=== PATIENT | female | born 1950 | race Caucasian/White ===

== ENCOUNTER → 2016-09-26 | Outpatient (CLI) | payer OTHER, MEDICARE ==
--- NOTE | 2016-09-26 12:25 | MAMMOGRAPHY REPORT ---
BILATERAL DIGITAL SCREENING MAMMOGRAM WITH CAD: 09/26/2016 CLINICAL HISTORY: Routine screening. Patient has no complaints. TECHNIQUE: Current study was also evaluated with a Computer Aided Detection (CAD) system. Bilateral CC and MLO views were obtained. COMPARISON: Comparison is made to exams dated: 09/25/2015 mammogram, 09/20/2014 mammogram, 09/19/2013 miesha mogram, 09/16/2012 mammogram, 09/16/2011 mammogram, and 09/09/2010 mammogram - [facility]. BREAST COMPOSITION: There are scattered areas of fibroglandular density in both breasts. FINDINGS: No suspicious masses, calcifications, or areas of architectural distortion are noted in ei ther breast. There has been no significant interval change compared to prior exams. IMPRESSION: ACR BI-RADS CATEGORY 1: NEGATIVE There is no mammographic evidence of malignancy. A 1 year screening mammogram is recommended. The pa tient will receive written notification of the results. Approximately 10% of breast cancers are not detected with mammography. A negative mammographic report should not delay biopsy if a clinically suggestive mass is present. Georgina Núñez M.D. /:09/26/2016 12:13:27 Stock Digger: Marisol VILLEDA)(Dorene), [facility] letter sent: Normal 1/2 BI-RADS Code: ACR BI-RADS Category 1: Negative
== END | disposition home or self-care (01) ==
LOC: C.MAMM 10:09
PROVIDERS: ATTEND Family Medicine
DX: Z12.31 Encounter for screening mammogram for malignant neoplasm of breast (principal)

== ENCOUNTER → 2017-05-07 | Day surgery (SDC) | payer OTHER, MEDICARE ==
[2017-04-15 08:21] VITALS: Ht 167.6 cm; Wt 70.5 kg
[~2017-05-07] VITALS: Ht 167.6 cm; Wt 70.5 kg
[~2017-05-07] MED LIST: AMIT10TA6 PO; ASPCH81X PO; BENZ100C84 PO; BUPIVACAINE 0.25% 2.5MG/ML PF 10 ML VIAL ONE; HYDR200T5 PO; IOPAMIDOL INJ 61% 15 ML VIAL ONE; LIDOCAINE HCL 1% MPF 5 ML VIAL ONE; MULT-506 PO; PRVC/40 PO
--- NOTE | 2017-05-07 12:51 | History & Physical Bridge - SC ---
H&P Re-Evaluation Bridge Note: I have examined the patient, reviewed the History & Physical and in the interval since the performance of the History & Physical I have noted the following changes of clinical significance: No changes noted
--- NOTE | 2017-05-07 13:12 | [facility] Post Operative Brief Note ---
Immediate Operative Summary Operative Date May 07, 2017. Pre-Operative Diagnosis SACROILIITIS Post-Operative Diagnosis SAME Procedure(s) Performed Left Sacroiliac Joint Injection Surgeon Dr Michael Lou Dental Mold Maker Surgeon(s) None Estimated Blood Loss 0 Findings Consistent with Post-Op Diagnosis Specimens NA Drains None Anesthesia Type Local Complication(s) none Disposition Disposition:
[2017-05-07 13:13] VITALS: TEMP 36.6
--- NOTE | 2017-05-07 13:13 | Discharge Instructions ---
Discharge Instructions Date of Service May 07, 2017. Visit Reason for Visit: Sacroiliitis Discharge Discharge Diagnosis / Problem: Low back pain Discharge Goals Goal(s): Decrease discomfort, Improve function Activity Recommendations Activity Limitations: resume your previous activity Anesthesia . Post Anesthesia Instructions: If you have had General Anesthesia or IV Sedation: * Do not drive today. * Resume driving when surgeon permits. * Do not make important decisions or sign legal documents today. * Call surgeon for: 1. Temperature elevations greater than 101 degrees F. 2. Uncontrollable pain. 3. Excessive bleeding. 4. Persistent nausea and vomiting. 5. Medication intolerance (nausea, vomiting or rash). * For nausea and vomiting use only clear liquids such as: tea, soda, bouillon until nausea subsides, then gradually increase diet as tolerated. * If you have any concerns or questions, call your surgeon's office. If physician is unavailable and it is an emergency, call 911 or go to the nearest emergency room. . Diet Recommendations Recommended Home Diet: resume previous diet Procedures Procedures Performed: Left Sacroiliac Joint Injection Pending Studies Studies pending at discharge: no Medical Emergencies . Who to Call and When: Medical Emergencies: If at any time you feel your situation is an emergency, please call 911 immediately. . Non-Emergent Contact Non-Emergency issues call your: Specialist . . "Provider Documentation" section prepared by Michael Lou. .
--- NOTE | 2017-05-07 13:29 | OPERATIVE REPORT ---
DATE OF OPERATION: 05/07/2017 PREOPERATIVE DIAGNOSES: Left sacroiliitis, underlying scoliosis and rheumatoid arthritis. POSTOPERATIVE DIAGNOSES: Same. PROCEDURE: Left sacroiliac joint injection under fluoroscopic guidance. INDICATIONS: The patient is a 66-year-old white female, who presents today for a left SI joint injection. Her history is consistent with an SI etiology of her pain and she presents today for an injection to provide her with relief. PHYSICAL EXAMINATION: Pleasant female seated comfortably. She has point tenderness to palpation of her left SI joint, positive Sejal maneuver, and positive sacral compression maneuver. CONSENT: Verbal and written consent was obtained from the patient. Risks and benefits were reviewed. Risks include, but are not limited to abscess and allergic reaction. The patient wishes to proceed. DESCRIPTION OF PROCEDURE: The patient was taken back into the special procedures room of [facility]. She was maintained in a prone position. Backside was cleansed with Betadine x3 and a dry sterile dressing was applied. Fluoroscope was used to identify the left SI joint and the overlying skin was anesthetized with 3 mL of lidocaine 1% with a 25-gauge 1-1/2 inch needle. A 25-gauge 3-1/2 inch spinal needle was then injected into the joint under fluoroscopic guidance. Isovue-300 contrast 0.25 mL was injected in which demonstrated intraarticular uptake. She then underwent injection after negative aspiration of 40 mg of Depo-Medrol and 1.5 mL of bupivacaine 0.25%. Injection was well tolerated. DISPOSITION: 1. The patient was taken out into the discharge recovery area, where she will be discharged home once discharge criteria have been met. 2. Follow up in the [facility] office in 4 weeks' time. I attest to the content of the Intraoperative Record and any orders documented therein. Any exception s are noted below.
[2017-05-07 13:37] VITALS: BP 130/75; PULSE 75; O2SAT 99
== END | disposition home or self-care (01) ==
LOC: X.SURG 12:15
PROVIDERS: ATTEND Physical Medicine & Rehabilitation
DX: M46.1 Sacroiliitis, not elsewhere classified (principal); M41.9 Scoliosis, unspecified; E78.5 Hyperlipidemia, unspecified; M06.9 Rheumatoid arthritis, unspecified; Z79.82 Long term (current) use of aspirin; Z83.3 Family history of diabetes mellitus

== ENCOUNTER → 2017-07-28 | Outpatient (CLI) | payer OTHER, MEDICARE ==
[~2017-07-28] MED LIST changes: -BUPIVACAINE 0.25% 2.5MG/ML PF 10 ML VIAL ONE; -IOPAMIDOL INJ 61% 15 ML VIAL ONE; -LIDOCAINE HCL 1% MPF 5 ML VIAL ONE
--- NOTE | 2017-07-28 15:31 | DIAGNOSTIC IMAGING REPORT ---
L HIP UNILATERAL 2 VIEWS CLINICAL HISTORY: D64.9, M54.9 pain COMPARISON: None. DISCUSSION: Mild degenerative narrowing left hip joint space. No evidence for acetabular protrusion. Mild degenerative change with a vacuum joint inferior left sacral iliac joint. There is no evidence for soft tissue swelling. IMPRESSION: Mild degenerative change left hip as well as left sacroiliac joint. No acute process. The above report was generated using voice recognition software. It may contain grammatical, syntax or spelling errors. Electronically signed by: Hector Hamilton M.D. 07/28/2017 3:29 PM Dictated Date/Time: 07/28/2017 3:29 PM
--- NOTE | 2017-07-28 15:32 | DIAGNOSTIC IMAGING REPORT ---
R HIP UNILATERAL 2 VIEWS CLINICAL HISTORY: D64.9, M54.9 pain COMPARISON: None DISCUSSION: Moderate to rather significant degenerative narrowing right hip joint space. Sclerosis of the superior acetabular margin with several degenerative subchondral cysts. No evidence for acetabular protrusion. No evidence for fracture or dislocation. There is no evidence for soft tissue swelling. IMPRESSION: Moderate to rather significant degenerative change right hip. No acute process. The above report was generated using voice recognition software. It may contain grammatical, syntax or spelling errors. Electronically signed by: Hector Hamilton M.D. 07/28/2017 3:31 PM Dictated Date/Time: 07/28/2017 3:30 PM
--- NOTE | 2017-07-28 15:36 | DIAGNOSTIC IMAGING REPORT ---
L-SPINE MIN 4 VIEWS ROUTINE HISTORY: Pain D64.9, M54.9 COMPARISON: None. FINDINGS: There is no fracture. Significant scoliosis of the low thoracic and lumbar spine. Grade 2 anterolisthesis L5 on S1 most likely secondary to a posterior spondylolysis. Partial lumbarization of S1. Degenerative disc change throughout. No evidence for compression deformity. IMPRESSION: Considerable degenerative disc change throughout the entire lumbar region. Grade 2 anterolisthesis L5 on S1 secondary to a posterior spondylolysis. Scoliosis. Lumbarization of the first sacral segment. The above report was generated using voice recognition software. It may contain grammatical, syntax or spelling errors. Electronically signed by: Hector Hamilton M.D. 07/28/2017 3:34 PM Dictated Date/Time: 07/28/2017 3:32 PM
== END | disposition home or self-care (01) ==
LOC: C.RAD 14:50
PROVIDERS: ATTEND Family Medicine
DX: D64.9 Anemia, unspecified (principal); M54.9 Dorsalgia, unspecified; M16.11 Unilateral primary osteoarthritis, right hip; M51.36 Other intervertebral disc degeneration, lumbar region; M43.16 Spondylolisthesis, lumbar region; M41.9 Scoliosis, unspecified; Q76.49 Other congenital malformations of spine, not associated with scoliosis

== ENCOUNTER → 2017-07-31 | Outpatient (CLI) | payer OTHER, MEDICARE ==
--- NOTE | 2017-07-31 09:36 | DIAGNOSTIC IMAGING REPORT ---
ABDOMEN LIMITED (US) CLINICAL HISTORY: 66 years-old Female presenting with ABDOMINAL PAIN. TECHNIQUE: Real-time grayscale and limited color Doppler ultrasound imaging of the abdomen limited to the right upper quadrant was performed. COMPARISON: None. FINDINGS: Pancreas: Visualized portions of the pancreatic head and body normal. Liver: Hyperechogenic parenchyma with heterogeneous echotexture, likely indicating fibrosis or steatosis. No sonographic evidence of hepatic mass. Main portal vein patent with normal directional flow. Biliary: No intrahepatic biliary ductal dilatation. Common bile duct measures up to 4 mm in diameter. Gallbladder: No evidence of gallstones, gallbladder wall thickening, gallbladder distention, or pericholecystic fluid or inflammatory change. Right kidney: Normal in appearance without evidence of hydronephrosis. Ascites: None. Other: Fat-containing hernia within the right inguinal canal. This was partially reducible with sonographic probe compression. No associated fluid. IMPRESSION: 1. No cholelithiasis or biliary ductal dilatation. 2. Heterogeneous liver parenchyma could indicate underlying steatosis or fibrosis. 3. Fat-containing right inguinal hernia, partially reducible. Electronically signed by: Matthew Valentin M.D. 07/31/2017 9:35 AM Dictated Date/Time: 07/31/2017 9:33 AM
== END | disposition home or self-care (01) ==
PROVIDERS: ATTEND Family Medicine
DX: R10.9 Unspecified abdominal pain (principal); D64.9 Anemia, unspecified; M54.9 Dorsalgia, unspecified; K44.9 Diaphragmatic hernia without obstruction or gangrene

== ENCOUNTER 2017-10-15 12:30 | Emergency (ER) | payer OTHER, MEDICARE ==
[2017-10-15] VITALS (9 sets, daily range): BP systolic 113–145; BP diastolic 59–76; PULSE 3–111; TEMP 37; O2SAT 75–99; Ht 165.1 cm; Wt 70.4 kg
[~2017-10-15] VITALS: Ht 165.1 cm; Wt 70.4 kg
[~2017-10-15 12:30] MED LIST changes: +ACET-1138 PO; -ASPCH81X PO; +ASPEC325 PO; +DICL1GEL12 TOP; +FERR1TAB13 PO; -HYDR200T5 PO; +PANT40TA PO; +RXC5 PO; +SENN-61 PO
[2017-10-15] MEDS ORDERED: FENTANYL CITRATE INJ 50 MCG/1 ML 2 ML VIAL ONE (12:40)
[2017-10-15] MEDS ORDERED: ONDANSETRON INJ 2 MG/ML 2 ML VIAL ONE (12:40)
[2017-10-15 12:59] LABS: BASO % 0.3 %; BASO ABS # 0.04 K/uL (0-0.2); EOS % 0.1 %; EOS ABS # 0.02 K/uL (0-0.5); HEMATOCRIT 41.2 % (37-47); HEMOGLOBIN 13.7 g/dL (12.0-16.0); IG# 0.03 K/uL (0.00-0.02); LYMPH % 9.1 %; LYMPH ABS # 1.25 K/uL (1.2-3.4); MEAN CELL VOLUME 91.2 fL (80-100); MEAN CORPUSCULAR HEMOGLOBIN 30.3 pg (25-34); MEAN CORPUSCULAR HGB CONC 33.3 g/dl (32-36); MEAN PLATELET VOLUME 9.1 fL (7.4-10.4); MONO % 2.5 %; MONO ABS # 0.35 K/uL (0.11-0.59); NEUT % 87.8 %; NEUT ABS # 12.09 K/uL (1.4-6.5); PLATELET COUNT 312 K/uL (130-400); RED CELL DISTRIBUTION WIDTH CV 17.2 % (11.5-14.5); RED CELL DISTRIBUTION WIDTH SD 57.7 fL (36.4-46.3); WHITE BLOOD COUNT 13.78 K/uL (4.8-10.8)
[2017-10-15] MEDS ORDERED: PROPOFOL IV EMULSION 10 MG/ML 20 ML VIAL ONE (13:09)
[2017-10-15 13:14] LABS: CALCIUM 9.9 mg/dl (8.5-10.1); CREATININE 1.06 mg/dl (0.60-1.20); POTASSIUM 3.5 mmol/L (3.5-5.1)
--- NOTE | 2017-10-15 13:16 | DIAGNOSTIC IMAGING REPORT ---
PELVIS 1 OR 2 VIEW ROUTINE, R HIP UNILATERAL 2 VIEWS CLINICAL HISTORY: eval for right hip dislocation. Right hip pain. COMPARISON STUDY: Pelvis and right hip 09/17/2017. FINDINGS: There is superior dislocation of the right femoral prosthesis in relation to the acetabular cup. No fractures identified within the pelvis or hips. IMPRESSION: Dislocation of the right femoral prosthesis. No fractures. Electronically signed by: Chi Alcantara M.D. 10/15/2017 1:14 PM Dictated Date/Time: 10/15/2017 1:13 PM
[2017-10-15] MEDS ORDERED: PROPOFOL IV EMULSION 10 MG/ML 20 ML VIAL IV STA ×2 (13:22→13:34)
[2017-10-15] MEDS ORDERED: KETAMINE HCL INJ 50 MG/ML 10 ML VIAL ONE (13:29)
[2017-10-15] MEDS ORDERED: KETAMINE HCL INJ 50 MG/ML 10 ML VIAL IV STA (13:34)
--- NOTE | 2017-10-15 13:59 | EMERGENCY ROOM VISIT NOTE ---
Pre-Mod Sedation Assessment General Date of Moderate Sedation: Oct 15, 2017. Vital Signs: Vital Signs Past 12 Hours Date Time Temp Pulse Resp B/P (MAP) Pulse Ox O2 Delivery O2 Flow Rate FiO2 10/15/17 13:50 93 8 122/65 98 Nasal Cannula 4.0 10/15/17 13:43 97 14 145/76 94 Nasal Cannula 8.0 10/15/17 13:40 96 8 113/60 92 Nasal Cannula 8.0 10/15/17 13:35 66 8 127/70 85 Nasal Cannula 8.0 10/15/17 13:30 110 20 127/70 99 Nasal Cannula 8.0 10/15/17 13:13 102 10/15/17 12:52 99 24 116/68 97 Room Air Pre-Sedation Airway Assessment Oral Cavity: WNL Able to Visualize Vocal Cords: No Short Thick Neck: No Smoking Status: Former Smoker Mallampati Classification: Class II Procedure Planning Contraindications-for Mod Sed: None No Notes The planned sedation has been discussed with the patient and consent obtained. I have identified the patient, determined the appropriateness of sedation and have assessed the patient immediately prior to the procedure. All medicine(s) and interventions are by my order.
--- NOTE | 2017-10-15 14:01 | EMERGENCY ROOM VISIT NOTE ---
Post-Moderate Sedation Plan General Date of Moderate Sedation Oct 15, 2017. Vital Signs: Vital Signs Past 12 Hours Date Time Temp Pulse Resp B/P (MAP) Pulse Ox O2 Delivery O2 Flow Rate FiO2 10/15/17 13:50 93 8 122/65 98 Nasal Cannula 4.0 10/15/17 13:43 97 14 145/76 94 Nasal Cannula 8.0 10/15/17 13:40 96 8 113/60 92 Nasal Cannula 8.0 10/15/17 13:35 66 8 127/70 85 Nasal Cannula 8.0 10/15/17 13:30 110 20 127/70 99 Nasal Cannula 8.0 10/15/17 13:13 102 10/15/17 12:52 99 24 116/68 97 Room Air Review - Discharge Plan Post Moderate Sedation Plan: On clinical assessment, the patient appears to have tolerated the conscious sedation without complications. Patient is recovering as anticipated. Patient will continue to be monitored by nursing and may be discharged when conscious sedation discharge criteria are met.
[2017-10-15] MEDS ORDERED: SENN-61 PO (14:22)
[2017-10-15] MEDS ORDERED: ASPI325T39 PO (14:22)
[2017-10-15] MEDS ORDERED: OXYC-90 PO ×2 (14:22→14:39)
--- NOTE | 2017-10-15 14:33 | DIAGNOSTIC IMAGING REPORT ---
R HIP UNILATERAL 2 VIEWS CLINICAL HISTORY: Right hip reduction. Fall. COMPARISON: Right hip radiographs October 15, 2017 12:47 PM. FINDINGS: Alignment of the right hip arthroplasty is anatomic post reduction. No fracture is identified. IMPRESSION: Anatomic alignment of the right hip arthroplasty post reduction. No fracture. Electronically signed by: Anthony Oshea M.D. 10/15/2017 2:32 PM Dictated Date/Time: 10/15/2017 1:57 PM
--- NOTE | 2017-10-15 15:22 | CONSULTATION REPORT ---
DATE OF CONSULTATION: 10/15/2017 CHIEF COMPLAINT: Right hip pain. HISTORY OF PRESENT ILLNESS: The patient is a 66-year-old female who presented to the [facility] ED with complaints of right hip pain and disability. Per the patient, she is 4 weeks status post right total hip arthroplasty by Dr. Madrigal. She states she was doing some exercises earlier today, bent over to the floor, felt her hip pop out, and had immediate pain and disability. She was brought to [facility] ED for evaluation. X-rays revealed a dislocated right hip. An orthopedics consult was asked for. PHYSICAL EXAMINATION: The patient is in a fair amount of discomfort with her right hip. Her right lower extremity is shortened and internally rotated. ASSESSMENT AND PLAN: After discussion with the patient, Dr. Browne administered conscious sedation. When the patient was adequately sedated, gentle traction was pulled on the flexed right knee and lower extremity. The hip was felt to reduce. Her leg lengths were now equal and the hip moved freely. Post-reduction x-rays were reviewed and showed the hip to be properly located. Prior to sedation, the patient was instructed in proper hip precautions moving forward here. This was also reiterated to the family after the hip was reduced. She has a scheduled appointment to see Dr. Madrigal in 2 weeks. She will keep that appointment and call the office, otherwise should she have recurrent pain or problems.
--- NOTE | 2017-10-15 18:03 | EMERGENCY ROOM VISIT NOTE ---
History Report prepared by Shona: Sahil Her Under the Supervision of: Dr. Negro Browne M.D. 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 The patient states she recently had a right hip replacement. She reports she was doing PT and had her hip bent outward and tried to squat down. The patient notes she felt a pop in her hip and slowly lowered herself to the ground. She denies falling and hitting her head. The patient states she last ate or drank this morning at 8am. She reports she had a few cups of coffee. The patient notes she did not receive anything for pain in the ambulance. She denies abdominal pain, fevers, and discharge from her incision site. She states she has been recovering well and using her cane to walk. The patient reports she cannot move without her discomfort intensifying. Source of History: patient Onset: NOC ENGINEER Position: other (right hip) Symptom Intensity: severe Timing: constant Modifying Factors (Worsening): movement Associated Symptoms: No fevers, No abdominal pain Note: Denies: falling, hitting her head, discharge from her incision site Review of Systems See HPI for pertinent positives & negatives. A total of 10 systems reviewed and were otherwise negative. Past Medical & Surgical Surgical Problems: (1) S/P total hip arthroplasty Family History Patient reports no known family medical history. Social History Smoking Status: Former Smoker Current/Historical Medications Scheduled Acetaminophen (Tylenol Extra Strength), 2 TABS PO Q8H Aspirin (Aspirin Ec), 325 MG PO BID Ferrous Sulfate (Kp Ferrous Sulfate), 325 MG PO BID Multivitamin (Multivitamin), 2 TAB PO QAM Pantoprazole (Protonix), 40 MG PO QAM Pravastatin Sod (Pravastatin Sodium), 40 MG PO HS Senna (Senokot), 2 TABS PO HS Scheduled PRN Amitriptyline Hcl (Elavil), 10 MG PO HS PRN for PRN Benzonatate (Tessalon Perles), 1-2 CAP PO Q4 PRN for Cough Diclofenac Sodium (Topical) (Voltaren 1% Top Gel), 1 APPLN TOP DAILY PRN for Pain Oxycodone Ir (Roxicodone Ir), 1-2 TAB PO Q4H PRN for Severe Pain Oxycodone Ir (Roxicodone Ir), 5 MG PO Q4H PRN for Pain Allergies Coded Allergies: NO KNOWN DRUG ALLERGIES (Verified Allergy, Unknown, NONE, 10/15/17) Physical Exam Vital Signs Date Time Temp Pulse Resp B/P (MAP) Pulse Ox O2 Delivery O2 Flow Rate FiO2 10/15/17 15:13 3 18 136/59 97 10/15/17 14:30 37.0 86 14 122/71 97 Room Air 10/15/17 14:17 89 10/15/17 14:00 37.0 88 12 144/75 98 Nasal Cannula 4.0 10/15/17 13:50 93 8 122/65 98 Nasal Cannula 4.0 10/15/17 13:43 97 14 145/76 94 Nasal Cannula 8.0 10/15/17 13:40 96 8 113/60 92 Nasal Cannula 8.0 10/15/17 13:35 66 8 127/70 85 Nasal Cannula 8.0 10/15/17 13:30 111 20 127/70 96 Nasal Cannula 8.0 10/15/17 13:25 60 0 75 Nasal Cannula 8.0 10/15/17 13:13 102 10/15/17 12:52 36.8 99 24 116/68 97 Room Air Physical Exam Constitutional: Vital signs reviewed. Eyes: Pupils are equal round reactive to light. Conjunctiva are noninjected. ENT: Pharynx is clear without erythema or exudate. Mucous membranes are moist. Neck supple without meningeal signs. Respiratory: Clear to auscultation bilaterally. Breath sounds are equal bilaterally. Cardiovascular: Regular rate and rhythm. No rubs or gallops. GI: Soft, nondistended and nontender. Bowel sounds are present. Musculoskeletal: Right hip is internally rotated and shortened. She has normal distal pulses, and she is able to wiggle and feel her toes. Integumentary: No cyanosis. Right hip incision is intact without signs of dehiscence, erythema or drainage. Neurological: The patient is awake and alert. No focal deficits. Psychiatric: Normal affect. Medical Decision & Procedures ER Provider Diagnostic Interpretation: X-ray results as stated below per interpretation by me and the radiologist: PELVIS 1 OR 2 VIEW ROUTINE, R HIP UNILATERAL 2 VIEWS CLINICAL HISTORY: eval for right hip dislocation. Right hip pain. COMPARISON STUDY: Pelvis and right hip 09/17/2017. FINDINGS: There is superior dislocation of the right femoral prosthesis in relation to the acetabular cup. No fractures identified within the pelvis or hips. IMPRESSION: Dislocation of the right femoral prosthesis. No fractures. Electronically signed by: Chi Alcantara M.D. 10/15/2017 1:14 PM Dictated Date/Time: 10/15/2017 1:13 PM R HIP UNILATERAL 2 VIEWS CLINICAL HISTORY: Right hip reduction. Fall. COMPARISON: Right hip radiographs October 15, 2017 12:47 PM. FINDINGS: Alignment of the right hip arthroplasty is anatomic post reduction. No fracture is identified. IMPRESSION: Anatomic alignment of the right hip arthroplasty post reduction. No fracture. Electronically signed by: Anthony Oshea M.D. 10/15/2017 2:32 PM Dictated Date/Time: 10/15/2017 1:57 PM Laboratory Results 10/15/17 12:40 Red Blood Count 4.52, Mean Corpuscular Volume 91.2, Mean Corpuscular Hemoglobin 30.3, Mean Corpuscular Hemoglobin Concent 33.3, Mean Platelet Volume 9.1, Neutrophils (%) (Auto) 87.8, Lymphocytes (%) (Auto) 9.1, Monocytes (%) (Auto) 2.5, Eosinophils (%) (Auto) 0.1, Basophils (%) (Auto) 0.3, Neutrophils # (Auto) 12.09, Lymphocytes # (Auto) 1.25, Monocytes # (Auto) 0.35, Eosinophils # (Auto) 0.02, Basophils # (Auto) 0.04 10/15/17 12:40 Test 10/15/17 12:40 White Blood Count 13.78 K/uL (4.8-10.8) Red Blood Count 4.52 M/uL (4.2-5.4) Hemoglobin 13.7 g/dL (12.0-16.0) Hematocrit 41.2 % (37-47) Mean Corpuscular Volume 91.2 fL (80-100) Mean Corpuscular Hemoglobin 30.3 pg (25-34) Mean Corpuscular Hemoglobin Concent 33.3 g/dl (32-36) Platelet Count 312 K/uL (130-400) Mean Platelet Volume 9.1 fL (7.4-10.4) Neutrophils (%) (Auto) 87.8 % Lymphocytes (%) (Auto) 9.1 % Monocytes (%) (Auto) 2.5 % Eosinophils (%) (Auto) 0.1 % Basophils (%) (Auto) 0.3 % Neutrophils # (Auto) 12.09 K/uL (1.4-6.5) Lymphocytes # (Auto) 1.25 K/uL (1.2-3.4) Monocytes # (Auto) 0.35 K/uL (0.11-0.59) Eosinophils # (Auto) 0.02 K/uL (0-0.5) Basophils # (Auto) 0.04 K/uL (0-0.2) RDW Standard Deviation 57.7 fL (36.4-46.3) RDW Coefficient of Variation 17.2 % (11.5-14.5) Immature Granulocyte % (Auto) 0.2 % Immature Granulocyte # (Auto) 0.03 K/uL (0.00-0.02) Anion Gap 11.0 mmol/L (3-11) Est Creatinine Clear Calc Drug Dose 50.0 ml/min Estimated GFR () 62.5 Estimated GFR (Non- 53.9 BUN/Creatinine Ratio 15.9 (10-20) Calcium Level 9.9 mg/dl (8.5-10.1) Laboratory results as reviewed by me. Medications Administered Medications (Trade) Dose Ordered Sig/Nita Route Start Time Stop Time Status Last Admin Dose Admin Ondansetron HCl (Zofran Inj) 4 mg STK-MED ONCE .ROUTE 10/15/17 12:40 10/15/17 12:41 DC 10/15/17 12:44 4 MG Fentanyl Citrate (Fentanyl Inj) 100 mcg STK-MED ONCE .ROUTE 10/15/17 12:40 10/15/17 12:41 DC 10/15/17 12:45 100 MCG Procedure Procedural Sedation Indication hip dislocation. Total time: 22 minutes. Written consent was obtained after the risks and benefits were explained to the patient, including, but not limited to aspiration, allergic reaction, breathing difficulties, cardiac complications, vomiting, pain, event recall, bleeding, and /or infection. Pre-sedation examination and paperwork completed. The patient was on 100% oxygen via NRB prior to the procedure. Continuos end tidal CO2 monitoring, pulse oximetry, and cardiac monitoring were utilized. Suction, airway equipment, medications, respiratory equipment, and appropriate personnel were prepared prior to the initiation of the procedure. A time out was taken. Sedation was achieved utilizing 75 mg of propofol. The patient became apneic and de-sated to the 70s. She immediately woke up with a sternal chest rub, took deep breathes, and her O2Sat returned to baseline. Orthopedics attempted reduction but was unsuccessful. A short time passed when the sedation was tried a second time. This time 35 mg of propofol and 35 mg of Ketamine was used. After I observed the patient had reached the appropriate level of sedation the main procedure was performed without complication. The patient showed frequent PVCs. Sedation was discontinued and the monitoring continued. The patient recovered quickly from the effects of the medication without complication or adverse event. ED Course 1237: The patient was evaluated in room B10. A complete history and physical exam was performed. 1240: Ordered Fentanyl 100mcg .ROUTE, Zofran 4mg .ROUTE 1254: I reevaluated the patient. I discussed her x-ray results. They show dislocation of the right prosthetic hip. 1303: I discussed the patient's case with Pablito Lopez PA-C, [facility]. He will come down to evaluate the patient and reduce the hip. 1305: I reevaluated the patient and performed a conscious sedation. 1309: Ordered Propofol 200mg .ROUTE 1322: Ordered Propofol 40mg IV 1329: Ordered Ketamine HCl 50mg .ROUTE 1334: Ordered Propofol 35mg IV, Ketamine HCl 35mg IV 1434: I reevaluated the patient. She is awake, alert, and the nurse is getting her something to drink. I discussed her results. She is in agreement with the discharge instructions and treatment plan. Medical Decision This is a 66-year-old female presents with right hip pain. Differential diagnosis includes hip dislocation, periprosthetic fracture, pelvic fracture, strain, sprain. I did perform a limited focused review of portions of the patient's old chart on the electronic medical record. The patient had a right hip replacement by Dr. Madrigal on September 17. I did evaluate the patient as noted above. IV access was established. I did treat patient with IV Zofran and 100 mcg of fentanyl IV. I did order and personally review the patient's stat portable hip and pelvis x-rays as described above. She does have an obvious dislocation of the right hip. I did order and review the patient's blood work as noted in the electronic medical record. I did consult [facility]. They did come down and evaluate the patient. The hip was reduced under conscious sedation by orthopedics. I did provide conscious sedation as noted above. Postreduction x-rays were obtained. The patient recovered fully from the sedation and was discharged home with a short prescription for oxycodone should she needed for breakthrough pain. She was advised to follow-up with her orthopedic doctor. She and her family were given activity instructions and restrictions by the orthopedist. [place] Drug Monitoring Program Search Results: patient reviewed within database, no issues identified Medication Reconcilliation Current Medication List: was personally reviewed by me Blood Pressure Screening Patient's blood pressure: Normal blood pressure Blood pressure disposition: Did not require urgent referral Consults Time Called: 1254 Consulting Physician: Pablito Lopez PA-C, [facility] Returned Call: 1303 I discussed the patient's case with Pablito Lopez PA-C, [facility]. He will come down to evaluate the patient and reduce the hip. Impression Primary Impression: Hip dislocation, right Scribe Attestation The scribe's documentation has been prepared under my direct and personally reviewed by me in its entirety. I confirm that the note above accurately reflects all work, treatment, procedures, and medical decision making performed by me. Departure Information Dispostion Home / Self-Care Prescriptions Oxycodone Ir (Roxicodone Ir) 5 Mg Tab 5 MG PO Q4H Y for Pain, #10 TAB Prov: Negro Browne M.D. 10/15/17 Referrals Magaly Mcmillan D.O. (PCP) Forms HOME CARE DOCUMENTATION FORM, IMPORTANT VISIT INFORMATION Patient Instructions ED Dislocation Hip Traumatic Redu, My [facility] Additional Instructions You have been examined and treated today on an emergency basis only. This is not a substitute for, or an effort to provide, complete comprehensive medical care. It is impossible to recognize and treat all injuries or illnesses in a single emergency department visit. It is therefore important that you follow up closely with your physician. Call as soon as possible for an appointment. Return for worsening symptoms or if you develop numbness or weakness to your right leg or any other concerning symptoms. Problem Qualifiers Primary Impression: Hip dislocation, right Encounter type: initial encounter Qualified Codes: S73.004A - Unspecified dislocation of right hip, initial encounter
== END 2017-10-15 15:15 | disposition home or self-care (01) ==
LOC: EDBD 12:30 → C.EDB 12:31
DX: T84.020A Dislocation of internal right hip prosthesis, initial encounter (principal); Z96.641 Presence of right artificial hip joint; Z79.82 Long term (current) use of aspirin; Z79.899 Other long term (current) drug therapy; Y79.2 Prosthetic and other implants, materials and accessory orthopedic devices associated with adverse incidents

== ENCOUNTER 2018-08-25 05:18 | Inpatient (IN) ==
--- NOTE | 2018-07-06 13:26 | PAT Medication Instructions ---
Medication Instructions Date of Service July 06, 2018 Home Medications amitriptyline 10 mg PO HS PRN amoxicillin 4 cap PO UD PRN benzonatate 100 mg PO UD PRN celecoxib 200 mg PO QAM cyanocobalamin (vitamin B-12) 1,000 mcg PO DAILY multivitamin [Multiple Vitamins] 1 tab PO DAILY pravastatin 40 mg PO HS Continue as directed amoxicillin 4 cap PO UD PRN as needed for dental procedures ASK your surgeon for instructions celecoxib 200 mg PO QAM DO NOT take the morning of surgery benzonatate 100 mg PO UD PRN cyanocobalamin (vitamin B-12) 1,000 mcg PO DAILY multivitamin [Multiple Vitamins] 1 tab PO DAILY Take evening before surgery amitriptyline 10 mg PO HS PRN (if needed) benzonatate 100 mg PO UD PRN (if needed) pravastatin 40 mg PO HS Other Notes If you have any questions please call us at [phone] or [phone] or [phone] or [phone]
--- NOTE | 2018-07-06 14:05 | Anesthesiology Consultation ---
Date of Service July 06, 2018 Assessment & Plan (1) Encounter for pre-operative examination: - Patients surgery is being cancelled at this point due to surgeons lack of availability. Will need rescheduled at a later date. Chart Review Chart Review: Patient seen in Pre Admission Testing Consults Requested medical (Dr. Mcmillan (07/06)) Teaching & Discussion Pre-Anesthesia Teaching/Discussion Notes: Instructed NPO after midnight before surgery, except medications with 15 cc of water. Medication instructions provided according to the PAT guidelines. History Surgery Operation Date: 07/22/18 10:55 Proposed Procedures p Right Total Hip Revision Femoral Head and Acetabular Revision to Constrained Liner Catherine Madrigal MD Height/Weight Height: 5 ft 5 in Weight: 67.4 kg Allergies Allergy/AdvReac Type Severity Reaction Status Date / Time No Known Allergies Allergy Verified 07/01/18 11:37 Medications Home Medications Medication Instructions Recorded Confirmed Last Taken amitriptyline 10 mg PO HS PRN 07/01/18 07/01/18 Unknown amoxicillin 4 cap PO UD PRN 07/01/18 07/01/18 Unknown benzonatate 100 mg PO UD PRN 07/01/18 07/01/18 Unknown celecoxib 200 mg PO QAM 07/01/18 07/01/18 07/01/18 cyanocobalamin (vitamin B-12) 1,000 mcg PO DAILY 07/01/18 07/01/18 Unknown [Vitamin B-12] multivitamin [Multiple Vitamins] 1 tab PO DAILY 07/01/18 07/01/18 07/01/18 pravastatin 40 mg PO HS 07/01/18 07/01/18 06/30/18 Past Medical History Medical History High cholesterol History of anemia History of anesthesia reaction TROUBLE WITH SPINAL PLACEMENT FOR HIP REPLACEMENT DUE TO SCOLIOSIS - HAD TO TRY A FEW TIMES History of back problems INJECTION FOR 1.5 YR AGO History of mitral valve prolapse 11 YR AGO - NO CURRENT CARDIO Osteoarthritis Past Family History Family History Other Family history of cancer Past Surgical History Surgical History History of colonoscopy History of endoscopy History of hernia surgery History of tooth extraction 2 TEETH JAN 2018 - F/U WITH DENTAL 06/30/18 "HEALING" History of total right hip arthroplasty History of tubal ligation Past Anesthesia History No Family Hx of Anesthesia Complications Difficulty placing spinal with FAUSTINO. Otherwise no problems with anesthesia. History of PONV No Motion Sickness Screening History of Motion Sickness: No Social History Smoking Status: Former smoker tobacco type: cigarettes Do You Dip or Chew Tobacco: No Smoking End Date: QUIT 38 YR AGO Hx Alcohol Use: Yes Alcohol type: wine alcohol intake frequency: other Alcohol Intake Frequency Comment: 3-4 GLASSES A WEEK Hx Substance Use: No substance use type: does not use Exercise / Class Metabolic Activity II 4-5 Yardwork/Stairs/Walk up hill (Housework, able to climb FOS without CP or SOB. Bike riding when it is nice. ) Review of Systems Patient denies chest pain, shortness of breath, dyspnea on exertion, reflux, cough, wheezing, palpitations. +Joint Pain (right hip, hands) Physical Exam Vital Signs BP: 111/55 P: 83 R: 16 T: 98.4 SPO2: 97% on RA Respiratory normal respiratory effort Auscultation: lungs clear to auscultation bilaterally Cardiovascular Rate/Rhythm: regular rate and regular rhythm Heart Sounds: no murmur Vessels: no carotid bruit Musculoskeletal Spine: + scoliosis Neurologic moves all extremities Psychiatric Orientation: alert and oriented x 3 Testing Electrocardiogram Date: 07/06/18 Sinus rhythm with frequent PVCs. Left anterior fascicular block. When compared with ECG of 08/18/17, PVC's are now present. Chest X-Ray Date: 07/06/18 Findings: + NAD COMPARISON STUDY: 10/12/2014 FINDINGS: The bones soft tissues and hemidiaphragms are normal. The cardiomediastinal silhouette is normal. The lungs are clear. The pulmonary vasculature is normal. Emphysematous change IMPRESSION: No acute process. Moderate emphysematous change. Laboratory Results 07/06/18 13:34 07/06/18 13:34 Blood Type A Positive 07/06/18 13:34 Antibody Screen NEGATIVE 07/06/18 13:34 PT 10.3 Seconds (9.0-12.0) 07/06/18 13:34 INR 1.0 (0.9-1.1) 07/06/18 13:34 APTT 25.2 Seconds (21.0-31.0) 07/06/18 13:34 Hemoglobin A1c 5.2 % (4.5-5.6) 07/06/18 13:34 Urine Color Yellow 07/06/18 Unknown Urine Appearance Clear (Clear) 07/06/18 Unknown Urine pH 5.0 (4.5-7.5) 07/06/18 Unknown Ur Specific [place] 1.026 (1.000-1.030) 07/06/18 Unknown Urine Protein Negative (Negative) 07/06/18 Unknown Urine Glucose (UA) Negative (Negative) 07/06/18 Unknown Urine Ketones Negative (Negative) 07/06/18 Unknown Urine Nitrite Negative (Negative) 07/06/18 Unknown Ur Leukocyte Esterase Negative (Negative) 07/06/18 Unknown
--- NOTE | 2018-07-06 14:34 | XRay Report ---
XR chest Pre-admission PA/Lat CLINICAL HISTORY: pat preoperative evaluation COMPARISON STUDY: 10/12/2014 FINDINGS: The bones soft tissues and hemidiaphragms are normal. The card iomediastinal silhouette is normal. The lungs are clear. The pulmonary vasculature is normal. Emphyse matous change IMPRESSION: No acute process. Moderate emphysematous change. The above report was generated using voice recognition software. It may contain grammatical, syntax or spelling errors. Electronically signed by: Hector Hamilton M.D. 07/06/2018 2:33 PM
[2018-07-06 14:54] LABS: Albumin Level 3.8 gm/dl (3.4-5.0); BUN Creatinine Ratio 28.2 (10-20); Calcium 9.6 mg/dl (8.5-10.1); Creatinine Clr Calc Pharmacy 51.9 ml/min; Est GFR (African American) 73.6; Est GFR (Non-African American) 63.5; Potassium 3.8 mmol/L (3.5-5.1)
[2018-07-06 15:04] LABS: Appearance Urine Clear (Clear); Bilirubin Urine Negative (Negative); Blood Urine Negative (Negative); Color Urine Yellow; Glucose Urine UA Negative (Negative); Ketones Urine Negative (Negative); Leukocyte Esterase Urine Negative (Negative); Nitrite Urine Negative (Negative); Protein Urine Negative (Negative); Specific Gravity Urine 1.026 (1.000-1.030); Urobilinogen Urine Negative (Negative)
[2018-07-06 15:04] LABS: Partial Thromboplastin Ratio 0.9; Partial Thromboplastin Time 25.2 Seconds (21.0-31.0); Prothrombin Time 10.3 Seconds (9.0-12.0)
[2018-07-06 15:19] LABS: Estimated Average Glucose 103 mg/dl; Hemoglobin A1C 5.2 % (4.5-5.6)
[2018-07-06 15:45] LABS: Basophils # (auto) 0.06 K/uL (0-0.2); Eosinophils # (auto) 0.09 K/uL (0-0.5); Eosinophils % (auto) 1.5 %; Hematocrit (blood only) 37.9 % (37-47); Hemoglobin 13.1 g/dL (12.0-16.0); Immature Granulocytes # (auto) 0.01 K/uL (0.00-0.02); Immature Granulocytes % (auto) 0.2 %; Lymphocytes # (auto) 1.96 K/uL (1.2-3.4); Mean Corpuscular Hgb Conc 34.6 g/dL (32-36); Mean Corpuscular Volume 101.6 fL (80-100); Mean Platelet Volume 9.4 fL (7.4-10.4); Monocytes # (auto) 0.21 K/uL (0.11-0.59); Monocytes % (auto) 3.4 %; Neutrophils # (auto) 3.79 K/uL (1.4-6.5); Neutrophils % (auto) 61.9 %; Platelet Count 267 K/uL (130-400); RDW Coefficient of Variation 12.9 % (11.5-14.5); RDW Standard Deviation 48.1 fL (36.4-46.3); Red Blood Count 3.73 M/uL (4.2-5.4); White Blood Count 6.12 K/uL (4.8-10.8)
--- NOTE | 2018-08-24 17:41 | History and Physical Report ---
DATE OF ADMISSION: 08/25/2018 CHIEF COMPLAINT: Chronic hip dislocation. HISTORY OF PRESENT ILLNESS: This is a 67-year-old female patient of Dr. Marsh complaining of chronic total hip replacement dislocations and pain. She originally had a total hip replacement in August 2017. She had her first dislocation 3 weeks postoperatively, which was reduced in the Emergency Department. She recently about a month or so ago had another dislocation which was also reduced in the Emergency Department. At this point in time since she did have 2 dislocations she has been diagnosed as unstable. Indications, risks, benefits, and postop course have all been reviewed with her. The patient wishes to proceed with a right total hip revision femoral head and acetabular component to a constrained liner procedure. PAST MEDICAL HISTORY: Hypercholesterolemia, anemia, rheumatoid arthritis, osteoarthritis, sciatica. SOCIAL HISTORY: Nonsmoker, occasional drinker. PAST SURGICAL HISTORY: Right total hip hernia and tubal ligation. FAMILY HISTORY: Noncontributory. REVIEW OF SYSTEMS: Recurrent right hip total hip replacement dislocation. Otherwise, denies any shortness of breath, chest pain, nausea, vomiting or other joint complaint. MEDICATIONS: Hydroxychloroquine 200 mg daily, pravastatin 40 mg daily, amitriptyline 10 mg 3 times daily, benzonatate 100 mg 3 times daily, Voltaren 1% topical gel 4 times daily as needed, ferrous sulfate 325 daily, multivitamin daily. ALLERGIES: No known drug allergies. PHYSICAL EXAMINATION: GENERAL: At present a 67-year-old female in no acute distress. She is alert and oriented x3 and pleasant. HEENT: Normocephalic, atraumatic. Extraocular motions are intact. Pupils are equal and reactive to light. HEART: Regular rate and rhythm, no murmurs. LUNGS: Clear. ABDOMEN: Soft and nontender. Bowel sounds present. EXTREMITIES: Currently the hip is located with no deformity. Gentle range of motion is comfortable. Strengthening was deferred. NEUROLOGIC: Neurovascularly, she is intact in her right lower extremity. DIAGNOSES: Recurrent right hip dislocation status post total hip arthroplasty, hypercholesterolemia, anemia, rheumatoid arthritis, osteoarthritis, sciatica. PLAN: The patient was advised of her diagnosis. Indications, risks, benefits, postop course have all been reviewed. The patient wished to proceed with a right total hip revision femoral head and acetabular component with application constrained liner. Necessary consent forms, preoperative testing and clearances will be obtained. SUKHDEV
[2018-08-25] MEDS ORDERED: METOCLOPRAMIDE HCL 10 MG TABLET PO SCH (06:00)
[2018-08-25] MEDS ORDERED: CeleBREX 200 MG CAP PO SCH (06:00)
[2018-08-25] MEDS ORDERED: TRANEXAMIC ACID 1,000 MG **IV Pre-op IV SCH (06:00)
[2018-08-25] MEDS ORDERED: LR 500ML BOLUS, THEN 15ML/HR IV SCH (06:00)
[2018-08-25] MEDS ORDERED: FAMOTIDINE 20 MG TAB PO SCH (06:00)
[2018-08-25] MEDS ORDERED: ROPIVACAINE 0.5% HCL/PF 150 MG, BUPIVACAINE 0.5% MPF 30 ML, EPINEPHrine 30MG/30ML (OR U... INFIL SCH (06:00)
[2018-08-25] MEDS ORDERED: CEFAZOLIN 1000MG 1,000 MG/7.5 ML SYR IV SCH (06:00)
[2018-08-25] MEDS ORDERED: dexAMETHasone 4 MG TAB PO SCH (06:00)
[2018-08-25] MEDS ORDERED: VANCOMYCIN HCL 1,000 MG/270 ML BAG IV SCH (06:00)
[2018-08-25] MEDS ORDERED: GABAPENTIN 300 MG PO SCH (06:00)
[2018-08-25] MEDS ORDERED: ACETAMINOPHEN 500 MG TAB PO SCH (06:00)
[2018-08-25] MEDS ORDERED: BUPIVACAINE 0.5 % 5 MG/1 ML PF 10ML VIAL ONE (06:16)
[2018-08-25] MEDS ORDERED: TRANEXAMIC ACID 1,000 MG **IV Intra-op IV SCH (06:30)
[2018-08-25] MEDS ORDERED: ORTHO JOINT ANESTHETIC ONE (07:00)
[2018-08-25] MEDS ORDERED: BACITRACIN INJ 50,000 UNIT VIAL ONE ×2 (07:01→09:08)
[2018-08-25] MEDS ORDERED: POVIDONE-IODINE OP SOLN 30 ML BTL ONE (07:01)
[2018-08-25] MEDS ORDERED: LIDOCAINE HCL 2% 2 ML VIAL/AMP(20MG/ML) INFIL ONE (07:02)
[2018-08-25] MEDS ORDERED: fentaNYL citrate 100 MCG/2 ML VIAL ONE (07:02)
[2018-08-25] MEDS ORDERED: MIDAZOLAM HCL 1 MG/ML 2ML VIAL ONE (07:03)
--- NOTE | 2018-08-25 07:12 | History & Physical Bridge Note ---
Date of Service August 25, 2018 History & Physical Bridge Note I have examined the patient, reviewed the History & Physical and in the interval since the performance of the History & Physical I have noted the following changes of clinical significance: no changes noted
[2018-08-25] MEDS ORDERED: HYDROmorphone INJ 2 MG/ML SYR/VIAL ONE (08:00)
[2018-08-25] MEDS ORDERED: ePHEDrine sulfate 50 MG/ML AMP IV PRN (08:25)
[2018-08-25] MEDS ORDERED: ONDANSETRON INJ 2 MG/ML 2 ML VIAL IV PRN ×2 (08:25→11:18)
[2018-08-25] MEDS ORDERED: HYDROmorphone INJ 1 MG/ML SYRINGE IV PRN (08:25)
[2018-08-25] MEDS ORDERED: ATROPINE SULFATE 0.1 MG/ML 10ML SYR IV PRN (08:25)
[2018-08-25] MEDS ORDERED: ePHEDrine sulfate 50 MG/ML AMP ONE (08:37)
--- NOTE | 2018-08-25 09:52 | Post Operative Brief Note ---
Immediate Post Op Note v1 Date of Surgery August 25, 2018 Pre & Post Diagnosis Operation Date: 08/25/18 07:30 Pre-Op Diagnosis: Recurrent dislocation of Internal Right Hip Prosthesis Post-Op Diagnosis: Recurrent dislocation of Internal Right Hip Prosthesis Procedure Operation Date: 08/25/18 07:30 Actual Procedures p Right Total Hip Revision Femoral Head and Acetabular Revision to Constrained Liner(Right) -Joo Aleman MD Surgeon Joo Aleman MD Superintendent Pier Hector TEE Estimated Blood Loss 30 Findings Consistent with Post-Op Diagnosis Anesthesia Type General Complications none Disposition Accompanied Patient To Recovery: No Disposition: Recovery Room Overlapping Procedure I was immediately available: during the entire case.
--- NOTE | 2018-08-25 09:58 | Post Operative Brief Note ---
Immediate Post Op Note v1 Date of Surgery August 25, 2018 Pre & Post Diagnosis Operation Date: 08/25/18 07:30 Pre-Op Diagnosis: Dislocation of Internal Right Hip Prosthesis Post-Op Diagnosis: Dislocation of Internal Right Hip Prosthesis Procedure Operation Date: 08/25/18 07:30 Actual Procedures p Right Total Hip Revision Femoral Head and Acetabular Revision to Constrained Liner(Right) - Joo Fragoso MD Surgeon Colby Leach DO Tool Worker Hector TEE Estimated Blood Loss 30 Findings Consistent with Post-Op Diagnosis Specimens cultures deep x 2 Anesthesia Type General Complications none Disposition Disposition: Recovery Room Overlapping Procedure I was present for: the critical portions of procedure. I was immediately available: during the entire case. Back up surgeon: was not required during procedure.
--- NOTE | 2018-08-25 10:04 | Operative Report ---
Post Operative Report Pre & Post Diagnosis Operation Date: 08/25/18 07:30 Pre-Op Diagnosis: Dislocation of Internal Right Hip Prosthesis Post-Op Diagnosis: Dislocation of Internal Right Hip Prosthesis Procedure Operation Date: 08/25/18 07:30 Actual Procedures p Right Total Hip Revision Femoral Head and Acetabular Revision to Constrained Liner(Right) - Joo Fragoso MD Surgeon Colby Leach DO Outpatient Coding Specialist Hector TEE Estimated Blood Loss 30 Findings Consistent with Post-Op Diagnosis Specimens cultures deep synovial fluid x 2 Indications The patient is a 67-year-old female with prior history of right total hip arthroplasty in August 2017 who presents with significant pain, dysfunction and instability of the right hip over the last year with multiple hip dislocations the first 3 weeks postoperatively. The patient on XR has well aligned well fixed prosthesis and has failed outpatient conservative treatments including anti-inflammatories and physical therapy, bracing. The patient was worked up pre-operatively for infection which was ruled out. I indicated the patient for a revision total hip arthroplasty, head and liner exchange with constrained liner and possible revision of the acetabular and femoral components. The risks and benefits were explained in detail which included but not limited to infection, bleeding, blood clot, damage to surrounding bone, nerves, vessels, soft tissue, hip dislocation, failure of the prosthesis, leg length discrepancy, need for additional surgery and . The patient agreed to proceed with replacement of the hip and informed consent was obtained. Appropriate clearances were obtained. Description of Procedure Following induction of adequate general anesthesia, the patient was transferred to the OR table and placed in lateral decubitus position with left hip down. The right hip was prepped and draped in the typical sterile fashion and a posterolateral/Killian-Langenbeck incision was made inline with the previous incision. Subcutaneous tissue was sharply dissected. Electrocautery was utilized for hemostasis. The fascia was incised throughout the length of the wound and retracted with the Charnley retractor. Retained suture from previous surgery was removed. The bursa was taken down and the short external rotators a nd capsule were identified and tagged with two #1 Vicryl sutures. The short external rotators and capsule were divided from the posterior aspect of the femur using electrocautery. Both external rotators and posterior capsule were swept posterior and protected, along with protecting the sciatic nerve. Total hip prosthesis was identified and three intra-articular cultures were obtained. Meticulous removal of intra-articular scar tissue was performed with bovie. The hip prosthesis was dislocated by flexion and internal rotation in a controlled manner. The femoral head was removed from the trunion, which was clean and was without signs of wear. The femoral stem stability assessed and found to be stable without signs of loosening. Next, exposure of the acetabulum was obtained. Additional scar tissue removal and debridement of the intra-articular soft tissue was performed. Utilizing the liner extraction tool the liner was removed. Acetabular cup stability was assessed and found to be stable and without signs of loosening. Next, a 22mm E acetabular liner was inserted and properly seated. Access to the proximal femur was once more gained and the final 22+3mm femoral head was impacted into place and the hip was reduced. The hip was found to be stable in all degrees of rotation with hip flexion and extension with no impingement and leg lengths were equal. A Betadine soak was performed for 3 minutes at this time. The wound was copiously irrigated with sterile saline solution with bacitracin. The chema-incisional soft tissue was injected utilizing [place] ortho mix which includes a combination of Ropivicaine 0.5% 150mg, Bupivicaine 0.5%/Epinephrine 1:200,000 30ml, Toradol 30mg, Dexamethasone 4mg, Ketamine 10mg, Clonidine 100mcg and NSS 30ml solution. The external rotators and capsule were repaired to the greater trochanter through bone tunnels using #5 FiberWire. The fascia was closed using #1 Vicryl, subcutaneous tissue was closed using 2-0 Vicryl, and skin was closed with jimmy. Sterile dressings were applied which included Teagan incisional VAC. A abduction pillow was placed between the legs. The patient tolerated the procedure well and was transported to PACU in stable condition. Due to the complex nature of the procedure, the entire surgery was performed with the operational assistance of Cezar Fragoso MD, Hector Campbell PA-C. The licensed loan officer assistant, under direct supervision, was involved in the actual performance of all aspects of the surgical procedure including patient positioning, hemostasis, tissue retraction, instrument management and wound closure. I attest to the content of the Intraoperative Record and any orders documented therein. Any exceptions are noted below.
[2018-08-25] MEDS ORDERED: GLYCOPYRROLATE 0.2 MG/ML VIAL ONE (10:15)
[2018-08-25] MEDS ORDERED: ONDANSETRON INJ 2 MG/ML 2 ML VIAL ONE (10:15)
[2018-08-25] MEDS ORDERED: NEOSTIGMINE METHYLSULFATE 5 MG/5 ML SYR ONE (10:15)
[2018-08-25] MEDS: fentaNYL citrate 100 MCG/2 ML VIAL IV PRN ×2 (10:19→10:25)
--- NOTE | 2018-08-25 11:00 | XRay Report ---
XR hip 1V RT w pelvis HISTORY: 67 years-old Female IN PACU - A/P PELVIS and LATERAL HIP right hip total joint arthroplast y. History of degenerative joint disease COMPARISON: Right hip radiographs 10/15/2017 TECHNIQUE: AP view of the pelvis with 2 views of the right hip FINDINGS: Right hip total joint arthroplasty is noted with satisfactory alignment. There is a ring device noted projecting over the femoral neck region. No acute fracture. Lateral skin jimmy are noted with expe cted postsurgical soft tissue swelling and deep tissue air with surgical drainage catheter. Moderate left hip osteoarthritis with suggestion of chondrocalcinosis. IMPRESSION: Satisfactory alignment of right hip total joint arthroplasty. The above report was generated using voice recognition software. It may contain grammatical, syntax o r spelling errors. Electronically signed by: Isaac Kimble M.D. 08/25/2018 10:59 AM
--- NOTE | 2018-08-25 11:01 | Anesthesiology Progress Note ---
Date of Service August 25, 2018 Anesthesia Post Procedure Vital Signs Vital Signs: Temp Pulse Pulse Resp BP Pulse Ox 08/25/18 10:55 36.3 C L 73 15 116/64 94 08/25/18 10:45 80 15 120/61 95 08/25/18 10:35 75 14 125/61 100 08/25/18 10:25 84 16 113/70 100 08/25/18 10:15 76 15 116/59 L 100 08/25/18 10:05 36 C L 76 16 107/55 L 100 08/25/18 06:15 160/71 H 08/25/18 06:11 36.8 C 102 H 20 160/99 H 98 Pain Intensity Right Hip: Pain Intensity: 4 Transfer of Care Handoff Completed per policy Notes Mental Status: alert / awake / arousable and participated in evaluation Patient Amnestic to Procedure: Yes Nausea / Vomiting: adequately controlled Pain: adequately controlled Airway Patency, RR, SpO2: stable & adequate BP & HR: stable & adequate Hydration State: stable & adequate Anesthetic Complications: no major complications apparent and Pt Satisfied with anesthetic care
[2018-08-25] MEDS ORDERED: AMITRIPTYLINE HCL 10 MG TAB PO PRN (11:18)
[2018-08-25] MEDS ORDERED: NALOXONE HCL 0.4 MG/1 ML VIAL/CARP IV PRN (11:18)
[2018-08-25] MEDS ORDERED: HYDROmorphone INJ 0.5 MG/0.5 ML SYR IV PRN (11:18)
[2018-08-25] MEDS ORDERED: METOCLOPRAMIDE HCL INJ 5 MG/ML 2 ML VIAL IV PRN (11:18)
[2018-08-25] MEDS ORDERED: MAGNESIUM HYDROXIDE SUSP 30 ML UDC PO PRN (11:18)
[2018-08-25] MEDS ORDERED: VANCOMYCIN CONSULT ACTIVE PRN (11:18)
[2018-08-25] MEDS ORDERED: BISACODYL 10 MG SUPP PR PRN (11:18)
[2018-08-25] MEDS ORDERED: BENZONATATE 100 MG CAPSULE PO PRN (11:18)
--- NOTE | 2018-08-25 11:46 | Hospitalist Consultation ---
Date of Consultation August 25, 2018 Assessment & Plan (1) S/P total hip arthroplasty: (2) Osteoarthritis: (3) Hip dislocation, right: - Original placement in August 2017, s/p elective revision of the right total hip by Dr. Leach on 08/25/18 - Pain control, bowel regimen on board, last BM yesterday. - Wound vac in place - dvt ppx per primary team - no current chemical dvt ppx ordered s/p surg - PT/OT consults - CM to assist with home health services for PT at time of discharge (4) HTN (hypertension): - Not on antihypertensives (5) Rheumatoid arthritis: - Stopped taking Hydroxychloroquine 200 mg daily about 6 months ago as this was thought to have been causing anemia. Pt currently is taking iron supplementation. She has not had any RA flares since then. (6) HLD (hyperlipidemia): - Cont statin therapy (7) DVT prophylaxis: - teds, scds Supervising Physician Co-Signing Physician Notes The patient was seen and examined by me and I agree with the assessment and plan done by Anne Alston PA-C. The patient was seen postoperatively and although she is lethargic she is easily arousable, oriented x3, and conversant. No complaints. Lungs are clear. Heart rhythm is regular. Abdomen is benign. No significant peripheral edema. Appropriate medications have been ordered. History of Present Illness Attending Physician: Joo Fragoso MD History of Present Illness This is a 67 yo F with PMHx of HLD, HTN, RA, osteoarthritis, sciatica who presented for elective right total hip revision. The origional hip replacement was done in August 2017. The patient was seen and evaluated at bedside. She is doing well overall but is complaining of 7/10 hip pain. She denies numbness or tingling in BLE. Pt had drank a few sips of water without nausea. Last BM was yesterday. Pt notes she plans on PT/OT with home health services as this is what she had when her hip was originally done. Allergies Allergy/AdvReac Type Severity Reaction Status Date / Time No Known Allergies Allergy Verified 08/25/18 06:07 Home Medications Home Medications Medication Instructions Recorded Confirmed Type amitriptyline 10 mg PO HS PRN 07/01/18 08/25/18 History amoxicillin 4 cap PO UD PRN 07/01/18 08/25/18 History benzonatate 100 mg PO UD PRN 07/01/18 08/25/18 History celecoxib 200 mg PO QAM 07/01/18 08/25/18 History cyanocobalamin (vitamin B-12) 1,000 mcg PO DAILY 07/01/18 08/25/18 History [Vitamin B-12] multivitamin [Multiple Vitamins] 1 tab PO DAILY 07/01/18 07/01/18 History pravastatin 40 mg PO HS 07/01/18 07/01/18 History Patient History Medical History HLD (hyperlipidemia) Osteoarthritis Rheumatoid arthritis HTN (hypertension) High cholesterol History of anemia History of back problems INJECTION FOR 1.5 YR AGO History of mitral valve prolapse 11 YR AGO - NO CURRENT CARDIO Osteoarthritis Surgical History S/P total hip arthroplasty History of anesthesia reaction TROUBLE WITH SPINAL PLACEMENT FOR HIP REPLACEMENT DUE TO SCOLIOSIS - HAD TO TRY A FEW TIMES History of colonoscopy History of endoscopy History of hernia surgery History of tooth extraction 2 TEETH JAN 2018 - F/U WITH DENTAL 06/30/18 "HEALING" History of total right hip arthroplasty History of tubal ligation Family History Other Family history of cancer Social History Preferred Language: [place] Communication Ability: Effective Pharmacy Tech Required: No Beliefs That Will Affect Care: None Current Living Situation: Spouse Other Information That Helps Us Care for You: No Feels Safe at Home: Yes Smoking Status: Former smoker Tobacco Type: cigarettes Do You Dip or Chew Tobacco: No Smoking End Date: QUIT 38 YR AGO Hx Alcohol Use: Yes Alcohol type: wine Hx Substance Use: No Review of Systems Review of Systems: Constitutional: No fever, sweats or chills Eyes: No diplopia, no worsening or blurred vision ENT: normal hearing, no trouble swallowing Respiratory: No cough, sputum, dyspnea at rest or on exertion Cardiovascular: No chest pain, tightness or palpitations Abdomen: No pain, nausea, vomiting, diarrhea or constipation Musculoskeletal: + right hip pain, no other joint pain, calf pain or swelling Neurologic: No weakness, numbness/tingling. Psychiatric: No anxiety or depression Skin: No rash or itch Physical Exam Physical Exam: General: awake, alert, no apparent distress Head: Normocephalic, atraumatic ENT: PERRL, EOMI, no pharyngeal exudate, mucous membranes moist Chest: Clear to auscultation, on 2 L via NC, no adventitious breath sounds Cardiac: Regular rate and rhythm, no murmur, no JVD, normal peripheral pulses, good capillary refill Abdominal: NABS x 4 quadrants, soft, nontender to palpation, no rebound, guarding or tenderness Extremities: + R hip wound with vac in place, icepack on. No surrounding erythema. Otherwise normal inspection, no peripheral edema or erythema, calfs nontender to palpation Psych: Normal mood and affect Neuro: AAO x 3, no motor deficits, speech is clear, no peripheral sensory defi cits Results & Data Vital Signs (Past 12 Hours) Vital Signs Temp Pulse Pulse Resp BP Pulse Ox 08/25/18 11:10 36.4 C L 65 16 120/66 96 08/25/18 10:55 36.3 C L 73 15 116/64 94 08/25/18 10:45 80 15 120/61 95 08/25/18 10:35 75 14 125/61 100 08/25/18 10:25 84 16 113/70 100 08/25/18 10:15 76 15 116/59 L 100 08/25/18 10:05 36 C L 76 16 107/55 L 100 08/25/18 06:15 160/71 H 08/25/18 06:11 36.8 C 102 H 20 160/99 H 98
[2018-08-25] MEDS: SODIUM CHLORIDE 0.9% 1000ML 1,000 ML IV SCH (12:37)
[2018-08-25] MEDS: ACETAMINOPHEN 500 MG TAB PO SCH ×2 (13:41→21:23)
[2018-08-25] MEDS ORDERED: VANCOMYCIN HCL 1,000 MG in SODIUM CHLORIDE 0.9% 250 ML IV SCH (18:00)
[2018-08-25] MEDS: OXYCODONE HCL IR 5 MG TAB (IMMEDIATE RELEASE) PO PRN (19:53)
[2018-08-25] MEDS: PRAVASTATIN SOD 40 MG TAB PO SCH (20:31)
[2018-08-25] MEDS: SENNA 8.6 MG TAB PO SCH (20:32)
[2018-08-25] MEDS: DOCUSATE SODIUM 100 MG CAP PO SCH (20:32)
[2018-08-25] MEDS: ASPIRIN 81 MG ECTAB PO SCH (20:32)
[2018-08-26] MEDS: SODIUM CHLORIDE 0.9% 1000ML 1,000 ML IV SCH (00:05)
[2018-08-26] MEDS: ACETAMINOPHEN 500 MG TAB PO SCH ×3 (06:11→22:05)
[2018-08-26 07:00] LABS: Basophils # (auto) 0.01 K/uL (0-0.2); Basophils % (auto) 0.1 %; Hematocrit (blood only) 34.7 % (37-47); Hemoglobin 11.6 g/dL (12.0-16.0); Immature Granulocytes # (auto) 0.01 K/uL (0.00-0.02); Immature Granulocytes % (auto) 0.1 %; Lymphocytes # (auto) 1.57 K/uL (1.2-3.4); Lymphocytes % (auto) 14.7 %; Mean Corpuscular Hgb Conc 33.4 g/dL (32-36); Mean Corpuscular Volume 101.2 fL (80-100); Mean Platelet Volume 9.4 fL (7.4-10.4); Monocytes % (auto) 5.6 %; Neutrophils # (auto) 8.49 K/uL (1.4-6.5); Neutrophils % (auto) 79.5 %; Platelet Count 188 K/uL (130-400); RDW Coefficient of Variation 12.5 % (11.5-14.5); RDW Standard Deviation 46.3 fL (36.4-46.3); Red Blood Count 3.43 M/uL (4.2-5.4); White Blood Count 10.68 K/uL (4.8-10.8)
[2018-08-26 07:29] LABS: BUN Creatinine Ratio 17.2 (10-20); Calcium 8.5 mg/dl (8.5-10.1); Creatinine Clr Calc Pharmacy 49.3 ml/min; Est GFR (African American) 69.1; Est GFR (Non-African American) 59.6; Potassium 4.1 mmol/L (3.5-5.1)
[2018-08-26] MEDS: CYANOCOBALAMIN 500 MCG TABLET (VITAMIN B-12) PO SCH (08:28)
[2018-08-26] MEDS: ASPIRIN 81 MG ECTAB PO SCH ×2 (08:28→20:07)
[2018-08-26] MEDS: MULTIVITAMIN TAB PO SCH (08:28)
[2018-08-26] MEDS: DOCUSATE SODIUM 100 MG CAP PO SCH ×2 (08:28→20:07)
[2018-08-26] MEDS ORDERED: MULTIVITAMIN TAB PO SCH (09:00)
--- NOTE | 2018-08-26 09:43 | Orthopedic Progress Note ---
Date of Service August 26, 2018 Assessment & Plan (1) Hip dislocation, right: Postop day 1 status post revision right FAUSTINO (femoral head and liner change) PT and OT protocols. Weightbearing as tolerated. DVT prophylaxis with ASA twice daily, SCDs and JUSTO hose. Pain management with acetaminophen, oxycodone, hydromorphone. DC planning-patient is planning on home health services upon discharge Subjective Postop day 1 status post right FAUSTINO revision Patient is currently sitting up in her chair at the bedside finishing her breakfast. Pain is controlled. She denies shortness of breath, chest pain, lightheadedness. She has no complaints at this time. Physical Exam Physical Exam: Prevena dressing is intact and functioning well. No overt erythema around the bandage itself. Thigh is soft and nontender. Calves are soft nontender. Neurovascular is intact. Toes are mobile. Results & Data Vital Signs (Past 12 Hours) Vital Signs Temp Pulse Pulse Resp BP Pulse Ox 08/26/18 07:40 36.6 C 61 16 123/70 94 08/26/18 03:46 36.4 C L 72 14 99/61 L 96 08/25/18 23:01 36.5 C 79 14 105/64 96 Laboratory Results Laboratory Results WBC 10.68 K/uL (4.8-10.8) 08/26/18 06:32 RBC 3.43 M/uL (4.2-5.4) L 08/26/18 06:32 Hgb 11.6 g/dL (12.0-16.0) L 08/26/18 06:32 Hct 34.7 % (37-47) L 08/26/18 06:32 MCV 101.2 fL (80-100) H 08/26/18 06:32 MCH 33.8 pg (25-34) 08/26/18 06:32 MCHC 33.4 g/dL (32-36) 08/26/18 06:32 RDW Std Deviation 46.3 fL (36.4-46.3) 08/26/18 06:32 RDW Coeff of Girish 12.5 % (11.5-14.5) 08/26/18 06:32 Plt Count 188 K/uL (130-400) 08/26/18 06:32 MPV 9.4 fL (7.4-10.4) 08/26/18 06:32 Immature Gran % (Auto) 0.1 % 08/26/18 06:32 Neut % (Auto) 79.5 % 08/26/18 06:32 Lymph % (Auto) 14.7 % 08/26/18 06:32 [place] % (Auto) 5.6 % 08/26/18 06:32 Eos % (Auto) 0.0 % 08/26/18 06:32 Baso % (Auto) 0.1 % 08/26/18 06:32 Immature Gran # (Auto) 0.01 K/uL (0.00-0.02) 08/26/18 06:32 Neut # (Auto) 8.49 K/uL (1.4-6.5) H 08/26/18 06:32 Lymph # (Auto) 1.57 K/uL (1.2-3.4) 08/26/18 06:32 [place] # (Auto) 0.60 K/uL (0.11-0.59) H 08/26/18 06:32 Eos # (Auto) 0.00 K/uL (0-0.5) 08/26/18 06:32 Baso # (Auto) 0.01 K/uL (0-0.2) 08/26/18 06:32 Absolute Nucleated RBC 0.00 K/uL (0-0) 07/06/18 13:34 Nucleated RBC % (auto) 0.0 % 07/06/18 13:34 PT 10.3 Seconds (9.0-12.0) 07/06/18 13:34 INR 1.0 (0.9-1.1) 07/06/18 13:34 APTT 25.2 Seconds (21.0-31.0) 07/06/18 13:34 PTT Ratio 0.9 07/06/18 13:34 Sodium 141 mmol/L (136-145) 08/26/18 06:32 Potassium 4.1 mmol/L (3.5-5.1) 08/26/18 06:32 Chloride 110 mmol/L (98-107) H 08/26/18 06:32 Carbon Dioxide 24 mmol/L (21-32) 08/26/18 06:32 7.0 (3-11) 08/26/18 06:32 BUN 17 mg/dl (7-18) 08/26/18 06:32 0.97 mg/dl (0.6-1.2) 08/26/18 06:32 Est Cr Clr Drug Dosing 49.3 ml/min 08/26/18 06:32 Est GFR ( Amer) 69.1 08/26/18 06:32 Est GFR (Non-Af Amer) 59.6 08/26/18 06:32 17.2 (10-20) 08/26/18 06:32 Glucose 126 mg/dl (70-99) H 08/26/18 06:32 Estimat Average Glucose 103 mg/dl 07/06/18 13:34 5.2 % (4.5-5.6) 07/06/18 13:34 Calcium 8.5 mg/dl (8.5-10.1) 08/26/18 06:32 3.8 gm/dl (3.4-5.0) 07/06/18 13:34 Yellow 07/06/18 Unknown Clear (Clear) 07/06/18 Unknown 5.0 (4.5-7.5) 07/06/18 Unknown Ur Specific [place] 1.026 (1.000-1.030) 07/06/18 Unknown Negative (Negative) 07/06/18 Unknown Negative (Negative) 07/06/18 Unknown Negative (Negative) 07/06/18 Unknown Negative (Negative) 07/06/18 Unknown Negative (Negative) 07/06/18 Unknown Negative (Negative) 07/06/18 Unknown Negative (Negative) 07/06/18 Unknown Ur Leukocyte Esterase Negative (Negative) 07/06/18 Unknown Blood Type A Positive 08/25/18 06:14 Antibody Screen NEGATIVE 08/25/18 06:14 Crossmatch See Detail 08/25/18 06:14
--- NOTE | 2018-08-26 10:16 | Anesthesiology Progress Note ---
Date of Service August 26, 2018 Anesthesia Post Procedure Vital Signs Vital Signs: Temp Pulse Pulse Resp BP Pulse Ox 08/26/18 07:40 36.6 C 61 16 123/70 94 08/26/18 03:46 36.4 C L 72 14 99/61 L 96 08/25/18 23:01 36.5 C 79 14 105/64 96 08/25/18 19:38 36.5 C 77 17 114/67 95 08/25/18 15:09 36.4 C L 80 18 118/65 98 08/25/18 13:48 36.3 C L 74 18 123/68 99 08/25/18 13:04 36.6 C 90 20 119/71 95 08/25/18 12:10 36.6 C 66 20 122/69 98 08/25/18 11:10 36.4 C L 65 16 120/66 96 08/25/18 10:55 36.3 C L 73 15 116/64 94 08/25/18 10:45 80 15 120/61 95 08/25/18 10:35 75 14 125/61 100 08/25/18 10:25 84 16 113/70 100 Pain Intensity Right Hip: Pain Intensity: 3 Notes Mental Status: alert / awake / arousable and participated in evaluation Nausea / Vomiting: adequately controlled Pain: adequately controlled Airway Patency, RR, SpO2: stable & adequate BP & HR: stable & adequate Hydration State: stable & adequate
[2018-08-26] MEDS: OXYCODONE HCL IR 5 MG TAB (IMMEDIATE RELEASE) PO PRN ×2 (11:22→20:06)
--- NOTE | 2018-08-26 11:28 | Hospitalist Progress Note ---
Date of Service August 26, 2018 Assessment & Plan (1) S/P total hip arthroplasty: - Initial procedure in August 2017; s/p elective revision of right total hip on 08/25/18, POD#1. - Pain control per primary team. - Wound vac in place. - DVT ppx with Aspirin 81 mg BID. - PT/OT consulted. (2) Hip dislocation, right: - Has had 2 hip dislocations following initial procedure in August 2017; revision as noted above. (3) Acute anemia: - Hgb minimally trending down post op, likely related to intra op blood loss. - Monitor CBC as outpt With macrocytosis new since 2018, recommend outpt follow up of B12, folate level s (4) HTN (hypertension): - Not currently on anti-hypertensive agents. - BP has been well controlled. (5) Rheumatoid arthritis: - Discontinued Hydroxychloroquine 200 mg daily about 6 months ago as this was thought to have been causing anemia. - Has not had any acute flares recently; will monitor. (6) HLD (hyperlipidemia): - Continue statin as prescribed. (7) DVT prophylaxis: - SCDs; Aspirin 81 mg BID. Dispo: Pt. is medically stable, will sign off. Please call with any questions. Supervising Physician Co-Signing Physician Notes PA Supervision Note: I did not personally see or examine the patient today, but I verified all perez points of RANDAL Viera's assessment and plan with the following exceptions/additions: None Subjective Pt. is doing well overall. Has pain in right hip, well controlled. Is passing gas, has not had a BM post op. Denies chest pain, SOB, N/V, abd pain. Review of Systems Review of Systems: All systems reviewed & are unremarkable except as noted in HPI & below Constitutional: no fever, no chills, no fatigue and no weakness Respiratory: no cough, no dyspnea, no dyspnea on exertion and no wheezing Cardiovascular: no chest pain, no palpitations and no edema Gastrointestinal: + constipation; no abdominal pain, no nausea and no vomiting Genitourinary: no difficulty urinating Musculoskeletal: no back pain and no joint pain Integumentary: no non-healing lesions Allergy / Immunological: no rash Physical Exam Physical Exam: General: Resting comfortably in no apparent distress HEENT: NC/AT; PERRLA with EOMI; [place] conjunctiva, MMM. No erythema of posterior pharynx Neck: Supple and nontender Cardiac: RRR Lungs: CTA bilaterally Abdomen: Bowel normoactive X 4; Nontender to palpation Extremities: Warm. No edema present. Dressing intact over right hip. Neuro: No focal weakness Skin: No rash Results & Data Vital Signs (Past 12 Hours) Vital Signs Temp Pulse Pulse Resp BP Pulse Ox 08/26/18 07:40 36.6 C 61 16 123/70 94 08/26/18 03:46 36.4 C L 72 14 99/61 L 96 Laboratory Results 08/26/18 08/26/18 Range/Units 06:32 06:32 WBC 10.68 (4.8-10.8) K/uL RBC 3.43 L (4.2-5.4) M/uL Hgb 11.6 L (12.0-16.0) g/dL Hct 34.7 L (37-47) % MCV 101.2 H (80-100) fL MCH 33.8 (25-34) pg MCHC 33.4 (32-36) g/dL RDW Std Deviation 46.3 (36.4-46.3) fL RDW Coeff of Girish 12.5 (11.5-14.5) % Plt Count 188 (130-400) K/uL MPV 9.4 (7.4-10.4) fL Immature Gran % (Auto) 0.1 % Neut % (Auto) 79.5 % Lymph % (Auto) 14.7 % [place] % (Auto) 5.6 % Eos % (Auto) 0.0 % Baso % (Auto) 0.1 % Immature Gran # (Auto) 0.01 (0.00-0.02) K/uL Neut # (Auto) 8.49 H (1.4-6.5) K/uL Lymph # (Auto) 1.57 (1.2-3.4) K/uL [place] # (Auto) 0.60 H (0.11-0.59) K/uL Eos # (Auto) 0.00 (0-0.5) K/uL Baso # (Auto) 0.01 (0-0.2) K/uL Sodium 141 (136-145) mmol/L Potassium 4.1 (3.5-5.1) mmol/L Chloride 110 H (98-107) mmol/L Carbon Dioxide 24 (21-32) mmol/L Anion Gap 7.0 (3-11) BUN 17 (7-18) mg/dl Creatinine 0.97 (0.6-1.2) mg/dl Est Cr Clr Drug Dosing 49.3 ml/min Est GFR ( Amer) 69.1 Est GFR (Non-Af Amer) 59.6 BUN/Creatinine Ratio 17.2 (10-20) Glucose 126 H (70-99) mg/dl Calcium 8.5 (8.5-10.1) mg/dl
[2018-08-26] MEDS: PRAVASTATIN SOD 40 MG TAB PO SCH (20:07)
[2018-08-26] MEDS: SENNA 8.6 MG TAB PO SCH (20:07)
[2018-08-27] MEDS: OXYCODONE HCL IR 5 MG TAB (IMMEDIATE RELEASE) PO PRN ×2 (04:02→08:21)
[2018-08-27] MEDS: ACETAMINOPHEN 500 MG TAB PO SCH (05:47)
[2018-08-27 07:19] LABS: Basophils # (auto) 0.04 K/uL (0-0.2); Basophils % (auto) 0.5 %; Eosinophils # (auto) 0.42 K/uL (0-0.5); Eosinophils % (auto) 5.1 %; Hematocrit (blood only) 34.8 % (37-47); Hemoglobin 11.4 g/dL (12.0-16.0); Immature Granulocytes # (auto) 0.01 K/uL (0.00-0.02); Immature Granulocytes % (auto) 0.1 %; Lymphocytes % (auto) 29.1 %; Mean Corpuscular Hgb Conc 32.8 g/dL (32-36); Mean Corpuscular Volume 101.8 fL (80-100); Mean Platelet Volume 9.3 fL (7.4-10.4); Monocytes # (auto) 0.26 K/uL (0.11-0.59); Monocytes % (auto) 3.2 %; Neutrophils # (auto) 5.11 K/uL (1.4-6.5); Platelet Count 175 K/uL (130-400); RDW Coefficient of Variation 12.6 % (11.5-14.5); RDW Standard Deviation 46.4 fL (36.4-46.3); Red Blood Count 3.42 M/uL (4.2-5.4); White Blood Count 8.24 K/uL (4.8-10.8)
[2018-08-27] MEDS: DOCUSATE SODIUM 100 MG CAP PO SCH (07:47)
[2018-08-27] MEDS: CYANOCOBALAMIN 500 MCG TABLET (VITAMIN B-12) PO SCH (07:47)
[2018-08-27] MEDS: MULTIVITAMIN TAB PO SCH (07:47)
[2018-08-27] MEDS: ASPIRIN 81 MG ECTAB PO SCH (07:48)
[2018-08-27 07:51] LABS: BUN Creatinine Ratio 17.9 (10-20); Calcium 8.5 mg/dl (8.5-10.1); Creatinine Clr Calc Pharmacy 54.9 ml/min; Est GFR (African American) 78.8; Potassium 3.7 mmol/L (3.5-5.1)
--- NOTE | 2018-08-27 08:00 | Orthopedic Progress Note ---
Date of Service August 27, 2018 Assessment & Plan (1) Hip dislocation, right: Postop day 2 status post revision right FAUSTINO (femoral head and liner change) PT and OT protocols. Weightbearing as tolerated. DVT prophylaxis with ASA twice daily, SCDs and JUSTO hose. Pain management with acetaminophen, oxycodone, hydromorphone. DC planning-patient is planning on home health services today. Subjective Postop day 2 status post right FAUSTINO revision Patient is currently sitting up in her bed finishing her breakfast. Pain is controlled. She denies shortness of breath, chest pain, lightheadedness. She has no complaints at this time. Physical Exam Physical Exam: Right hip wound vac in tact, no erythema, no drainage, toes and ankle mobile, no calf tenderness. A&Ox3. Results & Data Vital Signs (Past 12 Hours) Vital Signs Temp Pulse Resp BP Pulse Ox 08/27/18 07:04 36.8 C 72 18 129/72 95 08/27/18 06:18 36.6 C 78 16 142/79 H 93 08/26/18 23:11 36.4 C L 67 14 114/71 95
--- NOTE | 2018-09-01 20:03 | Discharge Summary ---
Date of Service September 01, 2018 Principal Diagnosis Chronic instability right total hip Discharge Exam RLE NVSI +EHL/FHL/TA/GS SILT grossly, +2 DP pulse, compartments soft NT, dressing cdi. Constitutional WD/WN, vitals as above Discharge Data Allergies Allergy/AdvReac Type Severity Reaction Status Date / Time No Known Allergies Allergy Verified 08/25/18 06:07 Consultations 08/20/18 12:12 Consult Hospitalist Routine 08/26/18 08:00 Consult Case Management - Discharge Planning Routine Procedures Performed Operation Date: 08/25/18 07:30 Actual Procedures p Right Total Hip Revision Femoral Head and Acetabular Revision to Constrained Liner(Right) - Joo Fragoso MD Hospital Course (1) Hip dislocation, right: The patient is a 67 -year-old female who presents with recurrent right total hip instability with multiple disloactions and failed outpatient conservative treatments including bracing and physical therapy. The patient's symptoms have progressed to the point where it has been difficult to perform even normal activities of daily living. We indicated the patient for a revision right total hip arthroplasty, the risks, benefits and complications of the procedure include but not limited to infection, bleeding, damage to bone, nerves, vessels, surrounding soft tissue, may develop blood clots, loss of function, leg length discrepancy, dislocation, failure of the components, loosening of the components, the need for additional surgery and . The patient wished to proceed with surgery at this time and informed consent was obtained. Hospital Course: On 08/25/18 the patient was taken to the operating room, adequate anesthesia administered and underwent a revision right total hip arthroplasty, head and liner exchange. The patient tolerated the procedure well and was taken to the PACU in stable condition. Post-operatively the patient was started on a DVT ppx medication and given appropriate IV antibiotics. Consults were placed to medical hospitalist, physical therapy, occupational therapy and case management. On POD#1, the patient did well overnight and their pain was well controlled. Labs were drawn and the Hgb was 11.6. The patient progressed well with PT. Dressings clean, dry and intact. On POD#2, the patient continued to progress with PT, pain well controlled, no acute issues overnight. Labs drawn, hgb 11.4. The patients hospital stay was relatively uneventful and they were deemed stable by the orthopedic team and consultants to be discharged home with on 08/27/18. Discharge Instructions: Upon discharge the patient may weight bear as tolerates through their operative extremity. They were instructed to keep the incision clean and dry at all time s. The patient may shower but should not submerge the incision, avoid bathing, pools and hot tubes. The patient was given a script for pain medication and should take as instructed. The patient was given a script for DVT ppx 81mg ASA BID and should take as directed. The patient was instructed to not drive or travel for long distances until cleared to do so. If the patient develops any symptoms of fevers, chills, nausea, vomiting, increased redness, swelling, pain or drainage from the surgical site, they should notify the office and/or proceed to the nearest emergency room. The patient should follow up in 10-14 days after surgery for their routine post-operative follow-up appointment and should call the office to confirm the date and time. Postop day 2 status post revision right FAUSTINO (femoral head and liner change) PT and OT protocols. Weightbearing as tolerated. DVT prophylaxis with ASA twice daily, SCDs and JUSTO hose. Pain management with acetaminophen, oxycodone, hydromorphone. DC planning-patient is planning on home health services today. Total Time Total Time Spent Total Time Spent (In Minutes): 30 minutes Total Time Includes: Examination of the Patient, Discharge Planning, Medication Reconciliation and Communication With Other Providers Discharge Plan Discharge Items Patient Disposition: Home - Home Health Services Reason For Visit: Dislocation of Internal Right Hip Prosthesis Discharge Diagnosis: SAME Discharge Goals: Decrease discomfort and Improve function Activity: Per 'Additional Instructions' section Non-emergency contact: Surgeon Call non-emergency contact if: your pain is concerning for you, your temperature is above 101, your wound has increased redness and your wound has increased drainage Follow-up/Referrals: Magaly Mcmillan DO [Primary Care Provider] - Diet: Regular Addtl Provider Instructions: ACTIVITY RECOMMENDATIONS: SELF CARE INSTRUCTIONS AFTER TOTAL HIP REPLACEMENT Until the incision and soft tissues around your hip have healed, there is a possibility that the hip prosthesis could dislocate. A. Observe the following precautions to prevent dislocation: 1. Don't bend your hip greater than 90 degrees. 2. Avoid crossing your legs or ankles while standing or lying. 3. Sit with your feet placed 6 inches apart. 4. When sitting, keep your knees below your hips. Sit on a firm surface, avoid deep, soft chairs and couches. Use an elevated toilet seat in the bathroom. 5. Don't bend over at the waist. Use a long handled shoehorn and a sock aid to help you put on your shoes and socks. A manager social can help you picking supervisor objects that are too high or too low to reach. 6. Keep car riding to a minimum for at least one month after surgery. B. Your balance may be shaky for a while. Use crutches or a walker until directed by your doctor. C. Use hand rails when walking on stairs. D. Wear low heeled shoes with non-slip soles. E. Be sure that your floors are free of things that could trip you - throw rugs, electrical cords, small objects. Avoid wet and waxed floors, especially with crutches and canes. F. Try to walk several times a day with rest periods between. G. Continue with all the exercises taught to you in the hospital. Again, make walking a part of your daily routine. SPECIAL CARE INSTRUCTIONS: VERY IMPORTANT TO READ AND REVIEW A. You may still be at risk for phlebitis and blood clots. 1. Wear surgical stockings (JUSTO hose) for 2 weeks after surgery to improve circulation and reduce swelling. 2. Take Aspirin 81mg twice daily for 4 weeks or as directed by your doctor. This is your blood thinner. 3. High risk patients may be prescribed a stronger blood thinner if necessary. 4. If you are on Coumadin normally, your family doctor/window glass installer should monitor your blood work. Expect a phone call the day of or the day after bloodwork is drawn to adjust your dosage. B. You must take antibiotics before having dental work, bladder, bowel and other surgery. Your doctor will provide you with a permanent card to carry describing precautions. C. Call [facility] if you have a fever, redness or swelling around the incision, cloudy drainage from incision, or sudden increase in pain in your hip, not relieved by your regular pain medication. D. Please call the office at if you have any concerns or questions about your operation or recovery. * YOU MAY SHOWER, NO TUB BATHS UNTIL CLEARED BY YOUR DOCTOR. * WEAR JUSTO HOSE 20 HOURS PER DAY FOR 2 WEEKS. * YOU SHOULD USE A WALKER OR CRUTCHES FOR 2-4 WEEKS. THIS WILL HELP PREVENT STRAIN ON YOUR HIP MUSCLE AND ALLOW IT TO HEAL PROPERLY. YOU MAY WEAN TO A CANE TOLERATED. * MOST PATIENTS WILL HAVE HOME NURSING FOR THERAPY. IF YOU DECIDE TO DO OUTPATIENT PHYSICAL THERAPY, PLEASE SCHEDULE THIS 3 TIMES PER WEEK. * YOU MAY HAVE A LARGE, BAND-RAS LIKE DRESSING (SILVERON). THIS WILL REMAIN ON YOUR INCISION FOR 7 DAYS, THEN CAN BE REMOVED. IF INCISION IS LEAKING THROUGH DRESSING, PLEASE CALL THE OFFICE . FOLLOW UP VISIT: If appointment is not already scheduled: Please call [facility] to make a follow-up appointment for 2 weeks after your surgery at . Prevena- This is a large suction dressing covering your incision. This will help pull any excess drainage from the wound and allow your incision to heal properly. You may shower with this if you can keep the unit outside of the shower. If any bleeding or leakage is noted please call your doctor's office. This will remain on your incision for 7 days and then should be removed. This can be done yourself or by the home nursing staff if applicable. The entire unit is disposable once removed. Once removed, keep incision clean and dry. If redness or drainage is noted, please call your surgeon. Prescriptions: New acetaminophen [Tylenol Extra Strength] 500 mg Tablet 1,000 mg PO Q8 30 Days Qty: 180 RF: 0 aspirin [Ecotrin Low Strength] 81 mg Tablet,Delayed Release (Dr/Ec) 81 mg PO BID 30 Days Qty: 60 RF: 0 oxycodone 5 mg Tablet 5 mg PO Q4H PRN (Reason: pain) Qty: 30 RF: 0 Continued multivitamin [Multiple Vitamins] Tablet 1 tab PO DAILY RF: 0 celecoxib 200 mg Capsule 200 mg PO QAM RF: 0 amoxicillin 500 mg Capsule 4 cap PO UD PRN (Reason: PRE DENTAL) RF: 0 pravastatin 40 mg Tablet 40 mg PO HS RF: 0 amitriptyline 10 mg Tablet 10 mg PO HS PRN (Reason: Sleep) RF: 0 benzonatate 100 mg Capsule 100 mg PO UD PRN (Reason: Cough) RF: 0 cyanocobalamin (vitamin B-12) [Vitamin B-12] 1,000 mcg Tablet 1,000 mcg PO DAILY RF: 0 Stand-Alone Forms: [employer], [facility] [place]/Other Patient Handouts: Surgery Prevent DVT After, Replacement Total Hip Dc Discharge Orders: Discharge Order (Routine); Ordered 08/27/18 Ordered By: Hector Campbell Admission Data Admit Date/Time: 08/25/18 10:02 Attending Provider: Joo Fragoso Admit Provider: Joo Fragoso Primary Care Provider: Magaly Mcmillan Other Providers: Fan Cardona Service: Surgical Services Other Interventions: Discharge Summary Assessment (RN) Last Done: 08/27/18 08:56 DC Date/Time DO NOT enter until pt leaves facility: 08/27/18 11:14
== END 2018-08-27 11:14 | disposition home health service (06) | DRG 467 ==
LOC: ASU 05:18 → 3E 10:02
DX: M41.9 Scoliosis, unspecified; E78.5 Hyperlipidemia, unspecified; Y79.2 Prosthetic and other implants, materials and accessory orthopedic devices associated with adverse incidents; E78.00 Pure hypercholesterolemia, unspecified; M06.9 Rheumatoid arthritis, unspecified; Z79.1 Long term (current) use of non-steroidal anti-inflammatories (NSAID); Z87.891 Personal history of nicotine dependence; T84.020A Dislocation of internal right hip prosthesis, initial encounter; Z79.899 Other long term (current) drug therapy; M19.90 Unspecified osteoarthritis, unspecified site; I10 Essential (primary) hypertension; D62 Acute posthemorrhagic anemia

== ENCOUNTER 2023-08-14 13:04 | Inpatient (IN) ==
[2023-08-14] MEDS: MoRPHine SULFATE 2 MG/ML CARP IV STA (15:01)
[2023-08-14 15:15] LABS: Hematocrit (blood only) 36.9 % (37.0-47.0); Hemoglobin 12.4 g/dl (12.0-16.0); Mean Corpuscular Hemoglobin 32.7 pg (25.0-34.0); Mean Corpuscular Hgb Conc 33.6 g/dL (32.0-36.0); Mean Corpuscular Volume 97.4 fL (80.0-100.0); Mean Platelet Volume 9.5 fL (9.4-12.4); Platelet Count 208 K/uL (130-400); RDW Coefficient of Variation 12.6 % (11.5-14.5); RDW Standard Deviation 45.1 fL (36.4-46.3); Red Blood Count 3.79 M/uL (4.20-5.40); White Blood Count 10.77 K/ul (4.8-10.8)
[2023-08-14 15:22] LABS: Albumin Globulin Ratio 1.3 (0.9-2); Albumin Level 3.7 gm/dl (3.4-5.0); BUN Creatinine Ratio 28.4 (10-20); Bilirubin,Total 0.9 mg/dl (0.2-1.0); Calcium 8.5 mg/dl (8.6-10.3); Creatinine Clr Calc Pharmacy 63.6 ml/min; Est GFR (African American) 92.5 ml/min; Est GFR (Non-African American) 79.8 ml/min; Globulin 2.8 gm/dl (2.5-4.0); Magnesium 1.3 mg/dl (1.7-2.4); Potassium 3.4 mmol/L (3.5-5.1); Total Protein 6.5 gm/dl (6.0-8.3)
[2023-08-14] MEDS: MAGNESIUM SULFATE / D5W 1 GM/100 ML BAG IV SCH (15:25)
[2023-08-14] MEDS: SODIUM CHLORIDE 0.9% 500 ML IV ONE ×2 (15:26→15:58)
[2023-08-14] MEDS: SODIUM CHLORIDE 0.9% 1,000 ML IV SCH (15:26)
--- NOTE | 2023-08-14 15:34 | CT Scan Report ---
CT SCAN OF THE ABDOMEN AND PELVIS WITHOUT IV CONTRAST CLINICAL HISTORY: Generalized abdominal pain. Constipation. COMPARISON STUDY: Abdominal CT dated 08/13/2023. TECHNIQUE: CT scan of the abdomen and pelvis is performed from the lung bases to the proximal femora. Images are reviewed in the axial, sagittal, and coronal planes. IV contrast was not administered for this examination. Note that examination is suboptimal without oral and IV contrast. A dose lowering technique was utilized adhering to the principles of ALARA. CT DOSE: 753.3 mGy.cm FINDINGS: Lung bases: The heart is mildly enlarged and without pericardial effusion. The coronary arteries are densely calcified. There are trace pleural effusions with dependent consolidation. A small hiatal her mariluz is noted. Liver: The unenhanced liver is normal in size, contour, and attenuation. There is no intrahepatic alis iary ductal dilatation. Gallbladder: The gallbladder is distended and contains excreted IV contrast. Spleen: Normal in size and attenuation. Pancreas: The unenhanced pancreas is moderately atrophic and grossly unremarkable. Adrenal glands: Thickening of the adrenal glands is similar to previous. Kidneys: The unenhanced kidneys are normal in size and without hydronephrosis. There are no renal lius culi identified. There is no evidence of contour deforming renal mass lesion. Abdominal vasculature: The abdominal aorta is normal in course and caliber noting advanced atheroscle rotic calcification. Bowel: There is a long segment of wall thickening involving the rectosigmoid colon. Surrounding infla mmation is observed. There is moderate diverticular disease of the sigmoid without definitive CT evid ence of acute diverticulitis. There are also likely thick walled loops of small bowel in the right pe lvis. There is moderate colonic fecal retention. No bowel obstruction is seen. The appendix is not v isualized. Peritoneum: There are numerous small foci of intraperitoneal free air seen throughout the abdomen. Th ere is a small volume of perihepatic and pelvic ascites. There is a large fat-containing supraumbilic al hernia. Lymphadenopathy: None. Pelvic viscera: Evaluation of the pelvis is degraded by streak artifact from a right hip arthroplasty . The bladder is distended and filled with excreted IV contrast. The uterus and adnexa are normal as imaged. Skeletal structures: The skeletal structures are osteopenic. There is moderate to advanced cervical s pondylosis and scoliosis. 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 No lytic or blastic lesions are seen. A right hip arthroplasty i s in place. IMPRESSION: 1. There are numerous small foci of intraperitoneal free air indicative of visceral perforation. This represents a significant change from yesterday. A small volume of abdominopelvic ascites is also new from previous. 2. There is wall thickening involving the rectosigmoid colon with surrounding inflammation. Although not definitive, this may represent the site of perforation. There is moderate constipation, as well a s diverticular disease in this region. This could potentially be related to a stercoral proctitis or possibly diverticulitis. There are also likely thick-walled loops of small bowel in the right pelvis. Surgical evaluation is advised. 3. Cardiomegaly. 4. Trace pleural effusions with dependent consolidation. This could representing atelectasis versus a mild pneumonitis. 5. Additional findings as above. ACT 112: Negative or not required by law. Electronically signed by: Brad Baptiste M.D. 08/14/2023 3:33 PM
[2023-08-14 15:37] LABS: Basophils # (auto) 0.02 K/uL (0.00-0.20); Basophils % (auto) 0.2 %; Immature Granulocytes # (auto) 0.02 K/uL (0.01-0.20); Immature Granulocytes % (auto) 0.2 %; Lymphocytes # (auto) 0.92 K/uL (1.20-3.40); Lymphocytes % (auto) 8.5 %; Monocytes # (auto) 0.17 K/uL (0.11-0.59); Monocytes % (auto) 1.6 %; Neutrophils # (auto) 9.64 K/uL (1.40-6.50); Neutrophils % (auto) 89.5 %
[2023-08-14] MEDS: PIPERACILLIN/TAZOBACTAM 4.5 GM/100 ML BAG IV ONE (15:57)
[2023-08-14] MEDS: HYDROmorphone INJ 0.5 MG/0.5 ML SYR IV PRN (15:58)
--- NOTE | 2023-08-14 16:28 | History & Physical Report ---
Date of Service August 14, 2023 Assessment & Plan (1) Bowel perforation: Plan: Bowel perforation CTA/P with evidence of free air, rectosigmoid inflammation, constipation.? Diverticulitis with perforation vs stercoral proctitis in the setting of narcotic use No leukocytosis. RR 20, tachycardic. No hypotension. Lactate is normal. She does not meet sepsis criteria at time of admission. S/p 500 cc NSS at time of hospitalist consultation Potassium 3.4, IV repletion ordered. Magnesium 1.3, IV repletion added. Additional 500 cc LR added and maintenance fluids ordered Zosyn continued Tylenol, scaled morphine for pain control Surgery consulted. Tender but not overtly peritoneal on exam . recommended for nonoperative management at this time, however will need operative management if does not improve/worsens. Serial KUB ordered. If patient acutely worsens contact on-call hospitalist and surgery for reevaluation. N.p.o. No enema/suppositories (2) Distal radius fracture, left: Plan: Left radial fracture S/p surgical repair 08/11/2023 Neurovascularly intact No acute change in management (3) HLD (hyperlipidemia): Plan: Oral meds held (4) HTN (hypertension): Plan: Hypertension in the setting of pain. Oral meds held Plan Arthritis: Previously on hydroxychloroquine was discontinued due to anemia DVT prophylaxis: SCDs, pharmacal prophylaxis held pending urgent surgical i ntervention Diet: N.p.o. Disposition: PCU CODE STATUS: Full code History of Present Illness Primary Care Provider: Magaly Mcmillan DO Pt is a 72-year-old female with a past medical history of constipation, hyperlipidemia, rheumatoid arthritis, hypertension who was seen 08/13/2023 for abdominal discomfort and at that time CT showed constipation but no diverticulitis/obstruction/perforation. Patient was discharged home, however had worsened pain and represented to the ER. Pt fell and broke her wrist. Was on narcotics for post op pain control and had some constipation. Was seen for this yesterday on oral stool softens/miralax but conitnued to have abdominal distention/pain. Tried a supposity but did not help and pain worsened --> called 911 and brought in for ER evaluation. On repeat CT numerous small foci of intraperitoneal free air consistent with perforation new from prior a small amount of ascites was present. Rectosigmoid colon thickening with inflammation was noted. Moderate constipation seen potentially related to stercoral proctitis versus diverticulitis. Trace pleural effusions edema consolidation seen suspicious for atelectasis versus pneumonitis. At time of assessment she does not have a leukocytosis. Kiara is seen at the bedside with her present. She reports that she broke her wrist and had this fixed at the outpatient surgery center with Dr. Tierra Raphael a few days ago and has been taking pain medication. Was doing well up until yesterday when suddenly around midday she developed abdominal pain for which she was seen in the ER. CT was reassuring with some constipation at that time, she returned home to take a stool softener/MiraLAX. She also took stool softeners this morning. She reports after her pain medicine wore off she did not have a sudden worsening or improvement in her pain, but it gradually persisted through the day until this morning when her pain increased and she called 911 for ER reevaluation. She reports her abdomen feels very tender. She has not had diarrhea or constipation but has been passing gas. She did take her pills this morning. She has not had any fevers/chills/sweats although was cold this morning. Denies chest pain or chest pressure. She does not medication allergies. Rare intermittent social alcohol use none recently, no current tobacco use. Full code. Allergies Allergy/AdvReac Type Severity Reaction Status Date / Time No Known Allergies Allergy Verified 08/06/22 07:25 Home Medications Medication Instructions Recorded Confirmed Type amitriptyline 10 mg tablet 10 mg PO HS PRN Sleep 07/01/18 07/23/22 History amoxicillin 500 mg capsule 4 cap PO UD PRN PRE DENTAL 07/01/18 07/23/22 History benzonatate 100 mg capsule 100 mg PO UD PRN Cough 07/01/18 07/23/22 History celecoxib 200 mg capsule 200 mg PO QAM 07/01/18 08/06/22 History cyanocobalamin (vitamin B-12) 1,000 mcg PO QAM 07/01/18 08/06/22 History 1,000 mcg tablet (Vitamin B-12) multivitamin (Multiple Vitamins 1 tab PO QAM 07/01/18 08/06/22 History tablet) pravastatin 40 mg tablet 40 mg PO HS 07/01/18 08/06/22 History oxycodone 5 mg tablet 5 mg PO Q4H PRN pain #30 tabs 08/27/18 07/23/22 Rx alendronate 70 mg tablet 70 mg PO WK 07/23/22 08/06/22 History hydrocodone 5 mg-acetaminophen 325 1 - 2 tab PO Q6H PRN pain #15 tabs 08/06/23 Rx mg tablet Past Med/Surg History Problem List Bowel perforation Perforation of colon Nausea (Acute) Constipation (Acute) Abdominal pain, lower (Acute) Distal radius fracture, left (Acute) Ulnar neuropathy at elbow of left upper extremity Hip dislocation, right (Acute) History of total right hip arthroplasty Encounter for pre-operative examination DVT prophylaxis Acute anemia History of tooth extraction 2 TEETH JAN 2018 - F/U WITH DENTAL 06/30/18 "HEALING" HLD (hyperlipidemia) Rheumatoid arthritis HTN (hypertension) S/P total hip arthroplasty Medical History Hx of scoliosis mild History of anemia History of back problems INJECTION FOR 1.5 YR AGO Osteoarthritis History of mitral valve prolapse 11 YR AGO - NO CURRENT CARDIO High cholesterol Surgical History History of right cataract extraction S/P revision of total hip revision after dislocation, 2019 History of anesthesia reaction TROUBLE WITH SPINAL PLACEMENT FOR HIP REPLACEMENT DUE TO SCOLIOSIS - HAD TO TRY A FEW TIMES History of endoscopy History of colonoscopy History of hernia surgery History of tubal ligation Family History Other Family history of cancer Social History Smoking Status: Former smoker Tobacco Type: Cigarettes Second Hand Exposure: No; Do You Dip or Chew Tobacco: No; Hx Alcohol Use: Yes Alcohol type: wine Hx Substance Use: No Preferred Language: Georgian Communication Ability: Effective 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 NAD. Cooperative. Appears uncomfortable but nontoxic HEENT: Atraumatic, normocephalic. Vision/hearing grossly intact Pulm: CTAB A&P. -wheezes, -rales, -rhonchi. Symmetrical chest rise. No increased work of breathing. No respiratory distress. Cardiac: tachycardic, -mrg. Radial pulses intact and symmetrical. Abdominal: Diffusely tender to palpation, no involuntary guarding. No rebound. Supraumbilical hernia present without incarceration. Abdomen is not rigid at time of assessment Results & Data Results & Data Vital Signs (Past 12 Hours) Vital Signs Temp Pulse Pulse Resp BP BP Pulse Ox 08/14/23 15:23 114 H 20 169/95 H 93 08/14/23 13:11 36.8 C 112 H 20 184/90 H 93 O2 Del Method O2 Flow Rate 08/14/23 15:23 Nasal Cannula 2 08/14/23 13:11 Room Air PG Care Time/CCT Total # of Minutes Spent Total Time Spent with Patient: Total time spent is greater than 50% in coordination of care (as documented) at patient's floor/unit and/or counseling patient: Coding Level of Care Code 63707 INT INP/OBS CARE 3/75MIN Diagnoses Bowel perforation K63.1 Distal radius fracture, left S52.502A HLD (hyperlipidemia) E78.5 HTN (hypertension) I10
--- NOTE | 2023-08-14 16:31 | Surgery Consultation ---
Date of Consultation August 14, 2023 Assessment & Plan (1) Perforation of colon: suspected perforation of rectosigmoid colon. Unclear etiology, may be stercoral vs diverticulitis vs trauma from enema. Tender but no peritonitis, tachycardic but normotensive, wbc 10.7. Will attempt non operative management for now, may need repeat imaging vs. surgery if failure to improve or she acute worsens. Understands that this will likely require ostomy. Non operative management for now admit to medicine NPO, IVF's, iv abx No enema or suppository if responds to non operative management then will start gentle bowel regimen If failure to respond then repeat imaging vs. exploration surgery will follow, call w/ questions or concerns (2) Constipation: (3) Nausea: (4) Distal radius fracture, left: (5) HLD (hyperlipidemia): (6) HTN (hypertension): (7) Rheumatoid arthritis: History of Present Illness Reason for Consultation: abd pain History of Present Illness 72 y/o female presented with abd pain. Wrist frx and surgery last Thursday. On oral narcotics, has been constipated. Small hard pellet bm's. Seen in ED yesterday, CT with constipation, otherwise unremarkable. Went home, attempted enema, had small hard bm this morning. Abd pain and cramping worsened. No vomiting, pain mostly in RLQ and lower abd. Prior umbilical hernia repair w/ mesh. no blood thinners. Allergies Allergy/AdvReac Type Severity Reaction Status Date / Time No Known Allergies Allergy Verified 08/06/22 07:25 Home Medications Medication Instructions Recorded Confirmed Type amitriptyline 10 mg tablet 10 mg PO HS PRN Sleep 07/01/18 07/23/22 History amoxicillin 500 mg capsule 4 cap PO UD PRN PRE DENTAL 07/01/18 07/23/22 History benzonatate 100 mg capsule 100 mg PO UD PRN Cough 07/01/18 07/23/22 History celecoxib 200 mg capsule 200 mg PO QAM 07/01/18 08/06/22 History cyanocobalamin (vitamin B-12) 1,000 mcg PO QAM 07/01/18 08/06/22 History 1,000 mcg tablet (Vitamin B-12) multivitamin (Multiple Vitamins 1 tab PO QAM 07/01/18 08/06/22 History tablet) pravastatin 40 mg tablet 40 mg PO HS 07/01/18 08/06/22 History oxycodone 5 mg tablet 5 mg PO Q4H PRN pain #30 tabs 08/27/18 07/23/22 Rx alendronate 70 mg tablet 70 mg PO WK 07/23/22 08/06/22 History hydrocodone 5 mg-acetaminophen 325 1 - 2 tab PO Q6H PRN pain #15 tabs 08/06/23 Rx mg tablet Patient History Medical History Hx of scoliosis mild History of anemia History of back problems INJECTION FOR 1.5 YR AGO Osteoarthritis History of mitral valve prolapse 11 YR AGO - NO CURRENT CARDIO High cholesterol Surgical History History of right cataract extraction S/P revision of total hip revision after dislocation, 2019 History of anesthesia reaction TROUBLE WITH SPINAL PLACEMENT FOR HIP REPLACEMENT DUE TO SCOLIOSIS - HAD TO TRY A FEW TIMES History of endoscopy History of colonoscopy History of hernia surgery History of tubal ligation Family History Other Family history of cancer Social History Smoking Status: Former smoker Tobacco Type: Cigarettes Second Hand Exposure: No; Do You Dip or Chew Tobacco: No; Hx Alcohol Use: Yes Alcohol type: wine Hx Substance Use: No Preferred Language: Icelandic Communication Ability: Effective 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 Beliefs That Will Affect Care: None marital status: Current Living Situation: Spouse Feels Safe at Home: Yes Assistive Devices: Glasses and Walker Review of Systems Review of Systems: All systems reviewed & are unremarkable except as noted in HPI & below Physical Exam Constitutional: WD/WN, vitals as above + ill appearing Respiratory: normal respiratory effort, lungs clear to auscultation Cardiovascular: Rate/Rhythm: regular rhythm and + tachycardic Gastrointestinal (Abdomen): Percussion/Palpation: + abdomen tender (moderate ttp lower abd b/l), abdomen soft and + hernia (reducible supraumbilical hernia); no guarding and abdomen not rigid Results & Data Vital Signs (Past 12 Hours) Vital Signs Temp Pulse Pulse Resp BP BP Pulse Ox 08/14/23 15:23 114 H 20 169/95 H 93 08/14/23 13:11 36.8 C 112 H 20 184/90 H 93 O2 Del Method O2 Flow Rate 08/14/23 15:23 Nasal Cannula 2 08/14/23 13:11 Room Air Laboratory Results Laboratory Results - last 24 hr 08/14/23 14:46 WBC 10.77 RBC 3.79 L Hgb 12.4 Hct 36.9 L MCV 97.4 MCH 32.7 MCHC 33.6 RDW Std Deviation 45.1 RDW Coeff of Girish 12.6 Plt Count 208 MPV 9.5 Immature Gran % (Auto) 0.2 Neut % (Auto) 89.5 Lymph % (Auto) 8.5 [place] % (Auto) 1.6 Eos % (Auto) 0.0 Baso % (Auto) 0.2 Neut # (Auto) 9.64 H Lymph # (Auto) 0.92 L [place] # (Auto) 0.17 Eos # (Auto) 0.00 Baso # (Auto) 0.02 Immature Gran # (Auto) 0.02 Sodium 133 L D Potassium 3.4 L Chloride 102 Carbon Dioxide 22 Anion Gap 9 BUN 21 Creatinine 0.74 Est Cr Clr Drug Dosing 63.6 Est GFR ( Amer) 92.5 Est GFR (Non-Af Amer) 79.8 BUN/Creatinine Ratio 28.4 H Glucose 146 H Lactate 1.8 Calcium 8.5 L Magnesium 1.3 L Total Bilirubin 0.9 AST 23 ALT 17 Alkaline Phosphatase 39 Total Protein 6.5 Albumin 3.7 Globulin 2.8 Albumin/Globulin Ratio 1.3 Lipase [address] personally reviewed and interpreted, discussed with Dr. Baptiste from radiology. Agree with small flecks of intraperitoneal air and some ascites, no abscess. Inflammation around rectosigmoid junction. Abdomen/Pelvis CT 08/14/23 14:28 CT SCAN OF THE ABDOMEN AND PELVIS WITHOUT IV CONTRAST CLINICAL HISTORY: Generalized abdominal pain. Constipation. COMPARISON STUDY: Abdominal CT dated 08/13/2023. TECHNIQUE: CT scan of the abdomen and pelvis is performed from the lung bases to the proximal femora. Images are reviewed in the axial, sagittal, and coronal planes. IV contrast was not administered for this examination. Note that examination is suboptimal without oral and IV contrast. A dose lowering technique was utilized adhering to the principles of ALARA. CT DOSE: 753.3 mGy.cm FINDINGS: Lung bases: The heart is mildly enlarged and without pericardial effusion. The coronary arteries are densely calcified. There are trace pleural effusions with dependent consolidation. A small hiatal hernia is noted. Liver: The unenhanced liver is normal in size, contour, and attenuation. There is no intrahepatic biliary ductal dilatation. Gallbladder: The gallbladder is distended and contains excreted IV contrast. Spleen: Normal in size and attenuation. Pancreas: The unenhanced pancreas is moderately atrophic and grossly unremarkable. Adrenal glands: Thickening of the adrenal glands is similar to previous. Kidneys: The unenhanced kidneys are normal in size and without hydronephrosis. There are no renal calculi identified. There is no evidence of contour deforming renal mass lesion. Abdominal vasculature: The abdominal aorta is normal in course and caliber noting advanced atherosclerotic calcification. Bowel: There is a long segment of wall thickening involving the rectosigmoid colon. Surrounding inflammation is observed. There is moderate diverticular disease of the sigmoid without definitive CT evidence of acute diverticulitis. There are also likely thick walled loops of small bowel in the right pelvis. There is moderate colonic fecal retention. No bowel obstruction is seen. The appendix is not visualized. Peritoneum: There are numerous small foci of intraperitoneal free air seen throughout the abdomen. There is a small volume of perihepatic and pelvic ascites. There is a large fat-containing supraumbilical hernia. Lymphadenopathy: None. Pelvic viscera: Evaluation of the pelvis is degraded by streak artifact from a right hip arthroplasty. The bladder is distended and filled with excreted IV contrast. The uterus and adnexa are normal as imaged. Skeletal structures: The skeletal structures are osteopenic. There is moderate to advanced cervical spondylosis and scoliosis. 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 No lytic or blastic lesions are seen. A right hip arthroplasty is in place. IMPRESSION: 1. There are numerous small foci of intraperitoneal free air indicative of visceral perforation. This represents a significant change from yesterday. A small volume of abdominopelvic ascites is also new from previous. 2. There is wall thickening involving the rectosigmoid colon with surrounding inflammation. Although not definitive, this may represent the site of perforation. There is moderate constipation, as well as diverticular disease in this region. This could potentially be related to a stercoral proctitis or possibly diverticulitis. There are also likely thick-walled loops of small bowel in the right pelvis. Surgical evaluation is advised. 3. Cardiomegaly. 4. Trace pleural effusions with dependent consolidation. This could representing atelectasis versus a mild pneumonitis. 5. Additional findings as above. ACT 112: Negative or not required by law. Electronically signed by: Brad Baptiste M.D. 08/14/2023 3:33 PM PG Care Time/CCT Total # of Minutes Spent Total Time Spent with Patient: Total time spent is greater than 50% in coordination of care (as documented) at patient's floor/unit and/or counseling patient: Coding Level of Care Code 23014 OP VST NEW LOW 30 MIN Diagnoses Perforation of colon K63.1 Constipation K59.00 Nausea R11.0 Distal radius fracture, left S52.502A HLD (hyperlipidemia) E78.5 HTN (hypertension) I10 Rheumatoid arthritis M06.9
[2023-08-14] MEDS ORDERED: NALOXONE HCL 0.4 MG/1 ML VIAL/CARP IV PRN (16:52)
--- NOTE | 2023-08-14 16:55 | Emergency Department Note ---
Impression & Plan Bowel perforation, Constipation ED Provider Note NAME: BETINA CERDA AGE: 72 SEX: Female INFORMANT: Patient ED PROVIDER(S): Garrick Conley MD CHIEF COMPLAINT: Constipation PLAN: Disposition: Admitted Outpatient prescription management: none Referral: None MEDICAL DECISION MAKING: Patient returned back to return due to abdominal pain and constipation. She was quite uncomfortable and tachycardic. Blood work was obtained. Her CBC and lactate were unremarkable. Chemistry panel reveals mild dehydration. The patient was very uncomfortable on examination. She was given a dose of IV morphine for symptom control. She was sent for CT imaging. Unfortunately this is very concerning for a bowel perforation. The patient's magnesium was mildly low. She was given IV magnesium as well as IV Zosyn. Additional fluids were ordered. Patient was reevaluated. Informed of the findings. Patient was switched to Dilaudid for pain control as she was still having quite a bit of discomfort. I did place an emergent consult with general surgery, Dr. Hurley. Patient was evaluated by the team in the emergency department. Consultation was made with Dr. Matthew Jack of the [facility] service. Patient was evaluated in the ER for further management. Care/management discussed with: manager cardiovascular Level of care consideration(s): After review of the information above and other included data, I feel the patient Karz escalation of care to admission Triage Nursing notes: reviewed and agree them. Vital Signs: reviewed and remarkable for no significant abnormalities Additional History obtained from: none Chronic Medical/Social Conditions affecting care: none Prior/ Outside/ External records reviewed: Prior ED records reviewed. Reviewed prior CT imaging. No evidence of perforation. Differential Diagnosis: Functional constipation, impaction, obstruction, volvulus, diverticulitis, perforation, metabolic abnormality, infection, neurologic, as well as other pathologies. Diagnostics, independently interpreted by me: ECG: none Cardiac Monitoring: Cardiac monitoring ordered by me: The patient was placed on continuous cardiac monitoring and observed. It revealed a sinus tachycardic rhythm at 120 bpm. Medical decision rules: none Imaging studies: CT scan of the abdomen pelvis is concerning for free fluid as well as free air consistent with bowel obstruction. I refer you to the EMR for further details. HPI: 72 year old Female arrives for evaluation of constipation. Patient notes that she was on pain medication due to a left arm fracture. She had constipation issues. She was seen yesterday in emergency department. CT imaging was performed and she had constipation but no evidence of perforation or obstruction. Patient has slight leukocytosis. After conservative treatment she was feeling well enough and was instructed to use a bowel regimen at home. She did try oral medication to help move the bowel unfortunately that was unsuccessful. She was still having pain and discomfort. She went to her primary office and a suppository was recommended. Patient did try this at home but did not have any relief. She was feeling worse. She then presented back to the emergency department via ambulance for reevaluation. EMS noted the patient was quite uncomfortable and did provide her a dose of IV morphine which helped to alleviate the abdominal discomfort somewhat. Pt denies LOC, headache, fevers, chills, diaphoresis, visual changes, neck pain, chest pain, breathing difficulties, nausea, vomiting, back pain, melena, hematochezia, urinary symptoms, numbness, weakness, lymphadenopathy, rash, or other complaints. PAST MEDICAL HISTORY: See Below, hypertension PAST SURGICAL HISTORY: See Below, hip replacement SOCIAL HISTORY: See Below, HOME MEDICATIONS: See Below ALLERGIES: See Below VITALS: See Below PHYSICAL EXAMINATION: GENERAL: Awake, alert, uncomfortable-appearing, in no distress HENT: Normocephalic, atraumatic. Oropharynx unremarkable. EYES: Normal conjunctiva. Sclera non-icteric. NECK: Inspection normal. Non-tender. Supple. No nuchal rigidity. FROM. No masses. RESPIRATORY: Clear to auscultation. No wheezes. No rales. Normal respiratory effort. CARDIAC: Tachycardic rate. Normal rhythm. No murmurs. No rubs. Extremities warm and well perfused. Pulses equal. No JVD. GI: Soft, mildly-distended. Diffuse tenderness to palpation. Positive rebound. Positive guarding. No masses. RECTAL: Deferred. MUSCULOSKELETAL: Atraumatic. Chest examination reveals no tenderness. The back is symmetrical on inspection without obvious abnormality. There is no CVA tenderness to palpation. No joint edema. LOWER EXTREMITIES: Calves are equal size bilaterally and non-tender. No edema. No discoloration. NEURO: Normal sensorium. No sensory or motor deficits noted. SKIN: No rash or jaundice noted. PROCEDURES: none CRITICAL CARE: I have personally spent 35 minutes of critical care time in the direct management of this patient. This includes bedside care, interpretation of diagnostic studies, and testing, discussion with consultants, patient, and family members, and other required patient management activities. These minutes are in excess of all separately billable procedures. OBSERVATION NOTE: none Past Med/Surg History Problem List Bowel perforation Perforation of colon Nausea (Acute) Constipation (Acute) Abdominal pain, lower (Acute) Distal radius fracture, left (Acute) Ulnar neuropathy at elbow of left upper extremity Hip dislocation, right (Acute) History of total right hip arthroplasty Encounter for pre-operative examination DVT prophylaxis Acute anemia History of tooth extraction 2 TEETH JAN 2018 - F/U WITH DENTAL 06/30/18 "HEALING" HLD (hyperlipidemia) Rheumatoid arthritis HTN (hypertension) S/P total hip arthroplasty Medical History Hx of scoliosis mild History of anemia History of back problems INJECTION FOR 1.5 YR AGO Osteoarthritis History of mitral valve prolapse 11 YR AGO - NO CURRENT CARDIO High cholesterol Surgical History History of right cataract extraction S/P revision of total hip revision after dislocation, 2018 History of anesthesia reaction TROUBLE WITH SPINAL PLACEMENT FOR HIP REPLACEMENT DUE TO SCOLIOSIS - HAD TO TRY A FEW TIMES History of endoscopy History of colonoscopy History of hernia surgery History of tubal ligation Family History Other Family history of cancer Social History Smoking Status: Former smoker Tobacco Type: Cigarettes Second Hand Exposure: No; Do You Dip or Chew Tobacco: No; Hx Alcohol Use: Yes Alcohol type: wine Hx Substance Use: No Preferred Language: Samoan Communication Ability: Effective Tow Driver Required: No Beliefs That Will Affect Care: None marital status: Current Living Situation: Spouse Feels Safe at Home: Yes Assistive Devices: Glasses and Walker Allergies Allergies Allergy/AdvReac Type Severity Reaction Status Date / Time No Known Allergies Allergy Verified 08/06/22 07:25 Home Meds Home Medications Medication Instructions Recorded Confirmed amitriptyline 10 mg tablet 10 mg PO HS PRN Sleep 07/01/18 07/23/22 amoxicillin 500 mg capsule 4 cap PO UD PRN PRE DENTAL 07/01/18 07/23/22 benzonatate 100 mg capsule 100 mg PO UD PRN Cough 07/01/18 07/23/22 celecoxib 200 mg capsule 200 mg PO QAM 07/01/18 08/06/22 cyanocobalamin (vitamin B-12) 1,000 mcg PO QAM 07/01/18 08/06/22 1,000 mcg tablet (Vitamin B-12) multivitamin (Multiple Vitamins 1 tab PO QAM 07/01/18 08/06/22 tablet) pravastatin 40 mg tablet 40 mg PO HS 07/01/18 08/06/22 alendronate 70 mg tablet 70 mg PO WK 07/23/22 08/06/22 Previous Rx's Medication Instructions Recorded oxycodone 5 mg tablet 5 mg PO Q4H PRN pain #30 tabs 08/27/18 hydrocodone 5 mg-acetaminophen 325 1 - 2 tab PO Q6H PRN pain #15 tabs 08/06/23 mg tablet Results & Data (ED) Vital Signs Vital Signs - 24 hr 08/14/23 13:11 08/14/23 15:23 Temperature 36.8 C Temperature Source Oral Pulse Rate 112 H Pulse Rate [Finger] 114 H Respiratory Rate 20 20 Blood Pressure 184/90 H Blood Pressure [Right Arm] 169/95 H Blood Pressure Mean 121 Blood Pressure Mean [Right Arm] 119 Pulse Oximetry 93 93 Oxygen Delivery Method Room Air Nasal Cannula Oxygen Flow Rate 2 Sepsis Recent Fever Within 48 Hours No Sepsis New/Unexplained Change in Mental Status No Sepsis Action Taken by Nursing No Action Required Laboratory Data 08/14/23 14:46 08/14/23 14:46 Lab Results 08/14/23 Range/Units 14:46 WBC 10.77 (4.8-10.8) K/ul RBC 3.79 L (4.20-5.40) M/uL Hgb 12.4 (12.0-16.0) g/dl Hct 36.9 L (37.0-47.0) % MCV 97.4 (80.0-100.0) fL MCH 32.7 (25.0-34.0) pg MCHC 33.6 (32.0-36.0) g/dL RDW Std Deviation 45.1 (36.4-46.3) fL RDW Coeff of Girish 12.6 (11.5-14.5) % Plt Count 208 (130-400) K/uL MPV 9.5 (9.4-12.4) fL Immature Gran % (Auto) 0.2 % Neut % (Auto) 89.5 % Lymph % (Auto) 8.5 % Snyder % (Auto) 1.6 % Eos % (Auto) 0.0 % Baso % (Auto) 0.2 % Neut # (Auto) 9.64 H (1.40-6.50) K/uL Lymph # (Auto) 0.92 L (1.20-3.40) K/uL Snyder # (Auto) 0.17 (0.11-0.59) K/uL Eos # (Auto) 0.00 (0.00-0.50) K/uL Baso # (Auto) 0.02 (0.00-0.20) K/uL Immature Gran # (Auto) 0.02 (0.01-0.20) K/uL Sodium 133 L D (136-145) mmol/L Potassium 3.4 L (3.5-5.1) mmol/L Chloride 102 (98-107) mmol/L Carbon Dioxide 22 (21-32) mmol/L Anion Gap 9 (3-11) BUN 21 (6-23) mg/dl Creatinine 0.74 (0.6-1.2) mg/dl Est Cr Clr Drug Dosing 63.6 ml/min Est GFR ( Amer) 92.5 ml/min Est GFR (Non-Af Amer) 79.8 ml/min BUN/Creatinine Ratio 28.4 H (10-20) Glucose 146 H (70-99(Fasting)) mg/dl Lactate 1.8 (0.4-2.0) mmol/L Calcium 8.5 L (8.6-10.3) mg/dl Magnesium 1.3 L (1.7-2.4) mg/dl Total Bilirubin 0.9 (0.2-1.0) mg/dl AST 23 (13-39) U/L ALT 17 (7-52) U/L Alkaline Phosphatase 39 (34-104) U/L Total Protein 6.5 (6.0-8.3) gm/dl Albumin 3.7 (3.4-5.0) gm/dl Globulin 2.8 (2.5-4.0) gm/dl Albumin/Globulin Ratio 1.3 (0.9-2) Lipase 4 L (11-82) U/L Administered Medications Hydromorphone HCl (Hydromorphone Inj 0.5 Mg/0.5 Ml Syr) 0.5 mg IV Q15M PRN PRN Reason: Pain Stop: 08/28/23 15:41 Last Admin: 08/14/23 15:58 Dose: 0.5 mg Documented By: ALEX Sodium Chloride (Nss) 1,000 mls @ 125 mls/hr IV .Q8H [place] Stop: 09/13/23 14:29 Last Admin: 08/14/23 15:26 Dose: 125 mls/hr Documented By: ALEX Magnesium Sulfate/Dextrose (Magnesium Sulfate / D5w) 1 gm in 100 mls @ 50 mls/hr IV Q2H [place] Stop: 08/14/23 19:29 Last Admin: 08/14/23 15:25 Dose: 50 mls/hr Documented By: ALEX Discontinued Medications Sodium Chloride (Nss) 500 mls @ 999 mls/hr IV .Q31M ONE Stop: 08/14/23 14:58 Last Infusion: 08/14/23 16:11 Dose: Infused Documented By: Admin: 08/14/23 15:26 Dose: 999 mls/hr Documented By: ALEX Piperacillin Sod/Tazobactam Sod (Zosyn) 4.5 gm in 100 mls @ 200 mls/hr IV NOW ONE Stop: 08/14/23 16:11 Last Infusion: 08/14/23 16:31 Dose: Infused Documented By: Admin: 08/14/23 15:57 Dose: 200 mls/hr Documented By: ALEX Sodium Chloride (Nss) 500 mls @ 999 mls/hr IV .Q31M ONE Stop: 08/14/23 16:12 Last Infusion: 08/14/23 16:31 Dose: Infused Documented By: Admin: 08/14/23 15:58 Dose: 999 mls/hr Documented By: ALEX Morphine Sulfate (Morphine Sulfate 2 Mg/Ml Carp) 2 mg IV NOW STA Stop: 08/14/23 14:56 Last Admin: 08/14/23 15:01 Dose: 2 mg Documented By: ALEX Imaging Data Radiologist's Impression: Abdomen/Pelvis CT 08/14/23 14:28 CT SCAN OF THE ABDOMEN AND PELVIS WITHOUT IV CONTRAST CLINICAL HISTORY: Generalized abdominal pain. Constipation. COMPARISON STUDY: Abdominal CT dated 08/13/2023. TECHNIQUE: CT scan of the abdomen and pelvis is performed from the lung bases to the proximal femora. Images are reviewed in the axial, sagittal, and coronal planes. IV contrast was not administered for this examination. Note that examination is suboptimal without oral and IV contrast. A dose lowering technique was utilized adhering to the principles of ALARA. CT DOSE: 753.3 mGy.cm FINDINGS: Lung bases: The heart is mildly enlarged and without pericardial effusion. The coronary arteries are densely calcified. There are trace pleural effusions with dependent consolidation. A small hiatal hernia is noted. Liver: The unenhanced liver is normal in size, contour, and attenuation. There is no intrahepatic biliary ductal dilatation. Gallbladder: The gallbladder is distended and contains excreted IV contrast. Spleen: Normal in size and attenuation. Pancreas: The unenhanced pancreas is moderately atrophic and grossly unremarkable. Adrenal glands: Thickening of the adrenal glands is similar to previous. Kidneys: The unenhanced kidneys are normal in size and without hydronephrosis. There are no renal calculi identified. There is no evidence of contour deforming renal mass lesion. Abdominal vasculature: The abdominal aorta is normal in course and caliber noting advanced atherosclerotic calcification. Bowel: There is a long segment of wall thickening involving the rectosigmoid colon. Surrounding inflammation is observed. There is moderate diverticular disease of the sigmoid without definitive CT evidence of acute diverticulitis. There are also likely thick walled loops of small bowel in the right pelvis. There is moderate colonic fecal retention. No bowel obstruction is seen. The appendix is not visualized. Peritoneum: There are numerous small foci of intraperitoneal free air seen throughout the abdomen. There is a small volume of perihepatic and pelvic ascites. There is a large fat-containing supraumbilical hernia. Lymphadenopathy: None. Pelvic viscera: Evaluation of the pelvis is degraded by streak artifact from a right hip arthroplasty. The bladder is distended and filled with excreted IV contrast. The uterus and adnexa are normal as imaged. Skeletal structures: The skeletal structures are osteopenic. There is moderate to advanced cervical spondylosis and scoliosis. 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 No lytic or blastic lesions are seen. A right hip arthroplasty is in place. IMPRESSION: 1. There are numerous small foci of intraperitoneal free air indicative of visceral perforation. This represents a significant change from yesterday. A small volume of abdominopelvic ascites is also new from previous. 2. There is wall thickening involving the rectosigmoid colon with surrounding inflammation. Although not definitive, this may represent the site of perforation. There is moderate constipation, as well as diverticular disease in this region. This could potentially be related to a stercoral proctitis or possibly diverticulitis. There are also likely thick-walled loops of small bowel in the right pelvis. Surgical evaluation is advised. 3. Cardiomegaly. 4. Trace pleural effusions with dependent consolidation. This could representing atelectasis versus a mild pneumonitis. 5. Additional findings as above. ACT 112: Negative or not required by law. Electronically signed by: Brad Baptiste M.D. 08/14/2023 3:33 PM Discharge Plan Visit Data Chief Complaint: Constipation Stated Complaint: AB PAIN ED Provider: Garrick Conley Discharge Problem: Bowel perforation, Constipation Forms Stand Alone Forms: My [facility] Prescriptions Prescriptions: No Action multivitamin [Multiple Vitamins] Tablet 1 tab PO QAM celecoxib 200 mg Capsule 200 mg PO QAM amoxicillin 500 mg Capsule 4 cap PO UD PRN (Reason: PRE DENTAL) Rx Instructions: TAKE 1 HOUR BEFORE PROCEDURE pravastatin 40 mg Tablet 40 mg PO HS amitriptyline 10 mg Tablet 10 mg PO HS PRN (Reason: Sleep) benzonatate 100 mg Capsule 100 mg PO UD PRN (Reason: Cough) cyanocobalamin (vitamin B-12) [Vitamin B-12] 1,000 mcg Tablet 1,000 mcg PO QAM oxycodone 5 mg Tablet 5 mg PO Q4H PRN (Reason: pain) Qty: 30 0RF alendronate 70 mg Tablet 70 mg PO WK Patient Comments: takes on tuesdays hydrocodone-acetaminophen 5-325 mg tablet 1 - 2 tab PO Q6H PRN (Reason: pain) Qty: 15 0RF Rx Instructions: Initial Treatment Referrals Referrals: Magaly Mcmillan DO [Primary Care Provider] -
[2023-08-14] MEDS: LACTATED RINGER'S 500 ML IV ONE ×2 (17:20→23:44)
[2023-08-14] MEDS: POTASSIUM CHLORIDE / WTR 10 MEQ/100 ML PLCT IV SCH (17:20)
[2023-08-14] MEDS: LACTATED RINGER'S 1,000 ML IV SCH (17:30)
[2023-08-14] MEDS: HYDROmorphone INJ 1 MG/ML SYRINGE IV PRN (19:03)
[2023-08-14] MEDS: PIPERACILLIN/TAZOBACTAM 4.5 GM in DEXTROSE 5% MINI-B 100 ML IV SCH (20:25)
[2023-08-14 20:49] LABS: Appearance Urine Cloudy (Clear); Bacteria Urine Automated None Seen (None Seen); Bilirubin Urine Negative (Negative); Blood Urine Negative (Negative); Color Urine Dark Yellow; Glucose Urine UA Negative (Negative); Granular Casts Urine Present /lpf (None Prsent); Ketones Urine Trace (Negative); Leukocyte Esterase Urine Negative (Negative); Nitrite Urine Negative (Negative); Protein Urine 2+ (Negative); RBC Urine Automated 0-2 /hpf (0-2); Specific Gravity Urine 1.029 (1.000-1.030); Urobilinogen Urine Negative (Negative); WBC Urine Automated 0-5 /hpf (0-5)
[2023-08-14] MEDS: ACETAMINOPHEN 1,000 MG/100 ML VIAL IV PRN (22:47)
--- NOTE | 2023-08-15 00:36 | Communication Note ---
Date of Service: August 15, 2023 This patient was admitted the evening of 08/14/2023 secondary to a suspected perforation of the rectosigmoid colon. She was seen in consultation by general surgery where patient was being treated in a manner similar to what was noted for diverticulitis with microperforation (n.p.o. status, IV fluids, intravenous antibiotics) I visited with the patient at approximately 8:00 PM on 08/14/2023. The patient was noted be normotensive but tachycardic with heart rate from 1 10-1 20. She was afebrile at that time. She did note some generalized abdominal pain. I revisited with the patient at approximately 12:30 AM on 08/15/2023 as the patient has remained tachycardic with heart rate approximately 120 and she has also had some febrile episodes. She does remain normotensive. I visited with the patient at the bedside and she notes that her abdominal pain is no worse and may be slightly better. She did not offer any additional complaints. I discussed the patient's clinical status with Dr. Hurley. He notes that as long as patient is maintaining blood pressure without episodes of hypotension we will continue current treatment and await repeat laboratories the morning of 08/15/2023 with further recommendations to follow.
[2023-08-15] MEDS: KETOROLAC TROMETHAMINE 15 MG/ML VIAL IV ONE (02:30)
--- NOTE | 2023-08-15 05:42 | Surgery Progress Note ---
Date of Service August 15, 2023 Assessment & Plan (1) Bowel perforation: Plan: Patient has been admitted on the hospitalist service. From surgical perspective we recommend the following: Provide analgesics Provide antiemetics Continue n.p.o. status Continue IV fluid for hydration Continue antibiotics in the form of Zosyn which patient is receiving Patient is scheduled to have KUB in a.m. labs checked this morningthese items are pending and will be evaluated when available If patient does not show significant improvement with nonoperative measures as outlined above consideration will be given to repeat her abdominal imaging versus surgical exploration Admission and Anticipated Discharge Date Admission Date: August 14, 2023 Supervising Physician Co-Signing Physician Notes pnt S&E, labs and imaging reviewed, agree with above. Admitted with suspected rectosigmoid perforation of unknown etiology. Feels better than yesterday, color has returned, more alert. Febrile overnight, now normal. HR trending down. bp normal. abd soft, mildly distended, mild ttp in b/l lower quadrants, no guarding or rebound, slightly improved from yesterday. wbc 12, 10 yesterday. KUB w/ sanju of pneumoperitoneum, constipation. overall appears improved from yesterday. Continue non operative management, npo, ivf's, iv abx. continue to monitor closely. Subjective Patient was visited multiple times over the past 12 hours. The patient denies any worsening abdominal pain during each of these visits and currently does not have any significant abdominal pain. She denies any chest pain or shortness of breath. Discussed with manager night RN. Patient has remained persistently tachycardic with heart rate anywhere from 110-120. The RN does note that patient did have an episode where her heart rate on the monitor showed a rate of 150-160 and during this episode patient was noted to be hypotensive with a blood pressure of 60/30. Patient was asymptomatic at this time and blood pressure was immediately rechecked and noted to be 100/47 and heart rate decreased into the 120s. Patient was noted to be febrile with most recent elevated temperature at 2:00 AMshe is currently afebrile. At the present time the patient is resting comfortably in bed and does not report any nausea or vomiting or worsening abdominal pain. Physical Exam Respiratory: Breath sounds are present bilaterally without any wheezing. Respirations appear to be nonlabored. Gastrointestinal (Abdomen): Patient's abdomen is noted to have mild distention. The patient does have some generalized pain with palpation but at the time of exam this morning she did not have any rebound tenderness or guarding. Bowel sounds are hypoactive. Results & Data Vital Signs (Past 12 Hours) Vital Signs Temp Pulse Pulse Resp BP BP Pulse Ox 08/15/23 03:31 36.9 C 08/15/23 03:19 114/60 08/15/23 03:19 116 H 29 H 93 08/15/23 03:18 100/47 L 08/15/23 03:18 102 H 20 93 08/15/23 03:00 107/62 08/15/23 03:00 115 H 22 92 08/15/23 02:30 126/64 08/15/23 02:30 119 H 21 92 08/15/23 02:21 120 H 22 92 08/15/23 02:21 119/67 08/15/23 02:00 38.5 C H 08/15/23 02:00 120 H 25 H 92 08/15/23 02:00 102/64 08/15/23 01:50 125 H 21 92 08/15/23 01:50 109/65 08/15/23 01:30 113/66 08/15/23 01:30 122 H 19 92 08/15/23 01:00 124/66 08/15/23 01:00 121 H 24 93 08/15/23 00:30 123 H 20 92 08/15/23 00:30 117/61 08/15/23 00:11 113/60 08/15/23 00:11 119 H 19 90 08/15/23 00:00 108/62 08/15/23 00:00 109 H 21 91 08/14/23 23:44 112/63 08/14/23 23:44 121 H 20 92 08/14/23 23:27 38.2 C H 08/14/23 23:24 124/66 08/14/23 23:24 121 H 25 H 92 08/14/23 22:56 116 H 08/14/23 22:45 38.5 C H 120 H 22 125/66 93 08/14/23 22:39 125/66 08/14/23 22:39 118 H 19 92 08/14/23 22:00 118 H 19 91 08/14/23 21:15 118 H 16 93 05/24/24 21:15 114/67 08/14/23 20:00 121 H 15 08/14/23 19:37 36.7 C 123 H 18 106/60 96 08/14/23 19:30 08/14/23 19:19 37.4 C 116 H 14 171/83 H 08/14/23 18:07 114 H 21 08/14/23 18:05 112 H O2 Del Method O2 Flow Rate 08/15/23 03:31 08/15/23 03:19 08/15/23 03:19 08/15/23 03:18 08/15/23 03:18 08/15/23 03:00 08/15/23 03:00 08/15/23 02:30 08/15/23 02:30 08/15/23 02:21 08/15/23 02:21 08/15/23 02:00 08/15/23 02:00 08/15/23 02:00 08/15/23 01:50 08/15/23 01:50 08/15/23 01:30 08/15/23 01:30 08/15/23 01:00 08/15/23 01:00 08/15/23 00:30 08/15/23 00:30 08/15/23 00:11 08/15/23 00:11 08/15/23 00:00 08/15/23 00:00 08/14/23 23:44 08/14/23 23:44 08/14/23 23:27 08/14/23 23:24 08/14/23 23:24 08/14/23 22:56 08/14/23 22:45 Nasal Cannula 2 08/14/23 22:39 08/14/23 22:39 08/14/23 22:00 08/14/23 21:15 08/14/23 21:15 08/14/23 20:00 08/14/23 19:37 Room Air 08/14/23 19:30 Nasal Cannula 2 08/14/23 19:19 Room Air 08/14/23 18:07 08/14/23 18:05 PG Care Time/CCT Total # of Minutes Spent Total Time Spent with Patient: Total time spent is greater than 50% in coordination of care (as documented) at patient's floor/unit and/or counseling patient: Coding Level of Care Code 89353 SUB INP/OBS CARE 04/16MIN Diagnoses Bowel perforation K63.1
[2023-08-15 07:29] LABS: Hematocrit (blood only) 33.9 % (37.0-47.0); Hemoglobin 11.6 g/dl (12.0-16.0); Mean Corpuscular Hemoglobin 33.1 pg (25.0-34.0); Mean Corpuscular Hgb Conc 34.2 g/dL (32.0-36.0); Mean Corpuscular Volume 96.9 fL (80.0-100.0); Mean Platelet Volume 9.3 fL (9.4-12.4); Platelet Count 189 K/uL (130-400); RDW Coefficient of Variation 12.5 % (11.5-14.5); RDW Standard Deviation 44.2 fL (36.4-46.3); White Blood Count 12.12 K/ul (4.8-10.8)
[2023-08-15 07:40] LABS: Albumin Globulin Ratio 1.1 (0.9-2); Albumin Level 2.9 gm/dl (3.4-5.0); BUN Creatinine Ratio 21.9 (10-20); Bilirubin,Total 0.8 mg/dl (0.2-1.0); Calcium 7.6 mg/dl (8.6-10.3); Creatinine Clr Calc Pharmacy 55.9 ml/min; Est GFR (Non-African American) 81.1 ml/min; Globulin 2.6 gm/dl (2.5-4.0); Magnesium 1.9 mg/dl (1.7-2.4); Potassium 3.6 mmol/L (3.5-5.1); Total Protein 5.5 gm/dl (6.0-8.3)
[2023-08-15 08:04] LABS: Basophils # (auto) 0.02 K/uL (0.00-0.20); Basophils % (auto) 0.2 %; Immature Granulocytes # (auto) 0.04 K/uL (0.01-0.20); Immature Granulocytes % (auto) 0.3 %; Lymphocytes # (auto) 1.07 K/uL (1.20-3.40); Lymphocytes % (auto) 8.8 %; Monocytes # (auto) 0.15 K/uL (0.11-0.59); Monocytes % (auto) 1.2 %; Neutrophils # (auto) 10.84 K/uL (1.40-6.50); Neutrophils % (auto) 89.5 %
--- NOTE | 2023-08-15 09:27 | XRay Report ---
KUB HISTORY: bowel perf, serial imaging COMPARISON: Abdomen and pelvis CT 08/14/2023. FINDINGS: Mildly dilated gas-filled loops of large or small bowel seen within the abdomen. This sugge sts a mild ileus. A right hip prosthesis again noted. The small foci of pneumoperitoneum again noted within the right upper quadrant. Degenerative changes and levoscoliosis of the lumbar spine again not ed. Trace bilateral pleural effusions. No renal calculi. No ureteral calculi. No pneumoperitoneum or pneumatosis. IMPRESSION: 1. Redemonstration of a small foci of pneumoperitoneum within the right upper quadrant. This is simil ar to the prior CT examination and suggests underlying visceral perforation. 2. A few mildly dilated gas-filled loops of large and small bowel seen throughout the abdomen. This m ay represent a mild ileus. ACT 112: Negative or not required by law. Electronically signed by: Chi Alcantara M.D. 08/15/2023 9:26 AM
--- NOTE | 2023-08-15 13:55 | Hospitalist Progress Note ---
Date of Service August 15, 2023 Assessment & Plan (1) Bowel perforation: Plan: CTA/P with evidence of free air, rectosigmoid inflammation, constipation.? Diverticulitis with perforation vs stercoral proctitis in the setting of narcotic use General surgery on board. Plans to manage conservatively since the patient does not have hypotension, lactic acidosis, severe leukocytosis On Zosyn Repeat KUB read demonstrated small focus of pneumoperitoneum Continue n.p.o. No enemas or suppositories Continue IV fluids (2) Distal radius fracture, left: Plan: Left radial fracture S/p surgical repair 08/11/2023 Neurovascularly intact No acute change in management (3) HLD (hyperlipidemia): Plan: Oral meds held (4) HTN (hypertension): Plan: Oral meds held Plan Arthritis: Previously on hydroxychloroquine was discontinued due to anemia DVT prophylaxis: SCDs, pharmacal prophylaxis held pending potential urgent surgical intervention CODE STATUS: Full code Admission and Anticipated Discharge Date Admission Date: August 14, 2023 Subjective Patient says she feels better today. She says that her pain is better controlled overall. Review of Systems Review of Systems: All systems reviewed & are unremarkable except as noted in Subjective Physical Exam Physical Exam: General: Awake, conversant Heart: S1, S2/regular rate and rhythm, no murmur rubs or gallops Lungs: Clear to auscultation bilaterally. Normal effort Abdomen: Soft/nondistended. Tenderness noted, most pronounced in the lower abdomen. No rigidity. Mild guarding. Positive rebound. No hepatosplenomegaly Extremities: No clubbing/cyanosis. No edema Behavior: Appropriate, cooperative Results & Data Results & Data Vital Signs (Past 12 Hours) Vital Signs Temp Pulse Pulse Resp BP BP Pulse Ox 08/15/23 11:16 37.0 C 100 H 22 131/67 94 08/15/23 10:41 08/15/23 07:27 36.8 C 95 H 23 124/63 96 08/15/23 03:31 36.9 C 08/15/23 03:19 114/60 08/15/23 03:19 116 H 29 H 93 08/15/23 03:18 100/47 L 08/15/23 03:18 102 H 20 93 08/15/23 03:00 107/62 08/15/23 03:00 115 H 22 92 24 02:30 126/64 08/15/23 02:30 119 H 21 08/15/23 02:21 120 H 22 92 08/15/23 02:21 119/67 08/15/23 02:00 38.5 C H 08/15/23 02:00 120 H 25 H 92 08/15/23 02:00 102/64 08/15/23 01:50 125 H 21 92 08/15/23 01:50 109/65 O2 Del Method O2 Flow Rate 08/15/23 11:16 Nasal Cannula 08/15/23 10:41 Nasal Cannula 2 08/15/23 07:27 Oxymask 08/15/23 03:31 08/15/23 03:19 08/15/23 03:19 08/15/23 03:18 08/15/23 03:18 08/15/23 03:00 08/15/23 03:00 08/15/23 02:30 08/15/23 02:30 08/15/23 02:21 08/15/23 02:21 08/15/23 02:00 08/15/23 02:00 08/15/23 02:00 08/15/23 01:50 08/15/23 01:50 Laboratory Results Abnormal lab results 08/14/23 08/14/23 08/14/23 Range/Units 14:46 20:12 Unknown WBC (4.8-10.8) K/ul RBC 3.79 L (4.20-5.40) M/uL Hgb (12.0-16.0) g/dl Hct 36.9 L (37.0-47.0) % MPV (9.4-12.4) fL Neut # (Auto) 9.64 H (1.40-6.50) K/uL Lymph # (Auto) 0.92 L (1.20-3.40) K/uL Sodium 133 L D (136-145) mmol/L Potassium 3.4 L (3.5-5.1) mmol/L BUN/Creatinine Ratio 28.4 H (10-20) Glucose 146 H (70-99(Fasting)) mg/dl POC Glucose 150 H (70-99) mg/dl Calcium 8.5 L (8.6-10.3) mg/dl Magnesium 1.3 L (1.7-2.4) mg/dl Total Protein (6.0-8.3) gm/dl Albumin (3.4-5.0) gm/dl Lipase 4 L (11-82) U/L Urine Appearance Cloudy A (Clear) Urine Protein 2+ H (Negative) Urine Ketones Trace H (Negative) U Hyaline Cast (Auto) 6-10 H (0-2) /lpf U Epithel Cells (Auto) 3-5 H (0-2) /hpf Granular Casts Present A (None Prsent) /lpf 08/15/23 Range/Units 06:43 WBC 12.12 H (4.8-10.8) K/ul RBC 3.50 L (4.20-5.40) M/uL Hgb 11.6 L (12.0-16.0) g/dl Hct 33.9 L (37.0-47.0) % MPV 9.3 L (9.4-12.4) fL Neut # (Auto) 10.84 H (1.40-6.50) K/uL Lymph # (Auto) 1.07 L (1.20-3.40) K/uL Sodium 134 L (136-145) mmol/L Potassium (3.5-5.1) mmol/L BUN/Creatinine Ratio 21.9 H (10-20) Glucose 131 H (70-99(Fasting)) mg/dl POC Glucose (70-99) mg/dl Calcium 7.6 L (8.6-10.3) mg/dl Magnesium (1.7-2.4) mg/dl Total Protein 5.5 L (6.0-8.3) gm/dl Albumin 2.9 L (3.4-5.0) gm/dl Lipase (11-82) U/L Urine Appearance (Clear) Urine Protein (Negative) Urine Ketones (Negative) U Hyaline Cast (Auto) (0-2) /lpf U Epithel Cells (Auto) (0-2) /hpf Granular Casts (None Prsent) /lpf Diagnostic Findings Abdomen/Pelvis CT 08/14/23 14:28 CT SCAN OF THE ABDOMEN AND PELVIS WITHOUT IV CONTRAST CLINICAL HISTORY: Generalized abdominal pain. Constipation. COMPARISON STUDY: Abdominal CT dated 08/13/2023. TECHNIQUE: CT scan of the abdomen and pelvis is performed from the lung bases to the proximal femora. Images are reviewed in the axial, sagittal, and coronal planes. IV contrast was not administered for this examination. Note that examination is suboptimal without oral and IV contrast. A dose lowering technique was utilized adhering to the principles of ALARA. CT DOSE: 753.3 mGy.cm FINDINGS: Lung bases: The heart is mildly enlarged and without pericardial effusion. The coronary arteries are densely calcified. There are trace pleural effusions with dependent consolidation. A small hiatal hernia is noted. Liver: The unenhanced liver is normal in size, contour, and attenuation. There is no intrahepatic biliary ductal dilatation. Gallbladder: The gallbladder is distended and contains excreted IV contrast. Spleen: Normal in size and attenuation. Pancreas: The unenhanced pancreas is moderately atrophic and grossly unremarkable. Adrenal glands: Thickening of the adrenal glands is similar to previous. Kidneys: The unenhanced kidneys are normal in size and without hydronephrosis. There are no renal calculi identified. There is no evidence of contour deforming renal mass lesion. Abdominal vasculature: The abdominal aorta is normal in course and caliber noting advanced atherosclerotic calcification. Bowel: There is a long segment of wall thickening involving the rectosigmoid colon. Surrounding inflammation is observed. There is moderate diverticular disease of the sigmoid without definitive CT evidence of acute diverticulitis. There are also likely thick walled loops of small bowel in the right pelvis. There is moderate colonic fecal retention. No bowel obstruction is seen. The appendix is not visualized. Peritoneum: There are numerous small foci of intraperitoneal free air seen throughout the abdomen. There is a small volume of perihepatic and pelvic ascites. There is a large fat-containing supraumbilical hernia. Lymphadenopathy: None. Pelvic viscera: Evaluation of the pelvis is degraded by streak artifact from a right hip arthroplasty. The bladder is distended and filled with excreted IV contrast. The uterus and adnexa are normal as imaged. Skeletal structures: The skeletal structures are osteopenic. There is moderate to advanced cervical spondylosis and scoliosis. 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 No lytic or blastic lesions are seen. A right hip arthroplasty is in place. IMPRESSION: 1. There are numerous small foci of intraperitoneal free air indicative of visceral perforation. This represents a significant change from yesterday. A small volume of abdominopelvic ascites is also new from previous. 2. There is wall thickening involving the rectosigmoid colon with surrounding inflammation. Although not definitive, this may represent the site of perforation. There is moderate constipation, as well as diverticular disease in this region. This could potentially be related to a stercoral proctitis or possibly diverticulitis. There are also likely thick-walled loops of small bowel in the right pelvis. Surgical evaluation is advised. 3. Cardiomegaly. 4. Trace pleural effusions with dependent consolidation. This could representing atelectasis versus a mild pneumonitis. 5. Additional findings as above. ACT 112: Negative or not required by law. Electronically signed by: Brad Baptiste M.D. 08/14/2023 3:33 PM KUB X-Ray 08/15/23 06:00 KUB HISTORY: bowel perf, serial imaging COMPARISON: Abdomen and pelvis CT 08/14/2023. FINDINGS: Mildly dilated gas-filled loops of large or small bowel seen within the abdomen. This suggests a mild ileus. A right hip prosthesis again noted. The small foci of pneumoperitoneum again noted within the right upper quadrant. Degenerative changes and levoscoliosis of the lumbar spine again noted. Trace bilateral pleural effusions. No renal calculi. No ureteral calculi. No pneumoperitoneum or pneumatosis. IMPRESSION: 1. Redemonstration of a small foci of pneumoperitoneum within the right upper quadrant. This is similar to the prior CT examination and suggests underlying visceral perforation. 2. A few mildly dilated gas-filled loops of large and small bowel seen throughout the abdomen. This may represent a mild ileus. ACT 112: Negative or not required by law. Electronically signed by: Chi Alcantara M.D. 08/15/2023 9:26 AM PG Care Time/CCT Total # of Minutes Spent Total Time Spent with Patient: Total time spent is greater than 50% in coordination of care (as documented) at patient's floor/unit and/or counseling patient: Coding Level of Care Code 12846 SUB INP/OBS CARE 2/35MIN Diagnoses Bowel perforation K63.1 Distal radius fracture, left S52.502A HLD (hyperlipidemia) E78.5 HTN (hypertension) I10
[2023-08-15] MEDS: HYDROmorphone INJ 0.5 MG/0.5 ML SYR IV PRN (19:33)
[2023-08-16] MEDS ORDERED: LORazepam 0.5 MG in SYRINGE 0.25 ML IV STA (00:58)
[2023-08-16] MEDS: LORazepam 0.5 MG in SYRINGE 0.25 ML IV STA (01:19)
--- NOTE | 2023-08-16 04:38 | Surgery Progress Note ---
Date of Service August 16, 2023 Assessment & Plan (1) Bowel perforation: Plan: Patient has been admitted on the hospitalist service. From surgical perspective we recommend the following: Clinical improvement noted (patient's heart rate has improved, pain has imp roved, no further fevers, blood pressure has remained stable) Continue analgesics as needed Continue antiemetics as needed Continue n.p.o. statusconsideration will be given to advancing diet to clear liquids once further clinical improvement is noted and when bowel function begins to return Continue IV fluid for hydration while patient is n.p.o. Antibiotics in the form of Zosyn are being administered and this should continue KUB and labs are ordered for this morning which are pending; will check once available Of note KUB performed on 08/15/2023 showed some pneumoperitoneum similar to what was noted on CAT scan at time of admission Admission and Anticipated Discharge Date Admission Date: August 14, 2023 Supervising Physician Co-Signing Physician Notes pnt S&E, labs and imaging reviewed, agree with above. Admitted with suspected rectosigmoid perforation of unknown etiology. continues to feel better, passes some flatus. af. hr trending to normal. abd soft, mildly ttp in lower abd. wbc stable, kub w/ poss trace pneumoperitoneum. we will trial clears, advised to take it slow. May start bowel regimen tomorrow. Subjective Patient is noted to be resting comfortably in bed. She notes that her abdominal pain has improved from what she noted at time of admission. She is not having any nausea or vomiting. She has not passed any flatus or had a bowel movement since admission. I discussed with the patient's nurse who is attending to the patient and she notes that patient had a better night than the previous night. She has not had any febrile episodes since approximately 2 AM on 08/15/2023. Physical Exam Gastrointestinal (Abdomen): Abdomen has mild distention noted but is overall improved from what was noted on yesterday's exam. Bowel sounds are hypoactive. There is some generalized pain with palpation in the lower abdomen but no rebound tenderness or guarding. Results & Data Vital Signs (Past 12 Hours) Vital Signs Temp Pulse Pulse Resp BP Pulse Ox O2 Del Method 08/16/23 02:46 37.1 C 87 18 144/69 H 95 Nasal Cannula 08/15/23 22:52 103 H 08/15/23 22:26 37 C 105 H 18 130/63 95 Nasal Cannula 08/15/23 19:45 Nasal Cannula 08/15/23 19:24 37 C 107 H 18 135/66 96 Nasal Cannula 08/15/23 17:49 117/61 O2 Flow Rate 08/16/23 02:46 08/15/23 22:52 08/15/23 22:26 08/15/23 19:45 2 08/15/23 19:24 08/15/23 17:49 PG Care Time/CCT Total # of Minutes Spent Total Time Spent with Patient: Total time spent is greater than 50% in coordination of care (as documented) at patient's floor/unit and/or counseling patient: Coding Level of Care Code 68035 SUB INP/OBS CARE Diagnoses Bowel perforation K63.1
[2023-08-16 06:58] LABS: Hematocrit (blood only) 31.9 % (37.0-47.0); Hemoglobin 10.7 g/dl (12.0-16.0); Mean Corpuscular Hemoglobin 32.8 pg (25.0-34.0); Mean Corpuscular Hgb Conc 33.5 g/dL (32.0-36.0); Mean Corpuscular Volume 97.9 fL (80.0-100.0); Mean Platelet Volume 9.3 fL (9.4-12.4); Platelet Count 193 K/uL (130-400); RDW Coefficient of Variation 12.2 % (11.5-14.5); RDW Standard Deviation 43.9 fL (36.4-46.3); Red Blood Count 3.26 M/uL (4.20-5.40); White Blood Count 12.52 K/ul (4.8-10.8)
[2023-08-16 07:16] LABS: Basophils # (auto) 0.01 K/uL (0.00-0.20); Basophils % (auto) 0.1 %; Eosinophils # (auto) 0.05 K/uL (0.00-0.50); Eosinophils % (auto) 0.4 %; Immature Granulocytes # (auto) 0.09 K/uL (0.01-0.20); Immature Granulocytes % (auto) 0.7 %; Lymphocytes % (auto) 4.8 %; Monocytes # (auto) 0.17 K/uL (0.11-0.59); Monocytes % (auto) 1.4 %; Neutrophils % (auto) 92.6 %; Toxic Vacuolation 1+
[2023-08-16 07:30] LABS: Albumin Level 2.7 gm/dl (3.4-5.0); BUN Creatinine Ratio 22.7 (10-20); Bilirubin,Total 0.7 mg/dl (0.2-1.0); Calcium 7.6 mg/dl (8.6-10.3); Creatinine Clr Calc Pharmacy 61.9 ml/min; Est GFR (African American) 100.9 ml/min; Globulin 2.8 gm/dl (2.5-4.0); Potassium 3.7 mmol/L (3.5-5.1); Total Protein 5.5 gm/dl (6.0-8.3)
--- NOTE | 2023-08-16 08:46 | XRay Report ---
XR KUB/Abdomen 1 view CLINICAL HISTORY: bowel perf, serial imaging TECHNIQUE: 1 view of the abdomen was obtained. Comparison: Comparison is made to abdomen radiograph 08/15/2023 FINDINGS: Lung bases are unremarkable. Degenerative changes are seen in the visualized skeleton. Scoliosis is s een. Right hip arthroplasty is seen. The bowel gas pattern is nonobstructive. A moderate amount of st ool is noted within the large bowel. Gas foci in the right upper quadrant are again seen which may re present pneumoperitoneum. IMPRESSION: Likely trace pneumoperitoneum. No evidence of sarah bowel obstruction. ACT 112: Negative or not required by law. Electronically signed by: Hernán Pavon M.D. 08/16/2023 8:45 AM
--- NOTE | 2023-08-16 14:36 | Hospitalist Progress Note ---
Date of Service August 16, 2023 Assessment & Plan (1) Bowel perforation: Plan: CTA/P with evidence of free air, rectosigmoid inflammation, constipation.? Diverticulitis with perforation vs stercoral proctitis in the setting of narcotic use General surgery on board. Managing conservatively since the patient does not have hypotension, lactic acidosis, severe leukocytosis On Zosyn Repeat KUB today 08/15 showed trace pneumoperitoneum Noted that the patient has been started on clear liquid diet by surgery No enemas or suppositories Continue IV fluids (2) Distal radius fracture, left: Plan: Left radial fracture S/p surgical repair 08/11/2023 Neurovascularly intact No acute change in management (3) HLD (hyperlipidemia): Plan: Oral meds held (4) HTN (hypertension): Plan: Oral meds held Plan Arthritis: Previously on hydroxychloroquine was discontinued due to anemia DVT prophylaxis: SCDs, pharmacal prophylaxis held pending potential urgent surgical intervention CODE STATUS: Full code Admission and Anticipated Discharge Date Admission Date: August 14, 2023 Subjective Patient says she is feeling better overall. Even though she did have some pain and had asked for some pain medicine. Review of Systems Review of Systems: All systems reviewed & are unremarkable except as noted in Subjective Physical Exam Physical Exam: General: Awake, conversant Heart: S1, S2/regular rate and rhythm, no murmur rubs or gallops Lungs: Clear to auscultation bilaterally. Normal effort Abdomen: Soft/nondistended. Tenderness noted, most pronounced in the lower abdomen. No rigidity. Mild guarding. No rebound today. No hepatosplenomegaly Extremities: No clubbing/cyanosis. No edema Behavior: Appropriate, cooperative Results & Data Results & Data Vital Signs (Past 12 Hours) Vital Signs Temp Pulse Pulse Resp BP BP Pulse Ox 08/16/23 12:01 36.9 C 103 H 15 143/75 H 94 08/16/23 08:24 36.9 C 86 26 H 143/71 H 96 08/16/23 06:00 157/72 H 08/16/23 06:00 80 17 94 08/16/23 05:30 156/76 H 08/16/23 05:30 90 19 93 08/16/23 05:00 157/76 H 08/16/23 05:00 93 H 20 93 08/16/23 04:30 96 H 16 93 05/26/24 04:30 154/76 H 08/16/23 04:00 88 15 96 08/16/23 04:00 144/76 H 08/16/23 03:30 90 17 93 08/16/23 03:30 146/79 H 08/16/23 03:00 152/74 H 08/16/23 03:00 103 H 17 96 08/16/23 02:46 37.1 C 87 18 144/69 H 95 O2 Del Method 08/16/23 12:01 Nasal Cannula 08/16/23 08:24 Nasal Cannula 08/16/23 06:00 08/16/23 06:00 08/16/23 05:30 08/16/23 05:30 08/16/23 05:00 08/16/23 05:00 08/16/23 04:30 08/16/23 04:30 08/16/23 04:00 08/16/23 04:00 08/16/23 03:30 08/16/23 03:30 08/16/23 03:00 08/16/23 03:00 08/16/23 02:46 Nasal Cannula Laboratory Results Abnormal lab results 08/16/23 Range/Units 06:23 WBC 12.52 H (4.8-10.8) K/ul RBC 3.26 L (4.20-5.40) M/uL Hgb 10.7 L (12.0-16.0) g/dl Hct 31.9 L (37.0-47.0) % MPV 9.3 L (9.4-12.4) fL Neut # (Auto) 11.60 H (1.40-6.50) K/uL Lymph # (Auto) 0.60 L (1.20-3.40) K/uL BUN/Creatinine Ratio 22.7 H (10-20) Calcium 7.6 L (8.6-10.3) mg/dl AST 44 H (13-39) U/L Total Protein 5.5 L (6.0-8.3) gm/dl Albumin 2.7 L (3.4-5.0) gm/dl PG Care Time/CCT Total # of Minutes Spent Total Time Spent with Patient: Total time spent is greater than 50% in coordination of care (as documented) at patient's floor/unit and/or counseling patient: Coding Level of Care Code 58879 SUB INP/OBS CARE MIN Diagnoses Bowel perforation K63.1 Distal radius fracture, left S52.502A HLD (hyperlipidemia) E78.5 HTN (hypertension) I10
--- NOTE | 2023-08-16 19:45 | Communication Note ---
Date of Service: August 16, 2023 General surgery was notified about this patient. Patient has been followed by general surgery for suspected perforation of the rectosigmoid colon. Patient has thus far been treated in a nonoperative management with n.p.o. status, IV fluids, and antibiotics. Patient has shown some clinical improvement since her admission on 08/14/2023 and it was felt that a trial of clear liquids was indicated. The patient was initially tolerating clear liquids but earlier this afternoon patient developed some worsening abdominal pain. According to reports from [facility] staff the patient was writhing in bed. She did not have any episodes of hypotension or fever. She was noted to have some tachycardia with heart rate in the 110-120 range. I visited with the patient at the bedside it she does note some worsening abdominal pain. She denies any obstipation. She denies any nausea or vomiting. She does note the abdominal pain is confined mostly to the lower abdomen. On physical exam the patient is noted to be normotensive with a blood pressure of 150/82. Her heart rate is range anywhere from 110-120. Her abdomen is slightly more distended than what was noted this morning. She does not have rebound tenderness or guarding but does have pain with palpation in the lower abdomen. Due to the worsening pain the patient's dietary status has been back down to n.p.o. She continues to receive IV fluid for hydration and resuscitation. She continues to receive antibiotics in form of Zosyn. Will continue to provide analgesics and antiemetics as needed. Will monitor the patient closely throughout the night and plan on repeating laboratories in the morning. If the patient fails to show further significant clinical improvement over the next 12 to 24 hours the possibility of repeating a CAT scan of her abdomen will be entertained.
--- NOTE | 2023-08-16 23:22 | Communication Note ---
Date of Service: August 16, 2023 Patient revisited at bedside at this time. She is currently resting comfortably in bed. No change in physical exam from before. I did discuss with the nurse attending to the patient. Patient has not had any episodes of hypotension but remains tachycardic with heart rate approximately 110-120. She remains afebrile. Patient's most recent pain medicine that was administered was 0.5 mg of Dilaudid at approximately 7:30 PM. Will continue with the current treatment plan. Will continue to follow closely
[2023-08-17] MEDS: OPTIRAY 320 100ml IV ONE (05:25)
--- NOTE | 2023-08-17 05:29 | Surgery Progress Note ---
Date of Service August 17, 2023 Assessment & Plan (1) Bowel perforation: Plan: Patient is thus far been treated in a conservative manner including the following: Antibiotics in the form of Zosyn Hydration/resuscitation with intravenous fluids Initial treatment included n.p.o. status. Patient did show some clinical improvement after approximate 24 hours of hospitalization and thus clear liquids were trialed. After trialing clear liquids patient did complain of some worsening abdominal pain and was therefore backed down to n.p.o. status Initial CT scan on 08/14/2023 showed small foci of intraperitoneal air with thickening of the rectosigmoid colon raising concern for site of perforation. Serial KUBs were performed on 525 and 526 each demonstrating small foci of pneumoperitoneum Most recent laboratories were from 08/16/2023 including a CBC were white blood cell count was 12.5. Hemoglobin and hematocrit were 10.7 and 31.9 and platelet count was normal. Chemistry profile did demonstrate a normal sodium and potassium as well as a normal BUN and creatinine. The patient is now in atrial fibrillation with heart rate ranging from 130-150 (no prior history of atrial fibrillation) Due to the new onset atrial fibrillation, worsening abdominal exam, and worsening abdominal pain we will repeat patient's CT scan of the abdomen and pelvis at this time utilizing IV contrast Repeat laboratories have been ordered and are currently pending including a CBC and a comprehensive metabolic panel We will continue conservative treatment including antibiotics, intravenous fluids and maintain on n.p.o. status for the present time Will check a.m. labs once available and also evaluate patient's CT scan the abdomen pelvis with additional recommendations to follow Addendum: Patient CT scan was completed. The patient is noted to have bilateral pleural effusions that were not readily apparent on CT scan at time of admission. I do not appreciate any gross free air, but locules of gas are noted in the vicinity of the sigmoid colon similar to previous CT scan. There appears to be the possibility of a ventral hernia. Morning laboratories have been completed. CBC reveals white blood cell count is 12.9. Hemoglobin and hematocrit 11.7 34.9 with a normal platelet count. Chemistry profile shows sodium is 134 with a potassium of 3.3. BUN and creatinine are 13 and 0.5. Patient revisited at the bedside. Vital signs show blood pressure of 94/63. Heart rate is anywhere from 120-150. Patient is alert and oriented x 3. Her breath sounds are decreased at the bases but she is not using accessory muscles to aid in respiration and he she notes her breathing feels comfortable. Patient's abdomen has mild to moderate distention and is noted to be tender to palpation in the lower abdomen. Patient also has tenderness in the periumbil ical region. Due to concern for hernia on CT scan I examined the periumbilical areathere is significant tenderness in this area but I was not able to reduce any herniations. I discussed case with my attending physician, Dr. Hurley who will review CT scan with further recommendations to follow. I also discussed with the medical service who is treating the patient's atrial fibrillation at this time. Admission and Anticipated Discharge Date Admission Date: August 14, 2023 Supervising Physician Co-Signing Physician Notes pnt S&E, labs and imaging reviewed, agree with above. rectosigmoid perforation of unknown etiology, possible stercoral vs diverticular vs trauma from enema. Increased pain with clears yesterday, severe abd pain. Went into afib w/ rvr [place] this am. Repeat CT showed increased pneumoperitoneum and ascites, abscess near rectosigmoid junction likely site of perforation. af, hr 148 afib, bp stable. abd soft, ttp, slightly more distended. wbc 12.9, up slightly. CT personally reviewed and interpreted, agree with findings. failure of non operative management plan for exploratory laparotomy, possible bowel resection, possible ostomy, possible cholecystectomy risks discussed to include bleeding, infection, damage to surrounding structures, need for future or more extensive surgery, abscess, and risks of anesthesia d/w and pnt, ct reviewed with them, they agree to proceed with surgery. Subjective I was called by medical service at approximately 5:00 AM stating that patient was in atrial fibrillation with heart rates of approximately 150. I reported the bedside immediately to evaluate the patient and discussed with nursing staff. As noted patient went in atrial fibrillation with heart rates as high as 150. Blood pressure appear to be downtrending with readings as low as 86/67. Patient has remained afebrile. When evaluating the patient she notes that she continues to have abdominal pain similar to what was noted before but slightly worse. She has not had any nausea or vomiting. Physical Exam Cardiovascular: Rate/Rhythm: + irregularly irregular Gastrointestinal (Abdomen): Abdomen noted to have mild distention, appears to be slightly worse than what was noted during previous encounters over the past 12 hours. Patient has diffused tenderness which appears to be greatest in the lower abdomen. Results & Data Vital Signs (Past 12 Hours) Vital Signs Temp Pulse Pulse Resp BP BP Pulse Ox 08/17/23 03:24 37.0 C 120 H 27 H 134/63 92 08/17/23 01:19 120 H 08/16/23 23:01 37.1 C 126 H 14 109/70 92 08/16/23 19:55 08/16/23 19:36 36.8 C 119 H 18 150/82 H 92 O2 Del Method O2 Flow Rate 08/17/23 03:24 Nasal Cannula 2.0 08/17/23 01:19 08/16/23 23:01 Nasal Cannula 2.0 08/16/23 19:55 Nasal Cannula 2 08/16/23 19:36 Nasal Cannula 2 PG Care Time/CCT Total # of Minutes Spent Total Time Spent with Patient: Total time spent is greater than 50% in coordination of care (as documented) at patient's floor/unit and/or counseling patient: Coding Level of Care Code 65068 SUB INP/OBS CARE 2/35MIN Diagnoses Bowel perforation K63.1
[2023-08-17 05:46] LABS: Hematocrit (blood only) 34.9 % (37.0-47.0); Hemoglobin 11.7 g/dl (12.0-16.0); Mean Corpuscular Hemoglobin 32.6 pg (25.0-34.0); Mean Corpuscular Hgb Conc 33.5 g/dL (32.0-36.0); Mean Corpuscular Volume 97.2 fL (80.0-100.0); Mean Platelet Volume 9.3 fL (9.4-12.4); Platelet Count 254 K/uL (130-400); RDW Coefficient of Variation 11.3 % (11.5-14.5); RDW Standard Deviation 40.2 fL (36.4-46.3); Red Blood Count 3.59 M/uL (4.20-5.40); White Blood Count 12.95 K/ul (4.8-10.8)
[2023-08-17] MEDS: METOPROLOL TARTRATE 1 MG/ML VIAL IV STA (05:56)
[2023-08-17 06:03] LABS: Albumin Level 2.7 gm/dl (3.4-5.0); BUN Creatinine Ratio 23.2 (10-20); Bilirubin,Total 0.7 mg/dl (0.2-1.0); Calcium 7.9 mg/dl (8.6-10.3); Creatinine Clr Calc Pharmacy 72.9 ml/min; Est GFR (African American) 106.5 ml/min; Est GFR (Non-African American) 91.9 ml/min; Globulin 2.6 gm/dl (2.5-4.0); Potassium 3.3 mmol/L (3.5-5.1); Total Protein 5.3 gm/dl (6.0-8.3)
[2023-08-17] MEDS: POTASSIUM CHLORIDE / WTR 10 MEQ/100 ML PLCT IV SCH ×2 (06:22→17:12)
[2023-08-17 07:27] LABS: Basophils # (auto) 0.04 K/uL (0.00-0.20); Basophils % (auto) 0.3 %; Eosinophils # (auto) 0.01 K/uL (0.00-0.50); Eosinophils % (auto) 0.1 %; Immature Granulocytes # (auto) 0.06 K/uL (0.01-0.20); Immature Granulocytes % (auto) 0.5 %; Lymphocytes # (auto) 0.91 K/uL (1.20-3.40); Monocytes # (auto) 0.24 K/uL (0.11-0.59); Monocytes % (auto) 1.9 %; Neutrophils # (auto) 11.69 K/uL (1.40-6.50); Neutrophils % (auto) 90.2 %; Polychromasia 1+; Rouleaux 1+
--- NOTE | 2023-08-17 07:40 | CT Scan Report ---
CT OF THE ABDOMEN AND PELVIS WITH CONTRAST CLINICAL HISTORY: Abdominal pain. Rule out perforation. COMPARISON STUDY: CT of the abdomen and pelvis August 14, 2023. KUB August 16, 2023. TECHNIQUE: Following IV administration of 93 mL of Optiray, axial images of the abdomen and pelvis we re obtained from the lung bases to the proximal femurs. Images were reviewed in the axial, sagittal, and coronal planes. IV contrast was administered without complication. Automated exposure control wa s utilized for the study. A dose lowering technique was utilized adhering to the principles of ALARA . CT DOSE: 1355.18 mGy.cm FINDINGS: Small to moderate right and small left pleural effusions have developed since CT of August 14, 2023. Associated subpleural opacities favor atelectasis. Pneumoperitoneum has increased since CT of August 14, 2023. This includes extraluminal gas within a ventral hernia. A small amount of abdominal and pelvic ascites has also increased. A gas and fluid-containing pelvic fluid collection measuring 9.4 x 5.8 cm has developed. Peritoneal thickening is noted. The gallbladder is distended. There is layeri ng hyperdense material within the gallbladder. No hepatic lesions are present. Spleen, adrenal glands , kidneys and pancreas are unremarkable. Is no hydronephrosis. The appendix is not well visualized. T here is sigmoid diverticulosis. Wall thickening of several small bowel loops within the pelvis is not ed. There is also mild rectosigmoid wall thickening with adjacent inflammation. 2 cm right fundal fib roid is present. Fluid within endometrial canal versus endometrial thickening is noted. This was not evident on CT of August 13, 2023 and therefore favors fluid. Body wall edema is present. There is a righ t hip arthroplasty. Briones catheter is in place. Mild dilatation of small and large bowel is noted wit hout transition point. IMPRESSION: 1. Increase in pneumoperitoneum since CT of August 14, 2023 consistent with visceral perforation. Increa se in abdominal and pelvic ascites and a new 9.4 x 5.8 cm gas and fluid containing collection suggest petra of a developing abscess. This collection is likely the site for perforation and could be related to a small or large bowel etiology. Wall thickening of several small bowel loops within the pelvis an d rectosigmoid wall thickening. Mild dilatation of small and large bowel favors an ileus. 2. Distended gallbladder. 3. Increase in small to moderate right and small left pleural effusions. Subpleural opacities favor a telectasis. ACT 112: Negative or not required by law. Electronically signed by: Anthony Oshea M.D. 08/17/2023 7:37 AM
[2023-08-17] MEDS ORDERED: fentaNYL citrate PF 100 MCG/2 ML VIAL ONE (10:41)
[2023-08-17] MEDS ORDERED: ALBUMIN HUMAN 5% 12.5 GM/250 ML VIAL IV ONE (10:42)
[2023-08-17] MEDS ORDERED: PHENYLEPHRINE HCL 25 MG/250 ML NSS IV ONE (10:43)
[2023-08-17] MEDS ORDERED: ROCURONIUM BROMIDE 10 MG/ML 5 ML VIAL IV ONE ×2 (10:57→12:48)
[2023-08-17] MEDS ORDERED: LIDOCAINE 2% 2 ML VIAL/AMP(20MG/ML) INFIL ONE (10:57)
[2023-08-17] MEDS ORDERED: ETOMIDATE 2 MG/ML 20 ML VIAL IV ONE (10:57)
[2023-08-17] MEDS ORDERED: PROPOFOL IV EMULSION 10 MG/ML 20 ML VIAL IV ONE (10:57)
[2023-08-17] MEDS: dilTIAZem HCl 5 MG/ML 5 ML VIAL IV STA (10:59)
--- NOTE | 2023-08-17 11:03 | Anesthesiology Consultation ---
Date of Service August 17, 2023 Assessment & Plan (1) Encounter for pre-operative examination: Chart Review Chart Review: Acceptable Risk for Surgery (urgent) History Surgery Operation Date: 08/17/23 10:00 Proposed Procedures p Cholecystectomy - Tommy Hurley DO, FACS s Exploratory Laparotomy, poss Bowel Resection, and poss Cholecystectomy - Tommy Hurley DO, FACS Height/Weight Height: 5 ft 3 in Weight: 71.8 kg Allergies Allergy/AdvReac Type Severity Reaction Status Date / Time No Known Allergies Allergy Verified 08/06/22 07:25 Medications Home Medications Medication Instructions Recorded Confirmed Last Taken amitriptyline 10 mg tablet 10 mg PO HS PRN Sleep 07/01/18 08/14/23 1 Week Ago ~08/18/18 amoxicillin 500 mg capsule 4 cap PO UD PRN PRE DENTAL 07/01/18 08/14/23 3 Months Ago ~05/25/18 benzonatate 100 mg capsule 100 mg PO UD PRN Cough 07/01/18 08/14/23 1 Month Ago ~07/25/18 celecoxib 200 mg capsule 200 mg PO QAM 07/01/18 08/14/23 08/05/22 cyanocobalamin (vitamin B-12) 1,000 mcg PO QAM 07/01/18 08/14/23 08/05/22 1,000 mcg tablet (Vitamin B-12) multivitamin (Multiple Vitamins 1 tab PO QAM 07/01/18 08/14/23 08/05/22 tablet) pravastatin 40 mg tablet 40 mg PO HS 07/01/18 08/14/23 08/05/22 alendronate 70 mg tablet 70 mg PO WK 07/23/22 08/14/23 08/05/22 hydrocodone 5 mg-acetaminophen 325 1 - 2 tab PO Q6H PRN pain #15 tabs 08/06/23 08/14/23 Unknown mg tablet meloxicam 15 mg tablet 15 mg PO DAILY 08/14/23 08/14/23 Unknown oxycodone 5 mg tablet 5 mg PO UD PRN pain 08/14/23 08/14/23 Unknown Active Medications Generic Name Dose Route Start Last Admin Trade Name Freq PRN Reason Stop Dose Admin Hydromorphone HCl 0.5 mg 08/14/23 15:42 08/15/23 16:25 Hydromorphone Inj 0.5 Mg/0.5 Ml Syr IV 08/28/23 15:41 0.5 mg Q15M PRN Administration Pain Hydromorphone HCl 0.5 mg 08/14/23 16:52 08/17/23 08:37 Hydromorphone Inj 0.5 Mg/0.5 Ml Syr IV 08/28/23 16:51 0.5 mg Q2H PRN Administration Moderate Pain (4,5,6) on NRS Hydromorphone HCl 1 mg 08/14/23 16:52 08/17/23 03:27 Hydromorphone Inj 1 Mg/Ml Syringe IV 08/28/23 16:51 1 mg Q2H PRN Administration Severe Pain (7,8,9,10) on NRS Piperacillin Sod/Tazobactam 100 mls @ 25 mls/hr 08/14/23 20:00 08/17/23 07:55 Sod 4.5 gm/ Dextrose IV 08/24/23 19:59 Infused Q8H [place] Infusion Protocol Lactated Ringer's 1,000 mls @ 125 mls/hr 08/14/23 17:00 08/17/23 08:04 Lr IV 09/13/23 16:59 125 mls/hr .Q8H [place] Administration Acetaminophen 1,000 mg in 100 mls @ 400 mls/hr 08/14/23 16:52 08/17/23 06:40 Ofirmev IV 08/17/23 16:51 Infused Q8H PRN Infusion Fever/Mild Pain (Pain 1,2,3) Past Medical History Medical History (Updated 08/17/23 @ 11:02 by Andrew Haynes MD) Atrial fibrillation Bowel perforation Rheumatoid arthritis HTN (hypertension) Hx of scoliosis mild History of anemia History of back problems INJECTION FOR 1.5 YR AGO History of mitral valve prolapse 11 YR AGO - NO CURRENT CARDIO High cholesterol Past Family History Family History Other Family history of cancer Past Surgical History Surgical History (Updated 08/17/23 @ 11:04 by Andrew Haynes MD) History of right cataract extraction S/P revision of total hip revision after dislocation, 2019 History of anesthesia reaction TROUBLE WITH SPINAL PLACEMENT FOR HIP REPLACEMENT DUE TO SCOLIOSIS - HAD TO TRY A FEW TIMES History of endoscopy History of colonoscopy History of hernia surgery History of tubal ligation Social History Smoking Status: Never smoker tobacco type: cigarettes Do You Dip or Chew Tobacco: No Hx Alcohol Use: No Alcohol type: wine alcohol intake frequency: a few times a week Hx Substance Use: No substance use type: does not use Physical Exam Vital Signs Last Vital Signs Temp 36.5 C 08/17/23 08:10 Pulse 148 H 08/17/23 08:10 Resp 16 08/17/23 08:10 BP 96/70 L 08/17/23 08:10 Pulse Ox 93 08/17/23 08:10 O2 Del Method Nasal Cannula 08/17/23 10:06 O2 Flow Rate 2 08/17/23 10:06 Testing Laboratory Results 08/17/23 05:09 08/17/23 05:09 Urine Color Dark Yellow 08/14/23 Unknown Urine Appearance Cloudy (Clear) A 08/14/23 Unknown Urine pH 5.0 (4.5-7.5) 08/14/23 Unknown Ur Specific [place] 1.029 (1.000-1.030) 08/14/23 Unknown Urine Protein 2+ (Negative) H 08/14/23 Unknown Urine Glucose (UA) Negative (Negative) 08/14/23 Unknown Urine Ketones Trace (Negative) H 08/14/23 Unknown Urine Nitrite Negative (Negative) 08/14/23 Unknown Ur Leukocyte Esterase Negative (Negative) 08/14/23 Unknown Urine WBC (Auto) 0-5 /hpf (0-5) 08/14/23 Unknown Urine RBC (Auto) 0-2 /hpf (0-2) 08/14/23 Unknown U Hyaline Cast (Auto) 6-10 /lpf (0-2) H 08/14/23 Unknown U Epithel Cells (Auto) 3-5 /hpf (0-2) H 08/14/23 Unknown Urine Bacteria (Auto) None Seen (None Seen) 08/14/23 Unknown 08/14/23 Unknown Urine Culture - Final Urine,Indwelling Cath No growth - less than 1,000 colonies/mL. 08/14/23 23:56 Aerobic Blood Culture - Preliminary Blood No growth in Aerobic bottle after 48 hours. Anaerobic Blood Culture - Preliminary No growth in Anaerobic bottle after 48 hours. 08/14/23 23:48 Aerobic Blood Culture - Preliminary Blood No growth in Aerobic bottle after 48 hours. Anaerobic Blood Culture - Preliminary No growth in Anaerobic bottle after 48 hours. Electrocardiogram Date: 08/17/23 Findings: + AFIB @ (705)
[2023-08-17] MEDS: SODIUM CHLORIDE 0.9% 1,000 ML IV SCH (11:09)
--- NOTE | 2023-08-17 11:13 | Electrocardiogram Report ---
Test Reason : Blood Pressure : / mmHG Vent. Rate : 129 BPM Atrial Rate : 120 BPM P-R Int : 000 ms QRS Dur : 074 ms QT Int : 310 ms P-R-T Axes : 000 -41 -02 degrees QTc Int : 454 ms Atrial fibrillation with rapid ventricular response Left axis deviation Low voltage QRS Possible Anterolateral infarct (cited on or before 17-AUG-2023) Abnormal ECG When compared with ECG of 17-AUG-2023 04:45, (unconfirmed) No significant change was found Confirmed by Ethan Daily ([id number]) on 08/17/2023 11:13:20 AM Referred By: Magaly Mcmillan Confirmed By:Antwan Daily
--- NOTE | 2023-08-17 11:14 | Electrocardiogram Report ---
Test Reason : Blood Pressure : / mmHG Vent. Rate : 141 BPM Atrial Rate : 133 BPM P-R Int : 000 ms QRS Dur : 086 ms QT Int : 304 ms P-R-T Axes : 000 -45 -12 degrees QTc Int : 465 ms Atrial fibrillation with rapid ventricular response Low voltage QRS Left anterior fascicular block possible Inferior infarct , age undetermined Possible Anterolateral infarct , age undetermined Abnormal ECG When compared with ECG of 06-JUL-2018 13:39, Atrial fibrillation has replaced Sinus rhythm Nonspecific T wave abnormality now evident in Inferior leads Nonspecific T wave abnormality now evident in Anterior leads Confirmed by Ethan Daily ([id number]) on 08/17/2023 11:14:12 AM Referred By: Magaly Mcmillan Confirmed By:Antwan Daily
[2023-08-17] MEDS ORDERED: ATROPINE SULFATE 0.1 MG/ML 10ML SYR IV PRN (11:20)
[2023-08-17] MEDS ORDERED: DROPERIDOL 5 MG/2 ML VIAL IV PRN (11:20)
[2023-08-17] MEDS ORDERED: DEXAMETHASONE SOD INJ 4 MG/ML VIAL ONE (12:05)
[2023-08-17] MEDS ORDERED: ONDANSETRON INJ 2 MG/ML 2 ML VIAL ONE (12:05)
[2023-08-17] MEDS ORDERED: HYDROmorphone INJ 1 MG/ML SYRINGE ONE (12:06)
--- NOTE | 2023-08-17 12:12 | Hospitalist Progress Note ---
Date of Service August 17, 2023 Assessment & Plan (1) Bowel perforation: Plan: CTA/P with evidence of free air, rectosigmoid inflammation, constipation.? Diverticulitis with perforation vs stercoral proctitis in the setting of narcotic use General surgery on board. Initially managing conservatively but with development of severe pain, hypotension and increasing tachycardia, CT abdomen was repeated that showed increase in pneumoperitoneum compared to CT of 08/13 consistent with visceral perforation. It all shows showed increase in ascites and a new developing abscess which is likely at the site of the perforation. Based on the new changes, decision was made for the patient to go to the OR. Ordered a fluid bolus to treat hypotension and tachycardia Continue Zosyn Continue n.p.o. (2) Distal radius fracture, left: Plan: Left radial fracture S/p surgical repair 08/11/2023 Neurovascularly intact No acute change in management (3) HLD (hyperlipidemia): Plan: Oral meds held (4) HTN (hypertension): Plan: Oral meds held (5) Atrial fibrillation: Plan: Patient is found to be tachycardic EKG showed atrial fibrillation This is most likely in the setting of bowel perforation, pneumoperitoneum She was ordered metoprolol overnight with minimal response Ordered a fluid bolus Patient will be taken to the OR soon to treat the underlying problem Plan Arthritis: Previously on hydroxychloroquine was discontinued due to anemia DVT prophylaxis: SCDs, pharmacal prophylaxis held pending potential urgent jones rgical intervention CODE STATUS: Full code Admission and Anticipated Discharge Date Admission Date: August 14, 2023 Subjective Since she was relatively stable yesterday, her diet was advanced to clear liquid diet by the surgery team. Later on yesterday, she started having severe pain. Overnight, her tachycardia was worse and her blood pressure started to drop. Repeat CT abdomen this morning shows worsening of pneumoperitoneum as well as a developing abscess. The patient has been closely monitored by the surgery team. Decision has been made by the surgery team to take her to the OR. Patient is aware of the decision. She complains of some pain in the abdomen. She denies any chest pain, shortness of breath, palpitations. She is not confused and is able to hold a conversation. She is accompanied by her at the bedside. Review of Systems Review of Systems: All systems reviewed & are unremarkable except as noted in Subjective Physical Exam Physical Exam: General: Awake, conversant Heart: S1, S2/regular rate and rhythm, no murmur rubs or gallops Lungs: Clear to auscultation bilaterally. Normal effort Abdomen: Soft. Distended. Tenderness noted, most pronounced in the lower abdomen. No rigidity. Mild guarding. Rebound noted.. No hepatosplenomegaly Extremities: No clubbing/cyanosis. No edema Behavior: Appropriate, cooperative Results & Data Results & Data Vital Signs (Past 12 Hours) Vital Signs Temp Pulse Pulse Resp BP BP BP 08/17/23 11:00 78/61 L 80/61 L 08/17/23 10:06 08/17/23 08:10 36.5 C 148 H 16 96/70 L 08/17/23 06:23 127 H 17 08/17/23 06:23 94/63 L 08/17/23 06:17 90/59 L 08/17/23 06:17 128 H 23 08/17/23 06:10 132 H 94/63 L 08/17/23 06:00 134 H 26 H 08/17/23 05:56 151 H 97/71 L 08/17/23 05:37 97/71 L 08/17/23 05:37 146 H 19 08/17/23 05:00 146 H 15 08/17/23 05:00 101/59 L 08/17/23 04:59 152 H 17 08/17/23 04:59 98/68 L 08/17/23 04:58 87/67 L 08/17/23 04:58 143 H 20 08/17/23 04:43 135 H 19 08/17/23 04:43 103/72 08/17/23 04:39 118/83 08/17/23 04:39 134 H 12 08/17/23 04:31 117/53 L 08/17/23 04:31 129 H 8 L 08/17/23 04:30 123 H 10 L 08/17/23 04:30 114/58 L 08/17/23 04:29 112/74 08/17/23 04:29 154 H 10 L 08/17/23 04:00 115 H 10 L 08/17/23 04:00 114/65 08/17/23 03:30 121 H 14 08/17/23 03:30 139/80 08/17/23 03:24 134/63 08/17/23 03:24 120 H 23 08/17/23 03:24 37.0 C 120 H 27 H 134/63 08/17/23 03:00 126 H 18 08/17/23 03:00 137/73 08/17/23 02:30 120 H 14 08/17/23 02:30 147/87 H 08/17/23 02:00 133/72 08/17/23 02:00 120 H 14 08/17/23 01:30 121 H 13 08/17/23 01:30 127/75 08/17/23 01:19 120 H 08/17/23 01:00 122 H 14 08/17/23 01:00 137/70 08/17/23 00:31 122 H 17 Pulse Ox O2 Del Method O2 Flow Rate 08/17/23 11:00 08/17/23 10:06 Nasal Cannula 2 08/17/23 08:10 93 Oxymask 08/17/23 06:23 94 08/17/23 06:23 08/17/23 06:17 08/17/23 06:17 94 08/17/23 06:10 08/17/23 06:00 94 08/17/23 05:56 08/17/23 05:37 08/17/23 05:37 08/17/23 05:00 94 08/17/23 05:00 08/17/23 04:59 93 08/17/23 04:59 08/17/23 04:58 08/17/23 04:58 93 08/17/23 04:43 93 08/17/23 04:43 08/17/23 04:39 08/17/23 04:39 94 08/17/23 04:31 08/17/23 04:31 94 08/17/23 04:30 94 08/17/23 04:30 08/17/23 04:29 08/17/23 04:29 94 08/17/23 04:00 94 08/17/23 04:00 08/17/23 03:30 91 08/17/23 03:30 08/17/23 03:24 08/17/23 03:24 92 08/17/23 03:24 92 Nasal Cannula 2.0 08/17/23 03:00 92 08/17/23 03:00 08/17/23 02:30 08/17/23 02:30 08/17/23 02:00 08/17/23 02:00 08/17/23 01:30 08/17/23 01:30 08/17/23 01:19 08/17/23 01:00 08/17/23 01:00 08/17/23 00:31 92 Laboratory Results Abnormal lab results 08/17/23 Range/Units 05:09 WBC 12.95 H (4.8-10.8) K/ul RBC 3.59 L (4.20-5.40) M/uL Hgb 11.7 L (12.0-16.0) g/dl Hct 34.9 L (37.0-47.0) % RDW Coeff of Girish 11.3 L (11.5-14.5) % MPV 9.3 L (9.4-12.4) fL Neut # (Auto) 11.69 H (1.40-6.50) K/uL Lymph # (Auto) 0.91 L (1.20-3.40) K/uL Sodium 134 L (136-145) mmol/L Potassium 3.3 L (3.5-5.1) mmol/L Creatinine 0.56 L (0.6-1.2) mg/dl BUN/Creatinine Ratio 23.2 H (10-20) Glucose 116 H (70-99(Fasting)) mg/dl Calcium 7.9 L (8.6-10.3) mg/dl Total Protein 5.3 L (6.0-8.3) gm/dl Albumin 2.7 L (3.4-5.0) gm/dl PG Care Time/CCT Total # of Minutes Spent Total Time Spent with Patient: Total time spent is greater than 50% in coordination of care (as documented) at patient's floor/unit and/or counseling patient: Coding Level of Care Code 66111 SUB INP/OBS CARE 2/35MIN Diagnoses Bowel perforation K63.1 Distal radius fracture, left S52.502A HLD (hyperlipidemia) E78.5 HTN (hypertension) I10 Atrial fibrillation I48.91
[2023-08-17] MEDS ORDERED: METOPROLOL TARTRATE 1 MG/ML VIAL IV ONE (12:19)
[2023-08-17] MEDS ORDERED: SUGAMMADEX SODIUM 200 MG/2 ML VIAL IV ONE (12:19)
[2023-08-17] MEDS: BUPIVACAINE 0.5 % 5 MG/1 ML MPF 30ML VIAL ONE (13:40)
[2023-08-17] MEDS: BUPIVACAINE LIPOSOME 1.3% 266 MG/20 ML VIAL ONE (13:41)
--- NOTE | 2023-08-17 14:00 | Post Operative Brief Note ---
PG Immediate Post Op with CF Date of Surgery August 17, 2023 Pre & Post Diagnosis Operation Date: 08/17/23 10:00 Pre-Op Diagnosis: Bowel perforation Post-Op Diagnosis: Bowel perforation Rectal Sigmoid perforation I identified the patient and participated in the time-out.: Yes Procedure Operation Date: 08/17/23 10:00 Actual Procedures p Exploratory Laparotomy, Resection of Rectal Sigmoid Perforation, Colostomy(Not Applicable) - Tommy Hurley DO, FACS Surgeon Tommy Hurley DO, FACS Renal Dialysis Rn Miriam Gonzalez Estimated Blood Loss 50 Findings Consistent with Post-Op Diagnosis Turbid fluid in abdomen sent for culture. Contained perforation anterior rectosigmoid junction, approximately 1 cm, multiple hard stool balls impacted in rectum. Ring's procedure performed, partial mobilization of the splenic flexure, end colostomy with distal descending colon created. Copious irrigation. Exparel injected. SUSANNAH drain placed Specimens Specimen Description: Culture 1. Peritoneal fluid Permanent A. Rectal sigmoid perforation B. Sigmoid colon Drains Briones Catheter (In place prior to operating room. ) and David-Hernandez Drain (Anterior to rectum) Anesthesia Type General Complications none Disposition Accompanied Patient To Recovery: No Disposition: Surgical ICU
--- NOTE | 2023-08-17 14:02 | Operative Report ---
PG Post Operative Report Pre & Post Diagnosis Operation Date: 08/17/23 10:00 Pre-Op Diagnosis: Bowel perforation Post-Op Diagnosis: Bowel perforation Rectal Sigmoid perforation I identified the patient and participated in the time-out.: Yes Procedure Operation Date: 08/17/23 10:00 Actual Procedures p Exploratory Laparotomy, Resection of Rectal Sigmoid Perforation, Colostomy(Not Applicable) - Tommy Hurley DO, YAQUELIN Surgeon Tommy Hurley DO, YAQUELIN Shipsmith Miriam Gonzalez Estimated Blood Loss 50 Findings Consistent with Post-Op Diagnosis Turbid fluid in abdomen sent for culture. Contained perforation anterior rectosigmoid junction, approximately 1 cm, multiple hard stool balls impacted in rectum. Ring's procedure performed, partial mobilization of the splenic flexure, end colostomy with distal descending colon created. Copious irrigation. Exparel injected. SUSANNAH drain placed Specimens Specimen Description: Culture 1. Peritoneal fluid Permanent A. Rectal sigmoid perforation B. Sigmoid colon Drains NG tube 15 mm round SUSANNAH in pelvis anterior rectum Astorga catheter already in place Anesthesia Type General Complications none Disposition Accompanied Patient To Recovery: No Disposition: Surgical ICU Indications 72-year-old female with recent orthopedic surgery on her left forearm/wrist and constipation over the past several days presented to the ER with abdominal pain. Her CT scan showed small amount of pneumoperitoneum along with some fluid and a concern for a small rectal perforation of unknown etiology. After discussion of her options we initially proceeded with nonoperative management with antibiotics. She appeared to be doing well until overnight when she began having significant cramping in her abdomen and went into atrial fibrillation with rapid ventricular response. Repeat CT scan showed an abscess in the pelvis along with increased pneumoperitoneum and ascites. After discussion of her options with the patient and her , we agreed to proceed with exploratory laparotomy, possible bowel resection, possible ostomy, possible cholecystectomy. The risks of the procedure were discussed, all questions were answered, and the patient agreed to proceed with surgery as planned. Description of Procedure The patient was properly identified, consented, and taken to the operating room where she was placed in the supine position. General endotracheal anesthesia was induced. A astorga catheter was already in place. An NG tube, SCDs and a safety belt were placed. Preoperative antibiotics were administered. The patient's abdomen was prepped and draped in the standard sterile fashion. Surgical timeout was performed and all parties were in agreement that this was the correct patient and procedure to be performed and we continued as planned. A midline laparotomy incision was made and deepened down to the fascia with electrocautery. The fascia was opened. There was turbid fluid with a feculent smell was encountered. This was suctioned and cultures were sent. There was no gross stool. There was a fat-containing ventral hernia superior to the umbilicus that was reduced and was incorporated in the fascial opening. The abdomen was explored. The small bowel was eviscerated from the abdomen and pelvis. There was some filmy adhesions but also a fibrinous rind around the portions of small bowel that had been in the pelvis. The sigmoid colon was run down towards the rectosigmoid junction. The uterus was mobilized off the anterior portion of the rectum and we encountered the abscess cavity that was seen on CT. More purulent and some feculent material was encountered here. This was suctioned and the area was irrigated. There was a 1 cm perforation in the anterior wall of the rectum. Within this portion of the rectum there was several hard stool balls. A window was created in the mesentery just distal to the site of perforation in the proximal rectum. A purple loaded 60 mm Endo VIVI stapler was then used to divide the rectum at this point. The corners of the staple line were tagged with 3-0 Prolene to make it easier for identification in the future. There was no other evidence of ischemia, diverticulitis, or other sites of perforation within the rectum and sigmoid colon. A window was created in the mesentery of the distal sigmoid colon just proximal to this and it was divided with a stapler. The mesentery was taken down with the LigaSure device staying close to the colon. The section was completely resected and passed off the table as specimen. We then proceeded to complete the Ring's procedure. The sigmoid colon and left colon were mobilized off of the lateral abdominal wall by taking down the white line of Toldt. I mobilized the splenic flexure by lifting the omentum off of the distal third of the transverse colon and taking down portions of the splenocolic ligament with the LigaSure and blunt dissection. Once this was completed, I began to divide the mesentery along the remaining sigmoid colon until we reached the distal end of the descending colon which appeared to reach easily up to the abdominal wall. This appeared to have good perfusion. The firm stool balls that were found throughout the colon were milked into the distal part of the colon. A quarter sized [place] of skin was then opened to the left of the umbilicus overlying the rectus muscle. This was deepened down to the fascia and the fat and skin removed. A cruciate incision was made in the anterior rectus sheath. The muscle was bluntly dissected and the posterior sheath and peritoneum were opened with a cruciate incision. This was dilated to accommodate 2 fingers. Once this was completed the distal end of the sigmoid colon was grasped with a Francisco J and pulled through the abdominal wall. The colon was tacked to the posterior abdominal wall with 3-0 silk sutures x 2. This was later matured, and we turned our attention back to the abdomen. The NG tube was confirmed to be in the stomach. The remainder of the colon was explored and there was no evidence of perforation or abnormality. The small bowel was run from the ligament of Treitz to the ileocecal valve. There was no perforation or ischemia. There were some areas as noted before with a fibrinous rind, but this was not removed. The abdomen was then copiously irrigated with several liters of warm saline. There did not appear to be any gross feculent material or stool balls within the abdomen. The remainder of the abdomen was benign. The gallbladder was examined and was distended but there was no evidence of cholecystitis. A 15 mm round SUSANNAH drain was then placed into the pelvis just anterior to the rectum and exited through a stab incision in the right lower quadrant abdomen. The fascia was then closed with a #1 looped PDS x 2. In the area of the ventral hernia the fascia was mobilized from the overlying fat and subcutaneous tissue to allow for less tension. As this was a contaminated case, no mesh was utilized. Exparel was then injected in the fascia and the subcutaneous tissues after the closure. The wound was irrigated and closed with jimmy. Telfa tim were placed in between jimmy in several locations. The drain was secured into place with a 3-0 nylon stitch. A towel w as placed over the wound and we turned our attention to maturing the ostomy. A bowel clamp was used on the proximal sigmoid colon and the colon was divided with scissors. The mucosa appeared healthy. Some liquid stool was suctioned with the pool sucker. The colostomy was then secured into place with 3-0 Vicryl sutures. It appeared healthy and appeared patent to below the level of the fascia. A drain stitch was applied. A sterile dressing was placed over the wound. An ostomy device was placed over the ostomy. The NG tube and Astorga catheter were left in place. The patient was extubated in the operating room and taken to the PACU where she recovered without apparent incident. All sponge, instrument and needle counts were correct at the conclusion of the procedure. The patient tolerated the procedure well. The nurse practitioner was present and scrubbed for the entire the procedure. She was critical in positioning the patient, prepping and draping, retraction and exposure, resection of the colon, closure of the fascia and incisions, creation of the ostomy, and placement of the dressings. I attest to the content of the Intraoperative Record and any orders documented therein. Any exceptions are noted below.
[2023-08-17] MEDS: HYDROmorphone INJ 1 MG/ML SYRINGE IV PRN ×2 (14:16→15:01)
[2023-08-17] MEDS: ONDANSETRON INJ 2 MG/ML 2 ML VIAL IV PRN (14:28)
[2023-08-17] MEDS: KETOROLAC 30 MG/ML VIAL IV PRN (14:53)
[2023-08-17] MEDS: ACETAMINOPHEN 1,000 MG/100 ML VIAL IV STA (14:53)
--- NOTE | 2023-08-17 15:31 | Anesthesiology Progress Note ---
Date of Service August 17, 2023 Anesthesia Post Procedure Vital Signs Vital Signs: Temp Pulse Pulse Pulse Resp BP BP 08/17/23 15:20 36.4 C L 110 H 12 112/48 L 08/17/23 15:10 110 H 14 127/57 L 08/17/23 15:00 100 H 14 125/61 08/17/23 14:50 110 H 13 119/56 L 08/17/23 14:40 94 H 17 122/59 L 08/17/23 14:30 93 H 14 124/53 L 08/17/23 14:20 95 H 12 114/55 L 08/17/23 14:10 94 H 15 121/55 L 08/17/23 14:08 36.0 C L 106 H 15 115/53 L 08/17/23 11:00 78/61 L 08/17/23 10:06 08/17/23 08:10 36.5 C 148 H 16 96/70 L 08/17/23 08:00 151 H 08/17/23 06:23 127 H 17 08/17/23 06:23 94/63 L 08/17/23 06:17 90/59 L 08/17/23 06:17 128 H 23 08/17/23 06:10 132 H 94/63 L 08/17/23 06:00 134 H 26 H 08/17/23 05:56 151 H 97/71 L 08/17/23 05:37 97/71 L 08/17/23 05:37 146 H 19 08/17/23 05:00 146 H 15 08/17/23 05:00 101/59 L 08/17/23 04:59 152 H 17 08/17/23 04:59 98/68 L 08/17/23 04:58 87/67 L 08/17/23 04:58 143 H 20 08/17/23 04:43 135 H 19 08/17/23 04:43 103/72 08/17/23 04:39 118/83 08/17/23 04:39 134 H 12 08/17/23 04:31 117/53 L 08/17/23 04:31 129 H 8 L 08/17/23 04:30 123 H 10 L 08/17/23 04:30 114/58 L 08/17/23 04:29 112/74 08/17/23 04:29 154 H 10 L 08/17/23 04:00 115 H 10 L 08/17/23 04:00 114/65 08/17/23 03:30 121 H 14 08/17/23 03:30 139/80 08/17/23 03:24 134/63 08/17/23 03:24 120 H 23 08/17/23 03:24 37.0 C 120 H 27 H 134/63 08/17/23 03:00 126 H 18 08/17/23 03:00 137/73 08/17/23 02:30 120 H 14 08/17/23 02:30 147/87 H 08/17/23 02:00 133/72 08/17/23 02:00 120 H 14 08/17/23 01:30 121 H 13 08/17/23 01:30 127/75 08/17/23 01:19 120 H 08/17/23 01:00 122 H 14 08/17/23 01:00 137/70 08/17/23 00:31 122 H 17 08/16/23 23:01 37.1 C 126 H 14 109/70 08/16/23 19:55 08/16/23 19:36 36.8 C 119 H 18 08/16/23 15:53 37.1 C 110 H 21 BP Pulse Ox O2 Del Method O2 Flow Rate 08/17/23 15:20 92 Oxymask 2 08/17/23 15:10 92 Oxymask 2 08/17/23 15:00 90 Room Air 0 08/17/23 14:50 93 Oxymask 2 08/17/23 14:40 93 Oxymask 2 08/17/23 14:30 95 Oxymask 4 08/17/23 14:20 95 Oxymask 6 08/17/23 14:10 94 Oxymask 8 08/17/23 14:08 94 Oxymask 8 08/17/23 11:00 80/61 L 08/17/23 10:06 Nasal Cannula 2 08/17/23 08:10 93 Oxymask 08/17/23 08:00 08/17/23 06:23 94 08/17/23 06:23 08/17/23 06:17 08/17/23 06:17 94 08/17/23 06:10 08/17/23 06:00 94 08/17/23 05:56 08/17/23 05:37 08/17/23 05:37 08/17/23 05:00 94 08/17/23 05:00 08/17/23 04:59 93 08/17/23 04:59 08/17/23 04:58 08/17/23 04:58 93 08/17/23 04:43 93 08/17/23 04:43 08/17/23 04:39 08/17/23 04:39 94 08/17/23 04:31 08/17/23 04:31 94 08/17/23 04:30 94 08/17/23 04:30 08/17/23 04:29 08/17/23 04:29 94 08/17/23 04:00 94 08/17/23 04:00 08/17/23 03:30 91 08/17/23 03:30 08/17/23 03:24 08/17/23 03:24 92 08/17/23 03:24 92 Nasal Cannula 2.0 08/17/23 03:00 92 08/17/23 03:00 08/17/23 02:30 92 08/17/23 02:30 08/17/23 02:00 08/17/23 02:00 92 08/17/23 01:30 92 08/17/23 01:30 08/17/23 01:19 08/17/23 01:00 92 08/17/23 01:00 08/17/23 00:31 92 08/16/23 23:01 92 Nasal Cannula 2.0 08/16/23 19:55 Nasal Cannula 2 08/16/23 19:36 150/82 H 92 Nasal Cannula 2 08/16/23 15:53 161/72 H 90 Nasal Cannula Pain Intensity Abdomen: Pain Intensity: 10 Transfer of Care Handoff Completed per policy Notes Mental Status: alert / awake / arousable Patient Amnestic to Procedure: Yes Nausea / Vomiting: adequately controlled Pain: adequately controlled Airway Patency, RR, SpO2: stable & adequate BP & HR: stable & adequate Hydration State: stable & adequate Anesthetic Complications: no major complications apparent
--- NOTE | 2023-08-17 15:50 | Critical Care Consultation ---
Date of Consultation August 17, 2023 Assessment & Plan (1) Perforation of colon: (2) Atrial fibrillation: (3) Hypokalemia: Plan 72-year-old female with sigmoid colon perforation with abscess formation status post ex lap, resection and ostomy creation. Also with new onset A-fib today. Neurologic: Pain control per surgical team. No acute issues at present. Pulmonary: No issues. Cardiovascular: New onset A-fib on EKG. Patient hypokalemic this morning. Recheck BMP and magn esium. Wean off Cardizem drip as able. A-fib likely due to stress from severe sepsis. Check troponin and echo. Gastrointestinal: Postop day #0 status post ex lap for bowel perforation. Continue NG tube to intermittent suction. N.p.o. Zosyn. Renal: No significant issues. Monitor output from Briones. Recheck BMP and magnesium Infectious disease: Follow culture data from peritoneal fluid. Blood cultures and urine cultures negative this admission. Continue Zosyn. Low threshold to initiate caspofungin if hemodynamics worsen or fever become apparent. Hematologic: Recheck CBC. Endocrine: Check TSH in the context of atrial fibrillation and severe constipation. Maintain euglycemia. Lines and tubes: PIV's and Briones in place VTE prophylaxis: SCDs CODE STATUS: Full Family at bedside: Not available Disposition: ICU for today will likely downgrade tomorrow if stable I have personally spent 38 minutes of critical care time in the direct management of this patient. This is a life/limb threatening event. This includes time spent evaluating patient, direct bedside care, chart review, placing orders, interpretation of diagnostic studies, discussion with consultants, patient, and family members, as well as other required patient management activities. This time is exclusive of all separately billable procedures, and teaching time and separate from and in addition to any other critical care service time. Thank you for allowing us to participate in the care of this patient. History of Present Illness Reason for Consultation: ICU monitoring Attending Physician: Benjamín Vivas MD History of Present Illness 72-year-old female with a past medical history of constipation, rheumatoid arthritis and hypertension who presented to the ER 08/14/2023 due to abdominal pain that had worsened. On CT abdomen intraperitoneal free air was noted consistent with perforation. She has been managed by the hospitalist service and surgery service. Today she had an episode of tachycardia and worsening pain and CT abdomen pelvis revealed worsening pneumoperitoneum consistent with visceral perforation. Increased intra-abdominal and pelvic ascites with a new 9.4 x 5.8 cm gas and fluid containing collection suggestive of a developing abscess. She underwent exploratory laparotomy with resection of rectal sigmoid colon and creation of ostomy today. Of note, she also has a distal radius fracture status post surgical repair 08/11/2023. She is currently receiving LR at 125 mL an hour, Zosyn and diltiazem infusion. Allergies Allergy/AdvReac Type Severity Reaction Status Date / Time No Known Allergies Allergy Verified 08/06/22 07:25 Home Medications Medication Instructions Recorded Confirmed Type amitriptyline 10 mg tablet 10 mg PO HS PRN Sleep 07/01/18 08/14/23 History amoxicillin 500 mg capsule 4 cap PO UD PRN PRE DENTAL 07/01/18 08/14/23 History benzonatate 100 mg capsule 100 mg PO UD PRN Cough 07/01/18 08/14/23 History celecoxib 200 mg capsule 200 mg PO QAM 07/01/18 08/14/23 History cyanocobalamin (vitamin B-12) 1,000 mcg PO QAM 07/01/18 08/14/23 History 1,000 mcg tablet (Vitamin B-12) multivitamin (Multiple Vitamins 1 tab PO QAM 07/01/18 08/14/23 History tablet) pravastatin 40 mg tablet 40 mg PO HS 07/01/18 08/14/23 History alendronate 70 mg tablet 70 mg PO WK 07/23/22 08/14/23 History hydrocodone 5 mg-acetaminophen 325 1 - 2 tab PO Q6H PRN pain #15 tabs 08/06/23 08/14/23 Rx mg tablet meloxicam 15 mg tablet 15 mg PO DAILY 08/14/23 08/14/23 History oxycodone 5 mg tablet 5 mg PO UD PRN pain 08/14/23 08/14/23 History Patient History Medical History (Updated 08/17/23 @ 15:44 by Mike Mckenzie MD) Atrial fibrillation Bowel perforation Rheumatoid arthritis HTN (hypertension) Hx of scoliosis mild History of anemia History of back problems INJECTION FOR 1.5 YR AGO History of mitral valve prolapse 11 YR AGO - NO CURRENT CARDIO High cholesterol Surgical History (Updated 08/17/23 @ 11:04 by Andrew Haynes MD) History of right cataract extraction S/P revision of total hip revision after dislocation, 2019 History of anesthesia reaction TROUBLE WITH SPINAL PLACEMENT FOR HIP REPLACEMENT DUE TO SCOLIOSIS - HAD TO TRY A FEW TIMES History of endoscopy History of colonoscopy History of hernia surgery History of tubal ligation Family History Other Family history of cancer Social History Smoking Status: Never smoker Tobacco Type: Cigarettes Second Hand Exposure: No; Do You Dip or Chew Tobacco: No; Tobacco Cessation Education Requested by Patient: No Hx Alcohol Use: No Hx Substance Use: No Preferred Language: [employer]onese Ghanaian Communication Ability: Effective Bread Baker Required: No Beliefs That Will Affect Care: None marital status: Current Living Situation: Spouse Other Information That Helps Us Care for You: No Feels Safe at Home: Yes Safety Concerns: Feels Safe At This Time Assistive Devices: None Review of Systems Review of Systems: All systems reviewed & are unremarkable except as noted in HPI & below Physical Exam Physical Exam: Constitutional: Patient appears to be of their stated age. Patient is in no apparent distress. Patient is well-developed. Eyes: Pupils are equal round and reactive to light. Conjunctivae are normal. Anicteric sclera. Ears nose, mouth and throat: Mallampati class 1. Normal posterior oropharynx. Uvula is midline. Neck: Trachea is midline. Visual inspection is normal. Respiratory: Clear to auscultation bilaterally. No use of accessory muscles. No significant clubbing noted. Cardiovascular: Regular rate and rhythm. No murmurs. No edema. Gastrointestinal: Intra-abdominal incision noted with drains. Bandaging in place. Musculoskeletal: No cyanosis. Patient is able to move all extremities. Strength is 5 out of 5 in the upper and lower extremities. Skin: No rashes, warm dry and intact. Neurologic: No obvious focal neurological deficits seen. Psychiatric: Alert and oriented x3 with a euthymic affect. Results & Data Results & Data Vital Signs (Past 12 Hours) Vital Signs Temp Pulse Pulse Pulse Resp BP BP 08/17/23 15:30 111 H 20 106/51 L 08/17/23 15:20 36.4 C L 110 H 12 112/48 L 08/17/23 15:10 110 H 14 127/57 L 08/17/23 15:00 100 H 14 125/61 08/17/23 14:50 110 H 13 119/56 L 08/17/23 14:40 94 H 17 122/59 L 08/17/23 14:30 93 H 14 124/53 L 08/17/23 14:20 95 H 12 114/55 L 08/17/23 14:10 94 H 15 121/55 L 08/17/23 14:08 36.0 C L 106 H 15 115/53 L 08/17/23 11:00 78/61 L 08/17/23 10:06 08/17/23 08:10 36.5 C 148 H 16 96/70 L 08/17/23 08:00 151 H 08/17/23 06:23 127 H 17 08/17/23 06:23 94/63 L 08/17/23 06:17 90/59 L 08/17/23 06:17 128 H 23 08/17/23 06:10 132 H 94/63 L 08/17/23 06:00 134 H 26 H 08/17/23 05:56 151 H 97/71 L 08/17/23 05:37 97/71 L 08/17/23 05:37 146 H 19 08/17/23 05:00 146 H 15 08/17/23 05:00 101/59 L 08/17/23 04:59 152 H 17 08/17/23 04:59 98/68 L 08/17/23 04:58 87/67 L 08/17/23 04:58 143 H 20 08/17/23 04:43 135 H 19 08/17/23 04:43 103/72 08/17/23 04:39 118/83 08/17/23 04:39 134 H 12 08/17/23 04:31 117/53 L 08/17/23 04:31 129 H 8 L 08/17/23 04:30 123 H 10 L 08/17/23 04:30 114/58 L 08/17/23 04:29 112/74 08/17/23 04:29 154 H 10 L 08/17/23 04:00 115 H 10 L 08/17/23 04:00 114/65 BP Pulse Ox O2 Del Method O2 Flow Rate 08/17/23 15:30 92 Oxymask 2 08/17/23 15:20 92 Oxymask 2 08/17/23 15:10 92 Oxymask 2 08/17/23 15:00 90 Room Air 0 08/17/23 14:50 93 Oxymask 2 08/17/23 14:40 93 Oxymask 2 08/17/23 14:30 95 Oxymask 4 08/17/23 14:20 95 Oxymask 6 08/17/23 14:10 94 Oxymask 8 08/17/23 14:08 94 Oxymask 8 08/17/23 11:00 80/61 L 08/17/23 10:06 Nasal Cannula 2 08/17/23 08:10 93 Oxymask 08/17/23 08:00 08/17/23 06:23 94 08/17/23 06:23 08/17/23 06:17 08/17/23 06:17 94 08/17/23 06:10 08/17/23 06:00 94 08/17/23 05:56 08/17/23 05:37 08/17/23 05:37 08/17/23 05:00 94 08/17/23 05:00 08/17/23 04:59 93 08/17/23 04:59 08/17/23 04:58 08/17/23 04:58 93 08/17/23 04:43 93 08/17/23 04:43 08/17/23 04:39 08/17/23 04:39 94 08/17/23 04:31 08/17/23 04:31 94 08/17/23 04:30 94 08/17/23 04:30 08/17/23 04:29 08/17/23 04:29 94 08/17/23 04:00 94 08/17/23 04:00 Coding Level of Care Code 25061 CRITICAL CARE 1ST 30-74M Diagnoses Perforation of colon K63.1 Atrial fibrillation I48.91 Hypokalemia E87.6
[2023-08-17] MEDS ORDERED: ONDANSETRON INJ 2 MG/ML 2 ML VIAL IV PRN (16:04)
[2023-08-17] MEDS: HYDROmorphone INJ 1 MG/ML SYRINGE ONE ×2 (16:07→16:09)
[2023-08-17] MEDS: ONDANSETRON INJ 2 MG/ML 2 ML VIAL ONE (16:08)
[2023-08-17] MEDS: ACETAMINOPHEN 1000 MG/100 ML IV IV ONE ×2 (16:08→16:09)
[2023-08-17] MEDS: KETOROLAC 30 MG/ML VIAL ONE (16:09)
[2023-08-17] MEDS: dilTIAZem HCL 125 MG in DEXTROSE 5% 100 ML IV SCH (16:10)
[2023-08-17 16:15] LABS: Hematocrit (blood only) 36.5 % (37.0-47.0); Hemoglobin 12.4 g/dl (12.0-16.0); Mean Corpuscular Hemoglobin 33.2 pg (25.0-34.0); Mean Corpuscular Volume 97.9 fL (80.0-100.0); Mean Platelet Volume 9.1 fL (9.4-12.4); Platelet Count 279 K/uL (130-400); RDW Coefficient of Variation 12.5 % (11.5-14.5); RDW Standard Deviation 45.2 fL (36.4-46.3); Red Blood Count 3.73 M/uL (4.20-5.40); White Blood Count 19.02 K/ul (4.8-10.8)
[2023-08-17 16:30] LABS: BUN Creatinine Ratio 27.9 (10-20); Calcium 7.2 mg/dl (8.6-10.3); Creatinine Clr Calc Pharmacy 76.8 ml/min; Est GFR (African American) 103.5 ml/min; Est GFR (Non-African American) 89.3 ml/min; Magnesium 1.6 mg/dl (1.7-2.4); Potassium 3.7 mmol/L (3.5-5.1)
[2023-08-17 16:41] LABS: Troponin I High Sensitivity 225.2 pg/ml (0-14)
[2023-08-17 16:46] LABS: Thyroid Stimulating Hormone 4.404 uIu/ml (0.300-4.500)
[2023-08-17 16:58] LABS: Basophils # (auto) 0.15 K/uL (0.00-0.20); Basophils % (auto) 0.8 %; Eosinophils # (auto) 0.05 K/uL (0.00-0.50); Eosinophils % (auto) 0.3 %; Immature Granulocytes # (auto) 0.37 K/uL (0.01-0.20); Immature Granulocytes % (auto) 1.9 %; Lymphocytes # (auto) 0.54 K/uL (1.20-3.40); Lymphocytes % (auto) 2.8 %; Monocytes # (auto) 0.24 K/uL (0.11-0.59); Monocytes % (auto) 1.3 %; Neutrophils # (auto) 17.67 K/uL (1.40-6.50); Neutrophils % (auto) 92.9 %; Polychromasia 1+
[2023-08-17] MEDS: MAGNESIUM SULFATE / D5W 1 GM/100 ML BAG IV SCH (17:12)
[2023-08-17] MEDS: PLASMA-LYTE A 500 ML IV ONE ×2 (17:12→19:06)
[2023-08-17] MEDS ORDERED: STAT IV Infusion **Titration per Protocol STA (19:52)
[2023-08-17] MEDS: PHENYLEPHRINE/NSS 25 MG/250 ML BAG IV SCH (20:04)
[2023-08-17] MEDS: ALBUMIN 5% 250 ML IV ONE (22:11)
[2023-08-18 05:18] LABS: Hematocrit (blood only) 30.9 % (37.0-47.0); Hemoglobin 10.4 g/dl (12.0-16.0); Mean Corpuscular Hemoglobin 32.4 pg (25.0-34.0); Mean Corpuscular Hgb Conc 33.7 g/dL (32.0-36.0); Mean Corpuscular Volume 96.3 fL (80.0-100.0); Platelet Count 263 K/uL (130-400); RDW Coefficient of Variation 12.5 % (11.5-14.5); RDW Standard Deviation 44.4 fL (36.4-46.3); Red Blood Count 3.21 M/uL (4.20-5.40); White Blood Count 13.73 K/ul (4.8-10.8)
[2023-08-18 05:25] LABS: Albumin Level 2.4 gm/dl (3.4-5.0); BUN Creatinine Ratio 30.8 (10-20); Bilirubin,Total 0.5 mg/dl (0.2-1.0); Creatinine Clr Calc Pharmacy 72.1 ml/min; Est GFR (African American) 101.4 ml/min; Est GFR (Non-African American) 87.5 ml/min; Globulin 2.3 gm/dl (2.5-4.0); Total Protein 4.7 gm/dl (6.0-8.3)
[2023-08-18 06:03] LABS: Basophils # (auto) 0.05 K/uL (0.00-0.20); Basophils % (auto) 0.4 %; Dohle Bodies 1+; Eosinophils # (auto) 0.01 K/uL (0.00-0.50); Eosinophils % (auto) 0.1 %; Immature Granulocytes # (auto) 0.14 K/uL (0.01-0.20); Lymphocytes # (auto) 0.77 K/uL (1.20-3.40); Lymphocytes % (auto) 5.6 %; Magnesium 2.3 mg/dl (1.7-2.4); Monocytes # (auto) 0.26 K/uL (0.11-0.59); Monocytes % (auto) 1.9 %; Polychromasia 1+
[2023-08-18 07:28] LABS: Toxic Vacuolation 2+
--- NOTE | 2023-08-18 08:27 | Surgery Progress Note ---
Date of Service August 18, 2023 Assessment & Plan (1) Perforation of colon: Plan: POD [address] Hurley Colostomy no stool output or air, stoma red jimmy midline, telfa tim between jimmy, 4x4, abd pad, medipore ELVIS with ss drainage NGT no drainage , continue for today WBC downtrending continue IV antbx H/H 10.4/30.9 will continue to monitor awaiting return of bowel function Admission and Anticipated Discharge Date Admission Date: August 14, 2023 Supervising Physician Co-Signing Physician Notes pnt S&E, labs reviewed, agree w/ above. POD#1 Ring's for rectosigmoid perforation. Sore but doing well. afvss, sinus tachycardia, abd soft, appropriately ttp. Ostomy congested but healthy, no output. ELVIS SS. goo uo. wbc 13, h/h stable. Cont ng, elvis, astorga today. OOBTC, OT/PT. downgraded to telemetry. Start dvt prophy Subjective abd pain 6/10 medication helping NGT bothersome Review of Systems Constitutional: no fever and no chills Gastrointestinal: + abdominal pain; no nausea and no vomit ing Physical Exam Constitutional: cooperative and comfortable; no acute distress Cardiovascular: Rate/Rhythm: + tachycardic (101) Gastrointestinal (Abdomen): Inspection/Auscultation: + abdomen distended, + abdominal surgical incision (jimmy midline, telfa tim , 4x4, abd pad medipore ) and + abdominal surgical drain present (elvis SS drainage) Results & Data Vital Signs (Past 12 Hours) Vital Signs Temp Pulse Resp BP Pulse Ox 08/17/23 23:30 98.6 F 08/17/23 23:00 127/62 08/17/23 23:00 101 H 9 L 94 08/17/23 22:00 117/61 08/17/23 22:00 101 H 7 L 93 08/17/23 21:00 105 H 8 L 94 08/17/23 21:00 94/66 L 08/17/23 20:45 114/63 08/17/23 20:45 106 H 10 L 95 08/17/23 20:30 109/56 L 08/17/23 20:30 103 H 6 L 95 08/17/23 20:17 98.6 F Results CMP Results: Na 135 mmol/L (136-145) L 08/18/23 K 4.0 mmol/L (3.5-5.1) 08/18/23 Cl 105 mmol/L (98-107) 08/18/23 CO2 22 mmol/L (21-32) 08/18/23 Anion Gap 8 (3-11) 08/18/23 BUN 20 mg/dl (6-23) 08/18/23 Creatinine 0.65 mg/dl (0.6-1.2) 08/18/23 Estimated GFR ( Amer) 101.4 ml/min 08/18/23 Estimated GFR (Non-Af Amer) 87.5 ml/min 08/18/23 BUN/Creatinine Ratio 30.8 (10-20) H 08/18/23 Glu 143 mg/dl (70-99(Fasting)) H 08/18/23 Ca 7.0 mg/dl (8.6-10.3) L 08/18/23 Total Bilirubin 0.5 mg/dl (0.2-1.0) 08/18/23 AST 27 U/L (13-39) 08/18/23 ALT 14 U/L (7-52) 08/18/23 Alkaline Phosphatase 46 U/L (34-104) 08/18/23 TP 4.7 gm/dl (6.0-8.3) L 08/18/23 Albumin 2.4 gm/dl (3.4-5.0) L 08/18/23 Globulin 2.3 gm/dl (2.5-4.0) L 08/18/23 Albumin/Globulin Ratio 1.0 (0.9-2) 08/18/23 Results CBC w Diff Results: RBC 3.21 M/uL (4.20-5.40) L 08/18/23 WBC 13.73 K/ul (4.8-10.8) H 08/18/23 Hgb 10.4 g/dl (12.0-16.0) L 08/18/23 Hct 30.9 % (37.0-47.0) L 08/18/23 MCV 96.3 fL (80.0-100.0) 08/18/23 MCH 32.4 pg (25.0-34.0) 08/18/23 MCHC 33.7 g/dL (32.0-36.0) 08/18/23 RDW Standard Deviation 44.4 fL (36.4-46.3) 08/18/23 RDW Coefficient of Variation 12.5 % (11.5-14.5) 08/18/23 Plt Count 263 K/uL (130-400) 08/18/23 MPV 9.0 fL (9.4-12.4) L 08/18/23 Nucleated Red Blood Cells % (auto) 0.0 % 07/06 Nucleated RBC Absolute Count (auto) 0.00 K/uL (0-0) 06/21 09/08 Neutrophils (%) (Auto) 91.0 % 08/18/23 Lymphocytes (%) (Auto) 5.6 % 08/18/23 Monocytes # (Auto) 0.26 K/uL (0.11-0.59) 08/18/23 Eosinophils # (Auto) 0.01 K/uL (0.00-0.50) 08/18/23 Immature Granulocyte % (Auto) 1.0 % 08/18/23 Neutrophils # (Auto) 12.50 K/uL (1.40-6.50) H 08/18/23 Lymphocytes # (Auto) 0.77 K/uL (1.20-3.40) L 08/18/23 Monocytes # (Auto) 0.26 K/uL (0.11-0.59) 08/18/23 Eosinophils # (Auto) 0.01 K/uL (0.00-0.50) 08/18/23 Basophils # (Auto) 0.05 K/uL (0.00-0.20) 08/18/23 Immature Granulocyte # (Auto) 0.14 K/uL (0.01-0.20) 4 Polychromasia 1+ 08/18/23 Anisocytosis PRESENT 09/18/17 Toxic Vacuolation 2+ 08/17/23 Dohle Bodies 1+ 08/18/23 Rouleau 1+ 08/17/23 Results Complete Blood Count Results: RBC 3.21 M/uL (4.20-5.40) L 08/18/23 WBC 13.73 K/ul (4.8-10.8) H 08/18/23 Hgb 10.4 g/dl (12.0-16.0) L 08/18/23 Hct 30.9 % (37.0-47.0) L 08/18/23 Plt Count 263 K/uL (130-400) 08/18/23 PG Care Time/CCT Total # of Minutes Spent Total Time Spent with Patient: Total time spent is greater than 50% in coordination of care (as documented) at patient's floor/unit and/or counseling patient: Coding Level of Care Code 89134 Post Operative Follow-Up Diagnoses Perforation of colon K63.1
--- NOTE | 2023-08-18 08:53 | XCELERA ---
[id number]
--- NOTE | 2023-08-18 09:57 | XRay Report ---
SINGLE VIEW CHEST CLINICAL HISTORY: Hypoxia FINDINGS: An AP, portable, upright chest radiograph is compared to study dated 07/06/2018. An enteric tube has been placed. The tip projects below the diaphragm over the mid stomach. The heart is enlarge d noting atherosclerotic calcification of the thoracic aorta. The pulmonary vasculature is noncongest ed. There are small pleural effusions with dependent consolidation. No pneumothorax is seen. The skel etal structures are osteopenic. The bony thorax is grossly intact. Degenerative change and scoliosis is noted in the spine. IMPRESSION: 1. An enteric tube has been placed as above. 2. Cardiomegaly without radiographic evidence of congestive failure. 3. Small pleural effusions with dependent consolidation. ACT 112: Negative or not required by law. Electronically signed by: Brad Baptiste M.D. 08/18/2023 9:55 AM
[2023-08-18 10:52] LABS: Troponin I High Sensitivity 152.9 pg/ml (0-14)
--- NOTE | 2023-08-18 11:15 | Critical Care Progress Note ---
Date of Service August 18, 2023 Assessment & Plan (1) Perforation of colon: (2) Atrial fibrillation: (3) Hypokalemia: Plan 72-year-old female with sigmoid colon perforation with abscess formation status post ex lap, resection and ostomy creation. Also with new onset A-fib today. Neurologic: Pain control per surgical team. No acute issues at present. Pulmonary: Patient requiring low-flow oxygen due to volume overload. Fluids discontinued. Consider diuretics later in the day as long as BP holds. Cardiovascular: New onset A-fib on EKG. mild troponin leak likely due to demand ischemia. Follow troponins. Follow-up echo. Hemodynamics improved and patient off pressors at this time. Gastrointestinal: Postop day #1 status post ex lap for bowel perforation. Continue NG tube to intermittent suction. N.p.o. Zosyn. Renal: No significant issues. Monitor output from Briones. Recheck BMP and magnesium Infectious disease: Follow culture data from peritoneal fluid. Blood cultures and urine cultures negative this admission. Continue Zosyn. Low threshold to initiate caspofungin if hemodynamics worsen or fever become apparent. Hematologic: CBC stable. Endocrine: TSH unremarkable. Maintain euglycemia. Lines and tubes: PIV's and Briones in place VTE prophylaxis: SCDs CODE STATUS: Full Family at bedside: updated at bedside yesterday. No family available at this time. Disposition: Downgrade to PCU status. ICU services to sign off. Thank you for the consult. Please call questions Admission and Anticipated Discharge Date Admission Date: August 14, 2023 Subjective Patient seen and examined. Continues to have some mild abdominal complaints. Significant output from SUSANNAH drains. Briones output adequate. Patient has been off of vasopressors for the past 12 hours. Review of Systems Review of Systems: All systems reviewed & are unremarkable except as noted in HPI & below Physical Exam Physical Exam: Constitutional: Patient appears to be of their stated age. Patient is in no apparent distress. Patient is well-developed. Eyes: Pupils are equal round and reactive to light. Conjunctivae are normal. Anicteric sclera. Ears nose, mouth and throat: Mallampati class 1. Normal posterior oropharynx. Uvula is midline. Neck: Trachea is midline. Visual inspection is normal. Respiratory: Clear to auscultation bilaterally. No use of accessory muscles. No significant clubbing noted. Cardiovascular: Regular rate and rhythm. No murmurs. No edema. Gastrointestinal: Intra-abdominal incision noted with drains. Bandaging in place. Musculoskeletal: No cyanosis. Patient is able to move all extremities. Strength is 5 out of 5 in the upper and lower extremities. Skin: No rashes, warm dry and intact. Neurologic: No obvious focal neurological deficits seen. Psychiatric: Alert and oriented x3 with a euthymic affect. Results & Data Results & Data Vital Signs (Past 12 Hours) Vital Signs Temp Pulse Resp BP Pulse Ox O2 Del Method O2 Flow Rate 08/18/23 09:30 Oxymask 5 08/18/23 09:00 141/73 H 08/18/23 09:00 90 27 H 94 08/18/23 09:00 36.9 C 08/18/23 08:00 136/69 08/18/23 08:00 112 H 12 93 08/18/23 08:00 92 H 08/18/23 07:00 145/62 H 08/18/23 07:00 93 H 19 93 Oxymask 5 08/17/23 23:30 37 C Coding Level of Care Code 63263 SUB INP/OBS CARE 2/35MIN Diagnoses Perforation of colon K63.1 Atrial fibrillation I48.91 Hypokalemia E87.6
[2023-08-18] MEDS: ENOXAPARIN INJ 40 MG/0.4 ML SYR SQ SCH (11:31)
--- NOTE | 2023-08-18 13:01 | Hospitalist Progress Note ---
Date of Service August 18, 2023 Assessment & Plan (1) Bowel perforation: Plan: CTA/P with evidence of free air, rectosigmoid inflammation, constipation.? Diverticulitis with perforation vs stercoral proctitis in the setting of narcotic use General surgery on board. Initially managed conservatively but with development of severe pain, hypotension and increasing tachycardia, CT abdomen was repeated 08/16 that showed increase in pneumoperitoneum compared to CT of 08/13 consistent with visceral perforation. It all shows showed increase in ascites and a new developing abscess which is likely at the site of the perforation. Patient went to the OR on 08/16: Exploratory laparotomy, resection of rectosigmoid perforation, colostomy Continue Zosyn May consider caspofungin if becomes hemodynamically unstable or develops fever Currently stable Transfer out of the ICU Continue n.p.o. (2) Septic shock: Plan: Patient initially had tachycardia and leukocytosis. Sepsis was present on admission. With conservative management with IV antibiotics, patient went into septic shock with hypotension, tachycardia She needed surgery to treat the perforation Continue Zosyn Hemodynamics improved currently Will consider caspofungin if hemodynamically unstable or develops fever. (3) Atrial fibrillation: Plan: Patient is found to be tachycardic EKG showed atrial fibrillation This is most likely in the setting of bowel perforation, pneumoperitoneum, sepsis TTE reviewed (4) Distal radius fracture, left: Plan: Left radial fracture S/p surgical repair 08/11/2023 Neurovascularly intact No acute change in management (5) HLD (hyperlipidemia): Plan: Oral meds held (6) HTN (hypertension): Plan: Oral meds held Plan Arthritis: Previously on hydroxychloroquine was discontinued due to anemia DVT prophylaxis: Lovenox CODE STATUS: Full code Admission and Anticipated Discharge Date Admission Date: August 14, 2023 Subjective Patient was seen in the ICU. She is now off of pressors since midnight. She has been moved to the bedside chair. Review of Systems Review of Systems: All systems reviewed & are unremarkable except as noted in Subjective Physical Exam Physical Exam: General: Awake, conversant Heart: S1, S2/regular rate and rhythm, no murmur rubs or gallops Lungs: Clear to auscultation bilaterally. Normal effort Abdomen: Dressing on, SUSANNAH drain in place. Extremities: No clubbing/cyanosis. No edema Behavior: Appropriate, cooperative Results & Data Results & Data Vital Signs (Past 12 Hours) Vital Signs Temp Pulse Resp BP Pulse Ox O2 Del Method O2 Flow Rate 08/18/23 09:30 Oxymask 5 08/18/23 09:00 141/73 H 08/18/23 09:00 90 27 H 94 08/18/23 09:00 36.9 C 08/18/23 08:00 136/69 08/18/23 08:00 112 H 12 93 08/18/23 08:00 92 H 08/18/23 07:00 145/62 H 08/18/23 07:00 93 H 19 93 Oxymask 5 Laboratory Results Abnormal lab results 08/17/23 08/18/23 Range/Units 15:58 04:40 WBC 19.02 H 13.73 H (4.8-10.8) K/ul RBC 3.73 L 3.21 L (4.20-5.40) M/uL Hgb 10.4 L (12.0-16.0) g/dl Hct 36.5 L 30.9 L (37.0-47.0) % MPV 9.1 L 9.0 L (9.4-12.4) fL Neut # (Auto) 17.67 H 12.50 H (1.40-6.50) K/uL Lymph # (Auto) 0.54 L 0.77 L (1.20-3.40) K/uL Immature Gran # (Auto) 0.37 H (0.01-0.20) K/uL Sodium 134 L 135 L (136-145) mmol/L Carbon Dioxide 18 L (21-32) mmol/L Anion Gap 12 H (3-11) BUN/Creatinine Ratio 27.9 H 30.8 H (10-20) Glucose 141 H 143 H (70-99(Fasting)) mg/dl Calcium 7.2 L 7.0 L (8.6-10.3) mg/dl Magnesium 1.6 L (1.7-2.4) mg/dl Troponin I High Sens 225.2 H* 152.9 H* D (0-14) pg/ml Total Protein 4.7 L (6.0-8.3) gm/dl Albumin 2.4 L (3.4-5.0) gm/dl Globulin 2.3 L (2.5-4.0) gm/dl PG Care Time/CCT Total # of Minutes Spent Total Time Spent with Patient: Total time spent is greater than 50% in coordination of care (as documented) at patient's floor/unit and/or counseling patient: Coding Level of Care Code 45024 SUB INP/OBS CARE 2/35MIN Diagnoses Bowel perforation K63.1 Septic shock A41.9; R65.21 Atrial fibrillation I48.91 Distal radius fracture, left S52.502A HLD (hyperlipidemia) E78.5 HTN (hypertension) I10
[2023-08-18] MEDS: HYDROmorphone INJ 1 MG/ML SYRINGE IV PRN (21:00)
[2023-08-18] MEDS: ACETAMINOPHEN 1,000 MG/100 ML VIAL IV SCH (21:19)
[2023-08-19 05:39] LABS: Hematocrit (blood only) 27.5 % (37.0-47.0); Hemoglobin 9.4 g/dl (12.0-16.0); Mean Corpuscular Hemoglobin 33.1 pg (25.0-34.0); Mean Corpuscular Hgb Conc 34.2 g/dL (32.0-36.0); Mean Corpuscular Volume 96.8 fL (80.0-100.0); Mean Platelet Volume 8.7 fL (9.4-12.4); Platelet Count 255 K/uL (130-400); RDW Coefficient of Variation 12.9 % (11.5-14.5); RDW Standard Deviation 45.9 fL (36.4-46.3); Red Blood Count 2.84 M/uL (4.20-5.40); White Blood Count 13.52 K/ul (4.8-10.8)
[2023-08-19 05:56] LABS: Albumin Level 2.4 gm/dl (3.4-5.0); BUN Creatinine Ratio 33.9 (10-20); Bilirubin,Total 0.6 mg/dl (0.2-1.0); Calcium 7.4 mg/dl (8.6-10.3); Creatinine Clr Calc Pharmacy 75.6 ml/min; Est GFR (Non-African American) 88.8 ml/min; Globulin 2.4 gm/dl (2.5-4.0); Potassium 3.6 mmol/L (3.5-5.1); Total Protein 4.8 gm/dl (6.0-8.3)
--- NOTE | 2023-08-19 08:09 | Surgery Progress Note ---
Date of Service August 19, 2023 Assessment & Plan (1) Perforation of colon: Plan: POD [address] Hurley Colostomy no stool output or air, stoma viable jimmy midline, telfa tim between jimmy, 4x4, abd pad, medipore. light bloody drainage noted- will change dressing today SUSANNAH with ss drainage NGT no drainage, likely continue while awaiting bowel fxn WBC 13 (13), Hbg 9.4(10.4). On DVT ppx w/ lovenox. Afebrile will continue to monitor awaiting return of bowel function before diet advancement Recommend OOB/PT/OT, pulmonary toilet Admission and Anticipated Discharge Date Admission Date: August 14, 2023 Supervising Physician Co-Signing Physician Notes pnt S&E, labs reviewed, agree w/ above. POD#2 Ring's for rectosigmoid perforation. Sore but doing well. afvss, sinus tachycardia, abd soft, appropriately ttp. Ostomy congested but healthy and improved from yesterday, gas and sweat in bag. SUSANNAH SS. good uo. wbc 13, h/h slight drop but overall stable and likely dilutional. d/c ng start clears d/c astorga oobtc, is, ambulate pt/ot consults case management for home health care for ostomy care wound care nurse for ostomy cont dvt prophy Subjective Patient reports some abdominal soreness. No other major complaints, no nausea/vomiting. Physical Exam Physical Exam: awake/alert, no distress Gastrointestinal (Abdomen): Inspection/Auscultation: + abdominal surgical incision (midline w/ jimmy and telfa tim, bloody drainage noted, will change out); abdomen not distended Percussion/Palpation: abdomen soft + ostomy viable, small amount of bloody sweat in bag. no stool yet. Results & Data Vital Signs (Past 12 Hours) Vital Signs Temp Pulse Pulse Resp BP BP Pulse Ox 08/19/23 07:34 98.2 F 88 17 139/67 94 08/19/23 02:00 127/56 L 08/19/23 02:00 85 8 L 95 08/19/23 00:00 91 H 17 94 08/19/23 00:00 136/62 08/18/23 22:00 127/60 08/18/23 22:00 107 H 15 94 05/28/24 21:04 149/68 H 08/18/23 21:04 97 H 17 O2 Del Method O2 Flow Rate 08/19/23 07:34 Nasal Cannula 3 08/19/23 02:00 08/19/23 02:00 08/19/23 00:00 08/19/23 00:00 08/18/23 22:00 08/18/23 22:00 08/18/23 21:04 08/18/23 21:04 PG Care Time/CCT Total # of Minutes Spent Total Time Spent with Patient: Total time spent is greater than 50% in coordination of care (as documented) at patient's floor/unit and/or counseling patient: Coding Level of Care Code 44273 Post Operative Follow-Up Diagnoses Perforation of colon K63.1
--- NOTE | 2023-08-19 14:00 | Hospitalist Progress Note ---
Date of Service August 19, 2023 Assessment & Plan (1) Bowel perforation: Plan: CTA/P with evidence of free air, rectosigmoid inflammation, constipation.? Diverticulitis with perforation vs stercoral proctitis in the setting of narcotic use General surgery on board. Initially managed conservatively but with development of severe pain, hypotension and increasing tachycardia, CT abdomen was repeated 08/16 that showed increase in pneumoperitoneum compared to CT of 08/13 consistent with visceral perforation. It all shows showed increase in ascites and a new developing abscess which is likely at the site of the perforation. Patient went to the OR on 08/16: Exploratory laparotomy, resection of rectosigmoid perforation, colostomy Continue Zosyn May consider caspofungin if becomes hemodynamically unstable or develops fever Currently stable Passing gas Started on clear liquid diet (2) Septic shock: Plan: Patient initially had tachycardia and leukocytosis. Sepsis was present on admission. With conservative management with IV antibiotics, patient went into septic shock with hypotension, tachycardia She needed surgery to treat the perforation Continue Zosyn Hemodynamics improved currently Will consider caspofungin if hemodynamically unstable or develops fever. (3) Atrial fibrillation: Plan: Patient is found to be tachycardic EKG showed atrial fibrillation This is most likely in the setting of bowel perforation, pneumoperitoneum, sepsis TTE reviewed (4) Distal radius fracture, left: Plan: Left radial fracture S/p surgical repair 08/11/2023 Neurovascularly intact No acute change in management (5) HLD (hyperlipidemia): Plan: Oral meds held (6) HTN (hypertension): Plan: Oral meds held Plan Arthritis: Previously on hydroxychloroquine was discontinued due to anemia DVT prophylaxis: Lovenox CODE STATUS: Full code Admission and Anticipated Discharge Date Admission Date: August 14, 2023 Subjective Patient feels better. She was able to go to the bedside recliner and back to bed with assistance. She denies chest pain or shortness of breath. Patient tells me that she is passing gas. She has been started on a clear liquid diet. Review of Systems Review of Systems: All systems reviewed & are unremarkable except as noted in Subjective Physical Exam Physical Exam: General: Awake, conversant Heart: S1, S2/regular rate and rhythm, no murmur rubs or gallops Lungs: Clear to auscultation bilaterally. Normal effort Abdomen: Dressing on, SUSANNAH drain in place. Extremities: No clubbing/cyanosis. No edema Behavior: Appropriate, cooperative Results & Data Results & Data Vital Signs (Past 12 Hours) Vital Signs Temp Pulse Pulse Resp BP BP Pulse Ox 08/19/23 12:18 08/19/23 11:30 36.6 C 85 18 153/70 H 96 08/19/23 08:00 08/19/23 07:34 36.8 C 88 17 139/67 94 08/19/23 02:00 127/56 L 08/19/23 02:00 85 8 L 95 Pulse Ox Pulse Ox O2 Del Method O2 Flow Rate O2 Flow Rate O2 Flow Rate 08/19/23 12:18 93 88 L 3 3 08/19/23 11:30 Nasal Cannula 3 08/19/23 08:00 Nasal Cannula 3 08/19/23 07:34 Nasal Cannula 3 08/19/23 02:00 08/19/23 02:00 Laboratory Results Abnormal lab results 08/19/23 Range/Units 05:13 WBC 13.52 H (4.8-10.8) K/ul RBC 2.84 L (4.20-5.40) M/uL Hgb 9.4 L (12.0-16.0) g/dl Hct 27.5 L (37.0-47.0) % MPV 8.7 L (9.4-12.4) fL BUN/Creatinine Ratio 33.9 H (10-20) Glucose 107 H (70-99(Fasting)) mg/dl Calcium 7.4 L (8.6-10.3) mg/dl Total Protein 4.8 L (6.0-8.3) gm/dl Albumin 2.4 L (3.4-5.0) gm/dl Globulin 2.4 L (2.5-4.0) gm/dl PG Care Time/CCT Total # of Minutes Spent Total Time Spent with Patient: Total time spent is greater than 50% in coordination of care (as documented) at patient's floor/unit and/or counseling patient: Coding Level of Care Code 56059 SUB INP/OBS CARE 2/35MIN Diagnoses Bowel perforation K63.1 Septic shock A41.9; R65.21 Atrial fibrillation I48.91 Distal radius fracture, left S52.502A HLD (hyperlipidemia) E78.5 HTN (hypertension) I10
--- NOTE | 2023-08-20 09:27 | Surgery Progress Note ---
Date of Service August 20, 2023 Assessment & Plan (1) Perforation of colon: Plan: tolerating clears air in ostomy bag jimmy midline, telfa tim replaced, no s/s infection SUSANNAH ss OOB to chair Pt/OT waiting for return of bowel function Admission and Anticipated Discharge Date Admission Date: August 14, 2023 Supervising Physician Co-Signing Physician Notes pnt S&E, agree w/ above. POD#3 Ring's for rectosigmoid perforation. tolerating clears, but not much appetite. Sore but doing well. afvss, abd soft, appopriately ttp, incision w/ jimmy and tim, no infection. SUSANNAH SS. ostomy edematous but healthy, no air in bag but they think it may have been burped. labs re-ordered cont clears, may advance to fulls if tolerates oobtc, is, ambulate pt/ot consulted case management for home health care for ostomy care wound care nurse following for ostomy contact [facility] for recs regarding recent wrist surgery, was due for cast removal and pt. cont dvt prophy Subjective pt resting in bed reports having some anxiety , does not want medicated abd pain 3/10 tolerating clears Review of Systems Constitutional: no fever and no chills Cardiovascular: no chest pain Gastrointestinal: + abdominal pain; no nausea and no vomit ing Psychiatric: + anxiety Physical Exam Constitutional: cooperative; no acute distress Respiratory: normal respiratory effort and able to speak in complete se ntences; no respiratory distress Gastrointestinal (Abdomen): Inspection/Auscultation: + abdominal surgical incision (CDI, jimmy midline, telfa tim ) and + abdominal surgical drain present (SUSANNAH ss ); abdomen not distended Percussion/Palpation: + abdomen tender and abdomen soft Results & Data Vital Signs (Past 12 Hours) Vital Signs Temp Pulse Pulse Resp BP BP Pulse Ox 08/20/23 07:22 98.2 F 110 H 19 160/76 H 95 08/20/23 02:00 101 H 12 159/77 H 95 08/20/23 00:00 97 H 12 93 08/19/23 22:58 155/88 H 08/19/23 22:58 111 H 14 08/19/23 22:00 106 H 20 96 O2 Del Method O2 Flow Rate 08/20/23 07:22 Nasal Cannula 3 08/20/23 02:00 Nasal Cannula 3 08/20/23 00:00 Nasal Cannula 3 08/19/23 22:58 08/19/23 22:58 08/19/23 22:00 Nasal Cannula 3 Results CBC w Diff Results: RBC 2.84 M/uL (4.20-5.40) L 08/19/23 WBC 13.52 K/ul (4.8-10.8) H 08/19/23 Hgb 9.4 g/dl (12.0-16.0) L 08/19/23 Hct 27.5 % (37.0-47.0) L 08/19/23 MCV 96.8 fL (80.0-100.0) 08/19/23 MCH 33.1 pg (25.0-34.0) 08/19/23 MCHC 34.2 g/dL (32.0-36.0) 08/19/23 RDW Standard Deviation 45.9 fL (36.4-46.3) 08/19/23 RDW Coefficient of Variation 12.9 % (11.5-14.5) 08/19/23 Plt Count 255 K/uL (130-400) 08/19/23 MPV 8.7 fL (9.4-12.4) L 08/19/23 Nucleated Red Blood Cells % (auto) 0.0 % 07/06 Nucleated RBC Absolute Count (auto) 0.00 K/uL (0-0) 06/21 09/08 Neutrophils (%) (Auto) 91.0 % 08/18/23 Lymphocytes (%) (Auto) 5.6 % 08/18/23 Monocytes # (Auto) 0.26 K/uL (0.11-0.59) 08/18/23 Eosinophils # (Auto) 0.01 K/uL (0.00-0.50) 08/18/23 Immature Granulocyte % (Auto) 1.0 % 08/18/23 Neutrophils # (Auto) 12.50 K/uL (1.40-6.50) H 08/18/23 Lymphocytes # (Auto) 0.77 K/uL (1.20-3.40) L 08/18/23 Monocytes # (Auto) 0.26 K/uL (0.11-0.59) 08/18/23 Eosinophils # (Auto) 0.01 K/uL (0.00-0.50) 08/18/23 Basophils # (Auto) 0.05 K/uL (0.00-0.20) 08/18/23 Immature Granulocyte # (Auto) 0.14 K/uL (0.01-0.20) 4 Polychromasia 1+ 08/18/23 Anisocytosis PRESENT 09/18/17 Toxic Vacuolation 2+ 08/17/23 Dohle Bodies 1+ 08/18/23 Rouleau 1+ 08/17/23 Results CMP Results: Na 136 mmol/L (136-145) 08/19/23 K 3.6 mmol/L (3.5-5.1) 08/19/23 Cl 104 mmol/L (98-107) 08/19/23 CO2 27 mmol/L (21-32) 08/19/23 Anion Gap 5 (3-11) 08/19/23 BUN 21 mg/dl (6-23) 08/19/23 Creatinine 0.62 mg/dl (0.6-1.2) 08/19/23 Estimated GFR ( Amer) 103.0 ml/min 08/19/23 Estimated GFR (Non-Af Amer) 88.8 ml/min 08/19/23 BUN/Creatinine Ratio 33.9 (10-20) H 08/19/23 Glu 107 mg/dl (70-99(Fasting)) H 08/19/23 Ca 7.4 mg/dl (8.6-10.3) L 08/19/23 Total Bilirubin 0.6 mg/dl (0.2-1.0) 08/19/23 AST 31 U/L (13-39) 08/19/23 ALT 18 U/L (7-52) 08/19/23 Alkaline Phosphatase 57 U/L (34-104) 08/19/23 TP 4.8 gm/dl (6.0-8.3) L 08/19/23 Albumin 2.4 gm/dl (3.4-5.0) L 08/19/23 Globulin 2.4 gm/dl (2.5-4.0) L 08/19/23 Albumin/Globulin Ratio 1.0 (0.9-2) 08/19/23 PG Care Time/CCT Total # of Minutes Spent Total Time Spent with Patient: Total time spent is greater than 50% in coordination of care (as documented) at patient's floor/unit and/or counseling patient: Coding Level of Care Code 48940 Post Operative Follow-Up Diagnoses Perforation of colon K63.1
[2023-08-20 11:14] LABS: Hematocrit (blood only) 29.5 % (37.0-47.0); Hemoglobin 9.8 g/dl (12.0-16.0); Mean Corpuscular Hemoglobin 32.2 pg (25.0-34.0); Mean Corpuscular Hgb Conc 33.2 g/dL (32.0-36.0); Mean Platelet Volume 9.3 fL (9.4-12.4); Platelet Count 340 K/uL (130-400); RDW Coefficient of Variation 12.2 % (11.5-14.5); RDW Standard Deviation 43.1 fL (36.4-46.3); Red Blood Count 3.04 M/uL (4.20-5.40); White Blood Count 15.49 K/ul (4.8-10.8)
[2023-08-20 11:23] LABS: Albumin Globulin Ratio 0.9 (0.9-2); Albumin Level 2.6 gm/dl (3.4-5.0); Bilirubin,Total 0.7 mg/dl (0.2-1.0); Calcium 7.8 mg/dl (8.6-10.3); Creatinine Clr Calc Pharmacy 95.4 ml/min; Est GFR (African American) 110.5 ml/min; Est GFR (Non-African American) 95.3 ml/min; Globulin 2.9 gm/dl (2.5-4.0); Potassium 3.5 mmol/L (3.5-5.1); Total Protein 5.5 gm/dl (6.0-8.3)
[2023-08-20 11:26] LABS: Basophils # (auto) 0.03 K/uL (0.00-0.20); Basophils % (auto) 0.2 %; Eosinophils # (auto) 0.06 K/uL (0.00-0.50); Eosinophils % (auto) 0.4 %; Immature Granulocytes # (auto) 0.21 K/uL (0.01-0.20); Immature Granulocytes % (auto) 1.4 %; Lymphocytes # (auto) 0.97 K/uL (1.20-3.40); Lymphocytes % (auto) 6.3 %; Monocytes # (auto) 0.18 K/uL (0.11-0.59); Monocytes % (auto) 1.2 %; Neutrophils # (auto) 14.04 K/uL (1.40-6.50); Neutrophils % (auto) 90.5 %; Toxic Granulation 3+; Toxic Vacuolation 2+
--- NOTE | 2023-08-20 12:44 | Hospitalist Progress Note ---
Date of Service August 20, 2023 Assessment & Plan (1) Bowel perforation: Plan: CTA/P with evidence of free air, rectosigmoid inflammation, constipation.? Diverticulitis with perforation vs stercoral proctitis in the setting of narcotic use General surgery on board. Initially managed conservatively but with development of severe pain, hypotension and increasing tachycardia, CT abdomen was repeated 08/16 that showed increase in pneumoperitoneum compared to CT of 08/13 consistent with visceral perforation. It all shows showed increase in ascites and a new developing abscess which is likely at the site of the perforation. Patient went to the OR on 08/16: Exploratory laparotomy, resection of rectosigmoid perforation, colostomy Continue Zosyn May consider caspofungin if becomes hemodynamically unstable or develops fever Currently stable Passing gas On clear liquid diet Replete electrolytes (2) Septic shock: Plan: Patient initially had tachycardia and leukocytosis. Sepsis was present on admission. With conservative management with IV antibiotics, patient went into septic shock with hypotension, tachycardia She needed surgery to treat the perforation Continue Zosyn Hemodynamics improved currently Will consider caspofungin if hemodynamically unstable or develops fever. (3) Atrial fibrillation: Plan: Patient is found to be tachycardic EKG showed atrial fibrillation This is most likely in the setting of bowel perforation, pneumoperitoneum, sepsis TTE reviewed (4) Distal radius fracture, left: Plan: Left radial fracture S/p surgical repair 08/11/2023 Neurovascularly intact No acute change in management (5) HLD (hyperlipidemia): Plan: Oral meds held (6) HTN (hypertension): Plan: Oral meds held Plan Arthritis: Previously on hydroxychloroquine was discontinued due to anemia DVT prophylaxis: Lovenox CODE STATUS: Full code Admission and Anticipated Discharge Date Admission Date: August 14, 2023 Subjective Patient states that she was not able to sleep well at night because of pain and discomfort. Encouraged her to use pain medicine before bedtime. She is tolerating a clear liquid diet. Patient says that she is passing gas. No bowel movement. Review of Systems Review of Systems: All systems reviewed & are unremarkable except as noted in Subjective Physical Exam Physical Exam: General: Awake, conversant Heart: S1, S2/regular rate and rhythm, no murmur rubs or gallops Lungs: Clear to auscultation bilaterally. Normal effort Abdomen: Dressing on, SUSANNAH drain in place. Extremities: No clubbing/cyanosis. No edema Behavior: Appropriate, cooperative Results & Data Results & Data Vital Signs (Past 12 Hours) Vital Signs Temp Pulse Pulse Resp BP BP Pulse Ox 08/20/23 12:08 36.6 C 83 19 160/82 H 97 08/20/23 08:16 08/20/23 07:22 36.8 C 110 H 19 160/76 H 95 08/20/23 02:00 101 H 12 159/77 H 95 O2 Del Method O2 Flow Rate 08/20/23 12:08 Nasal Cannula 3 08/20/23 08:16 Nasal Cannula 3 08/20/23 07:22 Nasal Cannula 3 08/20/23 02:00 Nasal Cannula 3 Laboratory Results Abnormal lab results 08/20/23 08/20/23 Range/Units 04:16 10:27 WBC 15.49 H (4.8-10.8) K/ul RBC 3.04 L (4.20-5.40) M/uL Hgb 9.8 L (12.0-16.0) g/dl Hct 29.5 L (37.0-47.0) % MPV 9.3 L (9.4-12.4) fL Neut # (Auto) 14.04 H (1.40-6.50) K/uL Lymph # (Auto) 0.97 L (1.20-3.40) K/uL Immature Gran # (Auto) 0.21 H (0.01-0.20) K/uL Anion Gap 15 H (3-11) Creatinine 0.50 L (0.6-1.2) mg/dl BUN/Creatinine Ratio 28.0 H (10-20) Calcium 7.8 L (8.6-10.3) mg/dl Magnesium 1.6 L (1.7-2.4) mg/dl Total Protein 5.5 L (6.0-8.3) gm/dl Albumin 2.6 L (3.4-5.0) gm/dl PG Care Time/CCT Total # of Minutes Spent Total Time Spent with Patient: Total time spent is greater than 50% in coordination of care (as documented) at patient's floor/unit and/or counseling patient: Coding Level of Care Code 53578 SUB INP/OBS CARE 2/35MIN Diagnoses Bowel perforation K63.1 Septic shock A41.9; R65.21 Atrial fibrillation I48.91 Distal radius fracture, left S52.502A HLD (hyperlipidemia) E78.5 HTN (hypertension) I10
[2023-08-20] MEDS: MAGNESIUM SULFATE / D5W 1 GM/100 ML BAG IV SCH (13:00)
[2023-08-21 07:09] LABS: Basophils # (auto) 0.03 K/uL (0.00-0.20); Basophils % (auto) 0.2 %; Eosinophils # (auto) 0.06 K/uL (0.00-0.50); Eosinophils % (auto) 0.4 %; Hematocrit (blood only) 30.4 % (37.0-47.0); Hemoglobin 10.3 g/dl (12.0-16.0); Immature Granulocytes # (auto) 0.19 K/uL (0.01-0.20); Immature Granulocytes % (auto) 1.3 %; Lymphocytes % (auto) 6.9 %; Mean Corpuscular Hemoglobin 32.5 pg (25.0-34.0); Mean Corpuscular Hgb Conc 33.9 g/dL (32.0-36.0); Mean Corpuscular Volume 95.9 fL (80.0-100.0); Mean Platelet Volume 8.8 fL (9.4-12.4); Monocytes # (auto) 0.21 K/uL (0.11-0.59); Monocytes % (auto) 1.4 %; Neutrophils # (auto) 13.05 K/uL (1.40-6.50); Neutrophils % (auto) 89.8 %; Platelet Count 408 K/uL (130-400); RDW Coefficient of Variation 12.4 % (11.5-14.5); RDW Standard Deviation 43.4 fL (36.4-46.3); Red Blood Count 3.17 M/uL (4.20-5.40); White Blood Count 14.54 K/ul (4.8-10.8)
[2023-08-21 07:59] LABS: Albumin Globulin Ratio 0.9 (0.9-2); Albumin Level 2.7 gm/dl (3.4-5.0); BUN Creatinine Ratio 17.8 (10-20); Bilirubin,Total 0.7 mg/dl (0.2-1.0); Calcium 7.6 mg/dl (8.6-10.3); Est GFR (African American) 114.4 ml/min; Est GFR (Non-African American) 98.7 ml/min; Globulin 2.9 gm/dl (2.5-4.0); Magnesium 1.5 mg/dl (1.7-2.4); Potassium 2.6 mmol/L (3.5-5.1); Total Protein 5.6 gm/dl (6.0-8.3)
--- NOTE | 2023-08-21 09:10 | Surgery Progress Note ---
Date of Service August 21, 2023 Assessment & Plan (1) Perforation of colon: Plan: POD [address] Hurley WBC 14, Hbg 10, K 2.6, Mg 1.5. Electrolytes will need to be repleted, K is ordered Vitals currently stable. Work on pulmonary toilet to help assist with weaning off O2 Colostomy viable, no gas currently but did yesterday, small amount of stool present Tolerating small amount of fulls, would continue on full liquids for now Wound midline with telfa tim between jimmy, 4x4, abd pad, medipore ELVIS with ss drainage Remains on IV zosyn for now PT/OT ordered to work with patient and wound care nurse on board for ostomy care Admission and Anticipated Discharge Date Admission Date: August 14, 2023 Supervising Physician Co-Signing Physician Notes pnt S&E, agree w/ above. POD#4 Ring's for rectosigmoid perforation. tolerating fulls, appetite improving. Sore but doing well. afvss, abd soft, appopriately ttp, incision w/ jimmy and tim, no infection. ELVIS SS. ostomy healthy, beginning to produce stool. wbc 14 (15) lytes replaced decrease ivf's cont fulls, may advance to low fiber if desired oobtc, is, ambulate cont pt/ot case management for home health care for ostomy care wound care nurse following for ostomy wean O2 cont dvt prophy cont iv abx, will transition to oral abx at discharge for 10 days total post op trx cont elvis drain, con be removed prior to d/c Dr. Quintero covering over weekend Subjective Patient feeling okay. Tolerating small amounts of full liquids. Denies nausea/vomiting. Pain overall controlled. Wondering when she will be weaned off oxygen. Denies CP/SOB. Physical Exam Physical Exam: awake, no distress Respiratory: normal respiratory effort on supplemental O2 Gastrointestinal (Abdomen): Inspection/Auscultation: + abdominal surgical incision (c/d/i with midline jimmy, telfa tim in between); abdomen not distended Percussion/Palpation: + abdomen tender (expected chema incisional discomfort) and abdomen soft ELVIS drain output serosang. Ostomy with no gas in bag, small amount of stool at entrance of ostomy present Results & Data Vital Signs (Past 12 Hours) Vital Signs Temp Pulse Pulse Resp BP BP Pulse Ox 08/21/23 07:47 97.9 F 91 H 21 152/82 H 96 08/21/23 02:34 97.9 F 101 H 18 150/79 H 93 08/20/23 22:04 94 H 08/20/23 21:25 98.1 F 103 H 18 164/86 H 93 O2 Del Method O2 Flow Rate 08/21/23 07:47 Nasal Cannula 2 08/21/23 02:34 Nasal Cannula 1 08/20/23 22:04 08/20/23 21:25 Nasal Cannula 3 PG Care Time/CCT Total # of Minutes Spent Total Time Spent with Patient: Total time spent is greater than 50% in coordination of care (as documented) at patient's floor/unit and/or counseling patient: Coding Level of Care Code 18744 SUB INP/OBS CARE 04/16MIN Diagnoses Perforation of colon K63.1
[2023-08-21] MEDS ORDERED: oxyCODONE HCL IR 5 MG TAB (IMMEDIATE RELEASE) PO PRN (11:10)
[2023-08-21] MEDS: POTASSIUM CHLORIDE CRTAB 20 MEQ TABCR PO STA (11:35)
[2023-08-21] MEDS: MAGNESIUM SULFATE / D5W 1 GM/100 ML BAG IV SCH (11:36)
--- NOTE | 2023-08-21 11:45 | Hospitalist Progress Note ---
Date of Service August 21, 2023 Assessment & Plan (1) Bowel perforation: Plan: CTA/P with evidence of free air, rectosigmoid inflammation, constipation.? Diverticulitis with perforation vs stercoral proctitis in the setting of narcotic use General surgery on board. Initially managed conservatively but with development of severe pain, hypotension and increasing tachycardia, CT abdomen was repeated 08/16 that showed increase in pneumoperitoneum compared to CT of 08/13 consistent with visceral perforation. It all shows showed increase in ascites and a new developing abscess which is likely at the site of the perforation. Patient went to the OR on 08/16: Exploratory laparotomy, resection of rectosigmoid perforation, colostomy Continue Zosyn May consider caspofungin if becomes hemodynamically unstable or develops fever Currently stable Passing gas On full liquid diet Replete electrolytes: Potassium and magnesium (2) Septic shock: Plan: Patient initially had tachycardia and leukocytosis. Sepsis was present on admission. With conservative management with IV antibiotics, patient went into septic shock with hypotension, tachycardia She needed surgery to treat the perforation Continue Zosyn Hemodynamics improved currently Will consider caspofungin if hemodynamically unstable or develops fever. (3) Atrial fibrillation: Plan: Patient is found to be tachycardic EKG showed atrial fibrillation This is most likely in the setting of bowel perforation, pneumoperitoneum, sepsis TTE reviewed (4) Distal radius fracture, left: Plan: Left radial fracture S/p surgical repair 08/11/2023 Neurovascularly intact No acute change in management (5) HLD (hyperlipidemia): Plan: Oral meds held (6) HTN (hypertension): Plan: Oral meds held Plan Arthritis: Previously on hydroxychloroquine was discontinued due to anemia DVT prophylaxis: Lovenox CODE STATUS: Full code Admission and Anticipated Discharge Date Admission Date: August 14, 2023 Subjective Patient slept better last night. She gets flustered because how difficult it is for her to move around. Review of Systems Review of Systems: All systems reviewed & are unremarkable except as noted in Subjective Physical Exam Physical Exam: General: Awake, conversant Heart: S1, S2/regular rate and rhythm, no murmur rubs or gallops Lungs: Clear to auscultation bilaterally. Normal effort Abdomen: Dressing on, SUSANNAH drain in place. Extremities: No clubbing/cyanosis. No edema Behavior: Appropriate, cooperative Results & Data Results & Data Vital Signs (Past 12 Hours) Vital Signs Temp Pulse Resp BP BP Pulse Ox O2 Del Method 08/21/23 11:02 36.3 C L 103 H 22 136/79 95 Nasal Cannula 08/21/23 08:00 Nasal Cannula 08/21/23 07:47 36.6 C 91 H 21 152/82 H 96 Nasal Cannula 08/21/23 02:34 36.6 C 101 H 18 150/79 H 93 Nasal Cannula O2 Flow Rate 08/21/23 11:02 2 08/21/23 08:00 08/21/23 07:47 2 08/21/23 02:34 1 Laboratory Results Abnormal lab results 08/21/23 Range/Units 06:33 WBC 14.54 H (4.8-10.8) K/ul RBC 3.17 L (4.20-5.40) M/uL Hgb 10.3 L (12.0-16.0) g/dl Hct 30.4 L (37.0-47.0) % Plt Count 408 H (130-400) K/uL MPV 8.8 L (9.4-12.4) fL Neut # (Auto) 13.05 H (1.40-6.50) K/uL Lymph # (Auto) 1.00 L (1.20-3.40) K/uL Potassium 2.6 L D (3.5-5.1) mmol/L Creatinine 0.45 L (0.6-1.2) mg/dl Glucose 134 H (70-99(Fasting)) mg/dl Calcium 7.6 L (8.6-10.3) mg/dl Magnesium 1.5 L (1.7-2.4) mg/dl Total Protein 5.6 L (6.0-8.3) gm/dl Albumin 2.7 L (3.4-5.0) gm/dl PG Care Time/CCT Total # of Minutes Spent Total Time Spent with Patient: Total time spent is greater than 50% in coordination of care (as documented) at patient's floor/unit and/or counseling patient: Coding Level of Care Code 61453 SUB INP/OBS CARE 2/35MIN Diagnoses Bowel perforation K63.1 Septic shock A41.9; R65.21 Atrial fibrillation I48.91 Distal radius fracture, left S52.502A HLD (hyperlipidemia) E78.5 HTN (hypertension) I10
[2023-08-21] MEDS: POTASSIUM CHLORIDE / WTR 10 MEQ/100 ML PLCT IV SCH (11:53)
[2023-08-21] MEDS: AMITRIPTYLINE HCL 10 MG TAB PO PRN (20:58)
[2023-08-22] MEDS: ACETAMINOPHEN 500 MG TAB PO PRN (00:12)
[2023-08-22 06:33] LABS: Basophils # (auto) 0.02 K/uL (0.00-0.20); Basophils % (auto) 0.2 %; Eosinophils # (auto) 0.18 K/uL (0.00-0.50); Eosinophils % (auto) 1.5 %; Hematocrit (blood only) 29.9 % (37.0-47.0); Hemoglobin 10.3 g/dl (12.0-16.0); Immature Granulocytes # (auto) 0.13 K/uL (0.01-0.20); Immature Granulocytes % (auto) 1.1 %; Lymphocytes # (auto) 1.35 K/uL (1.20-3.40); Lymphocytes % (auto) 11.1 %; Mean Corpuscular Hemoglobin 32.7 pg (25.0-34.0); Mean Corpuscular Hgb Conc 34.4 g/dL (32.0-36.0); Mean Corpuscular Volume 94.9 fL (80.0-100.0); Mean Platelet Volume 8.6 fL (9.4-12.4); Monocytes # (auto) 0.22 K/uL (0.11-0.59); Monocytes % (auto) 1.8 %; Neutrophils # (auto) 10.26 K/uL (1.40-6.50); Neutrophils % (auto) 84.3 %; Platelet Count 475 K/uL (130-400); RDW Coefficient of Variation 12.7 % (11.5-14.5); RDW Standard Deviation 43.8 fL (36.4-46.3); Red Blood Count 3.15 M/uL (4.20-5.40); White Blood Count 12.16 K/ul (4.8-10.8)
[2023-08-22 07:03] LABS: Albumin Globulin Ratio 0.9 (0.9-2); Albumin Level 2.7 gm/dl (3.4-5.0); BUN Creatinine Ratio 19.1 (10-20); Bilirubin,Total 0.6 mg/dl (0.2-1.0); Calcium 7.7 mg/dl (8.6-10.3); Creatinine Clr Calc Pharmacy 101.5 ml/min; Est GFR (African American) 112.8 ml/min; Est GFR (Non-African American) 97.3 ml/min; Globulin 3.1 gm/dl (2.5-4.0); Potassium 3.1 mmol/L (3.5-5.1); Total Protein 5.8 gm/dl (6.0-8.3)
[2023-08-22] MEDS: POTASSIUM CHLORIDE CRTAB 20 MEQ TABCR PO STA ×2 (09:00→10:43)
[2023-08-22] MEDS: POTASSIUM CHLORIDE / WTR 10 MEQ/100 ML PLCT IV SCH (09:01)
--- NOTE | 2023-08-22 11:55 | Hospitalist Progress Note ---
Date of Service August 22, 2023 Assessment & Plan (1) Bowel perforation: Plan: CTA/P with evidence of free air, rectosigmoid inflammation, constipation.? Diverticulitis with perforation vs stercoral proctitis in the setting of narcotic use General surgery on board. Initially managed conservatively but with development of severe pain, hypotension and increasing tachycardia, CT abdomen was repeated 08/16 that showed increase in pneumoperitoneum compared to CT of 08/13 consistent with visceral perforation. It all shows showed increase in ascites and a new developing abscess which is likely at the site of the perforation. Patient went to the OR on 08/16: Exploratory laparotomy, resection of rectosigmoid perforation, colostomy Continue Zosyn Leukocytosis improving May consider caspofungin if becomes hemodynamically unstable or develops fever Currently stable Passing gas On full liquid diet Replete electrolytes: Potassium (2) Septic shock: Plan: Patient initially had tachycardia and leukocytosis. Sepsis was present on admission. With conservative management with IV antibiotics, patient went into septic shock with hypotension, tachycardia She needed surgery to treat the perforation Continue Zosyn Hemodynamics improved currently Will consider caspofungin if hemodynamically unstable or develops fever. (3) Atrial fibrillation: Plan: Patient is found to be tachycardic EKG showed atrial fibrillation This is most likely in the setting of bowel perforation, pneumoperitoneum, sepsis TTE reviewed (4) Distal radius fracture, left: Plan: Left radial fracture S/p surgical repair 08/11/2023 Neurovascularly intact No acute change in management (5) HLD (hyperlipidemia): Plan: Oral meds held (6) HTN (hypertension): Plan: Oral meds held Plan Arthritis: Previously on hydroxychloroquine was discontinued due to anemia DVT prophylaxis: Lovenox CODE STATUS: Full code Admission and Anticipated Discharge Date Admission Date: August 14, 2023 Subjective Patient is feeling a little frustrated as she is not able to move as much. She is still in pain. Her bowels are still not moving. She feels as though things are not moving forward. I explained to her that she has undergone a relatively big surgery. And a relatively slow progress is to be expected. Review of Systems Review of Systems: All systems reviewed & are unremarkable except as noted in Subjective Physical Exam Physical Exam: General: Awake, conversant Heart: S1, S2/regular rate and rhythm, no murmur rubs or gallops Lungs: Clear to auscultation bilaterally. Normal effort Abdomen: Dressing on, SUSANNAH drain in place. Colostomy bag in place. Extremities: No clubbing/cyanosis. No edema Behavior: Appropriate, cooperative Results & Data Results & Data Vital Signs (Past 12 Hours) Vital Signs Temp Pulse Resp BP BP Pulse Ox O2 Del Method 08/22/23 07:52 36.4 C L 72 21 167/83 H 95 Nasal Cannula 08/22/23 07:00 Nasal Cannula 08/22/23 03:39 36.6 C 90 18 153/76 H 93 Nasal Cannula 08/21/23 23:58 36.6 C 93 H 17 149/71 H 95 Nasal Cannula O2 Flow Rate 08/22/23 07:52 3 08/22/23 07:00 2 08/22/23 03:39 2 08/21/23 23:58 2 Laboratory Results Abnormal lab results 08/22/23 Range/Units 05:56 WBC 12.16 H (4.8-10.8) K/ul RBC 3.15 L (4.20-5.40) M/uL Hgb 10.3 L (12.0-16.0) g/dl Hct 29.9 L (37.0-47.0) % Plt Count 475 H (130-400) K/uL MPV 8.6 L (9.4-12.4) fL Neut # (Auto) 10.26 H (1.40-6.50) K/uL Potassium 3.1 L (3.5-5.1) mmol/L Creatinine 0.47 L (0.6-1.2) mg/dl Glucose 126 H (70-99(Fasting)) mg/dl Calcium 7.7 L (8.6-10.3) mg/dl Total Protein 5.8 L (6.0-8.3) gm/dl Albumin 2.7 L (3.4-5.0) gm/dl PG Care Time/CCT Total # of Minutes Spent Total Time Spent with Patient: Total time spent is greater than 50% in coordination of care (as documented) at patient's floor/unit and/or counseling patient: Coding Level of Care Code 10046 SUB INP/OBS CARE 2/35MIN Diagnoses Bowel perforation K63.1 Septic shock A41.9; R65.21 Atrial fibrillation I48.91 Distal radius fracture, left S52.502A HLD (hyperlipidemia) E78.5 HTN (hypertension) I10
--- NOTE | 2023-08-22 15:26 | Surgery Progress Note ---
Date of Service August 22, 2023 Assessment & Plan (1) Perforation of colon: Plan: POD 5 s/p Natividad's, HTN, afebrile without tachycardia, good U/O. Leukocytosis is improving. Abdominal dressings were changed this afternoon. Patient is progressing slowly but overall well Continue IV antibiotics, is on Zosyn Will continue with full liquids today to see how she fairs by the am and will advance tomorrow if still tolerating well Briones can likely be D/C'd, if ok with medicine. Monitor and record stoma function/output On Lovenox for DVT ppx Dispo: Question if rehab would be beneficial due to low activity/deconditioning. Admission and Anticipated Discharge Date Admission Date: August 14, 2023 Subjective I have seen and examined this patient today. Denies N/V although she is burping excessively since early this am, otherwise she is tolerating full liquids. Has worked some with PT says she has not really been able to get up and walk around yet. Admits to mild pain at times, controlled. Physical Exam Constitutional: not ill appearing, not in distress and not diaphoretic Respiratory: normal respiratory effort; no respiratory distress, no labored breathing and does not use accessory muscles Gastrointestinal (Abdomen): Abdomen with midline dressings c/d/i The jimmy in place over midline incision and intact. Pearl changed at incision. Thin maroon drainage from the superior aspect of the wound was cleaned away. The wound was lightly re-packed with new pearl. Covered with dry gauze and ABD. Stoma viable, small amount of loose stool in the bag, no air in the bag currently SUSANNAH drain in place with serosanguinous drainage. minimal drainage recorded (10mL) Briones catheter with good u/o Results & Data Vital Signs (Past 12 Hours) Vital Signs Temp Pulse Resp BP BP BP Pulse Ox 08/22/23 11:03 36.7 C 84 21 173/83 H 95 08/22/23 07:52 36.4 C L 72 21 167/83 H 95 08/22/23 07:00 08/22/23 03:39 36.6 C 90 18 153/76 H 93 O2 Del Method O2 Flow Rate 08/22/23 11:03 Nasal Cannula 3 08/22/23 07:52 Nasal Cannula 3 08/22/23 07:00 Nasal Cannula 2 08/22/23 03:39 Nasal Cannula 2 Results CBC w Diff Results: RBC 3.15 M/uL (4.20-5.40) L 08/22/23 WBC 12.16 K/ul (4.8-10.8) H 08/22/23 Hgb 10.3 g/dl (12.0-16.0) L 08/22/23 Hct 29.9 % (37.0-47.0) L 08/22/23 MCV 94.9 fL (80.0-100.0) 08/22/23 MCH 32.7 pg (25.0-34.0) 08/22/23 MCHC 34.4 g/dL (32.0-36.0) 08/22/23 RDW Standard Deviation 43.8 fL (36.4-46.3) 08/22/23 RDW Coefficient of Variation 12.7 % (11.5-14.5) 08/22/23 Plt Count 475 K/uL (130-400) H 08/22/23 MPV 8.6 fL (9.4-12.4) L 08/22/23 Nucleated Red Blood Cells % (auto) 0.0 % 07/06 Nucleated RBC Absolute Count (auto) 0.00 K/uL (0-0) 06/21 09/08 Neutrophils (%) (Auto) 84.3 % 08/22/23 Lymphocytes (%) (Auto) 11.1 % 08/22/23 Monocytes # (Auto) 0.22 K/uL (0.11-0.59) 08/22/23 Eosinophils # (Auto) 0.18 K/uL (0.00-0.50) 08/22/23 Immature Granulocyte % (Auto) 1.1 % 08/22/23 Neutrophils # (Auto) 10.26 K/uL (1.40-6.50) H 08/22/23 Lymphocytes # (Auto) 1.35 K/uL (1.20-3.40) 08/22/23 Monocytes # (Auto) 0.22 K/uL (0.11-0.59) 08/22/23 Eosinophils # (Auto) 0.18 K/uL (0.00-0.50) 08/22/23 Basophils # (Auto) 0.02 K/uL (0.00-0.20) 08/22/23 Immature Granulocyte # (Auto) 0.13 K/uL (0.01-0.20) 4 Polychromasia 1+ 08/18/23 Anisocytosis PRESENT 09/18/17 Toxic Granulation 3+ 08/20/23 Toxic Vacuolation 2+ 08/20/23 Dohle Bodies 1+ 08/18/23 Rouleau 1+ 08/17/23 Results Complete Blood Count Results: RBC 3.15 M/uL (4.20-5.40) L 08/22/23 WBC 12.16 K/ul (4.8-10.8) H 08/22/23 Hgb 10.3 g/dl (12.0-16.0) L 08/22/23 Hct 29.9 % (37.0-47.0) L 08/22/23 Plt Count 475 K/uL (130-400) H 08/22/23 PG Care Time/CCT Total # of Minutes Spent Total Time Spent with Patient: Total time spent is greater than 50% in coordination of care (as documented) at patient's floor/unit and/or counseling patient: Coding Level of Care Code 72420 Post Operative Follow-Up Diagnoses Perforation of colon K63.1
[2023-08-23 06:31] LABS: Basophils # (auto) 0.04 K/uL (0.00-0.20); Basophils % (auto) 0.3 %; Eosinophils % (auto) 1.6 %; Hematocrit (blood only) 29.7 % (37.0-47.0); Immature Granulocytes # (auto) 0.12 K/uL (0.01-0.20); Lymphocytes # (auto) 1.31 K/uL (1.20-3.40); Lymphocytes % (auto) 10.4 %; Mean Corpuscular Hemoglobin 32.6 pg (25.0-34.0); Mean Corpuscular Hgb Conc 33.7 g/dL (32.0-36.0); Mean Corpuscular Volume 96.7 fL (80.0-100.0); Mean Platelet Volume 8.6 fL (9.4-12.4); Monocytes # (auto) 0.28 K/uL (0.11-0.59); Monocytes % (auto) 2.2 %; Neutrophils # (auto) 10.66 K/uL (1.40-6.50); Neutrophils % (auto) 84.5 %; Platelet Count 509 K/uL (130-400); RDW Coefficient of Variation 12.9 % (11.5-14.5); RDW Standard Deviation 45.4 fL (36.4-46.3); Red Blood Count 3.07 M/uL (4.20-5.40); White Blood Count 12.61 K/ul (4.8-10.8)
[2023-08-23 07:00] LABS: Albumin Globulin Ratio 0.9 (0.9-2); Albumin Level 2.7 gm/dl (3.4-5.0); BUN Creatinine Ratio 21.6 (10-20); Bilirubin,Total 0.5 mg/dl (0.2-1.0); Calcium 7.7 mg/dl (8.6-10.3); Creatinine Clr Calc Pharmacy 93.6 ml/min; Est GFR (African American) 109.8 ml/min; Est GFR (Non-African American) 94.7 ml/min; Globulin 2.9 gm/dl (2.5-4.0); Magnesium 1.6 mg/dl (1.7-2.4); Potassium 3.6 mmol/L (3.5-5.1); Total Protein 5.6 gm/dl (6.0-8.3)
[2023-08-23] MEDS: POTASSIUM CHLORIDE CRTAB 20 MEQ TABCR PO STA (09:00)
[2023-08-23] MEDS: MAGNESIUM SULFATE / D5W 1 GM/100 ML BAG IV SCH (09:00)
[2023-08-23] MEDS: amLODIPine BESYLATE 5 MG TAB PO SCH (09:01)
--- NOTE | 2023-08-23 12:50 | Surgery Progress Note ---
Date of Service August 23, 2023 Assessment & Plan (1) Perforation of colon: Plan POD 6 s/p Natividad's, HTN, afebrile without tachycardia, patient is voiding. Leukocytosis is improving. Abdominal dressings were changed this afternoon. Patient is progressing slowly but is progressing Continue IV antibiotics, is on Zosyn, mild leukocytosis slightly improved Advance to a low fiber diet today. Pain seems to be hindering her activity, will try a few doses of standing IV Tylenol at this time Voiding, flatus from stoma. SUSANNAH drain with minimal serous output for the last two days, her son at bedside would rather wait for Dr. Hurley to make the decision to remove the SUSANNAH. On Lovenox for DVT ppx Dispo:Rehab placement pending, continue with PT while here Surgery will follow up in the am Admission and Anticipated Discharge Date Admission Date: August 14, 2023 Subjective I have seen and examined this patient. She is unchanged from yesterday. Still sluggish in bed, can not describe how she is feeling. States she continues with "pretty good abdominal pain" especially if she tried to get up. Unsure of colostomy function, difficult to obtain good subjective overview from. Is able to definitively deny N/V. She is tolerating full liquids. Physical Exam Constitutional: not ill appearing, not in distress and not diaphoretic Respiratory: normal respiratory effort; no respiratory distress, no labored breathing and does not use accessory muscles Gastrointestinal (Abdomen): Abdomen not acute Midline incision with jimmy and tim were changed. Much decreased drainage compared to yesterday. Gauze and ABD changed as well. SUSANNAH drain with mostly serous drainage 25mL recorded last 24 hours. Stoma appears viable. Small amount of loose stool in the bag appears unchanged from yesterday. There was a small amount of gas that expelled from the stoma during evalution. Results & Data Vital Signs (Past 12 Hours) Vital Signs Temp Pulse Pulse Resp BP BP Pulse Ox 08/23/23 11:35 36.7 C 87 22 145/81 H 89 L 08/23/23 07:57 36.6 C 79 21 150/90 H 92 08/23/23 07:45 79 08/23/23 03:30 36.7 C 82 18 176/76 H 92 O2 Del Method 08/23/23 11:35 Room Air 08/23/23 07:57 Room Air 08/23/23 07:45 08/23/23 03:30 Room Air Results CBC w Diff Results: RBC 3.07 M/uL (4.20-5.40) L 08/23/23 WBC 12.61 K/ul (4.8-10.8) H 08/23/23 Hgb 10.0 g/dl (12.0-16.0) L 08/23/23 Hct 29.7 % (37.0-47.0) L 08/23/23 MCV 96.7 fL (80.0-100.0) 08/23/23 MCH 32.6 pg (25.0-34.0) 08/23/23 MCHC 33.7 g/dL (32.0-36.0) 08/23/23 RDW Standard Deviation 45.4 fL (36.4-46.3) 08/23/23 RDW Coefficient of Variation 12.9 % (11.5-14.5) 08/23/23 Plt Count 509 K/uL (130-400) H 08/23/23 MPV 8.6 fL (9.4-12.4) L 08/23/23 Nucleated Red Blood Cells % (auto) 0.0 % 07/06 Nucleated RBC Absolute Count (auto) 0.00 K/uL (0-0) 06/21 09/08 Neutrophils (%) (Auto) 84.5 % 08/23/23 Lymphocytes (%) (Auto) 10.4 % 08/23/23 Monocytes # (Auto) 0.28 K/uL (0.11-0.59) 08/23/23 Eosinophils # (Auto) 0.20 K/uL (0.00-0.50) 08/23/23 Immature Granulocyte % (Auto) 1.0 % 08/23/23 Neutrophils # (Auto) 10.66 K/uL (1.40-6.50) H 08/23/23 Lymphocytes # (Auto) 1.31 K/uL (1.20-3.40) 08/23/23 Monocytes # (Auto) 0.28 K/uL (0.11-0.59) 08/23/23 Eosinophils # (Auto) 0.20 K/uL (0.00-0.50) 08/23/23 Basophils # (Auto) 0.04 K/uL (0.00-0.20) 08/23/23 Immature Granulocyte # (Auto) 0.12 K/uL (0.01-0.20) 4 Polychromasia 1+ 08/18/23 Anisocytosis PRESENT 09/18/17 Toxic Granulation 3+ 08/20/23 Toxic Vacuolation 2+ 08/20/23 Dohle Bodies 1+ 08/18/23 Rouleau 1+ 08/17/23 PG Care Time/CCT Total # of Minutes Spent Total Time Spent with Patient: Total time spent is greater than 50% in coordination of care (as documented) at patient's floor/unit and/or counseling patient: Coding Level of Care Code 36752 Post Operative Follow-Up Diagnoses Perforation of colon K63.1
--- NOTE | 2023-08-23 13:29 | Hospitalist Progress Note ---
Date of Service August 23, 2023 Assessment & Plan (1) Bowel perforation: Plan: CTA/P with evidence of free air, rectosigmoid inflammation, constipation.? Diverticulitis with perforation vs stercoral proctitis in the setting of narcotic use General surgery on board. Initially managed conservatively but with development of severe pain, hypotension and increasing tachycardia, CT abdomen was repeated 08/16 that showed increase in pneumoperitoneum compared to CT of 08/13 consistent with visceral perforation. It all shows showed increase in ascites and a new developing abscess which is likely at the site of the perforation. Patient went to the OR on 08/16: Exploratory laparotomy, resection of rectosigmoid perforation, colostomy Continue Zosyn Leukocytosis improving May consider caspofungin if becomes hemodynamically unstable or develops fever Currently stable Passing gas Diet advanced to low fiber diet by surgery team Hopefully the SUSANNAH drain will be pulled soon Replete electrolytes: Potassium and magnesium (2) Septic shock: Plan: Patient initially had tachycardia and leukocytosis. Sepsis was present on admission. With conservative management with IV antibiotics, patient went into septic shock with hypotension, tachycardia She needed surgery to treat the perforation Continue Zosyn Hemodynamics improved currently Will consider caspofungin if hemodynamically unstable or develops fever. Resolved (3) Atrial fibrillation: Plan: Patient is found to be tachycardic EKG showed atrial fibrillation This is most likely in the setting of bowel perforation, pneumoperitoneum, sepsis TTE reviewed (4) Distal radius fracture, left: Plan: Left radial fracture S/p surgical repair 08/11/2023 Neurovascularly intact No acute change in management (5) HLD (hyperlipidemia): Plan: Oral meds held (6) HTN (hypertension): Plan: Oral meds held Plan Arthritis: Previously on hydroxychloroquine was discontinued due to anemia DVT prophylaxis: Lovenox CODE STATUS: Full code Patient will likely need placement. PT/OT recommending rehab. Case management involved. Likely discharge next week. Admission and Anticipated Discharge Date Admission Date: August 14, 2023 Subjective Patient is still a little flustered because she is not able to move around is much as she expected. Review of Systems Review of Systems: All systems reviewed & are unremarkable except as noted in Subjective Physical Exam Physical Exam: General: Awake, conversant Heart: S1, S2/regular rate and rhythm, no murmur rubs or gallops Lungs: Clear to auscultation bilaterally. Normal effort Abdomen: Dressing on, SUSANNAH drain in place. Colostomy bag in place. Extremities: No clubbing/cyanosis. No edema Behavior: Appropriate, cooperative Results & Data Results & Data Vital Signs (Past 12 Hours) Vital Signs Temp Pulse Pulse Resp BP BP Pulse Ox 08/23/23 11:35 36.7 C 87 22 145/81 H 89 L 08/23/23 07:57 36.6 C 79 21 150/90 H 92 08/23/23 07:45 79 08/23/23 03:30 36.7 C 82 18 176/76 H 92 O2 Del Method 08/23/23 11:35 Room Air 08/23/23 07:57 Room Air 08/23/23 07:45 08/23/23 03:30 Room Air Laboratory Results Abnormal lab results 08/23/23 Range/Units 05:39 WBC 12.61 H (4.8-10.8) K/ul RBC 3.07 L (4.20-5.40) M/uL Hgb 10.0 L (12.0-16.0) g/dl Hct 29.7 L (37.0-47.0) % Plt Count 509 H (130-400) K/uL MPV 8.6 L (9.4-12.4) fL Neut # (Auto) 10.66 H (1.40-6.50) K/uL Sodium 135 L (136-145) mmol/L Creatinine 0.51 L (0.6-1.2) mg/dl BUN/Creatinine Ratio 21.6 H (10-20) Glucose 106 H (70-99(Fasting)) mg/dl Calcium 7.7 L (8.6-10.3) mg/dl Magnesium 1.6 L (1.7-2.4) mg/dl Total Protein 5.6 L (6.0-8.3) gm/dl Albumin 2.7 L (3.4-5.0) gm/dl PG Care Time/CCT Total # of Minutes Spent Total Time Spent with Patient: Total time spent is greater than 50% in coordination of care (as documented) at patient's floor/unit and/or counseling patient: Coding Level of Care Code 88217 SUB INP/OBS CARE 2/35MIN Diagnoses Bowel perforation K63.1 Septic shock A41.9; R65.21 Atrial fibrillation I48.91 Distal radius fracture, left S52.502A HLD (hyperlipidemia) E78.5 HTN (hypertension) I10
[2023-08-23] MEDS ORDERED: Nursing to Pharmacy Communication SCH (17:30)
[2023-08-23] MEDS: ACETAMINOPHEN 500 MG TAB PO SCH (18:21)
--- NOTE | 2023-08-23 19:24 | Surgery Progress Note ---
Date of Service August 23, 2023 Assessment & Plan (1) Perforation of colon: Plan: Sanjuana remains afebrile with a mild leukocytosis on labs this am. IV Toradol has been added to her pain regimen She has received a dose of IV Ofirmev and this is now ordered standing This seems to be pain related, appearing as though the pain has gotten to a point that makes it difficult to control and she does not seem to be asking for pain medication prior to the pain becoming severe making it more difficult to control, slighlty decreased O2 sat (although this could have been agitation). Thus the standing Tylenol and NSAID addition to decrease the need for narcotic. A purewick has been placed for now as patient has trouble getting out of bed I have explained to him the rationale for performing a repeat CT. She currently does not meet criteria to have an urgent CT less than 7 days post op at this time as she is afebrile and has a stable mild leukocytosis between this am and yesterday am which are decreased from two days ago. This may also be inflammatory at this point, platelets elevated and Toradol was added to help with that process and pain. Labs will be followed up on in the am. If there becomes an indication, Dr. Hurley will obtain a CT when the timing is right if there is concern for the development of an abscess. A CT scan too soon will not have given an abscess to form and other typical post surgical changes to be resolved enough to assess if there is need for IR intervention. I have encouraged up out of bed once her pain is better controlled as her was under the impression that we did not want her out of bed for post surgical reasons and states this is why he requested a Briones. He was appreciative for me coming in to see her and understands the approach at this time. This has all been communicated with the nurse at bedside as well and the changes in her pain medication orders are initiated. Dr. Hurley will return to follow up in the am. Admission and Anticipated Discharge Date Admission Date: August 14, 2023 Subjective became agitated with the hospitalist and requested surgery at the bedside as the patient was having an episode of lower abdominal pain. She was tachy with elevated BP per nursing vitals, herself became agitated and has been placed on 2L NC for O2 saturation in the low 90's. I arrived to the bedside to assess. She states she is not having nausea or vomiting, does not feel bloated or distended and nursing confirms the ostomy is putting out loose stool filling up half the bag today along with gas. She denies chest pain and SOB. When I arrived at the bedside, she had just received a dose of Tylenol per my adjusted orders prior to reaching the hospital as well as narcotic IV pain medication. Patient appeared comfortable in bed, states she does have pain but it does feel as though it has slightly improved. She is not currently diaphoretic. He was also concerned about her getting up and requested a Briones catheter be reinserted. He was also requesting a repeat CT scan. Physical Exam Respiratory: normal respiratory effort; no respiratory distress, no labored breathing and does not use accessory muscles Cardiovascular: Mentating well Perfused Gastrointestinal (Abdomen): Low suprapubic pain Results & Data Vital Signs (Past 12 Hours) Vital Signs Temp Pulse Pulse Resp BP BP Pulse Ox 08/23/23 18:03 36.7 C 111 H 20 163/89 H 92 08/23/23 16:17 36.6 C 84 22 166/79 H 92 08/23/23 11:35 36.7 C 87 22 145/81 H 89 L 08/23/23 07:57 36.6 C 79 21 150/90 H 92 08/23/23 07:45 79 O2 Del Method 08/23/23 18:03 Nasal Cannula 08/23/23 16:17 Room Air 08/23/23 11:35 Room Air 08/23/23 07:57 Room Air 08/23/23 07:45 PG Care Time/CCT Total # of Minutes Spent Total Time Spent with Patient: Total time spent is greater than 50% in coordination of care (as documented) at patient's floor/unit and/or counseling patient: Coding Level of Care Code 31051 Post Operative Follow-Up Diagnoses Perforation of colon K63.1
[2023-08-23] MEDS: KETOROLAC TROMETHAMINE 15 MG/ML VIAL IV PRN (19:46)
[2023-08-24 07:24] LABS: Basophils # (auto) 0.04 K/uL (0.00-0.20); Basophils % (auto) 0.4 %; Eosinophils # (auto) 0.24 K/uL (0.00-0.50); Eosinophils % (auto) 2.4 %; Hematocrit (blood only) 29.1 % (37.0-47.0); Hemoglobin 9.7 g/dl (12.0-16.0); Immature Granulocytes # (auto) 0.08 K/uL (0.01-0.20); Immature Granulocytes % (auto) 0.8 %; Lymphocytes % (auto) 8.9 %; Mean Corpuscular Hemoglobin 32.4 pg (25.0-34.0); Mean Corpuscular Hgb Conc 33.3 g/dL (32.0-36.0); Mean Corpuscular Volume 97.3 fL (80.0-100.0); Mean Platelet Volume 8.4 fL (9.4-12.4); Monocytes # (auto) 0.24 K/uL (0.11-0.59); Monocytes % (auto) 2.4 %; Neutrophils % (auto) 85.1 %; Platelet Count 563 K/uL (130-400); RDW Coefficient of Variation 13.2 % (11.5-14.5); RDW Standard Deviation 46.5 fL (36.4-46.3); Red Blood Count 2.99 M/uL (4.20-5.40)
[2023-08-24 07:49] LABS: Albumin Globulin Ratio 0.9 (0.9-2); Albumin Level 2.7 gm/dl (3.4-5.0); BUN Creatinine Ratio 22.2 (10-20); Bilirubin,Total 0.5 mg/dl (0.2-1.0); Calcium 7.8 mg/dl (8.6-10.3); Creatinine Clr Calc Pharmacy 82.2 ml/min; Est GFR (African American) 107.7 ml/min; Potassium 3.8 mmol/L (3.5-5.1); Total Protein 5.7 gm/dl (6.0-8.3)
--- NOTE | 2023-08-24 10:53 | Surgery Progress Note ---
Date of Service August 24, 2023 Assessment & Plan (1) Perforation of colon: Plan: POD 7 s/p Natividad's procedure with Dr. Hurley. Patient is afebrile with stable vitals. Has been difficult with pain control but states improvement this am after medication adjustment. Has been increased to a low fiber diet yesterday and leukocytosis is resolved on labs this am. Dressings will be changed by surgery later today Susannah drain is ready to be removed- had wanted Dr. Laguerre to make that decision so it remains. Pain is better controlled with medication adjustment. Consideration that SUSANNAH drain could also be causing some of her excruciating discomfort she report when she tries to get up to move if this is in the pelvis. Dressings and drain management per surgery to be addressed later today. Admission and Anticipated Discharge Date Admission Date: August 14, 2023 Subjective The patient was seen this am. Her pain medications were adjusted yesterday and she admitted her pain was better this am. She continues without nausea, vomiting, or fevers. Physical Exam Constitutional: not ill appearing, not in distress and not diaphoretic Respiratory: normal respiratory effort; no respiratory distress, no labored breathing and does not use accessory muscles Gastrointestinal (Abdomen): stoma healthy. ostomy functioning SUSANNAH with scant drainage. 10mL recorded for the last 24 hours Results & Data Vital Signs (Past 12 Hours) Vital Signs Temp Pulse Resp BP Pulse Ox O2 Del Method O2 Flow Rate 08/24/23 08:31 36.8 C 82 24 145/72 H 96 Nasal Cannula 08/24/23 04:10 36.7 C 99 H 18 145/73 H 95 Nasal Cannula 2.5 08/23/23 23:58 36.6 C 105 H 18 143/76 H 93 Nasal Cannula 2.5 PG Care Time/CCT Total # of Minutes Spent Total Time Spent with Patient: Total time spent is greater than 50% in coordination of care (as documented) at patient's floor/unit and/or counseling patient: Coding Level of Care Code 57275 Post Operative Follow-Up Diagnoses Perforation of colon K63.1
--- NOTE | 2023-08-24 12:53 | Surgery Progress Note ---
Date of Service August 24, 2023 Assessment & Plan (1) History of bowel resection: Plan: POD#7 Ring's, doing well. d/c drain ambulate, oobtc, IS d/c tim at incision PT/OT, case management home healthy for rehab cont iv abx while in house transition to oral pain meds pnt's wants to keep purewick til tomorrow Admission and Anticipated Discharge Date Admission Date: August 14, 2023 Subjective POD#7 ring's. weekend and overnight events reviewed. Ostomy functioning, tolerating low fiber. increased pain yesterday afternoon, seems to have improved w/ adjusting APAP and toradol. Physical Exam Constitutional: WD/WN, vitals as above Gastrointestinal (Abdomen): normal bowel sounds, soft, nontender, no hepatosplenomegaly Inspection/Auscultation: + abdominal surgical incision (tim in place, dressing w/ mild drainage) ostomy functioning, healthy. incision w/o infection or hernia. elvis ss. Results & Data Vital Signs (Past 12 Hours) Vital Signs Temp Pulse Resp BP Pulse Ox O2 Del Method O2 Flow Rate 08/24/23 08:31 36.8 C 82 24 145/72 H 96 Nasal Cannula 08/24/23 04:10 36.7 C 99 H 18 145/73 H 95 Nasal Cannula 2.5 Laboratory Results Laboratory Results - last 24 hr 08/24/23 07:03 WBC 10.10 RBC 2.99 L Hgb 9.7 L Hct 29.1 L MCV 97.3 MCH 32.4 MCHC 33.3 RDW Std Deviation 46.5 H RDW Coeff of Girish 13.2 Plt Count 563 H MPV 8.4 L Immature Gran % (Auto) 0.8 Neut % (Auto) 85.1 Lymph % (Auto) 8.9 [place] % (Auto) 2.4 Eos % (Auto) 2.4 Baso % (Auto) 0.4 Neut # (Auto) 8.60 H Lymph # (Auto) 0.90 L [place] # (Auto) 0.24 Eos # (Auto) 0.24 Baso # (Auto) 0.04 Immature Gran # (Auto) 0.08 Sodium 135 L Potassium 3.8 Chloride 104 Carbon Dioxide 26 Anion Gap 5 BUN 12 Creatinine 0.54 L Est Cr Clr Drug Dosing 82.2 Est GFR ( Amer) 107.7 Est GFR (Non-Af Amer) 93.0 BUN/Creatinine Ratio 22.2 H Glucose 110 H Calcium 7.8 L Magnesium 2.0 Total Bilirubin 0.5 AST 20 ALT 16 Alkaline Phosphatase 52 Total Protein 5.7 L Albumin 2.7 L Globulin 3.0 Albumin/Globulin Ratio 0.9 PG Care Time/CCT Total # of Minutes Spent Total Time Spent with Patient: Total time spent is greater than 50% in coordination of care (as documented) at patient's floor/unit and/or counseling patient: Coding Level of Care Code None Diagnoses History of bowel resection Z90.49
--- NOTE | 2023-08-24 13:07 | Hospitalist Progress Note ---
Date of Service August 24, 2023 Assessment & Plan (1) Bowel perforation: Plan: CTA/P with evidence of free air, rectosigmoid inflammation, constipation.? Diverticulitis with perforation vs stercoral proctitis in the setting of narcotic use General surgery on board. Initially managed conservatively but with development of severe pain, hypotension and increasing tachycardia, CT abdomen was repeated 08/16 that showed increase in pneumoperitoneum compared to CT of 08/13 consistent with visceral perforation. It all shows showed increase in ascites and a new developing abscess which is likely at the site of the perforation. Patient went to the OR on 08/16: Exploratory laparotomy, resection of rectosigmoid perforation, colostomy Continue Zosyn Leukocytosis resolved May consider caspofungin if becomes hemodynamically unstable or develops fever Currently stable Passing gas Diet advanced to low fiber diet by surgery team Hopefully the SUSANNAH drain will be pulled soon Replete electrolytes as needed Pain control seems to be an issue. Patient is currently on Dilaudid as needed, Tylenol scheduled, Toradol as needed, oxycodone as needed. Added OxyContin 10 mg p.o. twice daily scheduled to see if that will help reduce the use of IV as needed narcotics. Mobilize patient PT/OT on board. Patient and her refused to work with PT today. (2) Septic shock: Plan: Patient initially had tachycardia and leukocytosis. Sepsis was present on admission. With conservative management with IV antibiotics, patient went into septic shock with hypotension, tachycardia She needed surgery to treat the perforation Continue Zosyn Hemodynamics improved currently Will consider caspofungin if hemodynamically unstable or develops fever. Resolved (3) Atrial fibrillation: Plan: Patient is found to be tachycardic EKG showed atrial fibrillation This is most likely in the setting of bowel perforation, pneumoperitoneum, sepsis TTE reviewed (4) Distal radius fracture, left: Plan: Left radial fracture S/p surgical repair 08/11/2023 Neurovascularly intact No acute change in management (5) HLD (hyperlipidemia): Plan: Oral meds held (6) HTN (hypertension): Plan: Oral meds held Plan Arthritis: Previously on hydroxychloroquine was discontinued due to anemia DVT prophylaxis: Lovenox CODE STATUS: Full code Patient will likely need placement. PT/OT recommending rehab. Case management involved. Admission and Anticipated Discharge Date Admission Date: August 14, 2023 Subjective Patient is having a lot of pain related issues. Leukocytosis has resolved. She is now tolerating a low fiber diet. Patient and her are complaining of a slow recovery process and deconditioning. However I was informed that they refused to work with PT today. Review of Systems Review of Systems: All systems reviewed & are unremarkable except as noted in Subjective Physical Exam Physical Exam: General: Awake, conversant Heart: S1, S2/regular rate and rhythm, no murmur rubs or gallops Lungs: Clear to auscultation bilaterally. Normal effort Abdomen: Dressing on, SUSANNAH drain in place. Colostomy bag in place. Extremities: No clubbing/cyanosis. No edema Behavior: Appropriate, cooperative Results & Data Results & Data Vital Signs (Past 12 Hours) Vital Signs Temp Pulse Resp BP Pulse Ox O2 Del Method O2 Flow Rate 08/24/23 12:53 36.7 C 79 13 153/71 H 97 Nasal Cannula 08/24/23 08:31 36.8 C 82 24 145/72 H 96 Nasal Cannula 08/24/23 04:10 36.7 C 99 H 18 145/73 H 95 Nasal Cannula 2.5 Laboratory Results Abnormal lab results 08/24/23 Range/Units 07:03 RBC 2.99 L (4.20-5.40) M/uL Hgb 9.7 L (12.0-16.0) g/dl Hct 29.1 L (37.0-47.0) % RDW Std Deviation 46.5 H (36.4-46.3) fL Plt Count 563 H (130-400) K/uL MPV 8.4 L (9.4-12.4) fL Neut # (Auto) 8.60 H (1.40-6.50) K/uL Lymph # (Auto) 0.90 L (1.20-3.40) K/uL Sodium 135 L (136-145) mmol/L Creatinine 0.54 L (0.6-1.2) mg/dl BUN/Creatinine Ratio 22.2 H (10-20) Glucose 110 H (70-99(Fasting)) mg/dl Calcium 7.8 L (8.6-10.3) mg/dl Total Protein 5.7 L (6.0-8.3) gm/dl Albumin 2.7 L (3.4-5.0) gm/dl PG Care Time/CCT Total # of Minutes Spent Total Time Spent with Patient: Total time spent is greater than 50% in coordination of care (as documented) at patient's floor/unit and/or counseling patient: Coding Level of Care Code 00827 SUB INP/OBS CARE 2/35MIN Diagnoses Bowel perforation K63.1 Septic shock A41.9; R65.21 Atrial fibrillation I48.91 Distal radius fracture, left S52.502A HLD (hyperlipidemia) E78.5 HTN (hypertension) I10
[2023-08-24] MEDS: oxyCODONE HCL 10 MG TABCR (OxyCONTIN) PO SCH (19:25)
[2023-08-25 06:38] LABS: Basophils # (auto) 0.05 K/uL (0.00-0.20); Basophils % (auto) 0.4 %; Eosinophils % (auto) 2.6 %; Hematocrit (blood only) 29.7 % (37.0-47.0); Hemoglobin 10.2 g/dl (12.0-16.0); Immature Granulocytes # (auto) 0.06 K/uL (0.01-0.20); Immature Granulocytes % (auto) 0.5 %; Lymphocytes # (auto) 1.21 K/uL (1.20-3.40); Lymphocytes % (auto) 10.3 %; Mean Corpuscular Hgb Conc 34.3 g/dL (32.0-36.0); Mean Corpuscular Volume 96.1 fL (80.0-100.0); Mean Platelet Volume 8.4 fL (9.4-12.4); Monocytes # (auto) 0.33 K/uL (0.11-0.59); Monocytes % (auto) 2.8 %; Neutrophils # (auto) 9.77 K/uL (1.40-6.50); Neutrophils % (auto) 83.4 %; Platelet Count 667 K/uL (130-400); RDW Coefficient of Variation 12.9 % (11.5-14.5); Red Blood Count 3.09 M/uL (4.20-5.40); White Blood Count 11.72 K/ul (4.8-10.8)
[2023-08-25 07:09] LABS: Albumin Level 2.9 gm/dl (3.4-5.0); Bilirubin,Total 0.5 mg/dl (0.2-1.0); Magnesium 1.6 mg/dl (1.7-2.4); Potassium 3.6 mmol/L (3.5-5.1)
[2023-08-25 07:15] LABS: Albumin Globulin Ratio 0.9 (0.9-2); BUN Creatinine Ratio 21.1 (10-20); Creatinine Clr Calc Pharmacy 77.9 ml/min; Est GFR (African American) 105.8 ml/min; Est GFR (Non-African American) 91.3 ml/min; Globulin 3.3 gm/dl (2.5-4.0); Total Protein 6.2 gm/dl (6.0-8.3)
--- NOTE | 2023-08-25 08:42 | Surgery Progress Note ---
Date of Service August 25, 2023 Assessment & Plan (1) History of bowel resection: Plan: POD#8 Ring's WBC 11 (10), Hbg 10 Tolerating diet, no nausea/vomiting. Ostomy is functioning tim and elvis drain have been removed yesterday there is purulent discharge in between a couple jimmy in the upper part of incision, packed lightly with gauze... will resume po augmentin ambulate, oobtc, IS PT/OT, case management. planning on rehab upon dispo D/c planning per medicine Admission and Anticipated Discharge Date Admission Date: August 14, 2023 Supervising Physician Co-Signing Physician Notes pnt S&E, labs reviewed, agree w/ above. POD #8 Ring's. Feeling better with drain out. Tolerating diet, ostomy functioning. Planning for d/c to rehab. afvss, nad, abd soft, appropriately ttp. incision w/ dressing, left in place as pnt eating. ostomy functioning, healthy. WBC 11 (10.5). path showed perforated diverticulum. transition to oral abx local wound care d/c to rehab in next few days if continues to do well Subjective Patient feeling fine. Reports some dull abdominal pain, slightly better with pain meds. Tolerating food, no nausea/vomiting. Ostomy functioning. Physical Exam Physical Exam: awake, alert, no distress. appears fatigued. lying in bed Respiratory: on supplemental nasal cannula Gastrointestinal (Abdomen): Inspection/Auscultation: + abdomen distended (mild) and + abdominal surgical incision (midline wound w/ jimmy, no surrounding redness) Percussion/Palpation: + abdomen tender (mild tenderness generalized abdomen) and abdomen soft some purulent drainage noted between a couple mid/superior jimmy Results & Data Vital Signs (Past 12 Hours) Vital Signs Temp Pulse Pulse Resp BP Pulse Ox O2 Del Method 08/25/23 07:34 99.0 F 81 16 152/73 H 97 Nasal Cannula 08/24/23 23:08 97.9 F 81 18 146/72 H 96 Nasal Cannula 08/24/23 22:03 82 O2 Flow Rate 08/25/23 07:34 08/24/23 23:08 2.5 08/24/23 22:03 PG Care Time/CCT Total # of Minutes Spent Total Time Spent with Patient: Total time spent is greater than 50% in coordination of care (as documented) at patient's floor/unit and/or counseling patient: Coding Level of Care Code 93669 Post Operative Follow-Up Diagnoses History of bowel resection Z90.49
[2023-08-25] MEDS: POLYETHYLENE (MIRALAX) 17 GM PACK PO SCH (09:06)
[2023-08-25] MEDS: DOCUSATE SODIUM 100 MG CAP PO SCH (09:07)
--- NOTE | 2023-08-25 13:37 | Hospitalist Progress Note ---
Date of Service August 25, 2023 Assessment & Plan (1) Bowel perforation: Plan: CTA/P with evidence of free air, rectosigmoid inflammation, constipation.? Diverticulitis with perforation vs stercoral proctitis in the setting of narcotic use General surgery on board. Initially managed conservatively but with development of severe pain, hypotension and increasing tachycardia, CT abdomen was repeated 08/16 that showed increase in pneumoperitoneum compared to CT of 08/13 consistent with visceral perforation. It all shows showed increase in ascites and a new developing abscess which is likely at the site of the perforation. Patient went to the OR on 08/16: Exploratory laparotomy, resection of rectosigmoid perforation, colostomy Zosyn has been changed to p.o. Augmentin by the surgery team Leukocytosis improved May consider caspofungin if becomes hemodynamically unstable or develops fever Currently stable Passing gas Diet advanced to low fiber diet by surgery team SUSANNAH drain has been removed Replete electrolytes as needed Patient wishes to come off of all narcotics Discontinue IV Dilaudid, p.o. oxycodone, p.o. OxyContin Continue IV Tylenol. The patient says that IV Toradol linton and she would like to try p.o. Switched to p.o. ibuprofen. Ordered p.o. Protonix for GI protection while on NSAID Mobilize patient PT/OT on board. (2) Septic shock: Plan: Patient initially had tachycardia and leukocytosis. Sepsis was present on admission. With conservative management with IV antibiotics, patient went into septic shock with hypotension, tachycardia She needed surgery to treat the perforation Zosyn switched to p.o. Augmentin Hemodynamics improved currently Will consider caspofungin if hemodynamically unstable or develops fever. Resolved (3) Atrial fibrillation: Plan: Patient is found to be tachycardic EKG showed atrial fibrillation This is most likely in the setting of bowel perforation, pneumoperitoneum, sepsis TTE reviewed (4) Distal radius fracture, left: Plan: Left radial fracture S/p surgical repair 08/11/2023 Neurovascularly intact No acute change in management (5) HLD (hyperlipidemia): Plan: Oral meds held (6) HTN (hypertension): Plan: Oral meds held Plan Arthritis: Previously on hydroxychloroquine was discontinued due to anemia DVT prophylaxis: Lovenox CODE STATUS: Full code Patient will likely need placement. PT/OT recommending rehab. Case management involved. Once pain controlled on p.o. nonnarcotic pain medicines, will discharge patient to rehab. Likely tomorrow. Transferred her to [facility] unit today. Discontinue monitor. Discontinue all narcotics. Discontinue pure wick. Encourage ambulation and mobilization. Admission and Anticipated Discharge Date Admission Date: August 14, 2023 Subjective Patient does not want to try the p.o. oxycodone and OxyContin combination. She wants to come off of all narcotics as they put her "in the situation". The SUSANNAH drain has been removed. The PureWick has come out. Review of Systems Review of Systems: All systems reviewed & are unremarkable except as noted in Subjective Physical Exam Physical Exam: General: Awake, conversant Heart: S1, S2/regular rate and rhythm, no murmur rubs or gallops Lungs: Clear to auscultation bilaterally. Normal effort Abdomen: Dressing on. Colostomy bag in place. Extremities: No clubbing/cyanosis. No edema Behavior: Appropriate, cooperative Results & Data Results & Data Vital Signs (Past 12 Hours) Vital Signs Temp Pulse Pulse Resp BP Pulse Ox O2 Del Method 08/25/23 13:10 36.8 C 91 H 18 127/71 95 Nasal Cannula 08/25/23 11:53 37.0 C 84 21 122/61 97 Nasal Cannula 08/25/23 09:14 Nasal Cannula 08/25/23 07:34 37.2 C 81 16 152/73 H 97 Nasal Cannula O2 Flow Rate 08/25/23 13:10 2 08/25/23 11:53 08/25/23 09:14 2 08/25/23 07:34 Laboratory Results Abnormal lab results 08/25/23 Range/Units 06:00 WBC 11.72 H (4.8-10.8) K/ul RBC 3.09 L (4.20-5.40) M/uL Hgb 10.2 L (12.0-16.0) g/dl Hct 29.7 L (37.0-47.0) % Plt Count 667 H (130-400) K/uL MPV 8.4 L (9.4-12.4) fL Neut # (Auto) 9.77 H (1.40-6.50) K/uL Sodium 135 L (136-145) mmol/L Creatinine 0.57 L (0.6-1.2) mg/dl BUN/Creatinine Ratio 21.1 H (10-20) Calcium 8.0 L (8.6-10.3) mg/dl Magnesium 1.6 L (1.7-2.4) mg/dl Albumin 2.9 L (3.4-5.0) gm/dl PG Care Time/CCT Total # of Minutes Spent Total Time Spent with Patient: Total time spent is greater than 50% in coordination of care (as documented) at patient's floor/unit and/or counseling patient: Coding Level of Care Code 61941 SUB INP/OBS CARE 2/35MIN Diagnoses Bowel perforation K63.1 Septic shock A41.9; R65.21 Atrial fibrillation I48.91 Distal radius fracture, left S52.502A HLD (hyperlipidemia) E78.5 HTN (hypertension) I10
[2023-08-25] MEDS: IBUPROFEN 600 MG TAB PO SCH (13:51)
[2023-08-25] MEDS: MAGNESIUM SULFATE / D5W 1 GM/100 ML BAG IV SCH (14:59)
[2023-08-25] MEDS: AMOXICILLIN/CLAVULANATE 875 MG TAB PO SCH (16:59)
[2023-08-26] MEDS: PANTOprazole 40 MG TAB PO SCH (08:54)
--- NOTE | 2023-08-26 09:48 | Surgery Progress Note ---
Date of Service August 26, 2023 Assessment & Plan (1) History of bowel resection: Plan: Pt continues to make slow progress, pain improving each day vitals stable, afebrile. AM labs are pending ostomy functioning and viable. tolerating a diet will continue local wound care to midline incision, pack two open areas b/t jimmy lightly with a corner of dry gauze, cover with dry gauze and medical tape Would continue augmentin for at least 5 more days stable for dispo when agreeable and cleared by medicine planning on rehab f/u in 2 weeks Admission and Anticipated Discharge Date Admission Date: August 14, 2023 Supervising Physician Co-Signing Physician Notes pnt S&E, agree w/ above. s/p frey's procedure. afvss, ostomy healthy and productive. incision w/ some drainage. labs pending. will check wound when in bed later today, may need to remove a few more jimmy. d/c to rehab in next day or 2. f/u labs. d/c with 7 more days of oral abx. will f/u in 1-2 weeks for staple removal. Subjective Patient feeling okay. Reports abdominal pain slowly improving each day. Tolerating food, no nausea/vomiting. Ostomy functioning. She and dont feel ready to leave yet. Physical Exam Physical Exam: awake/alert, no distress Gastrointestinal (Abdomen): Inspection/Auscultation: + abdominal surgical incision (c/d/i, no erythema. some purulence in midline b/t upper jimmy); abdomen not distended Percussion/Palpation: + abdomen tender (mild chema incisional discomfort) and abdomen soft Results & Data Vital Signs (Past 12 Hours) Vital Signs Temp Pulse Resp BP Pulse Ox O2 Del Method O2 Flow Rate 08/26/23 07:41 98.1 F 72 16 133/68 98 Nasal Cannula 2 PG Care Time/CCT Total # of Minutes Spent Total Time Spent with Patient: Total time spent is greater than 50% in coordination of care (as documented) at patient's floor/unit and/or counseling patient: Coding Level of Care Code 49228 Post Operative Follow-Up Diagnoses History of bowel resection Z90.49
[2023-08-26 10:15] LABS: Basophils % (auto) 0.9 %; Eosinophils # (auto) 0.25 K/uL (0.00-0.50); Eosinophils % (auto) 2.2 %; Hematocrit (blood only) 31.9 % (37.0-47.0); Hemoglobin 10.6 g/dl (12.0-16.0); Immature Granulocytes # (auto) 0.05 K/uL (0.01-0.20); Immature Granulocytes % (auto) 0.4 %; Lymphocytes # (auto) 1.13 K/uL (1.20-3.40); Lymphocytes % (auto) 10.2 %; Mean Corpuscular Hemoglobin 32.6 pg (25.0-34.0); Mean Corpuscular Hgb Conc 33.2 g/dL (32.0-36.0); Mean Corpuscular Volume 98.2 fL (80.0-100.0); Mean Platelet Volume 8.4 fL (9.4-12.4); Monocytes # (auto) 0.28 K/uL (0.11-0.59); Monocytes % (auto) 2.5 %; Neutrophils # (auto) 9.31 K/uL (1.40-6.50); Neutrophils % (auto) 83.8 %; Platelet Count 818 K/uL (130-400); RDW Coefficient of Variation 13.2 % (11.5-14.5); RDW Standard Deviation 46.8 fL (36.4-46.3); Red Blood Count 3.25 M/uL (4.20-5.40); White Blood Count 11.12 K/ul (4.8-10.8)
[2023-08-26 10:32] LABS: Albumin Globulin Ratio 0.9 (0.9-2); Albumin Level 3.2 gm/dl (3.4-5.0); BUN Creatinine Ratio 25.4 (10-20); Bilirubin,Total 0.5 mg/dl (0.2-1.0); Calcium 8.2 mg/dl (8.6-10.3); Creatinine Clr Calc Pharmacy 70.4 ml/min; Est GFR (African American) 102.4 ml/min; Est GFR (Non-African American) 88.4 ml/min; Globulin 3.5 gm/dl (2.5-4.0); Potassium 3.6 mmol/L (3.5-5.1); Total Protein 6.7 gm/dl (6.0-8.3)
--- NOTE | 2023-08-26 15:30 | Hospitalist Progress Note ---
Date of Service August 26, 2023 Assessment & Plan (1) Bowel perforation: Plan: CTA/P with evidence of free air, rectosigmoid inflammation, constipation.? Diverticulitis with perforation vs stercoral proctitis in the setting of narcotic use General surgery on board. Initially managed conservatively but with development of severe pain, hypotension and increasing tachycardia, CT abdomen was repeated 08/16 that showed increase in pneumoperitoneum compared to CT of 08/13 consistent with visceral perforation. It all shows showed increase in ascites and a new developing abscess which is likely at the site of the perforation. Patient went to the OR on 08/16: Exploratory laparotomy, resection of rectosigmoid perforation, colostomy Zosyn has been changed to p.o. Augmentin by the surgery team. Recommends Augmentin for 5 more days Leukocytosis improved Currently stable Passing gas Diet advanced to low fiber diet by surgery team SUSANNAH drain has been removed Replete electrolytes as needed Patient wishes to come off of all narcotics Discontinued IV Dilaudid, p.o. oxycodone, p.o. OxyContin Continue IV Tylenol. The patient says that IV Toradol linton and she would like to try p.o. Switched to p.o. ibuprofen. Ordered p.o. Protonix for GI pro tection while on NSAID Mobilize patient PT/OT on board. (2) Septic shock: Plan: Patient initially had tachycardia and leukocytosis. Sepsis was present on admission. With conservative management with IV antibiotics, patient went into septic shock with hypotension, tachycardia She needed surgery to treat the perforation Zosyn switched to p.o. Augmentin Hemodynamics improved currently Resolved (3) Atrial fibrillation: Plan: Patient is found to be tachycardic EKG showed atrial fibrillation This is most likely in the setting of bowel perforation, pneumoperitoneum, sepsis TTE reviewed (4) Distal radius fracture, left: Plan: Left radial fracture S/p surgical repair 08/11/2023 Neurovascularly intact No acute change in management (5) HLD (hyperlipidemia): Plan: Oral meds held (6) HTN (hypertension): Plan: Oral meds held Plan Arthritis: Previously on hydroxychloroquine was discontinued due to anemia DVT prophylaxis: Lovenox CODE STATUS: Full code Likely discharge tomorrow. Admission and Anticipated Discharge Date Admission Date: August 14, 2023 Subjective Patient feels better overall. However she and her decided that they are not ready for discharge today. She was able to mobilize better. Per , she is still in need of oxygen and would like to see her off of oxygen before discharge. He would like to see her walk more. I explained that the purpose of transfer to [facility] is so she can get better physically and ambulate. Review of Systems Review of Systems: All systems reviewed & are unremarkable except as noted in Subjective Physical Exam Physical Exam: General: Awake, conversant Heart: S1, S2/regular rate and rhythm, no murmur rubs or gallops Lungs: Clear to auscultation bilaterally. Normal effort Abdomen: Dressing on. Colostomy bag in place. Extremities: No clubbing/cyanosis. No edema Behavior: Appropriate, cooperative Results & Data Results & Data Vital Signs (Past 12 Hours) Vital Signs Temp Pulse Resp BP Pulse Ox O2 Del Method O2 Flow Rate 08/26/23 12:53 96 Room Air 08/26/23 07:41 36.7 C 72 16 133/68 98 Nasal Cannula 2 Laboratory Results Abnormal lab results 08/26/23 Range/Units 09:34 WBC 11.12 H (4.8-10.8) K/ul RBC 3.25 L (4.20-5.40) M/uL Hgb 10.6 L (12.0-16.0) g/dl Hct 31.9 L (37.0-47.0) % RDW Std Deviation 46.8 H (36.4-46.3) fL Plt Count 818 H (130-400) K/uL MPV 8.4 L (9.4-12.4) fL Neut # (Auto) 9.31 H (1.40-6.50) K/uL Lymph # (Auto) 1.13 L (1.20-3.40) K/uL BUN/Creatinine Ratio 25.4 H (10-20) Glucose 143 H (70-99(Fasting)) mg/dl Calcium 8.2 L (8.6-10.3) mg/dl Albumin 3.2 L (3.4-5.0) gm/dl PG Care Time/CCT Total # of Minutes Spent Total Time Spent with Patient: Total time spent is greater than 50% in coordination of care (as documented) at patient's floor/unit and/or counseling patient: Coding Level of Care Code 44398 SUB INP/OBS CARE MIN Diagnoses Bowel perforation K63.1 Septic shock A41.9; R65.21 Atrial fibrillation I48.91 Distal radius fracture, left S52.502A HLD (hyperlipidemia) E78.5 HTN (hypertension) I10
[2023-08-27 06:28] LABS: Basophils # (auto) 0.12 K/uL (0.00-0.20); Basophils % (auto) 1.3 %; Eosinophils # (auto) 0.33 K/uL (0.00-0.50); Eosinophils % (auto) 3.5 %; Hematocrit (blood only) 30.9 % (37.0-47.0); Hemoglobin 10.3 g/dl (12.0-16.0); Immature Granulocytes # (auto) 0.04 K/uL (0.01-0.20); Immature Granulocytes % (auto) 0.4 %; Lymphocytes # (auto) 1.28 K/uL (1.20-3.40); Lymphocytes % (auto) 13.7 %; Mean Corpuscular Hemoglobin 32.7 pg (25.0-34.0); Mean Corpuscular Hgb Conc 33.3 g/dL (32.0-36.0); Mean Corpuscular Volume 98.1 fL (80.0-100.0); Mean Platelet Volume 8.3 fL (9.4-12.4); Monocytes # (auto) 0.35 K/uL (0.11-0.59); Monocytes % (auto) 3.7 %; Neutrophils # (auto) 7.24 K/uL (1.40-6.50); Neutrophils % (auto) 77.4 %; Platelet Count 688 K/uL (130-400); RDW Coefficient of Variation 13.2 % (11.5-14.5); RDW Standard Deviation 46.9 fL (36.4-46.3); Red Blood Count 3.15 M/uL (4.20-5.40); White Blood Count 9.36 K/ul (4.8-10.8)
[2023-08-27 06:52] LABS: BUN Creatinine Ratio 28.9 (10-20); Calcium 7.9 mg/dl (8.6-10.3); Creatinine Clr Calc Pharmacy 98.6 ml/min; Est GFR (African American) 114.4 ml/min; Est GFR (Non-African American) 98.7 ml/min; Potassium 3.5 mmol/L (3.5-5.1)
--- NOTE | 2023-08-27 09:24 | Discharge Summary ---
Date of Service August 27, 2023 Admission HPI Per Admitting Provider Pt is a 72-year-old female with a past medical history of constipation, hyperlipidemia, rheumatoid arthritis, hypertension who was seen 08/13/2023 for abdominal discomfort and at that time CT showed constipation but no div erticulitis/obstruction/perforation. Patient was discharged home, however had worsened pain and represented to the ER. Pt fell and broke her wrist. Was on narcotics for post op pain control and had s ome constipation. Was seen for this yesterday on oral stool softens/miralax but conitnued to have abdominal distention/pain. Tried a supposity but did not help and pain worsened --> called 911 and brought in for ER evaluation. On repeat CT numerous small foci of intraperitoneal free air consistent with perforation new from prior a small amount of ascites was present. Rectosigmoid colon thickening with inflammation was noted. Moderate constipation seen potentially related to stercoral proctitis versus diverticulitis. Trace pleural effusions edema consolidation seen suspicious for atelectasis versus pneumonitis. At time of assessment she does not have a leukocytosis. Kiara is seen at the bedside with her present. She reports that she broke her wrist and had this fixed at the outpatient surgery center with Dr. Tierra Raphael a few days ago and has been taking pain medication. Was doing well up until yesterday when suddenly around midday she developed abdominal pain for which she was seen in the ER. CT was reassuring with some constipation at that time, she returned home to take a stool softener/MiraLAX. She also took stool softeners this morning. She reports after her pain medicine wore off she did not have a sudden worsening or improvement in her pain, but it gradually persisted through the day until this morning when her pain increased and she called 911 for ER reevaluation. She reports her abdomen feels very tender. She has not had diarrhea or constipation but has been passing gas. She did take her pills this morning. She has not had any fevers/chills/sweats although was cold this morning. Denies chest pain or chest pressure. She does not medication allergies. Rare intermittent social alcohol use none recently, no current tobacco use. Full code. Admission Exam Per Admitting Provider General: A&Ox3. NAD. Cooperative. Appears uncomfortable but nontoxic HEENT: Atraumatic, normocephalic. Vision/hearing grossly intact Pulm: CTAB A&P. -wheezes, -rales, -rhonchi. Symmetrical chest rise. No increased work of breathing. No respiratory distress. Cardiac: tachycardic, -mrg. Radial pulses intact and symmetrical. Abdominal: Diffusely tender to palpation, no involuntary guarding. No rebound. Supraumbilical hernia present without incarceration. Abdomen is not rigid at time of assessment Principal Diagnosis Rectosigmoid bowel perforation status post exploratory laparotomy and colostomy creation Discharge Exam General: Awake, conversant Heart: S1, S2/regular rate and rhythm, no murmur rubs or gallops Lungs: Clear to auscultation bilaterally. Normal effort Abdomen: Dressing on. Colostomy bag in place. Extremities: No clubbing/cyanosis. No edema Behavior: Appropriate, cooperative Discharge Data Allergies Allergy/AdvReac Type Severity Reaction Status Date / Time No Known Allergies Allergy Verified 08/06/22 07:25 Consultations 08/14/23 16:06 Consult General Surgery Stat ED Decision to Admit Stat 08/17/23 16:04 Consult Reclamation Engineer Routine Procedures Performed Operation Date: 08/17/23 10:00 Actual Procedures p Exploratory Laparotomy with Ring's Procedure and Colostomy(Not Applicable) - Tommy Hurley, DO, FACS Ordered Studies 08/14/23 14:28 CT Abd and Pelvis [CT abd pelvis wo con] Stat 08/17/23 05:09 CT Abd and Pelvis [CT abd pelvis IV con only] Stat Hospital Course (1) Bowel perforation: CTA/P with evidence of free air, rectosigmoid inflammation, constipation.? Diverticulitis with perforation vs stercoral proctitis in the setting of narcotic use General surgery on board. Initially managed conservatively but with development of severe pain, hypotension and increasing tachycardia, CT abdomen was repeated 08/16 that showed increase in pneumoperitoneum compared to CT of 08/13 consistent with visceral perforation. It all shows showed increase in ascites and a new developing abscess which is likely at the site of the perforation. Patient went to the OR on 08/16: Exploratory laparotomy, resection of rectosigmoid perforation, colostomy Zosyn has been changed to p.o. Augmentin by the surgery team. Recommends Augmentin for 4 more days Leukocytosis resolved Currently stable Passing gas Diet advanced to low fiber diet by surgery team SUSANNAH drain has been removed All narcotics have been discontinued. Patient wishes Pain fairly controlled. May use [id number] Tylenol and ibuprofen for pain control Continue PT/OT (2) Septic shock: Patient initially had tachycardia and leukocytosis. Sepsis was present on admission. With conservative management with IV antibiotics, patient went into septic shock with hypotension, tachycardia She needed surgery to treat the perforation Zosyn switched to p.o. Augmentin Hemodynamics improved currently Resolved (3) Atrial fibrillation: Patient is found to be tachycardic EKG showed atrial fibrillation This is most likely in the setting of bowel perforation, pneumoperitoneum, sepsis TTE reviewed (4) HLD (hyperlipidemia): Oral meds held (5) HTN (hypertension): Oral meds held Plan Discharge today Total Time Total Time Spent Total Time Spent (In Minutes): 35 Discharge Plan Discharge Items Patient Disposition: Transfer Inpatient Rehab Fac Reason For Visit: BOWEL PERF Discharge Diagnosis: Rectosigmoid bowel perforation status post exploratory laparotomy and colostomy creation Activity: Per Instructions section Lifting: No more than 10 pounds Bathing Comment: may shower; no soaking in tubs/pools x 2 weeks Exercise/Sports: Wait until after follow-up appointment Driving/Machine Use: no driving while taking narcotics for pain Non-emergency contact: Surgeon Call non-emergency contact if: you have any medication questions, your symptoms worsen, your pain is worsening, you have a fever, your temperature is above 101.5, your wound has increased redness, your wound has increased drainage and your wound pain has increased Follow-up/Referrals: Tommy Hurley DO, YAQUELIN [Physician] - (please call to schedule follow up in clinic within 2 weeks) Magaly Mcmillan DO [Primary Care Provider] - Diet: Low Fiber Addtl Attending Provider Instructions: Please care for your ostomy as instructed prior to discharge from the hospital You have midline jimmy in place that will be removed at your follow up appoi ntment Wound Care: Pack midline wound once or twice daily(if becomes saturated) with dry 4x4 gauze packing, cover wound with dry 4x4 gauze/ABD pad and medipore tape. Advised to follow-up with PCP in 1 week Advised to use Tylenol and Ibuprofen for pain Pending Studies at Discharge: Yes Studies:: surgical pathology Stand-Alone Forms: My [facility] Skilled Items Patient informed of condition?: Yes DNR: No Discharge Level of Care: Acute rehab Communicable Disease: No Discharge Prognosis: Stable Lines: None Urinary Catheter: No Medications and DC Order Prescriptions: New pantoprazole 40 mg Tablet,Delayed Release (Dr/Ec) 40 mg PO QAM 14 Days Qty: 14 0RF docusate sodium 100 mg Capsule 100 mg PO BID 14 Days Qty: 28 0RF amoxicillin-pot clavulanate 875-125 mg Tablet 1 tab PO BIDM 4 Days Qty: 8 0RF amlodipine [Norvasc] 5 mg Tablet 5 mg PO QAM 30 Days Qty: 30 0RF Continued multivitamin [Multiple Vitamins] Tablet 1 tab PO QAM amoxicillin 500 mg Capsule 4 cap PO UD PRN (Reason: PRE DENTAL) Rx Instructions: TAKE 1 HOUR BEFORE PROCEDURE pravastatin 40 mg Tablet 40 mg PO HS amitriptyline 10 mg Tablet 10 mg PO HS PRN (Reason: Sleep) benzonatate 100 mg Capsule 100 mg PO UD PRN (Reason: Cough) cyanocobalamin (vitamin B-12) [Vitamin B-12] 1,000 mcg Tablet 1,000 mcg PO QAM alendronate 70 mg Tablet 70 mg PO WK Patient Comments: takes on tuesdays Discontinued celecoxib 200 mg Capsule 200 mg PO QAM Patient Comments: per pt she still takes the medication meloxicam 15 mg tablet 15 mg PO DAILY oxycodone 5 mg tablet 5 mg PO UD PRN (Reason: pain) Patient Comments: pt says she still takes the medication Rx Instructions: 5 MG PO Q4H PRN hydrocodone-acetaminophen 5-325 mg tablet 1 - 2 tab PO Q6H PRN (Reason: pain) Qty: 15 0RF Rx Instructions: Initial Treatment Discharge Orders: Discharge Order (Routine); Ordered 08/27/23 Ordered By: Benjamín Riojas/Other Patient Handouts: Colostomy: Changing Your Pouch, Ostomy Care: Emptying Your Pouch, What Is a Colostomy?, Colostomy Dc Admission Data Admit Date/Time: 08/14/23 16:54 Attending Provider: Benjamín Vivas Admit Provider: Matthew Jack Primary Care Provider: Magaly Mcmillan Other Providers: [facility] Tommy Hurley; Matthew Jack; Leighton Draper; Darrius Oliveros; Mike Mckenzie; Néstor Bell; Michael Washington; [place]; Shreyas Artis; Linda Valera; Nena Souza; Tommy Pires; Garrick Donnelly; Kayla Prater Other Interventions: Discharge Summary Assessment (RN) Last Done: 08/27/23 10:58 Coding Level of Care Code 44882 INP/OBS DISCH >30 MIN Diagnoses Bowel perforation K63.1 Septic shock A41.9; R65.21 Atrial fibrillation I48.91 HLD (hyperlipidemia) E78.5 HTN (hypertension) I10
--- NOTE | 2023-08-27 10:28 | Surgery Progress Note ---
Date of Service August 27, 2023 Assessment & Plan (1) History of bowel resection: Plan: Pt feeling well today. tolerating diet. Pain controlled. + ostomy functioning. Off nasal cannula vitals stable, afebrile. WBC 9 removed some jimmy from inferior portion of incision yesterday for purulent drainage and packed with gauze. This AM removed a few from inferior portion of incision to ensure it is draining well, this will also require a light packing of 4x4 gauze. Both wounds should be packed daily or twice daily if dressing is saturated with dry 4x4 gauze, cover wound with 4x4 gauze/ABD pad and medipore tape Would continue augmentin for a total of 7 days planning on dispo to rehab today Ostomy care f/u in 1-2 weeks Admission and Anticipated Discharge Date Admission Date: August 14, 2023 Supervising Physician Co-Signing Physician Notes pnt S&E, agree w/ above. S/P Ring's. afvss, incision dressing c/d/i, ostomy healthy and functioning. wbc 9. d/c'ed to rehab today, f/u in 1-2 weeks in surgery clinic for staple removal. wound care instructions, activity restrictions, return precautions given. Subjective Patient is feeling well. Tolerating food. No nausea/vomiting. Pain controlled. Ostomy functioning. Has been weaned off O2. Physical Exam Physical Exam: awake/alert, no distress Respiratory: normal respiratory effort on room air Gastrointestinal (Abdomen): Inspection/Auscultation: + abdominal surgical incision; abdomen not distended midline wound w/ jimmy, top portion packed with dry 4x4 gauze (new dressing is cleaned). and bottom portion some jimmy removed some sang drainage. + ostomy viable and functioning Results & Data Vital Signs (Past 12 Hours) Vital Signs Temp Pulse Resp BP Pulse Ox O2 Del Method 08/27/23 07:11 98.6 F 79 14 132/72 95 Room Air PG Care Time/CCT Total # of Minutes Spent Total Time Spent with Patient: Total time spent is greater than 50% in coordination of care (as documented) at patient's floor/unit and/or counseling patient: Coding Level of Care Code 28193 Post Operative Follow-Up Diagnoses History of bowel resection Z90.49
== END 2023-08-27 11:30 | DRG 853 ==
LOC: ED 13:04 → 2E 16:54 → SUATTDRO 16:54 → 2E 17:31 → 1E 08-17 14:53 → 2E 08-20 21:27 → 3W 08-25 13:15

== ENCOUNTER 2024-01-08 16:05 | Inpatient (IN) ==
[2024-01-08 17:29] LABS: Basophils # (auto) 0.02 K/uL (0.00-0.20); Basophils % (auto) 0.2 %; Hematocrit (blood only) 41.9 % (37.0-47.0); Hemoglobin 14.8 g/dl (12.0-16.0); Immature Granulocytes # (auto) 0.03 K/uL (0.01-0.20); Immature Granulocytes % (auto) 0.3 %; Lymphocytes # (auto) 0.91 K/uL (1.20-3.40); Lymphocytes % (auto) 7.7 %; Mean Corpuscular Hemoglobin 31.8 pg (25.0-34.0); Mean Corpuscular Hgb Conc 35.3 g/dL (32.0-36.0); Mean Corpuscular Volume 89.9 fL (80.0-100.0); Mean Platelet Volume 9.4 fL (9.4-12.4); Monocytes # (auto) 0.21 K/uL (0.11-0.59); Monocytes % (auto) 1.8 %; Neutrophils # (auto) 10.62 K/uL (1.40-6.50); Platelet Count 341 K/uL (130-400); RDW Coefficient of Variation 12.3 % (11.5-14.5); RDW Standard Deviation 40.4 fL (36.4-46.3); Red Blood Count 4.66 M/uL (4.20-5.40); White Blood Count 11.79 K/ul (4.8-10.8)
--- NOTE | 2024-01-08 17:37 | XRay Report ---
XR chest 1V portable CLINICAL HISTORY: Sepsis COMPARISON STUDY: Chest radiograph December 25, 2023. FINDINGS: Lung volumes are normal. There is no consolidation. Minimal left basilar opacity favors ate lectasis. There is no pneumothorax or pleural effusion. Cardiac size is normal. Mediastinal contours are normal. There is no evidence for pulmonary edema. Thoracolumbar spine scoliosis is incidentally n oted. IMPRESSION: No acute cardiopulmonary findings. ACT 112: Negative or not required by law. Electronically signed by: Anthony Oshea M.D. 01/08/2024 5:35 PM
[2024-01-08 17:43] LABS: Albumin Level 4.3 gm/dl (3.4-5.0); Bilirubin Direct 0.1 mg/dl (0-0.2); Bilirubin,Total 0.7 mg/dl (0.2-1.0); Calcium 10.5 mg/dl (8.6-10.3); Creatinine Clr Calc Pharmacy 48.2 ml/min; Magnesium 1.8 mg/dl (1.7-2.4); Total Protein 8.2 gm/dl (6.0-8.3)
[2024-01-08 17:44] LABS: Base Excess VBG 2.9 mEq/L; HCO3 VBG 24 mmol/L; Oxygen Saturation VBG < 60.0 %; PCO2 VBG 26 mmHg (38-50); PO2 VBG 29 mmHg; pH VBG 7.57 (7.36-7.41)
[2024-01-08 17:49] LABS: Troponin I High Sensitivity 5.7 pg/ml (0-14)
[2024-01-08 17:53] LABS: Partial Thromboplastin Ratio 0.9; Partial Thromboplastin Time 23 Seconds (21-31); Prothrombin Time 10.6 Seconds (9.0-12.0)
--- NOTE | 2024-01-08 18:07 | Emergency Department Note ---
History of Present Illness General Chief Complaint: Chest Pain Stated Complaint: Chest pain Time Seen by Provider: 01/08/24 16:53 History of Present Illness Provider Complaint: chest pain Onset (ago): day(s) 2 Duration: intermittent Onset: during rest Pain Location: substernal and epigastric Pain Radiation: none Severity: moderate Maximum Pain Intensity: 5 Quality: + aching and + sharp Relieved By: + nothing Exacerbated By: + nothing Context: no recent illness, no recent surgery, no recent travel or no trauma/injury Associated symptoms: + dyspnea and + palpitations; no nausea, no vomiting, no cough or no leg swelling Home Medications Medication Instructions Recorded Confirmed Type amoxicillin 500 mg capsule 4 cap PO UD PRN PRE DENTAL 07/01/18 12/31/23 History cyanocobalamin (vitamin B-12) 1,000 mcg PO QAM 07/01/18 12/31/23 History 1,000 mcg tablet (Vitamin B-12) multivitamin (Multiple Vitamins 1 tab PO QAM 07/01/18 12/31/23 History tablet) pravastatin 40 mg tablet 40 mg PO HS 07/01/18 12/31/23 History meloxicam 7.5 mg tablet 7.5 mg PO QAM 09/10/23 12/31/23 History curcumin-phosphatidylcholine 500 500 mg PO QAM 09/28/23 12/31/23 History mg capsule estradiol 10 mcg vaginal tablet 10 mcg vaginal 2XWK 09/28/23 12/31/23 History (Yuvafem) magnesium oxide 400 mg (241.3 mg 400 mg PO BID 09/28/23 12/31/23 History magnesium) tablet metronidazole 500 mg tablet 500 mg PO .COMPLEX #3 tabs 12/23/23 12/31/23 Rx neomycin 500 mg tablet 500 mg PO .COMPLEX pre-op #3 tabs 12/23/23 12/31/23 Rx calcium 600 mg (as 1 tab PO QAM 12/29/23 12/31/23 History carbonate)-vitamin D3 5 mcg (200 unit) tablet cholecalciferol (vitamin D3) 25 25 mcg PO QAM 12/29/23 12/31/23 History mcg (1,000 unit) capsule (Vitamin D3) diclofenac sodium 1 % topical gel 4 g topical QID PRN Pain 12/29/23 12/31/23 History diphenhydramine HCl 50 mg tablet 50 mg PO HS PRN Sleep 12/29/23 12/31/23 History docusate sodium 50 mg capsule 50 mg PO QAM 12/29/23 12/31/23 History cephalexin 500 mg capsule 500 mg PO TID 10 days #30 caps 01/08/24 Rx Allergies Allergy/AdvReac Type Severity Reaction Status Date / Time No Known Allergies Allergy Verified 01/06/24 13:18 Past Med/Surg History Problem List (Updated 01/08/24 @ 19:45 by Howard John MD) Lactic acidemia (Acute) Chest pain (Acute) Open abdominal wall wound (Acute) Varicose veins of both lower extremities Ulnar neuropathy at elbow of left upper extremity Encounter for pre-operative examination Medical History HLD (hyperlipidemia) Per records Osteoporosis Reclast 10/2023 Osteoarthritis History of hypertension History of atrial fibrillation Noted during 07/2023 [facility] admission in setting of bowel performation, pneumoperitoneum, sepsis 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 No MR. No mitral stenosis. 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 History of right cataract extraction S/P revision of total hip Right hip revision after dislocation, 2019 History of anesthesia reaction Trouble with spinal placement for hip replacement due to scoliosis - several attempts History of endoscopy History of colonoscopy History of hernia surgery Umbilical History of tubal ligation Family History Other Family history of cancer No family history of adverse response to anesthesia Social History Smoking Status: Never smoker Tobacco Type: Cigarettes Second Hand Exposure: No; Do You Dip or Chew Tobacco: No; Hx Alcohol Use: Yes Alcohol type: wine Hx Substance Use: No Preferred Language: Ecuadorean Communication Ability: Effective Visual Impairment: No Limitations Respooler Required: No Beliefs That Will Affect Care: None marital status: Current Living Situation: Spouse Feels Safe at Home: Yes Diet: regular Assistive Devices: Cane Physical Exam Vital Signs Vital Signs - 24 hr 01/08/24 16:12 01/08/24 16:17 01/08/24 16:17 Temperature 36.9 C Temperature Source Oral Pulse Rate 100 H Pulse Rate [Apical] 105 H Respiratory Rate 22 11 L Blood Pressure 145/85 H Blood Pressure [Right Arm] 145/85 H Blood Pressure Mean 105 Blood Pressure Mean [Right Arm] 105 Pulse Oximetry 98 98 98 Oxygen Delivery Method Room Air Room Air Room Air Sepsis Recent Fever Within 48 Hours No Sepsis New/Unexplained Change in Mental Status N/A Sepsis Action Taken by Nursing No Action Required 01/08/24 16:20 01/08/24 17:00 Temperature Temperature Source Pulse Rate 109 H Pulse Rate [Apical] 96 H Respiratory Rate 16 Blood Pressure Blood Pressure [Right Arm] 158/86 H Blood Pressure Mean Blood Pressure Mean [Right Arm] 110 Pulse Oximetry 99 Oxygen Delivery Method Room Air Sepsis Recent Fever Within 48 Hours Sepsis New/Unexplained Change in Mental Status Sepsis Action Taken by Nursing Physical Exam HENT: Exam performed. -Head: Normocephalic and atraumatic. -Right Ear: External ear normal. No mastoid erythema -Left Ear: External ear normal. No mastoid erythema -Mouth/Throat: The oropharynx is clear and moist. No trismus in the jaw. No dental abscesses or uvula swelling. No oropharyngeal exudate or tonsillar abscesses. EYES: Conjunctivae and EOM are normal. Pupils are equal, round, and reactive to light. Right eye exhibits no discharge. Left eye exhibits no discharge. No scleral icterus. NECK: Normal range of motion. Neck supple. No JVD present. CV: Tachycardic rate, regular rhythm, normal heart sounds and intact distal pulses. There is no peripheral edema. Palpable radial pulses bue. PULM/CHEST: Effort normal and breath sounds normal. No respiratory distress. No stridor. She has no wheezes. She has no rales. ABD: The abdomen is soft. Ostomy present. Anterior abdominal wound with wound care dressing and wet-to-dry packing is present. There is diffuse tenderness to palpation. LYMPH: No cervical adenopathy. NEURO: Motor and sensation grossly intact. Course Course 165: The patient was evaluated in room A11. A complete history and physical exam was performed Cardiac monitoring: An order was placed for continuous cardiac monitoring. The monitor shows a rate of 96 with sinus rhythm interpreted by me 1938: Vital signs stable. Patient's initial lactic acid was 2.1. Troponin negative. CT of the chest negative for PE. CT of the abdomen pelvis shows no bowel obstruction but shows a 3.1 x 0.8 cm fluid collection within the left rectus abdominis which could be a seroma versus hematoma. General surgery was consulted. Marian TEE for Dr. Williamson came down evaluate the patient. She recommends IV antibiotics at this time. Patient be treated with daptomycin based off the culture results that showed a pansensitive Staph aureus. She recommends clears for now and n.p.o. after midnight. Patient be admitted to the medicine team. Discussed case with Dr. Ng recommends Zosyn in addition to daptomycin. Zosyn ordered for the patient. Administered Medications Discontinued Medications Sodium Chloride (Nss) 1,000 mls @ 999 mls/hr IV .Q1H1M ONE Stop: 01/08/24 18:47 Last Admin: 01/08/24 18:46 Dose: 999 mls/hr Documented By: VASU Ioversol (Optiray 320 125ml) 119 ml IV ONCE ONE Stop: 01/08/24 18:15 Last Admin: 01/08/24 18:14 Dose: 119 ml Documented By: PAULINA Medical Decision Making Medical Records Attestation: I reviewed the patient's medical records. Medical records narrative: External medical records reviewed. Patient had a wound culture collected 2 days ago which grew out pansensitive Staph aureus. Laboratory Data Attestation: I reviewed the patient's lab results. 01/08/24 16:15 01/08/24 16:15 Labs: Lab Results 01/08/24 01/08/24 Range/Units 16:15 17:35 WBC 11.79 H (4.8-10.8) K/ul RBC 4.66 (4.20-5.40) M/uL Hgb 14.8 (12.0-16.0) g/dl Hct 41.9 (37.0-47.0) % MCV 89.9 (80.0-100.0) fL MCH 31.8 (25.0-34.0) pg MCHC 35.3 (32.0-36.0) g/dL RDW Std Deviation 40.4 (36.4-46.3) fL RDW Coeff of Girish 12.3 (11.5-14.5) % Plt Count 341 (130-400) K/uL MPV 9.4 (9.4-12.4) fL Immature Gran % (Auto) 0.3 % Neut % (Auto) 90.0 % Lymph % (Auto) 7.7 % [place] % (Auto) 1.8 % Eos % (Auto) 0.0 % Baso % (Auto) 0.2 % Neut # (Auto) 10.62 H (1.40-6.50) K/uL Lymph # (Auto) 0.91 L (1.20-3.40) K/uL [place] # (Auto) 0.21 (0.11-0.59) K/uL Eos # (Auto) 0.00 (0.00-0.50) K/uL Baso # (Auto) 0.02 (0.00-0.20) K/uL Immature Gran # (Auto) 0.03 (0.01-0.20) K/uL PT 10.6 (9.0-12.0) Seconds INR 1.0 (0.9-1.1) APTT 23 (21-31) Seconds PTT Ratio 0.9 VBG pH 7.57 H (7.36-7.41) VBG pCO2 26 L (38-50) mmHg VBG pO2 29 mmHg VBG HCO3 24 mmol/L VBG O2 Saturation < 60.0 % VBG Base Excess 2.9 mEq/L Sodium 139 (136-145) mmol/L Potassium 4.0 (3.5-5.1) mmol/L Chloride 102 (98-107) mmol/L Carbon Dioxide 22 (21-32) mmol/L Anion Gap 15 H (3-11) BUN 47 H (6-23) mg/dl Creatinine 0.87 (0.6-1.2) mg/dl Est Cr Clr Drug Dosing 48.2 ml/min eGFR 69.44 BUN/Creatinine Ratio 54.0 H (10-20) Glucose 166 H (70-99(Fasting)) mg/dl Lactate 2.1 H* (0.4-2.0) mmol/L Calcium 10.5 H (8.6-10.3) mg/dl Magnesium 1.8 (1.7-2.4) mg/dl Total Bilirubin 0.7 (0.2-1.0) mg/dl Direct Bilirubin 0.1 (0-0.2) mg/dl AST 24 (13-39) U/L ALT 21 (7-52) U/L Alkaline Phosphatase 49 (34-104) U/L Troponin I High Sens 5.7 (0-14) pg/ml Total Protein 8.2 (6.0-8.3) gm/dl Albumin 4.3 (3.4-5.0) gm/dl Procalcitonin < 0.02 (0-0.5) ng/ml Imaging Data CT scan - chest: Radiologist's impression: CT ANGIOGRAPHY OF THE CHEST, PULMONARY EMBOLUS PROTOCOL CLINICAL HISTORY: Shortness of breath. Evaluate for pulmonary embolus. COMPARISON STUDY: Chest radiograph December 25, 2023 and chest radiograph performed earlier today. TECHNIQUE: Following IV administration of 119 mL of Optiray, helical axial images of the chest were obtained utilizing the pulmonary embolus protocol. Maximal intensity projections and sagittal and coronal reformats were viewed on an independent 3D workstation. IV contrast was administered without complication. Automated exposure control was utilized for the study. A dose lowering technique was utilized adhering to the principles of ALARA. CT DOSE: 813.23 mGy.cm FINDINGS: No central or lobar pulmonary emboli are identified. This exam is significantly compromised by respiratory motion. The segmental and subsegmental pulmonary arteries are suboptimally assessed. Central pulmonary arteries are mildly dilated. Pectus excavatum deformity is present. There is no thoracic aortic dissection. The heart is mildly enlarged. There is no pericardial effusion. Central airways are patent. There is no pneumothorax or pleural effusion. Evaluation of the lungs is compromised given motion artifact. However, no consolidation is identified. There are no definite pulmonary nodules. Abdomen and pelvis CT will be reported separately. IMPRESSION: 1. Exam significantly compromised by respiratory motion artifact. No pulmonary emboli identified although segmental and subsegmental pulmonary arteries suboptimally assessed. 2. No consolidation to suggest pneumonia. 3. No acute intrathoracic findings identified. ACT 112: Negative or not required by law. Electronically signed by: Anthony Oshea M.D. 01/08/2024 6:27 PM Dictated: 01/08/241821 Transcribed: 01/08/241821 CT scan - abdomen: Radiologist's impression: CT OF THE ABDOMEN AND PELVIS WITH CONTRAST CLINICAL HISTORY: Abdominal pain. COMPARISON STUDY: CT of the abdomen and pelvis August 17, 2023. TECHNIQUE: Following IV administration of 119 mL of Optiray, axial images of the abdomen and pelvis were obtained from the lung bases to the proximal femurs. Images were reviewed in the axial, sagittal, and coronal planes. IV contrast was administered without complication. Automated exposure control was utilized for the study. A dose lowering technique was utilized adhering to the principles of ALARA. FINDINGS: This exam is mildly compromised by motion artifact. No pneumatosis, free air or portal venous gas is present. There is mild circumferential wall thickening of the distal esophagus. Liver, spleen, adrenal glands, kidneys and pancreas are unremarkable. Is no biliary or pancreatic ductal dilatation. There is no hydronephrosis. There is no peripancreatic or pericholecystic infiltration. Interval left colon resection with formation of the descending colostomy and Natividad pouch is noted. There is no evidence for a bowel obstruction. The caliber and wall thickness of small and large bowel are normal. The bladder is distended. Right hip arthroplasty is incidentally noted. There is severe lumbar spine levoscoliosis. There is a small amount of fluid within the pelvis. Major vasculature is patent. There is no lymphadenopathy. There is a tiny 3.1 x 0.8 cm fluid collection within the left rectus abdominis on image 101 of 309. No additional fluid collections are present. IMPRESSION: 1. Status post left colon resection with descending colostomy formation of a Natividad pouch. No evidence for a bowel obstruction. No bowel wall thickening. 2. Tiny 3.1 x 0.8 cm fluid collection within the left rectus abdominis. This is probably postsurgical and may reflect a seroma or resolving hematoma and is of questionable significance. 3. Small amount of fluid within the pelvis. 4. Exam mildly compromised by motion artifact. ACT 112: Negative or not required by law. Electronically signed by: Anthony Oshea M.D. 01/08/2024 6:35 PM Dictated: 01/08/241827 Transcribed: 01/08/241827 Chest x-ray: Attestation: I personally reviewed and interpreted this imaging study as follows: My impression: Chest x-ray negative. Airway clear. No pneumothorax. No consolidation. No cardiomegaly or cephalization.. No free air under the diaphragm. No fractures of the skeletal structures. Radiologist's impression: XR chest 1V portable CLINICAL HISTORY: Sepsis COMPARISON STUDY: Chest radiograph December 25, 2023. FINDINGS: Lung volumes are normal. There is no consolidation. Minimal left basilar opacity favors atelectasis. There is no pneumothorax or pleural effusion. Cardiac size is normal. Mediastinal contours are normal. There is no evidence for pulmonary edema. Thoracolumbar spine scoliosis is incidentally noted. IMPRESSION: No acute cardiopulmonary findings. ACT 112: Negative or not required by law. Electronically signed by: Anthony Oshea M.D. 01/08/2024 5:35 PM Dictated: 01/08/241734 Transcribed: 01/08/241734 ECG Data Attestation: I personally reviewed and interpreted this ECG as follows: Rate (beats per minute): 96 Rhythm: sinus with SA Findings: no ST depression, no ST elevation or no prolonged QT MDM Narrative 1653: The patient was evaluated in room A11. A complete history and physical exam was performed Cardiac monitoring: An order was placed for continuous cardiac monitoring. The monitor shows a rate of 96 with sinus rhythm interpreted by pa 1938: Vital signs stable. Patient's initial lactic acid was 2.1. Troponin negative. CT of the chest negative for PE. CT of the abdomen pelvis shows no bowel obstruction but shows a 3.1 x 0.8 cm fluid collection within the left rectus abdominis which could be a seroma versus hematoma. General surgery was consulted. Marian TEE for Dr. Williamson came down evaluate the patient. She recommends IV antibiotics at this time. Patient be treated with daptomycin based off the culture results that showed a pansensitive Staph aureus. She recommends clears for now and n.p.o. after midnight. Patient be admitted to the medicine team. Discussed case with Dr. Ng recommends Zosyn in addition to daptomycin. Zosyn ordered for the patient. Impression & Plan Open abdominal wall wound, Chest pain, Lactic acidemia Discharge Plan Visit Data Chief Complaint: Chest Pain Stated Complaint: Chest pain ED Provider: Howard John Discharge Problem: Open abdominal wall wound, Chest pain, Lactic acidemia Patient Disposition: Being Evaluated by Hospitalist Forms Stand Alone Forms: My [facility] Prescriptions Prescriptions: No Action curcumin-phosphatidylcholine 500 mg capsule 500 mg PO QAM magnesium oxide 400 mg (241.3 mg magnesium) tablet 400 mg PO BID estradiol [Yuvafem] 10 mcg tablet 10 mcg vaginal 2XWK neomycin 500 mg tablet 500 mg PO .COMPLEX Qty: 3 0RF Rx Instructions: 500 mg orally Take 1 tabs at 1pm, 2pm, 7pm the day before surgery; metronidazole 500 mg tablet 500 mg PO .COMPLEX Qty: 3 0RF Rx Instructions: Take 1 tablet at 1pm, 2pm, 7pm day before surgery cephalexin 500 mg capsule 500 mg PO TID 10 Days Qty: 30 0RF meloxicam 7.5 mg tablet 7.5 mg PO QAM multivitamin [Multiple Vitamins] Tablet 1 tab PO QAM amoxicillin 500 mg Capsule 4 cap PO UD PRN (Reason: PRE DENTAL) Rx Instructions: TAKE 1 HOUR BEFORE PROCEDURE pravastatin 40 mg Tablet 40 mg PO HS cyanocobalamin (vitamin B-12) [Vitamin B-12] 1,000 mcg Tablet 1,000 mcg PO QAM diclofenac sodium [Voltaren] 1 % Gel 4 g TOPICAL QID PRN (Reason: Pain) Rx Instructions: apply to single knee, ankle, foot; for foot includes sole/toes/top of foot diphenhydramine HCl 50 mg Tablet 50 mg PO HS PRN (Reason: Sleep) Colace 50 mg Capsule 50 mg PO QAM calcium carbonate-vitamin D3 [Calcium + D] 600 mg-5 mcg (200 unit) Tablet 1 tab PO QAM cholecalciferol (vitamin D3) [Vitamin D3] 25 mcg (1,000 unit) Capsule 25 mcg PO QAM Referrals Referrals: Magaly Mcmillan DO [Primary Care Provider] -
[2024-01-08] MEDS: OPTIRAY 320 125ml IV ONE (18:14)
--- NOTE | 2024-01-08 18:29 | CT Scan Report ---
CT ANGIOGRAPHY OF THE CHEST, PULMONARY EMBOLUS PROTOCOL CLINICAL HISTORY: Shortness of breath. Evaluate for pulmonary embolus. COMPARISON STUDY: Chest radiograph December 25, 2023 and chest radiograph performed earlier today. TECHNIQUE: Following IV administration of 119 mL of Optiray, helical axial images of the chest were o btained utilizing the pulmonary embolus protocol. Maximal intensity projections and sagittal and cor onal reformats were viewed on an independent 3D workstation. IV contrast was administered without co mplication. Automated exposure control was utilized for the study. A dose lowering technique was ut ilized adhering to the principles of ALARA. CT DOSE: 813.23 mGy.cm FINDINGS: No central or lobar pulmonary emboli are identified. This exam is significantly compromise d by respiratory motion. The segmental and subsegmental pulmonary arteries are suboptimally assessed. Central pulmonary arteries are mildly dilated. Pectus excavatum deformity is present. There is no th oracic aortic dissection. The heart is mildly enlarged. There is no pericardial effusion. Central air ways are patent. There is no pneumothorax or pleural effusion. Evaluation of the lungs is compromised given motion artifact. However, no consolidation is identified. There are no definite pulmonary nodu les. Abdomen and pelvis CT will be reported separately. IMPRESSION: 1. Exam significantly compromised by respiratory motion artifact. No pulmonary emboli identified alth ough segmental and subsegmental pulmonary arteries suboptimally assessed. 2. No consolidation to suggest pneumonia. 3. No acute intrathoracic findings identified. ACT 112: Negative or not required by law. Electronically signed by: Anthony Oshea M.D. 01/08/2024 6:27 PM
--- NOTE | 2024-01-08 18:37 | CT Scan Report ---
CT OF THE ABDOMEN AND PELVIS WITH CONTRAST CLINICAL HISTORY: Abdominal pain. COMPARISON STUDY: CT of the abdomen and pelvis August 17, 2023. TECHNIQUE: Following IV administration of 119 mL of Optiray, axial images of the abdomen and pelvis w ere obtained from the lung bases to the proximal femurs. Images were reviewed in the axial, sagittal, and coronal planes. IV contrast was administered without complication. Automated exposure control w as utilized for the study. A dose lowering technique was utilized adhering to the principles of ABBY [place]. FINDINGS: This exam is mildly compromised by motion artifact. No pneumatosis, free air or portal veno us gas is present. There is mild circumferential wall thickening of the distal esophagus. Liver, sple en, adrenal glands, kidneys and pancreas are unremarkable. Is no biliary or pancreatic ductal dilatat ion. There is no hydronephrosis. There is no peripancreatic or pericholecystic infiltration. Interval left colon resection with formation of the descending colostomy and Natividad pouch is noted. There i s no evidence for a bowel obstruction. The caliber and wall thickness of small and large bowel are no rmal. The bladder is distended. Right hip arthroplasty is incidentally noted. There is severe lumbar spine levoscoliosis. There is a small amount of fluid within the pelvis. Major vasculature is patent. There is no lymphadenopathy. There is a tiny 3.1 x 0.8 cm fluid collection within the left rectus ab dominis on image 101 of 309. No additional fluid collections are present. IMPRESSION: 1. Status post left colon resection with descending colostomy formation of a Natividad pouch. No evide nce for a bowel obstruction. No bowel wall thickening. 2. Tiny 3.1 x 0.8 cm fluid collection within the left rectus abdominis. This is probably postsurgical and may reflect a seroma or resolving hematoma and is of questionable significance. 3. Small amount of fluid within the pelvis. 4. Exam mildly compromised by motion artifact. ACT 112: Negative or not required by law. Electronically signed by: Anthony Oshea M.D. 01/08/2024 6:35 PM
[2024-01-08] MEDS: SODIUM CHLORIDE 0.9% 1,000 ML IV ONE (18:46)
--- NOTE | 2024-01-08 20:02 | Surgery Consultation ---
Date of Consultation January 08, 2024 Assessment & Plan (1) Open abdominal wall wound: -Patient presented to the ED with acute complaints of CP and epigastric pain. She states at 6AM this morning she did have associated nausea and a few episodes of non-bloody emesis. The patient is s/p Ring's procedure on 08/17/[address] Hurley secondary to stercoral perforation. She has been doing well post- operatively and recently had an office visit last week.The patient has been following the wound clinic as an outpatient due to her midline wound opening at the inferior portion that is thought to be due to suture reaction. -Upon workup in the ED she had a slightly elevated WBC of 11 and elevated lactic acid of 2. After fluid resuscitation, her repeat lactic acid has normalized. The patient's CT A/P did reveal a small 3 x 0.8 cm fluid-filled collection within the left rectus abdominis. On exam, the patient's abdomen is soft, nontender, and no signs of acute abdomen. There is no palpable area of fluctuance or obvious superficial abscess that would require a bedside I&D at this time. Her midline dressing was taken down and the wounds were inspected, there are no overlying signs of infection or purulent drainage appreciated. Aquacel dressing was placed back over the wounds. -Patient's wound cultures showed pansensitive Staph aureus, recommend IV antibiotics at this time. -Continue local wound care to midline wounds -Patient may have clears for now -Medical management per primary team, surgery will continue to follow Supervising Physician Co-Signing Physician Notes I personally saw and evaluated the patient with Cliff Camp PA-C and agree with the assessment and plan. 73-year-old female status post Ring's in July [address] scan revealing 3 cm fluid collection within the left rectus abdominis Her CT scan images were personally viewed and interpreted by myself There is no signs at this is an abscess, therefore no indications for any drainage She can have a diet from a surgical standpoint, no plans for any intervention Will follow History of Present Illness Reason for Consultation: Abdominal abscess History of Present Illness Patient is a 73-year-old female who presented to the emergency department this evening with complaints of chest pain and shortness of breath. Patient states her symptoms started 2 days ago. She states she was also experiencing some epigastric abdominal pain that started early this morning around 6AM and she did have a few episodes of non-bloody emesis. However, since then her abdominal pain has improved and she no longer feels nauseous or has any additional episodes of vomiting. Of note, the patient is s/p Ring's procedure on 08/17/[address] Hurley secondary to stercoral perforation. The patient has been doing well post- operatively and recently had an office visit last week. However, recently the patient's midline wound had opened at the inferior portion that is thought to be due to suture reaction. She since has since been seeing wound care as an outpatient and her scheduled reversal surgery has been canceled until the wound heals more. Since the onset of her symptoms she states her ostomy has been functioning without any issues. She denies new onset of fevers or chills. Patient was worked up in the ED and was found to have a slightly elevated WBC at 11.7 along with elevated lactic acid of 2. CT abdomen/pelvis showed a small 3 x 0.8cm fluid collection within the left rectus abdominis. Due to patient's recent surgical history and CT findings, the surgery team was consulted for further evaluation. At time of exam, patient is resting comfortably in bed, stable vitals, and NAD. Patient's abdomen is soft and nontender. Ostomy is functioning with stool appreciated in bag. Patient's midline wound is dressed with Aquacel dressing that was taken down and there are no obvious signs of overlying infection or purulent drainage appreciated. Allergies Allergy/AdvReac Type Severity Reaction Status Date / Time No Known Allergies Allergy Verified 01/08/24 21:54 Home Medications Medication Instructions Recorded Confirmed Type cyanocobalamin (vitamin B-12) 1,000 mcg PO QAM 07/01/18 01/08/24 History 1,000 mcg tablet (Vitamin B-12) multivitamin (Multiple Vitamins 1 tab PO QAM 07/01/18 01/08/24 History tablet) pravastatin 40 mg tablet 40 mg PO HS 07/01/18 01/08/24 History meloxicam 7.5 mg tablet 7.5 mg PO QAM 09/10/23 01/08/24 History curcumin-phosphatidylcholine 500 500 mg PO QAM 09/28/23 01/08/24 History mg capsule magnesium oxide 400 mg (241.3 mg 400 mg PO BID 09/28/23 01/08/24 History magnesium) tablet calcium 600 mg (as 1 tab PO QAM 12/29/23 01/08/24 History carbonate)-vitamin D3 5 mcg (200 unit) tablet cholecalciferol (vitamin D3) 25 25 mcg PO QAM 12/29/23 01/08/24 History mcg (1,000 unit) capsule (Vitamin D3) diclofenac sodium 1 % topical gel 4 g topical QID PRN Pain 12/29/23 01/08/24 History docusate sodium 50 mg capsule 50 mg PO QAM 12/29/23 01/08/24 History amitriptyline 10 mg tablet 10 mg PO HS 01/08/24 01/08/24 History Patient History Medical History HLD (hyperlipidemia) Per records Osteoporosis Reclast 10/2023 Osteoarthritis History of hypertension History of atrial fibrillation Noted during 07/2023 [facility] admission in setting of bowel performation, pneumoperitoneum, sepsis 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 No MR. No mitral stenosis. 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 History of right cataract extraction S/P revision of total hip Right hip revision after dislocation, 2019 History of anesthesia reaction Trouble with spinal placement for hip replacement due to scoliosis - several attempts History of endoscopy History of colonoscopy History of hernia surgery Umbilical History of tubal ligation Family History Other Family history of cancer No family history of adverse response to anesthesia Social History Smoking Status: Never smoker Tobacco Type: Cigarettes Second Hand Exposure: No; Do You Dip or Chew Tobacco: No; Hx Alcohol Use: Yes Alcohol type: wine Hx Substance Use: No Preferred Language: [place] Communication Ability: Effective Visual Impairment: No Limitations Basic Combatant Swimmer Required: No Beliefs That Will Affect Care: None marital status: Current Living Situation: Spouse Feels Safe at Home: Yes Safety Concerns: Feels Safe At This Time Diet: regular Assistive Devices: Glasses Review of Systems Review of Systems: All systems reviewed & are unremarkable except as noted in HPI & below Physical Exam Constitutional: WD/WN, vitals as above Respiratory: normal respiratory effort; no respiratory distress and does not use accessory muscles Cardiovascular: RRR, no murmur, no edema Gastrointestinal (Abdomen): Abdomen is soft, nondistended, and nontender to palpation. No rebound, guarding or peritonitis. Ostomy to left side of abdomen with brown colored stool in bag. Patient's midline wound does have 2 small open wounds inferior to the umbilicus. One wound measures roughly 0.5 x 0.5 cm in size and the other 3 x 2 cm. Both wounds have no obvious signs of drainage, erythema, or surrounding infection. Wounds are dressed with Aquacel dressing. Results & Data Vital Signs (Past 12 Hours) Vital Signs Temp Pulse Pulse Resp BP BP Pulse Ox 01/08/24 19:30 91 H 16 140/72 99 01/08/24 19:00 85 14 155/69 H 98 01/08/24 18:30 84 15 165/78 H 97 01/08/24 18:00 85 14 163/85 H 99 01/08/24 17:00 96 H 16 158/86 H 99 01/08/24 16:20 109 H 01/08/24 16:17 105 H 11 L 145/85 H 98 01/08/24 16:17 98 01/08/24 16:12 36.9 C 100 H 22 145/85 H 98 O2 Del Method 01/08/24 19:30 Room Air 01/08/24 19:00 Room Air 01/08/24 18:30 Room Air 01/08/24 18:00 Room Air 01/08/24 17:00 Room Air 01/08/24 16:20 01/08/24 16:17 Room Air 01/08/24 16:17 Room Air 01/08/24 16:12 Room Air Diagnostic Findings CT OF THE ABDOMEN AND PELVIS WITH CONTRAST CLINICAL HISTORY: Abdominal pain. COMPARISON STUDY: CT of the abdomen and pelvis August 17, 2023. TECHNIQUE: Following IV administration of 119 mL of Optiray, axial images of the abdomen and pelvis were obtained from the lung bases to the proximal femurs. Images were reviewed in the axial, sagittal, and coronal planes. IV contrast was administered without complication. Automated exposure control was utilized for the study. A dose lowering technique was utilized adhering to the principles of ALARA. FINDINGS: This exam is mildly compromised by motion artifact. No pneumatosis, free air or portal venous gas is present. There is mild circumferential wall thickening of the distal esophagus. Liver, spleen, adrenal glands, kidneys and pancreas are unremarkable. Is no biliary or pancreatic ductal dilatation. There is no hydronephrosis. There is no peripancreatic or pericholecystic infiltration. Interval left colon resection with formation of the descending colostomy and Natividad pouch is noted. There is no evidence for a bowel obstruction. The caliber and wall thickness of small and large bowel are normal. The bladder is distended. Right hip arthroplasty is incidentally noted. There is severe lumbar spine levoscoliosis. There is a small amount of fluid within the pelvis. Major vasculature is patent. There is no lymphadenopathy. There is a tiny 3.1 x 0.8 cm fluid collection within the left rectus abdominis on image 101 of 309. No additional fluid collections are present. IMPRESSION: 1. Status post left colon resection with descending colostomy formation of a Natividad pouch. No evidence for a bowel obstruction. No bowel wall thickening. 2. Tiny 3.1 x 0.8 cm fluid collection within the left rectus abdominis. This is probably postsurgical and may reflect a seroma or resolving hematoma and is of questionable significance. 3. Small amount of fluid within the pelvis. 4. Exam mildly compromised by motion artifact. PG Care Time/CCT Total # of Minutes Spent Total Time Spent with Patient: Total time spent is greater than 50% in coordination of care (as documented) at patient's floor/unit and/or counseling patient: Coding Level of Care Code 46743 INT INP/OBS CARE 2/MIN Diagnoses Open abdominal wall wound S31.109A
[2024-01-08 20:18] LABS: Appearance Urine Clear (Clear); Bacteria Urine Automated None Seen (None Seen); Bilirubin Urine Negative (Negative); Blood Urine Negative (Negative); Cast Urine Automated 0-2 /lpf (0-2); Color Urine Yellow; Glucose Urine UA Negative (Negative); Ketones Urine 2+ (Negative); Leukocyte Esterase Urine Trace (Negative); Nitrite Urine Negative (Negative); Protein Urine Trace (Negative); RBC Urine Automated 0-2 /hpf (0-2); Specific Gravity Urine > 1.045 (1.000-1.030); Urobilinogen Urine Negative (Negative)
--- NOTE | 2024-01-08 20:33 | History & Physical Report ---
Date of Service January 08, 2024 Assessment & Plan (1) Open abdominal wall wound: (2) Lactic acidemia: (3) Chest pain: (4) History of atrial fibrillation: (5) Status post colostomy: (6) History of bowel resection: Plan Open abdominal wall wound- Wound cultures from 01/06/2024 have grown MSSA Continue daptomycin IV begun in the ED Surgery Dr. To has examined and expected the wound while in the ED Consult wound care Epigastric pain/status post left colon resection/colostomy/Natividad pouch- Fluid collection 3.1 x 0.8 cm in the left rectus abdominis Seroma versus hematoma Clear liquid diet overnight For now Zosyn 4.5 g IV every 8 hours will be continued from that started in the ED Pantoprazole 40 mg IV daily Zofran 4 mg IV every 6 hours as needed Initial lactate 2.1, with follow-up 1.4 NSS + KCl 20 mill equivalents at 80 mL/h x 1 L Chest pain/shortness of breath- Troponin 5.7, with follow-up 10.8 Admit to medical telemetry Repeat in the a.m. CT angiography PE protocol negative for PE Likely in association with abdominal process History of Present Illness Chief Complaint: The patient reports that from 2 to 6 AM this morning she had severe epigastric pain, and then at 6 AM developed nausea and vomiting x 2. She reports that she then felt better for a while, had a nap, and then woke up short of breath with abdominal pain that she rated on a scale 4/10. The abdominal pain continued to worsen throughout the night, and thus she presents to the emergency department for assessment. Primary Care Provider: Magaly Mcmillan DO The patient is a 73-year-old female with a past medical history including paroxysmal atrial fibrillation, B12 deficiency, hyperlipidemia, hypomagnesemia, insomnia, osteoporosis. She underwent a Ring's procedure for stercoral perforation, pneumoperitoneum and sepsis on 08/17/2023, with left lower quadrant ostomy formation. At her last office visit on 12/31/[address] Hurley, it was noted that her midline wound was healing well at the superior portion, however, over the weekend the inferior portion opened up. She was seen by wound care, who then felt that this was a suture reaction, and that the ostomy was functioning well. The patient presents to the emergency department this evening due to the development of severe epigastric pain, nausea and vomiting x 2, and then shortness of breath. [facility], which showed that she is status post left colon resec tion with descending colostomy formation of Natividad pouch. There was a 3.1 x 0.8 cm fluid collection within the left rectus abdominis. This is probably postsurgical and may reflect a seroma or resolving hematoma and is of questionable significance. Was also small amount of fluid within the pelvis. CBC with differential did show a neutrophilic leukocytosis Allergies Allergy/AdvReac Type Severity Reaction Status Date / Time No Known Allergies Allergy Verified 01/08/24 21:54 Home Medications Medication Instructions Recorded Confirmed Type cyanocobalamin (vitamin B-12) 1,000 mcg PO QAM 07/01/18 01/08/24 History 1,000 mcg tablet (Vitamin B-12) multivitamin (Multiple Vitamins 1 tab PO QAM 07/01/18 01/08/24 History tablet) pravastatin 40 mg tablet 40 mg PO HS 07/01/18 01/08/24 History meloxicam 7.5 mg tablet 7.5 mg PO QAM 09/10/23 01/08/24 History curcumin-phosphatidylcholine 500 500 mg PO QAM 09/28/23 01/08/24 History mg capsule magnesium oxide 400 mg (241.3 mg 400 mg PO BID 09/28/23 01/08/24 History magnesium) tablet calcium 600 mg (as 1 tab PO QAM 12/29/23 01/08/24 History carbonate)-vitamin D3 5 mcg (200 unit) tablet cholecalciferol (vitamin D3) 25 25 mcg PO QAM 12/29/23 01/08/24 History mcg (1,000 unit) capsule (Vitamin D3) diclofenac sodium 1 % topical gel 4 g topical QID PRN Pain 12/29/23 01/08/24 History docusate sodium 50 mg capsule 50 mg PO QAM 12/29/23 01/08/24 History amitriptyline 10 mg tablet 10 mg PO HS 01/08/24 01/08/24 History Past Med/Surg History Problem List (Updated 01/09/24 @ 01:25 by Piter Barahona MD) History of atrial fibrillation Noted during 07/2023 [facility] admission in setting of bowel performation, pneumoperitoneum, sepsis Subsequent 30 day air sampling and monitoring with no Afib per PCP records Status post colostomy (08/17/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/t bowel perforation History of bowel resection (08/17/23) Exploratory Laparotomy, Resection of Rectal Sigmoid Perforation, Colostomy Lactic acidemia (Acute) Chest pain (Acute) Open abdominal wall wound (Acute) Varicose veins of both lower extremities Ulnar neuropathy at elbow of left upper extremity Encounter for pre-operative examination Medical History HLD (hyperlipidemia) Per records Osteoporosis Reclast 10/2023 Osteoarthritis History of hypertension History of atrial fibrillation Noted during 07/2023 [facility] admission in setting of bowel performation, pneumoperitoneum, sepsis Subsequent 30 day air sampling and monitoring with no 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 No MR. No mitral stenosis. 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 History of right cataract extraction S/P revision of total hip Right hip revision after dislocation, 2018 History of anesthesia reaction Trouble with spinal placement for hip replacement due to scoliosis - several attempts History of endoscopy History of colonoscopy History of hernia surgery Umbilical History of tubal ligation Family History Other Family history of cancer No family history of adverse response to anesthesia Social History Smoking Status: Never smoker Tobacco Type: Cigarettes Second Hand Exposure: No; Do You Dip or Chew Tobacco: No; Hx Alcohol Use: Yes Alcohol type: wine Hx Substance Use: No Preferred Language: Qatari Communication Ability: Effective Visual Impairment: No Limitations Asthma Educator Required: No Beliefs That Will Affect Care: None marital status: Current Living Situation: Spouse Feels Safe at Home: Yes Safety Concerns: Feels Safe At This Time Diet: regular Assistive Devices: Glasses Review of Systems Review of Systems: The patient denies chest pain, palpitations, cough, lower extremity swelling, sore throat, fevers, chills, sweats, blood in urine or stool, dysuria, urinary frequency or urgency, lightheadedness, dizziness, headache, memory loss, loss of consciousness, rash, abnormal bruising or bleeding, imbalance, focal weakness, numbness or tingling in arms or legs, generalized arthralgias or myalgias, back or neck pain, or night sweats. The review of systems is otherwise negative other than for that already noted above, and at least 10 systems have been reviewed. Physical Exam Physical Exam: The patient is awake, alert and oriented 3, well developed and well nourished, normocephalic and atraumatic, lying in bed and in no acute distress. HEENT--PERRL, EOMI, mucous membranes and oropharynx dry. Neck--supple. No JVD. No bruits. Thyroid normal, trachea midline, no adenopathy. Heart--normal S1 and S2. No murmurs, rubs or gallops. Lungs--clear bilaterally, no respiratory distress, no accessory muscle use. Abdomen--normal bowel sounds and soft, nontender nondistended. Ostomy left lower quadrant formed stool Extremities--no cyanosis or clubbing. No edema. There are good distal pulses b/l. Dermatologic--postop wound has been dressed and bandaged by surgery Neurologic--cranial nerves II through XII grossly intact. Rheumatologic--normal range of motion. Psychiatric--normal affect. Results & Data Results & Data Vital Signs (Past 12 Hours) Vital Signs Temp Pulse Pulse Resp BP BP Pulse Ox 01/08/24 20:27 82 01/08/24 19:30 91 H 16 140/72 99 01/08/24 19:00 85 14 155/69 H 98 01/08/24 18:30 84 15 165/78 H 97 01/08/24 18:00 85 14 163/85 H 99 01/08/24 17:00 96 H 16 158/86 H 99 01/08/24 16:20 109 H 01/08/24 16:17 105 H 11 L 145/85 H 98 01/08/24 16:17 98 01/08/24 16:12 36.9 C 100 H 22 145/85 H 98 O2 Del Method 01/08/24 20:27 01/08/24 19:30 Room Air 01/08/24 19:00 Room Air 01/08/24 18:30 Room Air 01/08/24 18:00 Room Air 01/08/24 17:00 Room Air 01/08/24 16:20 01/08/24 16:17 Room Air 01/08/24 16:17 Room Air 01/08/24 16:12 Room Air Laboratory Results Laboratory Results WBC 11.79 K/ul (4.8-10.8) H 01/08/24 16:15 RBC 4.66 M/uL (4.20-5.40) 01/08/24 16:15 Hgb 14.8 g/dl (12.0-16.0) 01/08/24 16:15 Hct 41.9 % (37.0-47.0) 01/08/24 16:15 MCV 89.9 fL (80.0-100.0) 01/08/24 16:15 MCH 31.8 pg (25.0-34.0) 01/08/24 16:15 MCHC 35.3 g/dL (32.0-36.0) 01/08/24 16:15 RDW Std Deviation 40.4 fL (36.4-46.3) 01/08/24 16:15 RDW Coeff of Girish 12.3 % (11.5-14.5) 01/08/24 16:15 Plt Count 341 K/uL (130-400) 01/08/24 16:15 MPV 9.4 fL (9.4-12.4) 01/08/24 16:15 Immature Gran % (Auto) 0.3 % 01/08/24 16:15 Neut % (Auto) 90.0 % 01/08/24 16:15 Lymph % (Auto) 7.7 % 01/08/24 16:15 [place] % (Auto) 1.8 % 01/08/24 16:15 Eos % (Auto) 0.0 % 01/08/24 16:15 Baso % (Auto) 0.2 % 01/08/24 16:15 Neut # (Auto) 10.62 K/uL (1.40-6.50) H 01/08/24 16:15 Lymph # (Auto) 0.91 K/uL (1.20-3.40) L 01/08/24 16:15 [place] # (Auto) 0.21 K/uL (0.11-0.59) 01/08/24 16:15 Eos # (Auto) 0.00 K/uL (0.00-0.50) 01/08/24 16:15 Baso # (Auto) 0.02 K/uL (0.00-0.20) 01/08/24 16:15 Immature Gran # (Auto) 0.03 K/uL (0.01-0.20) 01/08/24 16:15 PT 10.6 Seconds (9.0-12.0) 01/08/24 16:15 INR 1.0 (0.9-1.1) 01/08/24 16:15 APTT 23 Seconds (21-31) 01/08/24 16:15 PTT Ratio 0.9 01/08/24 16:15 VBG pH 7.57 (7.36-7.41) H 01/08/24 17:35 VBG pCO2 26 mmHg (38-50) L 01/08/24 17:35 VBG pO2 29 mmHg 01/08/24 17:35 VBG HCO3 24 mmol/L 01/08/24 17:35 VBG O2 Saturation < 60.0 % 01/08/24 17:35 VBG Base Excess 2.9 mEq/L 01/08/24 17:35 Sodium 139 mmol/L (136-145) 01/08/24 16:15 Potassium 4.0 mmol/L (3.5-5.1) 01/08/24 16:15 Chloride 102 mmol/L (98-107) 01/08/24 16:15 Carbon Dioxide 22 mmol/L (21-32) 01/08/24 16:15 Anion Gap 15 (3-11) H 01/08/24 16:15 BUN 47 mg/dl (6-23) H 01/08/24 16:15 Creatinine 0.87 mg/dl (0.6-1.2) 01/08/24 16:15 Est Cr Clr Drug Dosing 48.2 ml/min 01/08/24 16:15 eGFR 69.44 01/08/24 16:15 BUN/Creatinine Ratio 54.0 (10-20) H 01/08/24 16:15 Glucose 166 mg/dl (70-99(Fasting)) H 01/08/24 16:15 Lactate 1.4 mmol/L (0.4-2.0) 01/08/24 19:25 Calcium 10.5 mg/dl (8.6-10.3) H 01/08/24 16:15 Magnesium 1.8 mg/dl (1.7-2.4) 01/08/24 16:15 Total Bilirubin 0.7 mg/dl (0.2-1.0) 01/08/24 16:15 Direct Bilirubin 0.1 mg/dl (0-0.2) 01/08/24 16:15 AST 24 U/L (13-39) 01/08/24 16:15 ALT 21 U/L (7-52) 01/08/24 16:15 Alkaline Phosphatase 49 U/L (34-104) 01/08/24 16:15 Troponin I High Sens 10.8 pg/ml (0-14) D 01/09/24 00:32 Total Protein 8.2 gm/dl (6.0-8.3) 01/08/24 16:15 Albumin 4.3 gm/dl (3.4-5.0) 01/08/24 16:15 Procalcitonin < 0.02 ng/ml (0-0.5) 01/08/24 16:15 Urine Color Yellow 01/08/24 20:03 Urine Appearance Clear (Clear) 01/08/24 20:03 Urine pH 7.0 (4.5-7.5) 01/08/24 20:03 Ur Specific [place] > 1.045 (1.000-1.030) H 01/08/24 20:03 Urine Protein Trace (Negative) H 01/08/24 20:03 Urine Glucose (UA) Negative (Negative) 01/08/24 20:03 Urine Ketones 2+ (Negative) H 01/08/24 20:03 Urine Blood Negative (Negative) 01/08/24 20:03 Urine Nitrite Negative (Negative) 01/08/24 20:03 Urine Bilirubin Negative (Negative) 01/08/24 20:03 Urine Urobilinogen Negative (Negative) 01/08/24 20:03 Ur Leukocyte Esterase Trace (Negative) H 01/08/24 20:03 Urine WBC (Auto) 6-10 /hpf (0-5) H 01/08/24 20:03 Urine RBC (Auto) 0-2 /hpf (0-2) 01/08/24 20:03 U Hyaline Cast (Auto) 0-2 /lpf (0-2) 01/08/24 20:03 U Epithel Cells (Auto) 3-5 /hpf (0-2) H 01/08/24 20:03 Urine Bacteria (Auto) None Seen (None Seen) 01/08/24 20:03 Impressions Abdomen/Pelvis CT 01/08/24 17:05 CT OF THE ABDOMEN AND PELVIS WITH CONTRAST CLINICAL HISTORY: Abdominal pain. COMPARISON STUDY: CT of the abdomen and pelvis August 17, 2023. TECHNIQUE: Following IV administration of 119 mL of Optiray, axial images of the abdomen and pelvis were obtained from the lung bases to the proximal femurs. Images were reviewed in the axial, sagittal, and coronal planes. IV contrast was administered without complication. Automated exposure control was utilized for the study. A dose lowering technique was utilized adhering to the principles of ALARA. FINDINGS: This exam is mildly compromised by motion artifact. No pneumatosis, free air or portal venous gas is present. There is mild circumferential wall thickening of the distal esophagus. Liver, spleen, adrenal glands, kidneys and pancreas are unremarkable. Is no biliary or pancreatic ductal dilatation. There is no hydronephrosis. There is no peripancreatic or pericholecystic infiltration. Interval left colon resection with formation of the descending colostomy and Natividad pouch is noted. There is no evidence for a bowel obstruction. The caliber and wall thickness of small and large bowel are normal. The bladder is distended. Right hip arthroplasty is incidentally noted. There is severe lumbar spine levoscoliosis. There is a small amount of fluid within the pelvis. Major vasculature is patent. There is no lymphadenopathy. There is a tiny 3.1 x 0.8 cm fluid collection within the left rectus abdominis on image 101 of 309. No additional fluid collections are present. IMPRESSION: 1. Status post left colon resection with descending colostomy formation of a Natividad pouch. No evidence for a bowel obstruction. No bowel wall thickening. 2. Tiny 3.1 x 0.8 cm fluid collection within the left rectus abdominis. This is probably postsurgical and may reflect a seroma or resolving hematoma and is of questionable significance. 3. Small amount of fluid within the pelvis. 4. Exam mildly compromised by motion artifact. ACT 112: Negative or not required by law. Electronically signed by: Anthony Oshea M.D. 01/08/2024 6:35 PM Chest X-Ray 01/08/24 17:05 XR chest 1V portable CLINICAL HISTORY: Sepsis COMPARISON STUDY: Chest radiograph December 25, 2023. FINDINGS: Lung volumes are normal. There is no consolidation. Minimal left basilar opacity favors atelectasis. There is no pneumothorax or pleural effusion. Cardiac size is normal. Mediastinal contours are normal. There is no evidence for pulmonary edema. Thoracolumbar spine scoliosis is incidentally noted. IMPRESSION: No acute cardiopulmonary findings. ACT 112: Negative or not required by law. Electronically signed by: Anthony Oshea M.D. 01/08/2024 5:35 PM Chest CTA 01/08/24 17:06 CT ANGIOGRAPHY OF THE CHEST, PULMONARY EMBOLUS PROTOCOL CLINICAL HISTORY: Shortness of breath. Evaluate for pulmonary embolus. COMPARISON STUDY: Chest radiograph December 25, 2023 and chest radiograph performed earlier today. TECHNIQUE: Following IV administration of 119 mL of Optiray, helical axial images of the chest were obtained utilizing the pulmonary embolus protocol. Maximal intensity projections and sagittal and coronal reformats were viewed on an independent 3D workstation. IV contrast was administered without complication. Automated exposure control was utilized for the study. A dose lowering technique was utilized adhering to the principles of ALARA. CT DOSE: 813.23 mGy.cm FINDINGS: No central or lobar pulmonary emboli are identified. This exam is significantly compromised by respiratory motion. The segmental and subsegmental pulmonary arteries are suboptimally assessed. Central pulmonary arteries are mildly dilated. Pectus excavatum deformity is present. There is no thoracic aortic dissection. The heart is mildly enlarged. There is no pericardial effusion. Central airways are patent. There is no pneumothorax or pleural effus ion. Evaluation of the lungs is compromised given motion artifact. However, no consolidation is identified. There are no definite pulmonary nodules. Abdomen and pelvis CT will be reported separately. IMPRESSION: 1. Exam significantly compromised by respiratory motion artifact. No pulmonary emboli identified although segmental and subsegmental pulmonary arteries suboptimally assessed. 2. No consolidation to suggest pneumonia. 3. No acute intrathoracic findings identified. ACT 112: Negative or not required by law. Electronically signed by: Anthony Oshea M.D. 01/08/2024 6:27 PM Code Status & VTE Plan Code Status Full code VTE Prophylaxis Plan VTE Prophylaxis will be ordered: Yes PG Care Time/CCT Total # of Minutes Spent Total Time Spent with Patient: Total time spent is greater than 50% in coordination of care (as documented) at patient's floor/unit and/or counseling patient: Coding Level of Care Code 50752 INT INP/OBS CARE 3/75MIN Diagnoses Open abdominal wall wound S31.109A Lactic acidemia E87.20 Chest pain R07.9 History of atrial fibrillation Z86.79 Status post colostomy Z93.3 History of bowel resection Z90.49
[2024-01-08] MEDS: DAPTOmycin 325 MG in SYRINGE 0 ML IV SCH (20:38)
[2024-01-08] MEDS: PIPERACILLIN/TAZOBACTAM 4.5 GM/120 ML BAG IV ONE (21:00)
[2024-01-09] MEDS: ACETAMINOPHEN 1,000 MG/100 ML VIAL IV PRN (00:34)
[2024-01-09] MEDS: NSS + 20MEQ KCL 20 MEQ/1,000 ML BAG IV SCH (00:34)
[2024-01-09] MEDS: PIPERACILLIN/TAZOBACTAM 4.5 GM/100 ML BAG IV SCH (02:02)
[2024-01-09 04:36] LABS: Basophils # (auto) 0.03 K/uL (0.00-0.20); Basophils % (auto) 0.2 %; Eosinophils # (auto) 0.05 K/uL (0.00-0.50); Eosinophils % (auto) 0.4 %; Hematocrit (blood only) 40.8 % (37.0-47.0); Hemoglobin 13.5 g/dl (12.0-16.0); Immature Granulocytes # (auto) 0.02 K/uL (0.01-0.20); Immature Granulocytes % (auto) 0.2 %; Lymphocytes # (auto) 1.62 K/uL (1.20-3.40); Mean Corpuscular Hemoglobin 31.2 pg (25.0-34.0); Mean Corpuscular Hgb Conc 33.1 g/dL (32.0-36.0); Mean Corpuscular Volume 94.2 fL (80.0-100.0); Mean Platelet Volume 8.9 fL (9.4-12.4); Monocytes # (auto) 0.55 K/uL (0.11-0.59); Monocytes % (auto) 4.4 %; Neutrophils # (auto) 10.23 K/uL (1.40-6.50); Neutrophils % (auto) 81.8 %; Platelet Count 253 K/uL (130-400); RDW Coefficient of Variation 12.8 % (11.5-14.5); RDW Standard Deviation 44.5 fL (36.4-46.3); Red Blood Count 4.33 M/uL (4.20-5.40)
[2024-01-09 04:52] LABS: Albumin Globulin Ratio 1.2 (0.9-2); Albumin Level 3.8 gm/dl (3.4-5.0); BUN Creatinine Ratio 36.6 (10-20); Bilirubin,Total 0.7 mg/dl (0.2-1.0); Calcium 8.8 mg/dl (8.6-10.3); Creatinine Clr Calc Pharmacy 45.1 ml/min; Globulin 3.2 gm/dl (2.5-4.0); Potassium 3.9 mmol/L (3.5-5.1)
[2024-01-09 04:59] LABS: Troponin I High Sensitivity 9.5 pg/ml (0-14)
[2024-01-09] MEDS: ONDANSETRON INJ 2 MG/ML 2 ML VIAL IV PRN (08:58)
[2024-01-09] MEDS: PANTOprazole 40 MG/10 ML SYR IV SCH (09:43)
--- NOTE | 2024-01-09 12:30 | Hospitalist Progress Note ---
Date of Service January 09, 2024 Assessment & Plan (1) Open abdominal wall wound: (2) Lactic acidemia: (3) Chest pain: (4) History of atrial fibrillation: (5) Status post colostomy: (6) History of bowel resection: Plan Open abdominal wall wound- Wound cultures from 01/06/2024 have grown MSSA Continue daptomycin IV Surgery on board Wound care involved Epigastric pain/status post left colon resection/colostomy/Natividad pouch- Fluid collection 3.1 x 0.8 cm in the left rectus abdominis Seroma versus hematoma Clear liquid diet Continue Zosyn 4.5 g IV every 8 hours Pantoprazole 40 mg IV daily Zofran 4 mg IV every 6 hours as needed Added Phenergan x 1 Initial lactate 2.1, with follow-up 1.4 Encourage p.o. fluid intake Chest pain/shortness of breath- Cardiac enzymes negative CT angiography PE protocol negative for PE Likely in association with abdominal process No chest pain or shortness of breath at this time Admission and Anticipated Discharge Date Admission Date: January 08, 2024 Subjective Patient was seen and examined at 12:30 PM. She denied feeling short of breath. No chest pain. No significant abdominal pain either. Review of Systems Review of Systems: All systems reviewed & are unremarkable except as noted in Subjective Physical Exam Physical Exam: General: Awake, conversant Heart: S1, S2/regular rate and rhythm, no murmur rubs or gallops Lungs: Clear to auscultation bilaterally. Normal effort Abdomen: Soft/nontender/nondistended. Colostomy bag in place. Dressing on previous incision. No hepatosplenomegaly Extremities: No clubbing/cyanosis. No edema Behavior: Appropriate, cooperative Results & Data Results & Data Vital Signs (Past 12 Hours) Vital Signs Temp Pulse Pulse Resp BP BP Pulse Ox 01/09/24 11:55 37.0 C 77 18 154/71 H 97 01/09/24 11:33 87 01/09/24 11:05 78 18 156/83 H 95 01/09/24 08:00 81 16 169/88 H 98 01/09/24 06:49 86 01/09/24 06:31 94 H 16 173/92 H 97 01/09/24 05:00 74 16 166/82 H 95 01/09/24 04:53 77 16 168/83 H 96 01/09/24 04:30 96 H 16 168/83 H 96 01/09/24 04:00 77 16 157/86 H 95 01/09/24 03:00 72 16 150/81 H 96 01/09/24 02:16 73 18 143/72 H 94 01/09/24 00:30 82 20 146/73 H 96 O2 Del Method 01/09/24 11:55 Room Air 01/09/24 11:33 01/09/24 11:05 Room Air 01/09/24 08:00 Room Air 01/09/24 06:49 01/09/24 06:31 Room Air 01/09/24 05:00 Room Air 01/09/24 04:53 Room Air 01/09/24 04:30 Room Air 01/09/24 04:00 Room Air 01/09/24 03:00 Room Air 01/09/24 02:16 Room Air 01/09/24 00:30 Laboratory Results Abnormal lab results 01/08/24 01/08/24 01/08/24 Range/Units 16:15 17:35 20:03 WBC 11.79 H (4.8-10.8) K/ul MPV (9.4-12.4) fL Neut # (Auto) 10.62 H (1.40-6.50) K/uL Lymph # (Auto) 0.91 L (1.20-3.40) K/uL VBG pH 7.57 H (7.36-7.41) VBG pCO2 26 L (38-50) mmHg Anion Gap 15 H (3-11) BUN 47 H (6-23) mg/dl BUN/Creatinine Ratio 54.0 H (10-20) Glucose 166 H (70-99(Fasting)) mg/dl Lactate 2.1 H* (0.4-2.0) mmol/L Calcium 10.5 H (8.6-10.3) mg/dl Ur Specific [place] > 1.045 H (1.000-1.030) Urine Protein Trace H (Negative) Urine Ketones 2+ H (Negative) Ur Leukocyte Esterase Trace H (Negative) Urine WBC (Auto) 6-10 H (0-5) /hpf U Epithel Cells (Auto) 3-5 H (0-2) /hpf 01/09/24 Range/Units 04:23 WBC 12.50 H (4.8-10.8) K/ul MPV 8.9 L (9.4-12.4) fL Neut # (Auto) 10.23 H (1.40-6.50) K/uL Lymph # (Auto) (1.20-3.40) K/uL VBG pH (7.36-7.41) VBG pCO2 (38-50) mmHg Anion Gap (3-11) BUN 34 H (6-23) mg/dl BUN/Creatinine Ratio 36.6 H (10-20) Glucose 115 H (70-99(Fasting)) mg/dl Lactate (0.4-2.0) mmol/L Calcium (8.6-10.3) mg/dl Ur Specific [place] (1.000-1.030) Urine Protein (Negative) Urine Ketones (Negative) Ur Leukocyte Esterase (Negative) Urine WBC (Auto) (0-5) /hpf U Epithel Cells (Auto) (0-2) /hpf Diagnostic Findings Abdomen/Pelvis CT 01/08/24 17:05 CT OF THE ABDOMEN AND PELVIS WITH CONTRAST CLINICAL HISTORY: Abdominal pain. COMPARISON STUDY: CT of the abdomen and pelvis August 17, 2023. TECHNIQUE: Following IV administration of 119 mL of Optiray, axial images of the abdomen and pelvis were obtained from the lung bases to the proximal femurs. Images were reviewed in the axial, sagittal, and coronal planes. IV contrast was administered without complication. Automated exposure control was utilized for the study. A dose lowering technique was utilized adhering to the principles of ALARA. FINDINGS: This exam is mildly compromised by motion artifact. No pneumatosis, free air or portal venous gas is present. There is mild circumferential wall thickening of the distal esophagus. Liver, spleen, adrenal glands, kidneys and pancreas are unremarkable. Is no biliary or pancreatic ductal dilatation. There is no hydronephrosis. There is no peripancreatic or pericholecystic infiltration. Interval left colon resection with formation of the descending colostomy and Natividad pouch is noted. There is no evidence for a bowel obstruction. The caliber and wall thickness of small and large bowel are normal. The bladder is distended. Right hip arthroplasty is incidentally noted. There is severe lumbar spine levoscoliosis. There is a small amount of fluid within the pelvis. Major vasculature is patent. There is no lymphadenopathy. There is a tiny 3.1 x 0.8 cm fluid collection within the left rectus abdominis on image 101 of 309. No additional fluid collections are present. IMPRESSION: 1. Status post left colon resection with descending colostomy formation of a Natividad pouch. No evidence for a bowel obstruction. No bowel wall thickening. 2. Tiny 3.1 x 0.8 cm fluid collection within the left rectus abdominis. This is probably postsurgical and may reflect a seroma or resolving hematoma and is of questionable significance. 3. Small amount of fluid within the pelvis. 4. Exam mildly compromised by motion artifact. ACT 112: Negative or not required by law. Electronically signed by: Anthony Oshea M.D. 01/08/2024 6:35 PM Chest X-Ray 01/08/24 17:05 XR chest 1V portable CLINICAL HISTORY: Sepsis COMPARISON STUDY: Chest radiograph December 25, 2023. FINDINGS: Lung volumes are normal. There is no consolidation. Minimal left basilar opacity favors atelectasis. There is no pneumothorax or pleural effusion. Cardiac size is normal. Mediastinal contours are normal. There is no evidence for pulmonary edema. Thoracolumbar spine scoliosis is incidentally noted. IMPRESSION: No acute cardiopulmonary findings. ACT 112: Negative or not required by law. Electronically signed by: Anthony Oshea M.D. 01/08/2024 5:35 PM Chest CTA 01/08/24 17:06 CT ANGIOGRAPHY OF THE CHEST, PULMONARY EMBOLUS PROTOCOL CLINICAL HISTORY: Shortness of breath. Evaluate for pulmonary embolus. COMPARISON STUDY: Chest radiograph December 25, 2023 and chest radiograph performed earlier today. TECHNIQUE: Following IV administration of 119 mL of Optiray, helical axial images of the chest were obtained utilizing the pulmonary embolus protocol. Maximal intensity projections and sagittal and coronal reformats were viewed on an independent 3D workstation. IV contrast was administered without complication. Automated exposure control was utilized for the study. A dose lowering technique was utilized adhering to the principles of ALARA. CT DOSE: 813.23 mGy.cm FINDINGS: No central or lobar pulmonary emboli are identified. This exam is significantly compromised by respiratory motion. The segmental and subsegmental pulmonary arteries are suboptimally assessed. Central pulmonary arteries are mildly dilated. Pectus excavatum deformity is present. There is no thoracic aortic dissection. The heart is mildly enlarged. There is no pericardial effusion. Central airways are patent. There is no pneumothorax or pleural effusion. Evaluation of the lungs is compromised given motion artifact. However, no consolidation is identified. There are no definite pulmonary nodules. Abdomen and pelvis CT will be reported separately. IMPRESSION: 1. Exam significantly compromised by respiratory motion artifact. No pulmonary emboli identified although segmental and subsegmental pulmonary arteries suboptimally assessed. 2. No consolidation to suggest pneumonia. 3. No acute intrathoracic findings identified. ACT 112: Negative or not required by law. Electronically signed by: Anthony Oshea M.D. 01/08/2024 6:27 PM PG Care Time/CCT Total # of Minutes Spent Total Time Spent with Patient: Total time spent is greater than 50% in coordination of care (as documented) at patient's floor/unit and/or counseling patient: Coding Level of Care Code 57010 SUB INP/OBS CARE 2/35MIN Diagnoses Open abdominal wall wound S31.109A Lactic acidemia E87.20 Chest pain R07.9 History of atrial fibrillation Z86.79 Status post colostomy Z93.3 History of bowel resection Z90.49
[2024-01-09] MEDS: PROMETHAZINE HCL INJ 25 MG/ML 1 ML VIAL IM STA (13:15)
[2024-01-09] MEDS: PROMETHAZINE 25 MG/51 ML BAG IV STA (13:46)
[2024-01-09] MEDS: DAPTOmycin 325 MG in SYRINGE 0 ML IV SCH (19:15)
[2024-01-09] MEDS: MAGNESIUM OXIDE 400 MG TAB PO SCH (20:40)
[2024-01-09] MEDS: PRAVASTATIN SOD 40 MG TAB PO SCH (20:40)
[2024-01-09] MEDS: AMITRIPTYLINE HCL 10 MG TAB PO SCH (20:40)
[2024-01-10 06:18] LABS: Basophils # (auto) 0.05 K/uL (0.00-0.20); Basophils % (auto) 0.4 %; Eosinophils # (auto) 0.01 K/uL (0.00-0.50); Eosinophils % (auto) 0.1 %; Hematocrit (blood only) 41.7 % (37.0-47.0); Hemoglobin 14.4 g/dl (12.0-16.0); Immature Granulocytes # (auto) 0.03 K/uL (0.01-0.20); Immature Granulocytes % (auto) 0.3 %; Lymphocytes # (auto) 1.14 K/uL (1.20-3.40); Mean Corpuscular Hgb Conc 34.5 g/dL (32.0-36.0); Mean Corpuscular Volume 92.7 fL (80.0-100.0); Mean Platelet Volume 9.3 fL (9.4-12.4); Monocytes # (auto) 0.37 K/uL (0.11-0.59); Monocytes % (auto) 3.2 %; Platelet Count 271 K/uL (130-400); RDW Coefficient of Variation 12.3 % (11.5-14.5); RDW Standard Deviation 42.4 fL (36.4-46.3)
--- NOTE | 2024-01-10 06:24 | Surgery Progress Note ---
Date of Service January 10, 2024 Assessment & Plan (1) History of bowel resection: Plan: Patient doing well, tolerating clears without N/V Imaging reviewed with attending surgeon. No indication for drainage at this time. Patient's diet may be advanced today from a surgical standpoint. Continue local wound care to midline incision Continue medical management per primary team (2) Open abdominal wall wound: Admission and Anticipated Discharge Date Admission Date: January 08, 2024 Subjective Patient states she feels well this morning Denies CP or SOB at this time States she has no abdominal pain and has been tolerating clears WBC 11.4 today Physical Exam Constitutional: WD/WN, vitals as above Respiratory: normal respiratory effort, lungs clear to auscultation Cardiovascular: RRR, no murmur, no edema Gastrointestinal (Abdomen): Abdomen is soft, nondistended, and nontender to palpation. No rebound, guarding or peritonitis. Ostomy to left side of abdomen with brown colored stool in bag. Midline incision with dressing in place, no overlying sing of infection of surrounding skin Results & Data Vital Signs (Past 12 Hours) Vital Signs Temp Pulse Pulse Resp BP Pulse Ox O2 Del Method 01/10/24 03:36 37.1 C 100 H 18 163/77 H 93 Room Air 01/09/24 23:20 37.0 C 100 H 18 158/81 H 93 Room Air 01/09/24 21:40 88 01/09/24 19:00 37.0 C 95 H 18 162/83 H 96 Room Air PG Care Time/CCT Total # of Minutes Spent Total Time Spent with Patient: Total time spent is greater than 50% in coordination of care (as documented) at patient's floor/unit and/or counseling patient: Coding Level of Care Code 18058 SUB INP/OBS CARE 04/16MIN Diagnoses History of bowel resection Z90.49 Open abdominal wall wound S31.109A
[2024-01-10 06:51] LABS: Albumin Globulin Ratio 1.2 (0.9-2); BUN Creatinine Ratio 29.2 (10-20); Bilirubin,Total 0.8 mg/dl (0.2-1.0); Calcium 8.7 mg/dl (8.6-10.3); Creatinine Clr Calc Pharmacy 57.7 ml/min; Globulin 3.4 gm/dl (2.5-4.0); Magnesium 1.7 mg/dl (1.7-2.4); Potassium 3.2 mmol/L (3.5-5.1); Total Protein 7.4 gm/dl (6.0-8.3)
[2024-01-10] MEDS: DOCUSATE SODIUM 100 MG CAP PO SCH (08:11)
[2024-01-10] MEDS: POTASSIUM CHLORIDE CRTAB 20 MEQ TABCR PO STA (08:11)
[2024-01-10] MEDS: PROMETHAZINE 12.5 MG/50.5 ML BAG IV PRN (11:50)
--- NOTE | 2024-01-10 11:50 | Hospitalist Progress Note ---
Date of Service January 10, 2024 Assessment & Plan (1) Open abdominal wall wound: (2) Lactic acidemia: (3) Chest pain: (4) History of atrial fibrillation: (5) Status post colostomy: (6) History of bowel resection: Plan Open abdominal wall wound- Wound cultures from 01/06/2024 have grown MSSA Continue daptomycin IV Surgery on board, no intervention planned Wound care involved Given MSSA from recent wound culture, may switch to cefazolin soon Syncope Vasovagal due to dehydration It was preceded by lightheadedness Patient has not been drinking enough fluids Encourage p.o. fluid intake as the patient is able to take p.o. And we are in a national shortage of IV fluids Advised patient to drink 1 L of p.o. fluid. Nurse aware of the plan Epigastric pain/status post left colon resection/colostomy/Natividad pouch- Fluid collection 3.1 x 0.8 cm in the left rectus abdominis Seroma versus hematoma Surgery recommended advancing diet. Start regular diet. Continue Zosyn 4.5 g IV every 8 hours Pantoprazole 40 mg IV daily Zofran 4 mg IV every 6 hours as needed Added Phenergan x 1 Initial lactate 2.1, with follow-up 1.4 Encourage p.o. 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 Spontaneously converted to sinus. This morning she is hypokalemic and dehydrated Replete potassium Chest pain/shortness of breath- Cardiac enzymes negative CT angiography PE protocol negative for PE Likely in association with abdominal process No chest pain or shortness of breath at this time Admission and Anticipated Discharge Date Admission Date: January 08, 2024 Subjective I was informed by the nurse earlier this morning that the patient had a syncopal episode. I went to the bedside immediately after I got the call. Patient was seen and examined at 8:50 AM. She had gotten up to go to the bathroom and her heart rate went up in the 150s. She finished up in the bathroom she did not feel it. She came back to sit in her bed when she started feeling dizzy and lightheaded. Then she fainted to a laying position in the bed. Woke up soon after. Now she feels well in general. Denies any symptoms at all. No dizziness. Vital signs are stable. On further questioning, she stated that she has not been drinking enough fluids lately. Review of Systems Review of Systems: All systems reviewed & are unremarkable except as noted in Subjective Physical Exam Physical Exam: General: Awake, conversant Heart: S1, S2/regular rate and rhythm, no murmur rubs or gallops Lungs: Clear to auscultation bilaterally. Normal effort Abdomen: Soft/nontender/nondistended. Colostomy bag in place. Dressing on previous incision site. No hepatosplenomegaly Extremities: No clubbing/cyanosis. No edema Behavior: Appropriate, cooperative Results & Data Results & Data Vital Signs (Past 12 Hours) Vital Signs Temp Pulse Pulse Resp BP Pulse Ox O2 Del Method 01/10/24 07:44 37.1 C 107 H 16 167/93 H 94 Room Air 01/10/24 07:00 84 01/10/24 03:36 37.1 C 100 H 18 163/77 H 93 Room Air PG Care Time/CCT Total # of Minutes Spent Total Time Spent with Patient: Total time spent is greater than 50% in coordination of care (as documented) at patient's floor/unit and/or counseling patient: Coding Level of Care Code 07203 SUB INP/OBS CARE 2/35MIN Diagnoses Open abdominal wall wound S31.109A Lactic acidemia E87.20 Chest pain R07.9 History of atrial fibrillation Z86.79 Status post colostomy Z93.3 History of bowel resection Z90.49
[2024-01-10] MEDS: NSS + 20MEQ KCL 20 MEQ/1,000 ML BAG IV SCH (15:22)
[2024-01-11 06:10] LABS: Hematocrit (blood only) 42.7 % (37.0-47.0); Hemoglobin 14.9 g/dl (12.0-16.0); Mean Corpuscular Hemoglobin 31.8 pg (25.0-34.0); Mean Corpuscular Hgb Conc 34.9 g/dL (32.0-36.0); Mean Platelet Volume 9.1 fL (9.4-12.4); Platelet Count 280 K/uL (130-400); RDW Coefficient of Variation 11.9 % (11.5-14.5); RDW Standard Deviation 39.6 fL (36.4-46.3); Red Blood Count 4.69 M/uL (4.20-5.40); White Blood Count 19.22 K/ul (4.8-10.8)
[2024-01-11 06:25] LABS: Albumin Globulin Ratio 1.2 (0.9-2); Albumin Level 4.1 gm/dl (3.4-5.0); BUN Creatinine Ratio 36.8 (10-20); Bilirubin,Total 0.8 mg/dl (0.2-1.0); Calcium 8.6 mg/dl (8.6-10.3); Globulin 3.3 gm/dl (2.5-4.0); Magnesium 1.9 mg/dl (1.7-2.4); Potassium 3.5 mmol/L (3.5-5.1); Total Protein 7.4 gm/dl (6.0-8.3)
[2024-01-11 06:29] LABS: Basophils # (auto) 0.03 K/uL (0.00-0.20); Basophils % (auto) 0.2 %; Immature Granulocytes # (auto) 0.07 K/uL (0.01-0.20); Immature Granulocytes % (auto) 0.4 %; Lymphocytes # (auto) 0.94 K/uL (1.20-3.40); Lymphocytes % (auto) 4.9 %; Monocytes # (auto) 0.64 K/uL (0.11-0.59); Monocytes % (auto) 3.3 %; Neutrophils # (auto) 17.54 K/uL (1.40-6.50); Neutrophils % (auto) 91.2 %
[2024-01-11] MEDS: HYDROmorphone INJ 1 MG/ML SYRINGE IV STA (09:58)
[2024-01-11] MEDS: HYDROmorphone INJ 1 MG/ML SYRINGE ONE (09:59)
[2024-01-11] MEDS: MoRPHine SULFATE 2 MG/ML CARP IV STA (09:59)
--- NOTE | 2024-01-11 10:06 | Surgery Progress Note ---
Date of Service January 11, 2024 Assessment & Plan (1) Status post colostomy: (2) Abdominal pain: Plan: currently severe. just finished oral contrast. for ct abd/pelvis this am. will give 1 mg dilaudid now to control pain. will follow up after CT Admission and Anticipated Discharge Date Admission Date: January 08, 2024 Subjective pt seen. family member at bedside. nurse at bedside. she is having significant lower abdominal pain. currently severe. wbc up to 19,000 Physical Exam Constitutional: WD/WN, vitals as above no acute distress and not ill appearing Eyes: PERRL, conjunctivae normal, anicteric sclerae EOM intact bilaterally ENMT: external ear and nose normal, oropharynx normal Ears: no hearing impairment Neck: trachea midline, no thyromegaly Respiratory: normal respiratory effort; no respiratory distress and does not use accessory muscles Chest (Breasts): Additional Comments: tachy Gastrointestinal (Abdomen): soft. diffuse lower abdominal tenderness. small amount of stool in stoma. Skin: no rashes, warm and dry Psychiatric: Orientation: alert, oriented x 3 and cooperative Results & Data Vital Signs (Past 12 Hours) Vital Signs Temp Pulse Pulse Resp BP BP Pulse Ox 01/11/24 09:26 112 H 01/11/24 07:45 37.0 C 111 H 19 164/88 H 94 01/11/24 04:00 37.1 C 101 H 18 167/85 H 93 01/11/24 00:00 108 H 01/10/24 23:20 36.8 C 87 18 169/81 H 94 O2 Del Method 01/11/24 09:26 01/11/24 07:45 Room Air 01/11/24 04:00 Room Air 01/11/24 00:00 01/10/24 23:20 Room Air PG Care Time/CCT Total # of Minutes Spent Total Time Spent with Patient: Total time spent is greater than 50% in coordination of care (as documented) at patient's floor/unit and/or counseling patient: Coding Level of Care Code 06673 SUB INP/OBS CARE 2/35MIN Diagnoses Status post colostomy Z93.3 Abdominal pain R10.9
[2024-01-11] MEDS: OPTIRAY 320 100ml IV ONE (10:17)
--- NOTE | 2024-01-11 10:56 | CT Scan Report ---
ABDOMEN AND PELVIS CT WITH IV AND ORAL CONTRAST CT DOSE: 652.66 mGy.cm HISTORY: Follow-up study in a patient with abdominal wall fluid collection abd abscess TECHNIQUE: Multiaxial CT images of the abdomen and pelvis were performed following the IV administrat ion of 94 cc of Optiray and oral contrast. A dose lowering technique was utilized adhering to the pr inciples of JANETTE. COMPARISON STUDY: 01/08/2024 FINDINGS: Cardiomegaly with coronary arterial calcifications. Left hemidiaphragmatic elevation with b ibasilar atelectasis versus scarring. There are additional patchy groundglass and nodular consolidati ve opacities of the basal left lower lobe which are new from prior. No free air. Unremarkable spleen, moderately atrophic pancreas and adrenal glands. Distended gallbladder. Unremark able liver. Patent portal vein. Heterogeneity of the kidneys with parenchymal lobulations and areas o f probable scarring. No hydronephrosis. Pelvic structures are suboptimally evaluated secondary to str eak artifact from the right hip arthroplasty. Atherosclerosis of the aorta and branch vessels. No lym phadenopathy. Stomach and distal esophagus are distended. Additionally, there is distention of several small bowel loops with transition to narrowing the abdominal lower quadrant. Additionally, there is twisting of t he left lower quadrant mesentery. Possible 2 focal transition points within the left lower quadrant a bdomen on image 212 series 3. Dilated small bowel loops measure up to 4.5 cm. Fluid-filled loops loop s of small bowel within the pelvis demonstrates circumferential wall thickening and are fluid-filled. Mild interval edema with trace abdominal and pelvic ascites. Prior left colon resection with descend ing colostomy and Ring's pouch. Previously noted 3 cm fluid collection within the rectus sheath is no longer identified. Levoscoliosi s of the thoracolumbar junction. IMPRESSION: 1. Interval development of a high-grade small bowel obstruction with transition point within the abdo oseas left lower quadrant, possibly secondary to an internal hernia. Additionally, there are findings suspicious for a closed loop obstruction. 2. Prior left colon resection with descending colostomy and Natividad pouch formation. 3. Previously noted 3 cm fluid collection within the left rectus sheath is no longer present. 4. No pneumoperitoneum. 5. Trace pelvic ascites. 6. Interval development of a mild left lower lobe bronchopneumonia. ACT 112: Negative or not required by law. The above report was generated using voice recognition software. It may contain grammatical, syntax o r spelling errors. Electronically signed by: Sarabjit Kimble M.D. 01/11/2024 10:55 AM
[2024-01-11] MEDS: ceFAZolin 2000MG 2,000 MG/15 ML SYR IV SCH (11:12)
[2024-01-11] MEDS: metroNIDAZOLE 500 MG/100 ML BAG IV SCH (11:12)
[2024-01-11] MEDS ORDERED: fentaNYL citrate PF 100 MCG/2 ML VIAL ONE (11:40)
[2024-01-11] MEDS ORDERED: PROPOFOL IV EMULSION 10 MG/ML 20 ML VIAL IV ONE (11:40)
[2024-01-11] MEDS ORDERED: ONDANSETRON INJ 2 MG/ML 2 ML VIAL ONE ×2 (11:40→14:10)
[2024-01-11] MEDS ORDERED: DEXAMETHASONE SOD INJ 4 MG/ML VIAL ONE (11:40)
[2024-01-11] MEDS ORDERED: LIDOCAINE 2% 2 ML VIAL/AMP(20MG/ML) INFIL ONE (11:40)
[2024-01-11] MEDS: LACTATED RINGER'S 1,000 ML IV SCH ×2 (12:10→16:20)
[2024-01-11] MEDS ORDERED: PROMETHAZINE HCL 6.25 MG in SODIUM CHLORIDE 0.9% 50 ML IV PRN (12:14)
[2024-01-11] MEDS ORDERED: ATROPINE SULFATE 0.1 MG/ML 10ML SYR IV PRN (12:14)
[2024-01-11] MEDS ORDERED: HYDROmorphone INJ 1 MG/ML SYRINGE IV PRN (12:14)
[2024-01-11] MEDS ORDERED: ePHEDrine sulfate 50 MG/ML AMP IV PRN (12:14)
--- NOTE | 2024-01-11 12:24 | Hospitalist Progress Note ---
Date of Service January 11, 2024 Assessment & Plan (1) Open abdominal wall wound: (2) Lactic acidemia: (3) Chest pain: (4) History of atrial fibrillation: (5) Status post colostomy: (6) History of bowel resection: Plan High-grade small bowel obstruction Today the patient is complaining of increased pain, was noted to be tachycardic and abdominal CT showed high-grade obstruction. General surgery involved. Decided on urgent OR. Patient was given a dose of IV Dilaudid for pain control Will follow postsurgery Continue Zofran, Phenergan for nausea Continue Protonix 40 mg IV daily Open abdominal wall wound- Wound cultures from 01/06/2024 have grown MSSA There was a fluid collection seen on admission 01/07 in the room left rectus abdominis that was thought to be seroma versus hematoma Surgery has been on board and they did not think it needed any intervention Patient was being treated with IV antibiotics. IV daptomycin and Zosyn has been switched to IV cefazolin and Flagyl since recent wound cultures grew MSSA Repeat CT today 01/10 showed that the fluid collection had resolved Plan to continue IV antibiotics for now given patient is requiring surgery for bowel obstruction Wound care involved Syncope Episode on 01/09 Vasovagal due to dehydration It was preceded by lightheadedness Patient has not been drinking enough fluids Patient was started on IV fluids on 01/09 Paroxysmal atrial fibrillation Noted in July 2023 in the setting of bowel perforation Subsequent 30-day radiographer cardiac catheterization showed no A-fib per PCP records On 01/08, the patient had a short burst of A-fib. Spontaneously converted to sinus. On 01/09 she was hypokalemic and dehydrated Potassium repleted Chest pain/shortness of breath- Cardiac enzymes negative CT angiography PE protocol negative for PE Likely in association with abdominal process No chest pain or shortness of breath at this time Admission and Anticipated Discharge Date Admission Date: January 08, 2024 Subjective Noted the patient's white count was significantly elevated and her heart rate was elevated as well. An abdominal CT was ordered. The patient was complaining of severe pain and thus a dose of 1 mg IV Dilaudid was ordered. CT abdomen showed high-grade small bowel obstruction. General surgery decided to take the patient to the OR. During my encounter, the nurse was informing the patient that she will be going to the OR [facility] because of the CAT scan findings. She had already received the Dilaudid and her pain was better controlled. The was at the bedside and had a lot of questions for the surgeon. The nurse was going to get the surgeon connected to the patient and her . Physical Exam Physical Exam: General: Awake, conversant. Anxious appearing. Heart: S1, S2/rapid rate regular rhythm, no murmur rubs or gallops Lungs: Clear to auscultation bilaterally. Normal effort Abdomen: Soft/nondistended. Tenderness to palpation diffusely. No guarding, rigidity. Colostomy bag in place. Dressing on previous incision site. Extremities: No clubbing/cyanosis. No edema Behavior: Appropriate, cooperative Results & Data Results & Data Vital Signs (Past 12 Hours) Vital Signs Temp Pulse Pulse Pulse Resp BP BP 01/11/24 11:56 36.8 C 127 H 18 161/87 H 01/11/24 11:47 36.6 C 125 H 16 158/82 H 01/11/24 09:26 112 H 01/11/24 07:45 37.0 C 111 H 19 164/88 H 01/11/24 04:00 37.1 C 101 H 18 167/85 H Pulse Ox O2 Del Method 01/11/24 11:56 92 Room Air 01/11/24 11:47 92 Room Air 01/11/24 09:26 01/11/24 07:45 94 Room Air 01/11/24 04:00 93 Room Air Laboratory Results Abnormal lab results 01/11/24 Range/Units 05:31 WBC 19.22 H (4.8-10.8) K/ul MPV 9.1 L (9.4-12.4) fL Neut # (Auto) 17.54 H (1.40-6.50) K/uL Lymph # (Auto) 0.94 L (1.20-3.40) K/uL Crosby # (Auto) 0.64 H (0.11-0.59) K/uL Anion Gap 12 H (3-11) BUN 25 H (6-23) mg/dl BUN/Creatinine Ratio 36.8 H (10-20) Glucose 151 H (70-99(Fasting)) mg/dl Diagnostic Findings Abdomen/Pelvis CT 01/11/24 07:[address] WITH IV AND ORAL CONTRAST CT DOSE: 652.66 mGy.cm HISTORY: Follow-up study in a patient with abdominal wall fluid collection abd abscess TECHNIQUE: Multiaxial CT images of the abdomen and pelvis were performed following the IV administration of 94 cc of Optiray and oral contrast. A dose lowering technique was utilized adhering to the principles of ALARA. COMPARISON STUDY: 01/08/2024 FINDINGS: Cardiomegaly with coronary arterial calcifications. Left hemidiaphragmatic elevation with bibasilar atelectasis versus scarring. There are additional patchy groundglass and nodular consolidative opacities of the basal left lower lobe which are new from prior. No free air. Unremarkable spleen, moderately atrophic pancreas and adrenal glands. Distended gallbladder. Unremarkable liver. Patent portal vein. Heterogeneity of the kidneys with parenchymal lobulations and areas of probable scarring. No hydronephrosis. Pelvic structures are suboptimally evaluated secondary to streak artifact from the right hip arthroplasty. Atherosclerosis of the aorta and branch vessels. No lymphadenopathy. Stomach and distal esophagus are distended. Additionally, there is distention of several small bowel loops with transition to narrowing the abdominal lower quadrant. Additionally, there is twisting of the left lower quadrant mesentery. Possible 2 focal transition points within the left lower quadrant abdomen on image 212 series 3. Dilated small bowel loops measure up to 4.5 cm. Fluid-filled loops loops of small bowel within the pelvis demonstrates circumferential wall thickening and are fluid-filled. Mild interval edema with trace abdominal and pelvic ascites. 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 Previously noted 3 cm fluid collection within the rectus sheath is no longer identified. Levoscoliosis of the thoracolumbar junction. IMPRESSION: 1. Interval development of a high-grade small bowel obstruction with transition point within the abdominal left lower quadrant, possibly secondary to an internal hernia. Additionally, there are findings suspicious for a closed loop obstruction. 2. Prior left colon resection with descending colostomy and Natividad pouch formation. 3. Previously noted 3 cm fluid collection within the left rectus sheath is no longer present. 4. No pneumoperitoneum. 5. Trace pelvic ascites. 6. Interval development of a mild left lower lobe bronchopneumonia. ACT 112: Negative or not required by law. The above report was generated using voice recognition software. It may contain grammatical, syntax or spelling errors. Electronically signed by: Sarabjit Kimble M.D. 01/11/2024 10:55 AM PG Care Time/CCT Total # of Minutes Spent Total Time Spent with Patient: Total time spent is greater than 50% in coordination of care (as documented) at patient's floor/unit and/or counseling patient: Coding Level of Care Code 23123 SUB INP/OBS CARE 2/35MIN Diagnoses Open abdominal wall wound S31.109A Lactic acidemia E87.20 Chest pain R07.9 History of atrial fibrillation Z86.79 Status post colostomy Z93.3 History of bowel resection Z90.49
[2024-01-11] MEDS ORDERED: PHENYLEPHRINE HCL 10 MG/ML VIAL ONE (13:17)
[2024-01-11] MEDS ORDERED: PHENYLEPHRINE 100MCG/ML 10ML SYR IV ONE (13:17)
[2024-01-11] MEDS ORDERED: ROCURONIUM BROMIDE 10 MG/ML 5 ML VIAL IV ONE ×2 (13:17→14:03)
[2024-01-11] MEDS ORDERED: SUCCINYLCHOLINE CHLORIDE 20 MG/ML 10 ML VIAL IV ONE (13:17)
[2024-01-11] MEDS ORDERED: ESMOLOL HCL INJ 10 MG/ML 10ML VIAL IV ONE (13:39)
[2024-01-11] MEDS ORDERED: SUGAMMADEX SODIUM 200 MG/2 ML VIAL IV ONE (14:10)
[2024-01-11] MEDS: BUPIVACAINE/EPINEPHRINE 0.5% MPF 1:200,000 30 ML VIAL ONE (14:19)
[2024-01-11] MEDS ORDERED: NALOXONE HCL 0.4 MG/1 ML VIAL/CARP IV PRN (14:51)
--- NOTE | 2024-01-11 14:56 | Operative Report ---
PG Post Operative Report Pre & Post Diagnosis Operation Date: 01/11/24 10:05 Pre-Op Diagnosis: High-grade small bowel obstruction Post-Op Diagnosis: High-grade/closed loop small bowel obstruction;enterocutaneous fistula;extensive adhesions I identified the patient and participated in the time-out.: Yes Procedure Operation Date: 01/11/24 10:05 Actual Procedures p Exploratory Laparotomy, Release of Small Bowel Obstruction, Take down of enterocutaneous fistula, closure of small bowel enterotomy, extensive enterolysis, Appendectomy (Not Applicable) - Matt Ferrell DO Surgeon Matt Ferrell DO Digital Analytics Manager erasmo bahena Estimated Blood Loss 100 Findings Consistent with Post-Op Diagnosis Specimens appendix Description of Procedure After informed consent was obtained the patient was taken to the operating room and placed in supine position. After successful intubation a Briones catheter was placed sterilely. An orogastric tube which would later be converted to a nasogastric tube was placed by anesthesia. We sterilely prepped and draped the entire abdomen with a Betadine solution. We took off her stoma appliance prior to prepping and toweled this off with sterile towels. I began by using her old midline incision with a 10 blade scalpel. We carried this down through the soft tissue using cautery. I stayed at the superior pole of the incision to try and enter at a spot above her prior incision because of expected adhesions. I elevated the peritoneum using hemostats and incised using Metzenbaum scissor. I was able to enter the the abdominal cavity without issue. There were small bowel adhesions to the prior midline incision. We had to use traction /countertraction and sharp scissor lysis to tediously take down these adhesions. When I got to the lower portion of her prior incision there was what appeared to be a small bowel enterocutaneous fistula which would explain the nonhealing nature of the prior incision. I had to purposely divide the small bowel to disconnect it from the abdominal wall using a sharp scissor. I then closed this enterotomy temporarily with 3-0 silk and would repair it formally at the end of the case. We continued to take down adhesions until we had the incision completely opened to both poles. Once in the abdomen there were a large amount of adhesions. I was able to identify a closed-loop obstruction in the left lower quadrant. There was a piece of small bowel adhesed to another piece of small bowel creating an internal hernia type of affect. The closed-loop obstruction was ischemic but there was no evidence of infarction. It was purple and massively dilated. Once I took down the interloop adhesion this freed the closed-loop obstruction. I continued for the majority of the case to use finger fractionation and sharp scissor lysis to take down adhesions involving small bowel /large bowel /omentum etc. Eventually we were able to delineate all of the anatomy. We had anesthesia remove the orogastric tube and place a nasogastric tube which I verified its position manually. We then ran the small bowel from the ligament of Treitz to the cecum multiple times. There was an area of serosal abrasion which I oversewed using 3-0 Monocryl and imbricated in Lembert fashion using 3-0 silk. There was also a small serosal abrasion at her colostomy site which I oversewed using 3-0 silk. Next we closed the enterotomy from the takedown of the fistula. I used 3-0 Monocryl in running fashion for a serosal/mucosal layer. Once this was completed I used 3-0 silk in Lembert fashion to oversew the serosal layer. Because of the severe adhesive nature of her abdomen and the rather hostile environment I decided to perform an appendectomy. A create a small window in the mesentery of the appendix at its base with the cecum. I transected the appendix using a VIVI brown cartridge linear stapler. I used a second linear brown cartridge stapler to take down the mesentery of the appendix. It was passed off and sent to pathology. A final look around the abdomen showed no other abnormalities. I excised the skin around the fistulous tract and discarded that. We freed up the fascia on both sides. I thoroughly irrigated the entire wound including the pelvis. There was adequate hemostasis. The fascia was closed using 0-looped PDS in running fashion. Soft tissue was irrigated and closed over a Kentrell drain with skin jimmy. A silver dressing was applied. A colostomy bag was also applied. The patient was awakened extubated and transferred to recovery in stable condition. My nurse practitioner was present for the entire case was instrumental in all aspects of the case, providing exposure, assisting with enterotomy closure and fistula takedown, wound closure and dressing placement. I attest to the content of the Intraoperative Record and any orders documented therein. Any exceptions are noted below.
--- NOTE | 2024-01-11 15:22 | Anesthesiology Progress Note ---
Date of Service January 11, 2024 Anesthesia Post Procedure Vital Signs Vital Signs: Temp Pulse Pulse Pulse Resp BP BP 01/11/24 15:05 118 H 17 129/77 01/11/24 14:55 120 H 17 129/81 01/11/24 14:45 117 H 19 134/76 01/11/24 14:38 97.5 F L 114 H 13 135/76 01/11/24 11:56 98.2 F 127 H 18 161/87 H 01/11/24 11:47 97.9 F 125 H 16 158/82 H 01/11/24 09:26 112 H 01/11/24 07:45 98.6 F 111 H 19 164/88 H 01/11/24 04:00 98.8 F 101 H 18 167/85 H 01/11/24 00:00 108 H 01/10/24 23:20 98.2 F 87 18 169/81 H 01/10/24 19:00 98.1 F 105 H 18 160/82 H 01/10/24 15:57 99 H 01/10/24 15:54 98.2 F 87 16 166/80 H Pulse Ox O2 Del Method O2 Flow Rate 01/11/24 15:05 97 Oxymask 4 01/11/24 14:55 97 Oxymask 9 01/11/24 14:45 97 Oxymask 9 01/11/24 14:38 94 Oxymask 9 01/11/24 11:56 92 Room Air 01/11/24 11:47 92 Room Air 01/11/24 09:26 01/11/24 07:45 94 Room Air 01/11/24 04:00 93 Room Air 01/11/24 00:00 01/10/24 23:20 94 Room Air 01/10/24 19:00 94 Room Air 01/10/24 15:57 01/10/24 15:54 95 Room Air Pain Intensity Chest: Pain Intensity: 5 Head: Pain Intensity: 5 Abdomen: Pain Intensity: 4 Transfer of Care Handoff Completed per policy Notes Mental Status: alert / awake / arousable and participated in evaluation Patient Amnestic to Procedure: Yes Nausea / Vomiting: adequately controlled Pain: adequately controlled Airway Patency, RR, SpO2: stable & adequate BP & HR: stable & adequate and see Notes below (patient remains tachcardic) Hydration State: stable & adequate Anesthetic Complications: no major complications apparent and Pt Satisfied with anesthetic care
[2024-01-11] MEDS: fentaNYL citrate PF 100 MCG/2 ML VIAL IV PRN (15:25)
--- NOTE | 2024-01-11 15:26 | XRay Report ---
XR chest 1V portable HISTORY: 73 years-old Female S/P Ex Lap, aspirated acute shortness of breath COMPARISON: CTA chest 01/08/2024 TECHNIQUE: AP view of the chest FINDINGS: Cardiomediastinal and hilar silhouettes are within normal limits. There are mild patchy bibasilar opa cities. No pneumothorax. Enteric tube courses into the stomach with distal tip outside the field-of-v iew. Moderate pneumoperitoneum. Bones appear grossly intact. IMPRESSION: 1. Subtle bibasilar opacities suggestive of a mild pneumonitis. 2. Pneumoperitoneum, likely related to the patient's recent abdominal surgery. 3. Distal tip of the enteric tube courses into the stomach. ACT 112: Negative or not required by law. The above report was generated using voice recognition software. It may contain grammatical, syntax o r spelling errors. Electronically signed by: Sarabjit Kimble M.D. 01/11/2024 3:24 PM
[2024-01-11] MEDS: fentaNYL citrate PF 100 MCG/2 ML VIAL ONE (15:39)
[2024-01-11] MEDS: SODIUM CHLORIDE 0.9% 1,000 ML IV SCH (16:19)
[2024-01-11] MEDS: HYDROmorphone PCA 30 MG/30 ML IV PRN (17:31)
[2024-01-12] MEDS: LACTATED RINGER'S 500 ML IV ONE ×2 (02:52→09:15)
--- NOTE | 2024-01-12 05:02 | Communication Note ---
Date of Service: January 12, 2024 I was notified by medical secretary the patient's blood pressure has been running somewhat low this evening. She is status post exploratory laparotomy with small bowel obstruction release on 01/11/2024. I visited with the patient at the bedside and she denies any chest pain, shortness of breath, lightheadedness, or dizziness. She does have expected tenderness of her abdomen from her recent surgery. Physical exam her blood pressure is 97/61 with a pulse of 117. Patient's abdomen has mild distention. She does have palpable radial pulses. Nursing staff notes the patient has made approximately 300 cc of urine over the past 7 hours which is approximately 40 cc/h. Medical service has ordered a 500 cc fluid bolus. In addition, they have reque sted a.m. laboratories to be drawn at this time. Of note, the patient continues to receive maintenance fluids at 125 cc/h. Will await a.m. labs with further recommendations to follow
[2024-01-12 05:28] LABS: Basophils # (auto) 0.02 K/uL (0.00-0.20); Basophils % (auto) 0.2 %; Eosinophils # (auto) 0.03 K/uL (0.00-0.50); Eosinophils % (auto) 0.3 %; Hematocrit (blood only) 34.1 % (37.0-47.0); Hemoglobin 11.7 g/dl (12.0-16.0); Immature Granulocytes # (auto) 0.02 K/uL (0.01-0.20); Immature Granulocytes % (auto) 0.2 %; Lymphocytes # (auto) 1.74 K/uL (1.20-3.40); Lymphocytes % (auto) 15.2 %; Mean Corpuscular Hemoglobin 32.3 pg (25.0-34.0); Mean Corpuscular Hgb Conc 34.3 g/dL (32.0-36.0); Mean Corpuscular Volume 94.2 fL (80.0-100.0); Mean Platelet Volume 9.2 fL (9.4-12.4); Monocytes # (auto) 0.37 K/uL (0.11-0.59); Monocytes % (auto) 3.2 %; Neutrophils # (auto) 9.27 K/uL (1.40-6.50); Neutrophils % (auto) 80.9 %; Platelet Count 199 K/uL (130-400); RDW Coefficient of Variation 12.4 % (11.5-14.5); RDW Standard Deviation 42.9 fL (36.4-46.3); Red Blood Count 3.62 M/uL (4.20-5.40); White Blood Count 11.45 K/ul (4.8-10.8)
[2024-01-12 05:32] LABS: Albumin Globulin Ratio 1.2 (0.9-2); Albumin Level 2.7 gm/dl (3.4-5.0); BUN Creatinine Ratio 39.5 (10-20); Bilirubin,Total 0.6 mg/dl (0.2-1.0); Calcium 7.2 mg/dl (8.6-10.3); Creatinine Clr Calc Pharmacy 55.1 ml/min; Globulin 2.2 gm/dl (2.5-4.0); Potassium 3.7 mmol/L (3.5-5.1); Total Protein 4.9 gm/dl (6.0-8.3)
--- NOTE | 2024-01-12 09:21 | Surgery Progress Note ---
Date of Service January 12, 2024 Assessment & Plan (1) Status post colostomy: (2) SBO (small bowel obstruction): Plan: POD 1 Exploratory Laparotomy, Release of Small Bowel Obstruction, Take down of enterocutaneous fistula, closure of small bowel enterotomy, extensive enterolysis, Appendectomy BP soft and HR elevation over night, was given 500ml bolus Notified by nurse this AM BP soft and HR 114, ordered another bolus of 500ml /LR Pt denies dizziness/ feeling lightheaded, CP WBC downtrending 11 (19) continue IV antibx H/H 11.7 will monitor Abd distended, colostomy without air /stool dressing CDI NGT 350/2350cc in 12/24 hr , keep to LIWS suspect pt will have post operative ileus given extent of surgery keep NPO as above. looks surprisingly well this afternoon. pain controlled. keep ngt another 24 hours. fluid boluses per medicine pt at extremely high risk for severe ileus.... will monitor closely Admission and Anticipated Discharge Date Admission Date: January 08, 2024 Subjective Pt denies feeling light headed , dizziness Remains in bed + abd pain/discomfort no n/v Review of Systems Constitutional: no fever and no chills Respiratory: no dyspnea Cardiovascular: no chest pain Gastrointestinal: + abdominal pain; no nausea and no vomit ing Physical Exam Constitutional: cooperative; no acute distress Respiratory: able to speak in complete sentences; no respiratory distress wearing o2 Cardiovascular: Rate/Rhythm: regular rate (68) Gastrointestinal (Abdomen): Inspection/Auscultation: + abdomen distended and + abdominal surgical incision Percussion/Palpation: + abdomen tender Results & Data Vital Signs (Past 12 Hours) Vital Signs Temp Pulse Pulse Resp BP Pulse Ox O2 Del Method 01/12/24 08:05 Nasal Cannula 01/12/24 07:57 98.1 F 68 18 89/49 L 96 Nasal Cannula 01/12/24 07:29 114 H 01/12/24 03:55 97.9 F 117 H 18 97/61 L 93 Oxymask 01/12/24 00:00 122 H 01/12/24 00:00 98.2 F 118 H 18 102/62 93 Oxymask O2 Flow Rate 01/12/24 08:05 3 01/12/24 07:57 3 01/12/24 07:29 01/12/24 03:55 3 01/12/24 00:00 01/12/24 00:00 Results CBC w Diff Results: RBC 3.62 M/uL (4.20-5.40) L 01/12/24 WBC 11.45 K/ul (4.8-10.8) H 01/12/24 Hgb 11.7 g/dl (12.0-16.0) L 01/12/24 Hct 34.1 % (37.0-47.0) L 01/12/24 MCV 94.2 fL (80.0-100.0) 01/12/24 MCH 32.3 pg (25.0-34.0) 01/12/24 MCHC 34.3 g/dL (32.0-36.0) 01/12/24 RDW Standard Deviation 42.9 fL (36.4-46.3) 01/12/24 RDW Coefficient of Variation 12.4 % (11.5-14.5) 01/12/24 Plt Count 199 K/uL (130-400) 01/12/24 MPV 9.2 fL (9.4-12.4) L 01/12/24 Nucleated Red Blood Cells % (auto) 0.0 % 07/06 Nucleated RBC Absolute Count (auto) 0.00 K/uL (0-0) 06/21 09/08 Neutrophils (%) (Auto) 80.9 % 01/12/24 Lymphocytes (%) (Auto) 15.2 % 01/12/24 Monocytes # (Auto) 0.37 K/uL (0.11-0.59) 01/12/24 Eosinophils # (Auto) 0.03 K/uL (0.00-0.50) 01/12/24 Immature Granulocyte % (Auto) 0.2 % 01/12/24 Neutrophils # (Auto) 9.27 K/uL (1.40-6.50) H 01/12/24 Lymphocytes # (Auto) 1.74 K/uL (1.20-3.40) 01/12/24 Monocytes # (Auto) 0.37 K/uL (0.11-0.59) 01/12/24 Eosinophils # (Auto) 0.03 K/uL (0.00-0.50) 01/12/24 Basophils # (Auto) 0.02 K/uL (0.00-0.20) 01/12/24 Immature Granulocyte # (Auto) 0.02 K/uL (0.01-0.20) 4 Polychromasia 1+ 08/18/23 Anisocytosis PRESENT 09/18/17 Toxic Granulation 3+ 08/20/23 Toxic Vacuolation 2+ 08/20/23 Dohle Bodies 1+ 08/18/23 Rouleau 1+ 08/17/23 PG Care Time/CCT Total # of Minutes Spent Total Time Spent with Patient: Total time spent is greater than 50% in coordination of care (as documented) at patient's floor/unit and/or counseling patient: Coding Level of Care Code 03461 Post Operative Follow-Up Diagnoses Status post colostomy Z93.3 SBO (small bowel obstruction) K56.609
--- NOTE | 2024-01-12 12:52 | Hospitalist Progress Note ---
Date of Service January 12, 2024 Assessment & Plan (1) Open abdominal wall wound: (2) Lactic acidemia: (3) Chest pain: (4) History of atrial fibrillation: (5) Status post colostomy: (6) History of bowel resection: Plan High-grade small bowel obstruction Patient underwent the left, and release of small bowel obstruction, enterolysis on 01/10 General Surgery on board NG tube in place Patient is n.p.o. Given the extensive the surgery, some degree of ileus is to be expected Continue IV antibiotics: Cefazolin and Flagyl. WBC count improved from 19,000- 11,000 Continue antiemetics Continue PPI IV Continue TURN OPERATOR pump per surgery Patient is on IV fluids. Ringer's lactate running at 125 cc an hour. Monitor urine output and renal function. Low urine output. Recheck BMP at 2 PM Postsurgical wound dehiscence of inferior abdominal incision/postsurgical seroma Wound cultures from 01/06/2024 have grown MSSA There was a fluid collection seen on admission 01/07 in the room left rectus abdominis that was thought to be seroma versus hematoma Surgery has been on board and they did not think it needed any intervention Patient was being treated with IV antibiotics. 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 Spontaneously converted to sinus. On 01/09 she was hypokalemic and dehydrated Potassium repleted Chest pain/shortness of breath- Cardiac enzymes negative CT angiography PE protocol negative for PE Likely in association with abdominal process No chest pain or shortness of breath at this time Admission and Anticipated Discharge Date Admission Date: January 08, 2024 Subjective Patient was seen and examined at 11:30 AM. She had abdominal surgery on 01/10. This morning, she was hypotensive and tachycardic. Fluid bolus was given. In response, her vital signs improved. The patient denies any dizziness or lightheadedness. Physical Exam Physical Exam: General: Awake, conversant. NG tube in place. Heart: S1, S2/rapid rate regular rhythm, no murmur rubs or gallops Lungs: Clear to auscultation bilaterally. Normal effort Abdomen: Belly is soft. Slightly distended. Tenderness to palpation diffusely. No guarding, rigidity. Colostomy bag in place. Abdominal dressing on Extremities: No clubbing/cyanosis. No edema Behavior: Appropriate, cooperative Results & Data Results & Data Vital Signs (Past 12 Hours) Vital Signs Temp Pulse Pulse Pulse Resp BP BP 01/12/24 11:36 37.2 C 106 H 16 94/59 L 01/12/24 09:47 114 H 16 103/59 L 01/12/24 08:05 01/12/24 07:57 36.7 C 68 18 89/49 L 01/12/24 07:29 114 H 01/12/24 03:55 36.6 C 117 H 18 97/61 L Pulse Ox O2 Del Method O2 Flow Rate 01/12/24 11:36 93 Nasal Cannula 3 01/12/24 09:47 01/12/24 08:05 Nasal Cannula 3 01/12/24 07:57 96 Nasal Cannula 3 01/12/24 07:29 01/12/24 03:55 93 Oxymask 3 Laboratory Results Abnormal lab results 01/12/24 Range/Units 04:49 WBC 11.45 H (4.8-10.8) K/ul RBC 3.62 L (4.20-5.40) M/uL Hgb 11.7 L D (12.0-16.0) g/dl Hct 34.1 L (37.0-47.0) % MPV 9.2 L (9.4-12.4) fL Neut # (Auto) 9.27 H (1.40-6.50) K/uL BUN 30 H (6-23) mg/dl BUN/Creatinine Ratio 39.5 H (10-20) Glucose 110 H (70-99(Fasting)) mg/dl Calcium 7.2 L (8.6-10.3) mg/dl Alkaline Phosphatase 28 L (34-104) U/L Total Protein 4.9 L D (6.0-8.3) gm/dl Albumin 2.7 L (3.4-5.0) gm/dl Globulin 2.2 L (2.5-4.0) gm/dl Diagnostic Findings Chest X-Ray 01/11/24 14:39 XR chest 1V portable HISTORY: 73 years-old Female S/P Ex Lap, aspirated acute shortness of breath COMPARISON: CTA chest 01/08/2024 TECHNIQUE: AP view of the chest FINDINGS: Cardiomediastinal and hilar silhouettes are within normal limits. There are mild patchy bibasilar opacities. No pneumothorax. Enteric tube courses into the stomach with distal tip outside the [id number]. Moderate pneumoperitoneum. Bones appear grossly intact. IMPRESSION: 1. Subtle bibasilar opacities suggestive of a mild pneumonitis. 2. Pneumoperitoneum, likely related to the patient's recent abdominal surgery. 3. Distal tip of the enteric tube courses into the stomach. ACT 112: Negative or not required by law. The above report was generated using voice recognition software. It may contain grammatical, syntax or spelling errors. Electronically signed by: Sarabjit Kimble M.D. 01/11/2024 3:24 PM PG Care Time/CCT Total # of Minutes Spent Total Time Spent with Patient: Total time spent is greater than 50% in coordination of care (as documented) at patient's floor/unit and/or counseling patient: Coding Level of Care Code 82674 SUB INP/OBS CARE 2/35MIN Diagnoses Open abdominal wall wound S31.109A Lactic acidemia E87.20 Chest pain R07.9 History of atrial fibrillation Z86.79 Status post colostomy Z93.3 History of bowel resection Z90.49
[2024-01-12 14:03] LABS: BUN Creatinine Ratio 39.1 (10-20); Creatinine Clr Calc Pharmacy 65.6 ml/min; Potassium 3.6 mmol/L (3.5-5.1)
[2024-01-12] MEDS: MoRPHine SULFATE 2 MG/ML CARP IV PRN (16:55)
[2024-01-12] MEDS: MoRPHine SULFATE 4 MG/ML 1 ML CARP\\VIAL IV PRN (20:12)
[2024-01-12] MEDS: ALBUT/IPRATROP 3MG/0.5MG NEB 3 ML VIAL NEB STA (22:52)
[2024-01-13] MEDS: ALBUMIN 25% 25 GM/100 ML VIAL IV SCH (01:44)
[2024-01-13 05:50] LABS: Basophils # (auto) 0.04 K/uL (0.00-0.20); Basophils % (auto) 0.4 %; Eosinophils # (auto) 0.27 K/uL (0.00-0.50); Eosinophils % (auto) 2.8 %; Hematocrit (blood only) 27.8 % (37.0-47.0); Hemoglobin 9.3 g/dl (12.0-16.0); Immature Granulocytes # (auto) 0.03 K/uL (0.01-0.20); Immature Granulocytes % (auto) 0.3 %; Lymphocytes # (auto) 0.73 K/uL (1.20-3.40); Lymphocytes % (auto) 7.5 %; Mean Corpuscular Hemoglobin 32.2 pg (25.0-34.0); Mean Corpuscular Hgb Conc 33.5 g/dL (32.0-36.0); Mean Corpuscular Volume 96.2 fL (80.0-100.0); Mean Platelet Volume 9.2 fL (9.4-12.4); Monocytes # (auto) 0.27 K/uL (0.11-0.59); Monocytes % (auto) 2.8 %; Neutrophils # (auto) 8.45 K/uL (1.40-6.50); Neutrophils % (auto) 86.2 %; Platelet Count 138 K/uL (130-400); RDW Coefficient of Variation 12.5 % (11.5-14.5); RDW Standard Deviation 43.5 fL (36.4-46.3); Red Blood Count 2.89 M/uL (4.20-5.40); White Blood Count 9.79 K/ul (4.8-10.8)
--- NOTE | 2024-01-13 05:52 | Electrocardiogram Report ---
Test Reason : Blood Pressure : */* mmHG Vent. 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
[2024-01-13 06:08] LABS: BUN Creatinine Ratio 33.3 (10-20); Calcium 7.4 mg/dl (8.6-10.3); Potassium 3.4 mmol/L (3.5-5.1)
--- NOTE | 2024-01-13 07:42 | XRay Report ---
SINGLE VIEW CHEST CLINICAL HISTORY: Productive cough FINDINGS: An AP, portable, upright chest radiograph is compared to study dated 01/11/2024 and correla laya with chest CT dated 01/08/2024. An enteric tube is unchanged in position. The heart is enlarged n oting atherosclerotic calcification of the thoracic aorta. Pulmonary vasculature is noncongested. Chr onic interstitial thickening is similar to previous. Increasing airspace opacities of the lung bases likely represent scarring/atelectasis. No pneumothorax is seen. The skeletal structures are osteopeni c. The bony thorax is grossly intact. Degenerative change and scoliosis is seen in the spine. Intrape ritoneal free air is again seen below the right hemidiaphragm. IMPRESSION: 1. Cardiomegaly without radiographic evidence of congestive failure. 2. Increasing opacities at the lung bases likely represents progressive atelectasis. Correlate clinic ally. 3. Intraperitoneal free air is again seen below the right hemidiaphragm. ACT 112: Negative or not required by law. Electronically signed by: Brad Baptiste M.D. 01/13/2024 7:41 AM
[2024-01-13] MEDS ORDERED: CHLORASEPTIC (PHENOL) 1.4% SOLN 180 ML BTL MT PRN (08:44)
--- NOTE | 2024-01-13 08:52 | Surgery Progress Note ---
Date of Service January 13, 2024 Assessment & Plan (1) Status post colostomy: Plan: POD#2 s/p ex lap, Release of Small Bowel Obstruction, Take down of enterocutaneous fistula, closure of small bowel enterotomy, extensive enterolysis, Appendectomy Labs show WBC 9.7, Hbg 9.3 (11.7), Cr 0.6 BPs improving with SBPs 90-100s, HRs 100s (atrial tachycardia noted overnight per dresser tender) No CP or SOB. Reports + cough improved with breathing tx + sore throat, likely 2/2 NGT, will add chloraseptic spray. 250cc noted Daily dressing changes to start today. otherwise wound intact with midline jimmy and cleo drain Continue NPO until ostomy starts to function. May need to consider PPN vs TPN Abdominal pain controlled on current regimen Encourage pulmonary toilet, IS, and OOB to chair and ambulating as able as above. looks surprisingly well. will d/c ngt. start clears pain controlled pt at high risk for ileus. will monitor closely (2) SBO (small bowel obstruction): Admission and Anticipated Discharge Date Admission Date: January 08, 2024 Subjective Patient said she was up coughing most of the night. She received a breathing tx and feels a bit better this AM. Reports sore throat. Abdominal pain tolerable and controlled. No nausea/vomiting. No lightheadedness/dizziness, CP or SOB. Physical Exam Physical Exam: awake/alert, no distress Respiratory: on supplemental O2 Gastrointestinal (Abdomen): Inspection/Auscultation: + abdomen distended (mild) and + abdominal surgical incision (midline incision clean and intact, scant drainage. cleo drain. no infxn) Percussion/Palpation: + abdomen tender (mild expected chema incisional discomfort to palpation) and abdomen soft + ostomy viable, no gas/stool in bag at this time Results & Data Vital Signs (Past 12 Hours) Vital Signs Temp Pulse Pulse Resp BP BP Pulse Ox 01/13/24 07:53 98.8 F 110 H 18 104/60 95 01/13/24 07:33 112 H 01/13/24 06:05 107 H 18 94 01/13/24 03:44 99.3 F 119 H 22 107/65 92 01/13/24 00:59 158 H 01/13/24 00:26 98.2 F 117 H 24 100/59 L 90 01/12/24 23:57 01/12/24 22:52 101 H 16 93 01/12/24 22:50 107 H 01/12/24 20:53 157 H O2 Del Method O2 Flow Rate 01/13/24 07:53 Nasal Cannula 3 01/13/24 07:33 01/13/24 06:05 Nasal Cannula 3 01/13/24 03:44 Nasal Cannula 3 01/13/24 00:59 01/13/24 00:26 Nasal Cannula 3 01/12/24 23:57 Nasal Cannula 3 01/12/24 22:52 Nasal Cannula 2 01/12/24 22:50 01/12/24 20:53 PG Care Time/CCT Total # of Minutes Spent Total Time Spent with Patient: Total time spent is greater than 50% in coordination of care (as documented) at patient's floor/unit and/or counseling patient: Coding Level of Care Code 76089 Post Operative Follow-Up Diagnoses Status post colostomy Z93.3 SBO (small bowel obstruction) K56.609
[2024-01-13 09:04] LABS: Magnesium 1.7 mg/dl (1.7-2.4)
[2024-01-13] MEDS: POTASSIUM CHLORIDE 40 MEQ in SODIUM CHLORIDE 0.9% 1,000 ML IV SCH (10:03)
--- NOTE | 2024-01-13 12:01 | Hospitalist Progress Note ---
Date of Service January 13, 2024 Assessment & Plan (1) Open abdominal wall wound: (2) Lactic acidemia: (3) Chest pain: (4) History of atrial fibrillation: (5) Status post colostomy: (6) History of bowel resection: Plan High-grade small bowel obstruction Patient underwent exploratory laparotomy, release of small bowel obstruction, enterolysis on 01/10 General Surgery on board NG tube in place Patient is n.p.o.. Surgery advanced to clear liquids. Will continue the IV fluids until clear fluids tolerated Given the extensive the surgery, some degree of ileus is to be expected Continue IV antibiotics: Cefazolin and Flagyl. WBC count improved from 19,000- 9000 Continue antiemetics Continue PPI IV Continue PRESS OPERATOR [employer] pump per surgery Patient is on IV fluids. Good renal function Postsurgical wound dehiscence of inferior abdominal incision/postsurgical seroma Wound cultures from 01/06/2024 have grown MSSA There was a fluid collection seen on admission 01/07 in the room left rectus abdominis that was thought to be seroma versus hematoma Surgery has been on board and they did not think it needed any intervention Patient was being treated with IV antibiotics. 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 Spontaneously converted to sinus. On 01/09 she was hypokalemic and dehydrated Potassium repleted again 01/12. Magnesium repleted Chest pain/shortness of breath- Cardiac enzymes negative CT angiography PE protocol negative for PE Likely in association with abdominal process No chest pain or shortness of breath at this time Admission and Anticipated Discharge Date Admission Date: January 08, 2024 Subjective Patient was seen and examined at 10 AM along with the nurse. She was complaining of some sore throat for which a Chloraseptic spray has been ordered by the surgery team. at the bedside. Review of Systems Review of Systems: All systems reviewed & are unremarkable except as noted in Subjective Physical Exam Physical Exam: General: Awake, conversant. NG tube in place. Heart: S1, S2/rapid rate regular rhythm, no murmur rubs or gallops Lungs: Clear to auscultation bilaterally. Normal effort Abdomen: Belly is soft. Mild tenderness to palpation diffusely. No guarding, rigidity. Colostomy bag in place. Abdominal dressing on Extremities: No clubbing/cyanosis. No edema Behavior: Appropriate, cooperative Results & Data Results & Data Vital Signs (Past 12 Hours) Vital Signs Temp Pulse Pulse Resp BP BP Pulse Ox 01/13/24 11:50 36.7 C 101 H 18 115/67 92 01/13/24 07:53 37.1 C 110 H 18 104/60 95 01/13/24 07:33 112 H 01/13/24 06:05 107 H 18 94 01/13/24 03:44 37.4 C 119 H 22 107/65 92 01/13/24 00:59 158 H 01/13/24 00:26 36.8 C 117 H 24 100/59 L 90 O2 Del Method O2 Flow Rate 01/13/24 11:50 Nasal Cannula 3 01/13/24 07:53 Nasal Cannula 3 01/13/24 07:33 01/13/24 06:05 Nasal Cannula 3 01/13/24 03:44 Nasal Cannula 3 01/13/24 00:59 01/13/24 00:26 Nasal Cannula 3 Laboratory Results Abnormal lab results 01/12/24 01/13/24 Range/Units 13:10 05:34 RBC 2.89 L (4.20-5.40) M/uL Hgb 9.3 L (12.0-16.0) g/dl Hct 27.8 L (37.0-47.0) % MPV 9.2 L (9.4-12.4) fL Neut # (Auto) 8.45 H (1.40-6.50) K/uL Lymph # (Auto) 0.73 L (1.20-3.40) K/uL Potassium 3.4 L (3.5-5.1) mmol/L BUN 25 H (6-23) mg/dl BUN/Creatinine Ratio 39.1 H 33.3 H (10-20) Calcium 7.0 L 7.4 L (8.6-10.3) mg/dl Diagnostic Findings Chest X-Ray 01/12/24 22:32 SINGLE VIEW CHEST CLINICAL HISTORY: Productive cough FINDINGS: An AP, portable, upright chest radiograph is compared to study dated 01/11/2024 and correlated with chest CT dated 01/08/2024. An enteric tube is unchanged in position. The heart is enlarged noting atherosclerotic calcification of the thoracic aorta. Pulmonary vasculature is noncongested. Chronic interstitial thickening is similar to previous. Increasing airspace opacities of the lung bases likely represent scarring/atelectasis. No pneumothorax is seen. The skeletal structures are osteopenic. The bony thorax is grossly intact. Degenerative change and scoliosis is seen in the spine. Intraperitoneal free air is again seen below the right hemidiaphragm. IMPRESSION: 1. Cardiomegaly without radiographic evidence of congestive failure. 2. Increasing opacities at the lung bases likely represents progressive atelectasis. Correlate clinically. 3. Intraperitoneal free air is again seen below the right hemidiaphragm. ACT 112: Negative or not required by law. Electronically signed by: Brad Baptiste M.D. 01/13/2024 7:41 AM PG Care Time/CCT Total # of Minutes Spent Total Time Spent with Patient: Total time spent is greater than 50% in coordination of care (as documented) at patient's floor/unit and/or counseling patient: Coding Level of Care Code 56428 SUB INP/OBS CARE 2/35MIN Diagnoses Open abdominal wall wound S31.109A Lactic acidemia E87.20 Chest pain R07.9 History of atrial fibrillation Z86.79 Status post colostomy Z93.3 History of bowel resection Z90.49
[2024-01-13] MEDS: MAGNESIUM SULFATE / D5W 1 GM/100 ML BAG IV SCH (12:58)
[2024-01-14 05:57] LABS: Basophils # (auto) 0.02 K/uL (0.00-0.20); Basophils % (auto) 0.2 %; Eosinophils # (auto) 0.17 K/uL (0.00-0.50); Eosinophils % (auto) 1.6 %; Hematocrit (blood only) 30.1 % (37.0-47.0); Hemoglobin 10.4 g/dl (12.0-16.0); Immature Granulocytes # (auto) 0.05 K/uL (0.01-0.20); Immature Granulocytes % (auto) 0.5 %; Lymphocytes # (auto) 0.61 K/uL (1.20-3.40); Lymphocytes % (auto) 5.8 %; Mean Corpuscular Hemoglobin 32.6 pg (25.0-34.0); Mean Corpuscular Hgb Conc 34.6 g/dL (32.0-36.0); Mean Corpuscular Volume 94.4 fL (80.0-100.0); Mean Platelet Volume 9.2 fL (9.4-12.4); Monocytes # (auto) 0.28 K/uL (0.11-0.59); Monocytes % (auto) 2.7 %; Neutrophils # (auto) 9.32 K/uL (1.40-6.50); Neutrophils % (auto) 89.2 %; Platelet Count 166 K/uL (130-400); RDW Standard Deviation 42.1 fL (36.4-46.3); Red Blood Count 3.19 M/uL (4.20-5.40); White Blood Count 10.45 K/ul (4.8-10.8)
[2024-01-14 06:10] LABS: BUN Creatinine Ratio 28.9 (10-20); Calcium 7.5 mg/dl (8.6-10.3); Creatinine Clr Calc Pharmacy 93.3 ml/min; Magnesium 1.6 mg/dl (1.7-2.4)
--- NOTE | 2024-01-14 07:36 | Surgery Progress Note ---
Date of Service January 14, 2024 Assessment & Plan (1) SBO (small bowel obstruction): Plan: POD 3 Dressing changed bloody drainage, cleo in place, jimmy, clean 4x4 and abd pad . Nursing to change BID or PRN if saturated VSS, low grade temps 99.7 denies feeling fever or chills abd pain , medication helps +air and brown liquid in colostomy bag Keep on clears today OOB to chair WBC wnl , H/h stable as above. doing well. still at high risk for ileus--keep on just clears for now monitor fever (2) Hypokalemia: Plan: ordered repletion (3) Hypomagnesemia: Plan: ordered repletion Admission and Anticipated Discharge Date Admission Date: January 08, 2024 Subjective some abd discomfort , hasn't had pain medication in while no n/v +gas and small amt liquid brown in bag Review of Systems Constitutional: no fever (documented low grade) and no chills Respiratory: no dyspnea Cardiovascular: no chest pain Gastrointestinal: + abdominal pain; no nausea and no vomit ing Physical Exam Constitutional: cooperative; no acute distress Respiratory: normal respiratory effort; no respiratory distress Cardiovascular: Rate/Rhythm: + tachycardic (98) Gastrointestinal (Abdomen): Inspection/Auscultation: + abdomen distended and + abdominal surgical incision Percussion/Palpation: + abdomen tender and abdomen soft Results & Data Vital Signs (Past 12 Hours) Vital Signs Temp Pulse Pulse Resp BP Pulse Ox O2 Del Method 01/14/24 03:40 99.7 F H 98 H 20 134/74 93 Nasal Cannula 01/14/24 01:24 88 01/14/24 00:26 99.5 F 97 H 20 145/69 H 92 Nasal Cannula 01/13/24 22:03 Nasal Cannula 01/13/24 19:54 99.7 F H 106 H 20 126/72 94 Nasal Cannula O2 Flow Rate 01/14/24 03:40 3 01/14/24 01:24 01/14/24 00:26 3 01/13/24 22:03 3 01/13/24 19:54 2 Results CBC w Diff Results: RBC 3.19 M/uL (4.20-5.40) L 01/14/24 WBC 10.45 K/ul (4.8-10.8) 01/14/24 Hgb 10.4 g/dl (12.0-16.0) L 01/14/24 Hct 30.1 % (37.0-47.0) L 01/14/24 MCV 94.4 fL (80.0-100.0) 01/14/24 MCH 32.6 pg (25.0-34.0) 01/14/24 MCHC 34.6 g/dL (32.0-36.0) 01/14/24 RDW Standard Deviation 42.1 fL (36.4-46.3) 01/14/24 RDW Coefficient of Variation 12.0 % (11.5-14.5) 01/14/24 Plt Count 166 K/uL (130-400) 01/14/24 MPV 9.2 fL (9.4-12.4) L 01/14/24 Nucleated Red Blood Cells % (auto) 0.0 % 07/06 Nucleated RBC Absolute Count (auto) 0.00 K/uL (0-0) 06/21 09/08 Neutrophils (%) (Auto) 89.2 % 01/14/24 Lymphocytes (%) (Auto) 5.8 % 01/14/24 Monocytes # (Auto) 0.28 K/uL (0.11-0.59) 01/14/24 Eosinophils # (Auto) 0.17 K/uL (0.00-0.50) 01/14/24 Immature Granulocyte % (Auto) 0.5 % 01/14/24 Neutrophils # (Auto) 9.32 K/uL (1.40-6.50) H 01/14/24 Lymphocytes # (Auto) 0.61 K/uL (1.20-3.40) L 01/14/24 Monocytes # (Auto) 0.28 K/uL (0.11-0.59) 01/14/24 Eosinophils # (Auto) 0.17 K/uL (0.00-0.50) 01/14/24 Basophils # (Auto) 0.02 K/uL (0.00-0.20) 01/14/24 Immature Granulocyte # (Auto) 0.05 K/uL (0.01-0.20) 4 Polychromasia 1+ 08/18/23 Anisocytosis PRESENT 09/18/17 Toxic Granulation 3+ 08/20/23 Toxic Vacuolation 2+ 08/20/23 Dohle Bodies 1+ 08/18/23 Rouleau 1+ 08/17/23 PG Care Time/CCT Total # of Minutes Spent Total Time Spent with Patient: Total time spent is greater than 50% in coordination of care (as documented) at patient's floor/unit and/or counseling patient: Coding Level of Care Code 67646 Post Operative Follow-Up Diagnoses SBO (small bowel obstruction) K56.609 Hypokalemia E87.6 Hypomagnesemia E83.42
[2024-01-14] MEDS: POTASSIUM CHLORIDE / WTR 10 MEQ/100 ML PLCT IV SCH ×2 (08:01→23:58)
[2024-01-14] MEDS: MAGNESIUM SULFATE / D5W 1 GM/100 ML BAG IV SCH ×2 (08:02→23:57)
--- NOTE | 2024-01-14 12:11 | Hospitalist Progress Note ---
Date of Service January 14, 2024 Assessment & Plan (1) Open abdominal wall wound: (2) Lactic acidemia: (3) Chest pain: (4) History of atrial fibrillation: (5) Status post colostomy: (6) History of bowel resection: Plan High-grade small bowel obstruction Patient underwent exploratory laparotomy, release of small bowel obstruction, enterolysis on 01/10 General Surgery on board NG tube removed 01/12 Patient is on a clear liquid diet Recovery progressing Given the extensive the surgery, some degree of ileus is to be expected Continue IV antibiotics: Cefazolin and Flagyl. Leukocytosis resolved Continue antiemetics Continue PPI IV Continue [employer] pump per surgery Patient is on IV fluids. Good renal function Postsurgical wound dehiscence of inferior abdominal incision/postsurgical seroma Wound cultures from 01/06/2024 have grown MSSA There was a fluid collection seen on admission 01/07 in the room left rectus abdominis that was thought to be seroma versus hematoma Surgery has been on board and they did not think it needed any intervention Patient was being treated with IV antibiotics. IV daptomycin and Zosyn has been switched to IV cefazolin and Flagyl since recent wound cultures grew MSSA Repeat CT 01/10 showed that the fluid collection had resolved Plan to continue IV antibiotics for now given abdominal surgery Wound care involved Syncope Episode on 01/09 Vasovagal due to dehydration and bowel obstruction It was preceded by lightheadedness She was treated with IV fluids Paroxysmal atrial fibrillation Noted in July 2023 in the setting of bowel perforation Subsequent 30-day potline monitor showed no A-fib per PCP records On 01/08, the patient had a short burst of A-fib. Spontaneously converted to sinus. On 01/09 she was hypokalemic and dehydrated Potassium repleted again 01/12. Magnesium repleted Chest pain/shortness of breath- Cardiac enzymes negative CT angiography PE protocol negative for PE Likely in association with abdominal process No chest pain or shortness of breath at this time Admission and Anticipated Discharge Date Admission Date: January 08, 2024 Subjective Patient was seen and examined at 10 AM. She is on a clear liquid diet and is happy that the NG tube has been pulled. She is looking forward to getting out of bed today. Review of Systems Review of Systems: All systems reviewed & are unremarkable except as noted in Subjective Physical Exam Physical Exam: General: Awake, conversant. NG tube removed! Heart: S1, S2/rapid rate regular rhythm, no murmur rubs or gallops Lungs: Clear to auscultation bilaterally. Normal effort Abdomen: Belly is soft. Nontender, nondistended. Colostomy bag in place. Abdominal dressing on Extremities: No clubbing/cyanosis. No edema Behavior: Appropriate, cooperative Results & Data Results & Data Vital Signs (Past 12 Hours) Vital Signs Temp Pulse Pulse Resp BP Pulse Ox O2 Del Method 01/14/24 11:47 38.1 C H 110 H 20 123/61 92 Room Air 01/14/24 08:00 Nasal Cannula 01/14/24 08:00 37.5 C 94 H 20 147/68 H 94 Nasal Cannula 01/14/24 07:35 100 H 01/14/24 03:40 37.6 C H 98 H 20 134/74 93 Nasal Cannula 01/14/24 01:24 88 01/14/24 00:26 37.5 C 97 H 20 145/69 H 92 Nasal Cannula O2 Flow Rate 01/14/24 11:47 01/14/24 08:00 3 01/14/24 08:00 3 01/14/24 07:35 01/14/24 03:40 3 01/14/24 01:24 01/14/24 00:26 3 Laboratory Results Abnormal lab results 01/14/24 Range/Units 05:27 RBC 3.19 L (4.20-5.40) M/uL Hgb 10.4 L (12.0-16.0) g/dl Hct 30.1 L (37.0-47.0) % MPV 9.2 L (9.4-12.4) fL Neut # (Auto) 9.32 H (1.40-6.50) K/uL Lymph # (Auto) 0.61 L (1.20-3.40) K/uL Sodium 133 L (136-145) mmol/L Potassium 3.0 L (3.5-5.1) mmol/L Creatinine 0.45 L (0.6-1.2) mg/dl BUN/Creatinine Ratio 28.9 H (10-20) Glucose 109 H (70-99(Fasting)) mg/dl Calcium 7.5 L (8.6-10.3) mg/dl Magnesium 1.6 L (1.7-2.4) mg/dl PG Care Time/CCT Total # of Minutes Spent Total Time Spent with Patient: Total time spent is greater than 50% in coordination of care (as documented) at patient's floor/unit and/or counseling patient: Coding Level of Care Code 52481 SUB INP/OBS CARE 2/35MIN Diagnoses Open abdominal wall wound S31.109A Lactic acidemia E87.20 Chest pain R07.9 History of atrial fibrillation Z86.79 Status post colostomy Z93.3 History of bowel resection Z90.49
[2024-01-14] MEDS: SODIUM CHLORIDE 0.9% 500 ML IV ONE (23:54)
[2024-01-15] MEDS: ACETAMINOPHEN 325 MG TAB PO PRN (08:05)
[2024-01-15 09:20] LABS: Basophils # (auto) 0.03 K/uL (0.00-0.20); Basophils % (auto) 0.3 %; Eosinophils % (auto) 1.7 %; Hematocrit (blood only) 32.3 % (37.0-47.0); Immature Granulocytes # (auto) 0.08 K/uL (0.01-0.20); Immature Granulocytes % (auto) 0.7 %; Lymphocytes # (auto) 0.74 K/uL (1.20-3.40); Lymphocytes % (auto) 6.3 %; Mean Corpuscular Hemoglobin 31.5 pg (25.0-34.0); Mean Corpuscular Hgb Conc 34.1 g/dL (32.0-36.0); Mean Corpuscular Volume 92.6 fL (80.0-100.0); Monocytes # (auto) 0.37 K/uL (0.11-0.59); Monocytes % (auto) 3.2 %; Neutrophils # (auto) 10.28 K/uL (1.40-6.50); Neutrophils % (auto) 87.8 %; Platelet Count 243 K/uL (130-400); RDW Coefficient of Variation 12.2 % (11.5-14.5); RDW Standard Deviation 41.1 fL (36.4-46.3); Red Blood Count 3.49 M/uL (4.20-5.40)
[2024-01-15 09:29] LABS: BUN Creatinine Ratio 20.4 (10-20); Calcium 7.4 mg/dl (8.6-10.3); Creatinine Clr Calc Pharmacy 85.7 ml/min; Magnesium 1.8 mg/dl (1.7-2.4); Potassium 3.4 mmol/L (3.5-5.1)
--- NOTE | 2024-01-15 10:37 | Surgery Progress Note ---
Date of Service January 15, 2024 Assessment & Plan (1) SBO (small bowel obstruction): Plan: pod 3 doing ok so far +stoma function. wants to try full liquids monitor fever/wbc increase activity. PT consult Admission and Anticipated Discharge Date Admission Date: January 08, 2024 Subjective pt seen. some incisional pain but overall feeling ok. +stoma ouptut. santos clears. no nausea. Physical Exam Physical Exam: alert. in chair at bedside nad abd: soft. expected tenderness Results & Data Vital Signs (Past 12 Hours) Vital Signs Temp Pulse Pulse Resp BP Pulse Ox O2 Del Method 01/15/24 09:17 37.1 C 92 Room Air 01/15/24 07:55 Room Air 01/15/24 07:37 37.9 C H 108 H 15 118/65 90 Room Air 01/15/24 07:29 114 H 01/15/24 03:29 37.5 C 110 H 24 105/65 92 Room Air 01/15/24 01:07 146 H 01/15/24 00:08 37.0 C 112 H 20 112/68 92 Room Air PG Care Time/CCT Total # of Minutes Spent Total Time Spent with Patient: Total time spent is greater than 50% in coordination of care (as documented) at patient's floor/unit and/or counseling patient: Coding Level of Care Code 90544 Post Operative Follow-Up Diagnoses SBO (small bowel obstruction) K56.609
--- NOTE | 2024-01-15 13:16 | Hospitalist Progress Note ---
Date of Service January 15, 2024 Assessment & Plan (1) Open abdominal wall wound: (2) Lactic acidemia: (3) Chest pain: (4) History of atrial fibrillation: (5) Status post colostomy: (6) History of bowel resection: Plan High-grade small bowel obstruction Patient underwent exploratory laparotomy, release of small bowel obstruction, enterolysis on 01/10 General Surgery on board NG tube removed 01/12 Diet has been advanced to a full liquid diet by the surgery team today Recovery progressing Continue IV antibiotics: Cefazolin and Flagyl. Continue antiemetics Continue PPI IV Continue analgesics per surgery IV fluids discontinued Severe protein calorie malnutrition Noted Postsurgical wound dehiscence of inferior abdominal incision/postsurgical seroma Wound cultures from 01/06/2024 have grown MSSA There was a fluid collection seen on admission 01/07 in the room left rectus abdominis that was thought to be seroma versus hematoma Surgery has been on board and they did not think it needed any intervention Patient was being treated with IV antibiotics. 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 Spontaneously converted to sinus. On 01/09 she was hypokalemic and dehydrated Overnight on 01/13, patient had another episode of paroxysmal atrial fibrillation. Again converted to sinus rhythm after electrolytes repleted and IV fluids given. Potassium and magnesium was repleted. Chest pain/shortness of breath- Cardiac enzymes negative CT angiography PE protocol negative for PE Likely in association with abdominal process. Resolved. No chest pain or shortness of breath at this time Admission and Anticipated Discharge Date Admission Date: January 08, 2024 Subjective Patient was seen and examined at 10 AM. She was sitting at the bedside chair. She says she feels well overall. She complains of a little bit of pain at the surgical site. Review of Systems Review of Systems: All systems reviewed & are unremarkable except as noted in Subjective Physical Exam Physical Exam: General: Awake, conversant. Heart: S1, S2/rapid rate regular rhythm, no murmur rubs or gallops Lungs: Clear to auscultation bilaterally. Normal effort Abdomen: Belly is soft. Nontender, nondistended. Colostomy bag in place. Abdominal dressing on Extremities: No clubbing/cyanosis. No edema Behavior: Appropriate, cooperative Results & Data Results & Data Vital Signs (Past 12 Hours) Vital Signs Temp Pulse Pulse Resp BP BP Pulse Ox 01/15/24 11:47 36.6 C 96 H 18 97/63 L 92 01/15/24 09:17 37.1 C 92 01/15/24 07:55 01/15/24 07:37 37.9 C H 108 H 15 118/65 90 01/15/24 07:29 114 H 01/15/24 03:29 37.5 C 110 H 24 105/65 92 O2 Del Method 01/15/24 11:47 Room Air 01/15/24 09:17 Room Air 01/15/24 07:55 Room Air 01/15/24 07:37 Room Air 01/15/24 07:29 01/15/24 03:29 Room Air Laboratory Results Abnormal lab results 01/15/24 Range/Units 08:36 WBC 11.70 H (4.8-10.8) K/ul RBC 3.49 L (4.20-5.40) M/uL Hgb 11.0 L (12.0-16.0) g/dl Hct 32.3 L (37.0-47.0) % MPV 9.0 L (9.4-12.4) fL Neut # (Auto) 10.28 H (1.40-6.50) K/uL Lymph # (Auto) 0.74 L (1.20-3.40) K/uL Sodium 133 L (136-145) mmol/L Potassium 3.4 L (3.5-5.1) mmol/L Creatinine 0.49 L (0.6-1.2) mg/dl BUN/Creatinine Ratio 20.4 H (10-20) Glucose 115 H (70-99(Fasting)) mg/dl Calcium 7.4 L (8.6-10.3) mg/dl PG Care Time/CCT Total # of Minutes Spent Total Time Spent with Patient: Total time spent is greater than 50% in coordination of care (as documented) at patient's floor/unit and/or counseling patient: Coding Level of Care Code 44896 SUB INP/OBS CARE 2/35MIN Diagnoses Open abdominal wall wound S31.109A Lactic acidemia E87.20 Chest pain R07.9 History of atrial fibrillation Z86.79 Status post colostomy Z93.3 History of bowel resection Z90.49
[2024-01-15] MEDS: POTASSIUM CHLORIDE 20 MEQ/15 ML UDC PO STA (13:30)
[2024-01-15] MEDS: MAGNESIUM OXIDE 400 MG TAB PO SCH (20:03)
--- NOTE | 2024-01-15 20:27 | Electrocardiogram Report ---
Test Reason : Blood Pressure : */* mmHG Vent. 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
[2024-01-16 08:38] LABS: Basophils % (auto) 0.4 %; Eosinophils % (auto) 1.4 %; Hematocrit (blood only) 29.7 % (37.0-47.0); Hemoglobin 10.5 g/dl (12.0-16.0); Lymphocytes % (auto) 4.7 %; Mean Corpuscular Hemoglobin 32.3 pg (25.0-34.0); Mean Corpuscular Hgb Conc 35.4 g/dL (32.0-36.0); Mean Corpuscular Volume 91.4 fL (80.0-100.0); Monocytes % (auto) 3.1 %; Platelet Count 244 K/uL (130-400); RDW Coefficient of Variation 12.1 % (11.5-14.5); RDW Standard Deviation 40.6 fL (36.4-46.3); Red Blood Count 3.25 M/uL (4.20-5.40); White Blood Count 13.23 K/ul (4.8-10.8)
[2024-01-16 08:39] LABS: Basophils # (auto) 0.05 K/uL (0.00-0.20); Eosinophils # (auto) 0.18 K/uL (0.00-0.50); Immature Granulocytes # (auto) 0.05 K/uL (0.01-0.20); Immature Granulocytes % (auto) 0.4 %; Lymphocytes # (auto) 0.62 K/uL (1.20-3.40); Monocytes # (auto) 0.41 K/uL (0.11-0.59); Neutrophils # (auto) 11.92 K/uL (1.40-6.50)
[2024-01-16 08:55] LABS: Calcium 7.6 mg/dl (8.6-10.3); Creatinine Clr Calc Pharmacy 76.3 ml/min; Potassium 3.3 mmol/L (3.5-5.1)
[2024-01-16 08:57] LABS: Magnesium 1.4 mg/dl (1.7-2.4)
--- NOTE | 2024-01-16 09:35 | Surgery Progress Note ---
Date of Service January 16, 2024 Assessment & Plan (1) SBO (small bowel obstruction): Plan: stay of fulls one more day if wbc goes up again tomorrow will obtain ct abdomen/pelvis Admission and Anticipated Discharge Date Admission Date: January 08, 2024 Subjective pt seen. feeling ok. still some pain +hard stool in bag last night santos fulls . no nausea Physical Exam Physical Exam: alert. nad. appears comfortable wound looks good. small amount of serous drainage. Results & Data Vital Signs (Past 12 Hours) Vital Signs Temp Pulse Pulse Resp BP Pulse Ox O2 Del Method 01/16/24 08:18 20 94 Nasal Cannula 01/16/24 07:32 37.1 C 106 H 18 136/73 90 Nasal Cannula 01/16/24 06:51 104 H 01/16/24 03:00 36.7 C 107 H 18 125/73 91 Nasal Cannula 01/15/24 23:00 37.2 C 105 H 18 110/66 92 Nasal Cannula 01/15/24 21:58 115 H O2 Flow Rate 01/16/24 08:18 3 01/16/24 07:32 3 01/16/24 06:51 01/16/24 03:00 3 01/15/24 23:00 2 01/15/24 21:58 PG Care Time/CCT Total # of Minutes Spent Total Time Spent with Patient: Total time spent is greater than 50% in coordination of care (as documented) at patient's floor/unit and/or counseling patient: Coding Level of Care Code 40819 Post Operative Follow-Up Diagnoses SBO (small bowel obstruction) K56.609
[2024-01-16] MEDS: POTASSIUM CHLORIDE 20 MEQ/15 ML UDC PO STA (10:16)
[2024-01-16] MEDS: MAGNESIUM SULFATE / D5W 1 GM/100 ML BAG IV SCH (10:16)
--- NOTE | 2024-01-16 10:57 | Hospitalist Progress Note ---
Date of Service January 16, 2024 Assessment & Plan (1) Open abdominal wall wound: (2) Lactic acidemia: (3) Chest pain: (4) History of atrial fibrillation: (5) Status post colostomy: (6) History of bowel resection: Plan High-grade small bowel obstruction Patient underwent exploratory laparotomy, release of small bowel obstruction, takedown of enterocutaneous fistula, closure of small bowel enterotomy, extensive enterolysis on 01/10 General Surgery on board NG tube removed 01/12 Diet has been advanced to a full liquid diet by the surgery team Recovery progressing Continue antiemetics Continue PPI IV Continue analgesics per surgery If leukocytosis continues to increase 01/16, obtain repeat CT A/P Antibiotics adjusted 01/15 for broader lung coverage -- started Unasyn, discontinued cefazolin and Flagyl Postsurgical wound dehiscence of inferior abdominal incision/postsurgical seroma Wound cultures from 01/06/2024 have grown MSSA There was a fluid collection seen on admission 01/07 in the room left rectus abdominis that was thought to be seroma versus hematoma Surgery has been on board and they did not think it needed any intervention Patient was being treated with IV antibiotics. IV daptomycin / Zosyn was switched to IV cefazolin / Flagyl since recent wound cultures grew MSSA, further adjusted to Unasyn for broader lung coverage Repeat CT 01/10 showed that the fluid collection had resolved Wound care involved Chest pain/shortness of breath Cardiac enzymes negative CT angiography PE protocol negative for PE Likely in association with abdominal process. Placed on supplemental O2 via NC overnight 01/15 due to SpO2 decreasing to 90% > RN reported episode of blood tinged sputum > CXR did NOT show evidence of congestive failure. It did note small pleural effusions with dependent consolidation. This could represent atelectasis or mild pneumonia/aspiration pneumonitis. Recommend radiographic follow-up to ensure resolution. > Of note, CT A/P from 01/10 did note Interval development of a mild left lower lobe bronchopneumonia Continue Unasyn for lung coverage Left ankle pain Patient reports left ankle pain began around 01/14/24, denies any inciting in jury or event Very minimal swelling noted around left ankle, tenderness to palpation near her medial malleolus and talus Left ankle x-ray revealed mild soft tissue swelling, but no fracture or acute bony abnormality identified Suspect gout attack -- will empirically treat with colchicine Uric acid level ordered, pending Paroxysmal atrial fibrillation Noted in July 2023 in the setting of bowel perforation 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 Spontaneously converted to sinus. On 01/09 she was hypokalemic and dehydrated Overnight on 01/13, patient had another episode of paroxysmal atrial fibrillation. Again converted to sinus rhythm after electrolytes repleted and IV fluids given. Potassium and magnesium was repleted. Electrolyte depletion of potassium and magnesium 01/15, repleted. No episodes of PAF on telemetry. Intermittent runs of PATs but remained in NSR. Could consider anticoagulation for PAF when the time is appropriate if she continues to flip in and out of NSR Syncope Episode on 01/09 Vasovagal due to dehydration and bowel obstruction It was preceded by lightheadedness She was treated with IV fluids Severe protein calorie malnutrition Noted Admission and Anticipated Discharge Date Admission Date: January 08, 2024 Supervising Physician Co-Signing Physician Notes Attending Attestation - Chart reviewed, care plan d/w RANDAL Bennett. I agree w/ the perez components of her documentation. Replace low K/mag. Consider metoprolol tartrate for PAF rate control. Consider systemic anticoagulation when ok with gen surg. Appreciate gen surg assistance. Rachid Garner MD Subjective Patient seen and evaluated in bedside chair. She reports feeling tired. She has been on supplemental O2 since last night due to her SpO2 decreasing to 90%. She had some blood tinged sputum this morning. She notes that this has occurred intermittently throughout her stay here. She states that she is not on supplemental O2 at baseline, but has needed it intermittently while here. She denies any shortness of breath, difficulty breathing, inability to take deep breath, or pain with deep breath. She denies any chest pain, pressure, or palpitations. She also notes some left foot/ankle discomfort. She states this started about 2 days ago. She denies any inciting injury or event to her knowledge. She reports discomfort when weightbearing. She reports some hard stools in her colostomy bag last night. It was changed and no stool noted in current bag. She reports mild pain around her incision site. Denies any fever, chills, nausea, vomiting. No additional complaints or concerns at this time. Physical Exam Physical Exam: General: No acute distress, nondiaphoretic, well-developed, well-nourished. Cardiac: Sinus tachycardia in 100s. No murmurs gallops or rubs. Pulm: Diminished breath sounds at bases bilaterally but otherwise clear to auscultation without wheezes, rales or rhonchi. Not tachypneic, no increased work of breathing, no respiratory distress. 94% on 3 L. Abdominal: Soft, nontender, nondistended. Abdominal dressing in place, small amount of serous drainage noted on dressing. Incision healing well without signs of infection. Colostomy bag in place without any stool present. Neuro: A&O x3. No focal neurological deficits. Left Lower Extremity: Left ankle with tenderness to palpation of medial malleolus and talus. Minimal swelling noted around medial ankle. Dorsal pedis pulse present. Cap refill <3 seconds. No calf tenderness to palpation. No pitting edema noted. Results & Data Results & Data Vital Signs (Past 12 Hours) Vital Signs Temp Pulse Pulse Resp BP Pulse Ox O2 Del Method 01/16/24 08:18 20 94 Nasal Cannula 01/16/24 07:32 98.8 F 106 H 18 136/73 90 Nasal Cannula 01/16/24 07:30 Nasal Cannula 01/16/24 06:51 104 H 01/16/24 03:00 98.1 F 107 H 18 125/73 91 Nasal Cannula 01/15/24 23:00 99.0 F 105 H 18 110/66 92 Nasal Cannula O2 Flow Rate 01/16/24 08:18 3 01/16/24 07:32 3 01/16/24 07:30 2 01/16/24 06:51 01/16/24 03:00 3 01/15/24 23:00 2 Laboratory Results Reviewed CBC Reviewed BMP PG Care Time/CCT Total # of Minutes Spent Total Time Spent with Patient: Total time spent is greater than 50% in coordination of care (as documented) at patient's floor/unit and/or counseling patient: Coding Level of Care Code 01203 SUB INP/OBS CARE 3/50MIN Diagnoses Open abdominal wall wound S31.109A Lactic acidemia E87.20 Chest pain R07.9 History of atrial fibrillation Z86.79 Status post colostomy Z93.3 History of bowel resection Z90.49
[2024-01-16] MEDS ORDERED: Nursing to Pharmacy Communication SCH (12:00)
[2024-01-16] MEDS: SENNA 8.6 MG TAB PO SCH (12:07)
--- NOTE | 2024-01-16 12:14 | XRay Report ---
LEFT ANKLE 3 VIEWS CLINICAL HISTORY: Left ankle pain. FINDINGS: 3 views of the left ankle are obtained. No prior studies are available for comparison at th e time of dictation. The skeletal structures are osteopenic. No fracture is seen. The ankle mortise i s intact. There is a large plantar heel spur. Mild soft tissue swelling is noted in the left leg. IMPRESSION: No acute bony abnormality is identified. Electronically signed by: Brad Baptiste M.D. 01/16/2024 12:13 PM
--- NOTE | 2024-01-16 13:09 | XRay Report ---
TWO VIEW CHEST CLINICAL HISTORY: Cough. Blood tinged sputum. FINDINGS: PA and lateral chest radiographs are compared to study dated 01/12/2024 and correlated with chest CT dated 01/08/2024. An enteric tube has been removed. The heart is enlarged noting atheroscle rotic calcification of the thoracic aorta. The pulmonary vasculature is noncongested. Chronic interst itial thickening is similar to previous. There are small pleural effusions with dependent consolidati on. There is no pneumothorax. The skeletal structures are osteopenic. The bony thorax appears intact. Degenerative change and scoliosis is noted in the thoracic spine. IMPRESSION: 1. Cardiomegaly without radiographic evidence of congestive failure. 2. Small pleural effusions with dependent consolidation. This could represent atelectasis versus a mi ld pneumonia/aspiration pneumonitis. Clinical correlation will be required and radiographic follow-up to resolution is recommended. ACT 112: Negative or not required by law. Electronically signed by: Brad Baptiste M.D. 01/16/2024 1:07 PM
[2024-01-16] MEDS: COLCHICINE 0.6 MG TAB PO ONE (17:17)
[2024-01-16 17:29] LABS: Uric Acid 1.8 mg/dl (2.6-7.2)
[2024-01-16] MEDS ORDERED: SENNA 8.6 MG TAB PO SCH (21:00)
[2024-01-16] MEDS: COLCHICINE 0.6 MG TAB PO SCH (21:31)
[2024-01-16] MEDS: METOPROLOL TARTRATE 25 MG TAB PO SCH (21:32)
[2024-01-17] MEDS: AMPICILLIN/SULBACTAM SOD 3,000 MG/100 ML BAG IV SCH (00:32)
[2024-01-17 06:08] LABS: BUN Creatinine Ratio 21.7 (10-20); Calcium 7.7 mg/dl (8.6-10.3); Creatinine Clr Calc Pharmacy 91.2 ml/min; Potassium 3.3 mmol/L (3.5-5.1)
[2024-01-17 06:26] LABS: Basophils # (auto) 0.05 K/uL (0.00-0.20); Basophils % (auto) 0.5 %; Eosinophils # (auto) 0.25 K/uL (0.00-0.50); Eosinophils % (auto) 2.4 %; Hemoglobin 10.5 g/dl (12.0-16.0); Immature Granulocytes # (auto) 0.06 K/uL (0.01-0.20); Immature Granulocytes % (auto) 0.6 %; Lymphocytes # (auto) 1.18 K/uL (1.20-3.40); Lymphocytes % (auto) 11.2 %; Mean Corpuscular Hemoglobin 31.9 pg (25.0-34.0); Mean Corpuscular Hgb Conc 33.9 g/dL (32.0-36.0); Mean Corpuscular Volume 94.2 fL (80.0-100.0); Mean Platelet Volume 8.7 fL (9.4-12.4); Monocytes # (auto) 0.47 K/uL (0.11-0.59); Monocytes % (auto) 4.5 %; Neutrophils # (auto) 8.55 K/uL (1.40-6.50); Neutrophils % (auto) 80.8 %; Platelet Count 262 K/uL (130-400); RDW Coefficient of Variation 12.5 % (11.5-14.5); RDW Standard Deviation 43.6 fL (36.4-46.3); Red Blood Count 3.29 M/uL (4.20-5.40); White Blood Count 10.56 K/ul (4.8-10.8)
[2024-01-17 09:11] LABS: Magnesium 1.7 mg/dl (1.7-2.4)
--- NOTE | 2024-01-17 10:18 | Surgery Progress Note ---
Date of Service January 17, 2024 Assessment & Plan (1) SBO (small bowel obstruction): Plan: doing ok will try low residue diet continue to increase activity wbc decreased to 10,000 Admission and Anticipated Discharge Date Admission Date: January 08, 2024 Subjective pt seen. feeling ok. santos fulls. no nausea. Physical Exam Physical Exam: alert. nad abd: soft. stoma with decreased output. expected post op tenderness Results & Data Vital Signs (Past 12 Hours) Vital Signs Temp Pulse Pulse Pulse Resp BP Pulse Ox 01/17/24 07:29 36.7 C 83 16 118/68 95 01/17/24 07:20 01/17/24 05:37 87 01/17/24 05:37 87 01/17/24 03:33 36.7 C 96 H 18 114/71 91 01/16/24 23:03 37 C 83 18 104/62 94 O2 Del Method O2 Flow Rate 01/17/24 07:29 Room Air 01/17/24 07:20 Nasal Cannula 2 01/17/24 05:37 01/17/24 05:37 01/17/24 03:33 Nasal Cannula 2 01/16/24 23:03 Nasal Cannula 3 PG Care Time/CCT Total # of Minutes Spent Total Time Spent with Patient: Total time spent is greater than 50% in coordination of care (as documented) at patient's floor/unit and/or counseling patient: Coding Level of Care Code 09193 Post Operative Follow-Up Diagnoses SBO (small bowel obstruction) K56.609
[2024-01-17] MEDS: POTASSIUM CHLORIDE 20 MEQ/15 ML UDC PO SCH (10:26)
--- NOTE | 2024-01-17 12:24 | Hospitalist Progress Note ---
Date of Service January 17, 2024 Assessment & Plan (1) Open abdominal wall wound: (2) Lactic acidemia: (3) Chest pain: (4) History of atrial fibrillation: (5) Status post colostomy: (6) History of bowel resection: Plan High-grade small bowel obstruction Patient underwent exploratory laparotomy, release of small bowel obstruction, takedown of enterocutaneous fistula, closure of small bowel enterotomy, extensive enterolysis on 01/10 General Surgery on board NG tube removed 01/12 Diet has been advanced to a full liquid diet by the surgery team Recovery progressing Continue antiemetics Continue PPI IV Continue analgesics per surgery Leukocytosis resolved 01/16, possible that it was an inflammatory arthropathy response from untreated gout Antibiotics adjusted 01/15 for broader lung coverage -- started Unasyn, discontinued cefazolin and Flagyl Constipation continues - scheduled Senna BID and PRN MiraLAX Postsurgical wound dehiscence of inferior abdominal incision/postsurgical seroma Wound cultures from 01/06/2024 have grown MSSA There was a fluid collection seen on admission 01/07 in the room left rectus abdominis that was thought to be seroma versus hematoma Surgery has been on board and they did not think it needed any intervention Patient was being treated with IV antibiotics. IV daptomycin / Zosyn was switched to IV cefazolin / Flagyl since recent wound cultures grew MSSA, further adjusted to Unasyn for broader lung coverage Repeat CT 01/10 showed that the fluid collection had resolved Wound care involved Chest pain/shortness of breath Cardiac enzymes negative CT angiography PE protocol negative for PE Likely in association with abdominal process. Placed on supplemental O2 via NC overnight 01/15 due to SpO2 decreasing to 90% > RN reported episode of blood tinged sputum > CXR did NOT show evidence of congestive failure. It did note small pleural effusions with dependent consolidation. This could represent atelectasis or mild pneumonia/aspiration pneumonitis. Recommend radiographic follow-up to ensure resolution. > Of note, CT A/P from 01/10 did note Interval development of a mild left lower lobe bronchopneumonia Continue Unasyn for lung coverage No longer requiring supplemental O2, stable on room air 01/16 Left ankle pain Patient reports left ankle pain began around 01/14/24, denies any inciting injury or event Very minimal swelling noted around left ankle, tenderness to palpation near her medial malleolus and talus Left ankle x-ray revealed mild soft tissue swelling, but no fracture or acute bony abnormality identified Suspect gout attack -- will empirically treat with colchicine x 48 hours Uric acid level low at 1.8 -- this does not fit the clinical picture of a gout attack, however, patient endorses resolution of symptoms after colchicine Paroxysmal atrial fibrillation Noted in July 2023 in the setting of bowel perforation 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 Spontaneously converted to sinus. On 01/09 she was hypokalemic and dehydrated Overnight on 01/13, patient had another episode of paroxysmal atrial f ibrillation. Again converted to sinus rhythm after electrolytes repleted and IV fluids given. Potassium and magnesium was repleted. Electrolyte depletion of potassium and magnesium 01/15, repleted. No episodes of PAF on telemetry. Intermittent runs of PATs but remained in NSR. Started metoprolol tartrate 25 mg BID for rate control, rates are improved Could consider anticoagulation for PAF when the time is appropriate if she continues to flip in and out of NSR Refractory hypokalemia Hypokalemia continues despite repletion K of 3.3 on 01/16 -- repleted with 40 meq KCl x 3 doses, monitor K with AM labs Continue mag-ox 400 mg BID Syncope Episode on 01/09 Vasovagal due to dehydration and bowel obstruction It was preceded by lightheadedness She was treated with IV fluids Severe protein calorie malnutrition Noted Updated at bedside 01/16 Admission and Anticipated Discharge Date Admission Date: January 08, 2024 Supervising Physician Co-Signing Physician Notes Attending Attestation - Chart reviewed, care plan d/w RANDAL Bennett. I agree w/ the perez components of her documentation. Appreciate gen surg assistance. Cont K replacement. Rachid Garner MD Subjective Patient seen and evaluated at bedside with present. She reports her left ankle feeling significantly better today. She reports 0 pain or discomfort and notes the swelling has resolved. She reports some abdominal pain earlier, which is improved now after medication. She has still not had any output in her colostomy bag. She is no longer requiring supplemental O2 and is stable on room air. Denies any shortness of breath with activity or at rest, difficulty breathing, chest pain, or palpitations. Discussed plan of care and answered all questions. No additional complaints or concerns at this time. Physical Exam Physical Exam: General: No acute distress, nondiaphoretic, well-developed, well-nourished. Cardiac: Sinus tachycardia in 100s. No murmurs gallops or rubs. Pulm: Diminished breath sounds at bases bilaterally but otherwise clear to auscultation without wheezes, rales or rhonchi. No respiratory distress. 95% on room air. Abdominal: Soft, nontender, nondistended. Abdominal dressing in place, small amount of serous drainage noted on dressing. Incision healing well without signs of infection. Colostomy bag in place without any stool present. Neuro: A&O x3. No focal neurological deficits. Left Lower Extremity: Left ankle nontender to [id number]. No swelling noted. Dorsal pedis pulse present. Cap refill <3 seconds. Results & Data Results & Data Vital Signs (Past 12 Hours) Vital Signs Temp Pulse Pulse Pulse Resp BP Pulse Ox 01/17/24 11:25 98.1 F 93 H 18 100/61 95 01/17/24 11:06 93 H 01/17/24 07:29 98.1 F 83 16 118/68 95 01/17/24 07:20 01/17/24 05:37 87 01/17/24 05:37 87 01/17/24 03:33 98.1 F 96 H 18 114/71 91 O2 Del Method O2 Flow Rate 01/17/24 11:25 Room Air 01/17/24 11:06 01/17/24 07:29 Room Air 01/17/24 07:20 Nasal Cannula 2 01/17/24 05:37 01/17/24 05:37 01/17/24 03:33 Nasal Cannula 2 Laboratory Results Reviewed CBC Reviewed BMP PG Care Time/CCT Total # of Minutes Spent Total Time Spent with Patient: Total time spent is greater than 50% in coordination of care (as documented) at patient's floor/unit and/or counseling patient: Coding Level of Care Code 88497 SUB INP/OBS CARE 3/50MIN Diagnoses Open abdominal wall wound S31.109A Lactic acidemia E87.20 Chest pain R07.9 History of atrial fibrillation Z86.79 Status post colostomy Z93.3 History of bowel resection Z90.49
[2024-01-17] MEDS: POLYETHYLENE (MIRALAX) 17 GM PACK PO PRN (14:53)
[2024-01-18 06:30] LABS: Basophils # (auto) 0.05 K/uL (0.00-0.20); Basophils % (auto) 0.4 %; Eosinophils % (auto) 3.2 %; Hematocrit (blood only) 32.5 % (37.0-47.0); Hemoglobin 11.1 g/dl (12.0-16.0); Immature Granulocytes # (auto) 0.09 K/uL (0.01-0.20); Immature Granulocytes % (auto) 0.7 %; Lymphocytes # (auto) 2.14 K/uL (1.20-3.40); Lymphocytes % (auto) 17.2 %; Mean Corpuscular Hemoglobin 31.7 pg (25.0-34.0); Mean Corpuscular Hgb Conc 34.2 g/dL (32.0-36.0); Mean Corpuscular Volume 92.9 fL (80.0-100.0); Mean Platelet Volume 8.8 fL (9.4-12.4); Monocytes # (auto) 0.38 K/uL (0.11-0.59); Monocytes % (auto) 3.1 %; Neutrophils # (auto) 9.36 K/uL (1.40-6.50); Neutrophils % (auto) 75.4 %; Platelet Count 382 K/uL (130-400); RDW Coefficient of Variation 12.9 % (11.5-14.5); RDW Standard Deviation 43.8 fL (36.4-46.3); White Blood Count 12.42 K/ul (4.8-10.8)
[2024-01-18 06:46] LABS: BUN Creatinine Ratio 22.4 (10-20); Calcium 8.3 mg/dl (8.6-10.3); Creatinine Clr Calc Pharmacy 85.7 ml/min; Potassium 4.4 mmol/L (3.5-5.1)
--- NOTE | 2024-01-18 08:42 | Surgery Progress Note ---
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 Date of Service January 18, 2024 Assessment & Plan (1) SBO (small bowel obstruction): Plan: Patient is s/p Exploratory laparotomy, release of SBO, takedown of enterocutaneous fistula on 01/11/2024. -Tolerating low fiber diet, stool appreciated in ostomy -WBC slightly elevated today at 12.4 from 10.5 yesterday however remains afebrile and denies CP, SOB or fevers or chills. Is on Unasyn for antibiotic coverage. Will follow up WBC tomorrow AM. -Dressing changed on rounds, [place] and jimmy in place, incision is clean. Redressed with 4x4 and abd pad . Nursing to change BID or PRN if saturated Admission and Anticipated Discharge Date Admission Date: January 08, 2024 Subjective -Pt doing well this morning, sitting up in chair, no complaints -Advanced to low fiber diet yesterday, has been tolerating without issues of N/V. Ostomy with stool present in bag. -WBC slightly elevated this morning to 12.4 from 10.5 yesterday, however she remains afebrile and denies fevers/chills. -Denies CP or SOB. CXR obtained on 01/15 due to decrease O2 saturations which did note small pleural effusions with dependent consolidation. This could represent atelectasis or mild pneumonia/aspiration pneumonitis. She currently is on Unysyn for lung coverage Physical Exam Constitutional: WD/WN, vitals as above Respiratory: normal respiratory effort, lungs clear to auscultation Cardiovascular: RRR, no murmur, no edema Gastrointestinal (Abdomen): Abdomen soft, mild TTP over midline incision. Ostomy with liquid stool appreciated in bag. Midline dressing was changed, [place] and jimmy in place, incision with no overlying signs of infection present Results & Data Vital Signs (Past 12 Hours) Vital Signs Temp Pulse Pulse Resp BP Pulse Ox O2 Del Method 01/18/24 07:54 36.6 C 104 H 18 105/62 91 Room Air 01/18/24 07:25 99 H 01/18/24 04:18 36.7 C 87 18 114/70 93 Room Air 01/17/24 23:54 83 10/27/24 23:14 36.8 C 84 16 118/66 92 Room Air PG Care Time/CCT Total # of Minutes Spent Total Time Spent with Patient: Total time spent is greater than 50% in coordination of care (as documented) at patient's floor/unit and/or counseling patient: Coding Level of Care Code 75651 Post Operative Follow-Up Diagnoses SBO (small bowel obstruction) K56.609
--- NOTE | 2024-01-18 13:13 | Hospitalist Progress Note ---
Date of Service January 18, 2024 Assessment & Plan (1) Open abdominal wall wound: (2) Lactic acidemia: (3) Chest pain: (4) History of atrial fibrillation: (5) Status post colostomy: (6) History of bowel resection: Plan High-grade small bowel obstruction Patient underwent exploratory laparotomy, release of small bowel obstruction, takedown of enterocutaneous fistula, closure of small bowel enterotomy, extensive enterolysis on 01/10 General Surgery on board NG tube removed 01/12 Diet has been advanced to a low fiber by the surgery team Recovery progressing Continue antiemetics Continue PPI IV Continue analgesics per surgery Leukocytosis resolved 01/16, possible that it was an inflammatory arthropathy response from untreated gout > Slight elevation in WBC to 12.42 on 01/17, no infectious signs or symptoms. Monitor WBC with AM labs Antibiotics adjusted 01/15 for broader lung coverage -- started Unasyn, discontinued cefazolin and Flagyl Constipation resolved - continue scheduled Senna BID and PRN MiraLAX Postsurgical wound dehiscence of inferior abdominal incision/postsurgical seroma Wound cultures from 01/06/2024 have grown MSSA There was a fluid collection seen on admission 01/07 in the room left rectus abdominis that was thought to be seroma versus hematoma Surgery has been on board and they did not think it needed any intervention Patient was being treated with IV antibiotics. IV daptomycin / Zosyn was switched to IV cefazolin / Flagyl since recent wound cultures grew MSSA, further adjusted to Unasyn for broader lung coverage Repeat CT 01/10 showed that the fluid collection had resolved Wound care involved Chest pain/shortness of breath Cardiac enzymes negative CT angiography PE protocol negative for PE Likely in association with abdominal process Placed on supplemental O2 via NC overnight 01/15 due to SpO2 decreasing to 90% > RN reported episode of blood tinged sputum > CXR did NOT show evidence of congestive failure. It did note small pleural effusions with dependent consolidation. This could represent atelectasis or mild pneumonia/aspiration pneumonitis. Recommend radiographic follow-up to ensure resolution. > Of note, CT A/P from 01/10 did note Interval development of a mild left lower lobe bronchopneumonia Continue Unasyn for lung coverage No longer requiring supplemental O2, stable on room air 01/16 Left ankle pain Patient reports left ankle pain began around 01/14/24, denies any inciting injury or event Very minimal swelling noted around left ankle, tenderness to palpation near her medial malleolus and talus Left ankle x-ray revealed mild soft tissue swelling, but no fracture or acute bony abnormality identified Suspect gout attack -- will empirically treat with colchicine x 48 hours Uric acid level low at 1.8 -- this does not fit the clinical picture of a gout attack, however, patient endorses resolution of symptoms after colchicine Paroxysmal atrial fibrillation Noted in July 2023 in the setting of bowel perforation 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 Spontaneously converted to sinus. On 01/09 she was hypokalemic and dehydrated Overnight on 01/13, patient had another episode of paroxysmal atrial fibrillation. Again converted to sinus rhythm after electrolytes repleted and IV fluids given. Potassium and magnesium was repleted. Electrolyte depletion of potassium and magnesium 01/15, repleted. No episodes of PAF on telemetry. Intermittent runs of PATs but remained in NSR. Started/continue metoprolol tartrate 25 mg BID for rate control, rates are improved Could consider anticoagulation for PAF when the time is appropriate if she continues to flip in and out of NSR Refractory hypokalemia Hypokalemia continues despite repletion K of 3.3 on 01/16 -- repleted with 40 meq KCl x 3 doses, monitor K with AM labs Continue mag-ox 400 mg BID Syncope Episode on 01/09 Vasovagal due to dehydration and bowel obstruction It was preceded by lightheadedness She was treated with IV fluids Severe protein calorie malnutrition Noted Updated at bedside 01/16 Admission and Anticipated Discharge Date Admission Date: January 08, 2024 Supervising Physician Co-Signing Physician Notes Attending Attestation - Chart reviewed, care plan d/w RANDAL Bennett. I agree w/ the perez components of her documentation. Appreciate gen surg assistance. Recent a.fib - consider systemic anticoagulation given CHADs-VASc score of at least a 3. Rachid Garner MD Subjective Patient seen and evaluated in bedside chair. She reports tolerating the low fiber diet well. Denies nausea, vomiting, or increased abdominal pain after meals. She does continue to have some discomfort around her incision. Incision site looks good. She is having brown liquid stool output in her colostomy bag today. She denies any pain, discomfort, or swelling in her left ankle. Denies chest pain, palpitations, shortness of breath, or lightheadedness. No additional complaints or concerns at this time. Physical Exam Physical Exam: General: No acute distress, nondiaphoretic, well-developed, well-nourished. Cardiac: Sinus tachycardia in 100s. No murmurs gallops or rubs. Pulm: Diminished breath sounds at bases bilaterally but otherwise clear to auscultation without wheezes, rales or rhonchi. No respiratory distress. 95% on room air. Abdominal: Soft, nontender, nondistended. Abdominal dressing clean, dry, intact. Incision healing well without signs of infection. Colostomy bag in place with brown liquid stool present. Neuro: A&O x3. No focal neurological deficits. Left Lower Extremity: Left ankle nontender to [id number]. No swelling noted. Dorsal pedis pulse present. Cap refill <3 seconds. Results & Data Results & Data Vital Signs (Past 12 Hours) Vital Signs Temp Pulse Pulse Resp BP Pulse Ox O2 Del Method 01/18/24 11:36 97.7 F 87 18 106/68 95 Room Air 01/18/24 07:54 97.9 F 104 H 18 105/62 91 Room Air 01/18/24 07:25 99 H 01/18/24 04:18 98.1 F 87 18 114/70 93 Room Air Laboratory Results Reviewed CBC Reviewed BMP PG Care Time/CCT Total # of Minutes Spent Total Time Spent with Patient: Total time spent is greater than 50% in coordination of care (as documented) at patient's floor/unit and/or counseling patient: Coding Level of Care Code 36427 SUB INP/OBS CARE 2/35MIN Diagnoses Open abdominal wall wound S31.109A Lactic acidemia E87.20 Chest pain R07.9 History of atrial fibrillation Z86.79 Status post colostomy Z93.3 History of bowel resection Z90.49
[2024-01-19 02:14] VITALS: RESP 18
[2024-01-19 06:22] LABS: Hematocrit (blood only) 31.3 % (37.0-47.0); Hemoglobin 10.7 g/dl (12.0-16.0); Mean Corpuscular Hemoglobin 31.6 pg (25.0-34.0); Mean Corpuscular Hgb Conc 34.2 g/dL (32.0-36.0); Mean Corpuscular Volume 92.3 fL (80.0-100.0); Mean Platelet Volume 8.7 fL (9.4-12.4); Platelet Count 386 K/uL (130-400); RDW Coefficient of Variation 12.9 % (11.5-14.5); RDW Standard Deviation 43.8 fL (36.4-46.3); Red Blood Count 3.39 M/uL (4.20-5.40); White Blood Count 10.83 K/ul (4.8-10.8)
[2024-01-19 06:44] LABS: BUN Creatinine Ratio 23.5 (10-20); Calcium 8.2 mg/dl (8.6-10.3); Creatinine Clr Calc Pharmacy 82.3 ml/min; Magnesium 1.5 mg/dl (1.7-2.4); Potassium 3.6 mmol/L (3.5-5.1)
--- NOTE | 2024-01-19 08:42 | Hospitalist Progress Note ---
Date of Service January 19, 2024 Assessment & Plan (1) SBO (small bowel obstruction): Plan: High-grade small bowel obstruction Patient underwent exploratory laparotomy, release of small bowel obstruction, takedown of enterocutaneous fistula, closure of small bowel enterotomy, extensive enterolysis on 01/10 General Surgery on board NG tube removed 01/12 and diet advanced to low fiber by surgery. Remains on antiemetics, PPI IV and analgesics per surgery. Slow progression/recovery Leukocytosis resolved 01/16, possible that it was an inflammatory arthropathy response from untreated gout --> Slight elevation in WBC to 12.42 on 01/17, no infectious signs or symptoms. Monitor WBC with AM labs Was on Ceftriaxone/Flagyl but broadened to UNASYN 01/15 for lung coverage (noting CTAP w/ consolidative opacities basal left lower lobe WBC trending down, afebrile and will continue Unasyn for now but per surgery does not need to be continued at discharge however may consider augmentin for aspiration coverage. Repeat C2V in AM Low fiber diet continued, liquid output in ostomy/brown in color and remains on senna BID/miralax prn Antiemetics as needed, add simethicone prn gas Pain control: -tylenol 650mg prn available but review only had 2-4mg morphine IV available and no oral option. -Reports issues with oxycodone/codeine in the past but never tried tramadol and will order 50mg q4h prn and tolerating but needing additional morphine and will increase to 75mg and monitor Electrolyte replacement: - hypomagnesemia w/ mag 1.5 and 3gm IV replacement ordered to keep closer to 2. -20 meq Kcl PO x 1 to keep closer to 4 w/ new paroxysmal afib. TSH checked/elevated but normal T4/T3 and to think about start of anticoagulation vs aspirin/holter monitor but CHADsVASc score is 3 and if agreeable can start in AM. Will place on once daily Lovenox SQ while inpatient. Has been in NSR since 01/14 but had episodes in/out, ?reactive from surgery/stress but again likely need to consider additional monitoring if not agreeable to start anticoagulation prior to discharge. Notable did have 30 day event monitor in July when had first noticed this WITHOUT recurrence on 30 day monitoring and could consider longer term monitoring/placement of loop recorder? Mag oxide switched to SLOW MAG to keep stores replete and prevent further hypokalemia. DVT proph: lovenox SQ added PT/OT recommend rehab, CM to follow as discussion today w/ patient desiring to go home with home health. Will continue to monitor, ?dc 01/19 pending repeat eval/labs (2) History of bowel resection: Plan: as above, ostomy intact and functioning (3) Open abdominal wall wound: Plan: Postsurgical wound dehiscence of inferior abdominal incision/postsurgical seroma Wound cultures from 01/06/2024 have grown MSSA There was a fluid collection seen on admission 01/07 in the room left rectus abdominis that was thought to be seroma versus hematoma Surgery has been on board and they did not think it needed any intervention Patient was being treated with IV antibiotics. IV daptomycin / Zosyn was switch ed to IV cefazolin / Flagyl since recent wound cultures grew MSSA, further adjusted to Unasyn for broader lung coverage Repeat CT 01/10 showed that the fluid collection had resolved Wound care involved (4) Lactic acidemia: Plan: resolved (5) Chest pain: Plan: Chest pain/shortness of breath Cardiac enzymes negative CT angiography PE protocol negative for PE Likely in association with abdominal process Placed on supplemental O2 via NC overnight 01/15 due to SpO2 decreasing to 90% > RN reported episode of blood tinged sputum > CXR did NOT show evidence of congestive failure. It did note small pleural effusions with dependent consolidation. This could represent atelectasis or mild pneumonia/aspiration pneumonitis. Recommend radiographic follow-up to ensure resolution. > Of note, CT A/P from 01/10 did note Interval development of a mild left lower lobe bronchopneumonia and is on Unasyn as above for lung coverage. No longer on O2, 95% on RA and continue pulmonary toilet/incentive spirometry and will f/u C2V in AM for comparison (6) History of atrial fibrillation: Plan: Paroxysmal atrial fibrillation Noted in July 2023 in the setting of bowel perforation Subsequent 30-day cafeteria monitor showed NO A-fib per PCP records On 01/08, the patient had a short burst of A-fib. Spontaneously converted to sinus. On 01/09 she was hypokalemic and dehydrated Overnight on 01/13, patient had another episode of paroxysmal atrial fibrillation. Again converted to sinus rhythm after electrolytes repleted and IV fluids given. Potassium and magnesium was repleted 01/15 No episodes of PAF on telemetry. Intermittent runs of PATs but remained in NSR since 01/14 Started/continues on metoprolol tartrate 25 mg BID for rate control with stable rates and remains on NSR on telemetry since 01/14 Mag again LOW 1.5, IV replacement ordered as well as oral potassium to keep closer to 4 Lovenox SQ added for DVT proph Given already had 30 day event monitor as above after hospitalization in July 2023 and did NOT show any afib, consideration for longer term monitoring vs starting systemic AC given CHADsVASC score of 3 for stroke/risk prevention TSH checked and was slightly elevated but normal T4/T3 and f/u PCP Could consider anticoagulation for PAF when the time is appropriate if she continues to flip in and out of NSR -- last report afib on 01/14 Syncope Episode on 01/09, ?vasovagal 2nd to dehydration/bowel obstruction, proceeded by lightheadedness and was treated with IVF. ?if was having episode of afib at that time however. Continues on metoprolol BID as above, in NSR presently on monitor and HR controlled. Therapy evals as above (7) Status post colostomy: Plan: as above Other medical problems Left ankle pain Patient reports left ankle pain began around 01/14/24, denies any inciting injury or event Very minimal swelling noted around left ankle, tenderness to palpation near her medial malleolus and talus Left ankle x-ray revealed mild soft tissue swelling, but no fracture or acute bony abnormality identified Suspect gout attack -- empirically treated with colchicine x 48 hours Uric acid level low at 1.8 -- this does not fit the clinical picture of a gout attack, however, patient endorses resolution of symptoms after colchicine TSH check as above Refractory hypokalemia Hypokalemia continues despite repletion however mag low and replacement ordered and switching to SLOW mag to prevent diarrheal losses. K improved/stable but 20meq ordered to keep closer to 4 w/ pAfib as above Severe protein calorie malnutrition Noted Plan Updated at bedside 01/16 Dispo: continued inpatient stay on Unasyn, working on oral pain control/electrolyte replacement and added lovenox sq for dvt proph. consideration to start systemic anticoagulation given paroxysmal afib/risk for prevention if agreeable in f/u discussion. Hopeful dc 01/19 with home health (PT/OT recs rehab, needs to make sure able to live on first floor/unable to do steps at this time) Admission and Anticipated Discharge Date Admission Date: January 08, 2024 Supervising Physician Co-Signing Physician Notes the patient was not seen by me. Chart reviewed. Case discussed with RANDAL Smith. Agree with assessment and plan. Subjective Eval this afternoon, ambulating with the aide to the bathroom. Ostomy with liquid brown output. Pain at times, controlled with morphine but no oral option other than Tylenol. Issues reported with severe n/v/abd discomfort with oxycodone/codeine reported but willing to trial tramadol and will monitor. VSS. No afib on telemetry since 01/13-01/14 and discussed consideration for anticoagulation vs having holter monitor with PCP/baby aspirin in meantime but does meet for anticoagulation with CHADs-VASC score of 3 and will re-visit topic in AM. Results & Data Results & Data Vital Signs (Past 12 Hours) Vital Signs Temp Pulse Pulse Resp BP BP Pulse Ox 01/19/24 08:30 36.9 C 83 18 122/67 98 01/19/24 06:00 94 H 01/19/24 04:03 36.8 C 98 H 18 123/63 92 01/19/24 02:13 36.8 C 98 H 18 123/63 92 01/18/24 22:40 36.7 C 98 H 20 147/74 H 92 01/18/24 21:58 94 H 01/18/24 21:58 94 H O2 Del Method 01/19/24 08:30 Room Air 01/19/24 06:00 01/19/24 04:03 Room Air 01/19/24 02:13 Room Air 01/18/24 22:40 Room Air 01/18/24 21:58 01/18/24 21:58 Laboratory Results 01/19/24 Range/Units 05:49 WBC 10.83 H (4.8-10.8) K/ul RBC 3.39 L (4.20-5.40) M/uL Hgb 10.7 L (12.0-16.0) g/dl Hct 31.3 L (37.0-47.0) % MCV 92.3 (80.0-100.0) fL MCH 31.6 (25.0-34.0) pg MCHC 34.2 (32.0-36.0) g/dL RDW Std Deviation 43.8 (36.4-46.3) fL RDW Coeff of Girish 12.9 (11.5-14.5) % Plt Count 386 (130-400) K/uL MPV 8.7 L (9.4-12.4) fL Sodium 138 (136-145) mmol/L Potassium 3.6 (3.5-5.1) mmol/L Chloride 106 (98-107) mmol/L Carbon Dioxide 25 (21-32) mmol/L Anion Gap 7 (3-11) BUN 12 (6-23) mg/dl Creatinine 0.51 L (0.6-1.2) mg/dl Est Cr Clr Drug Dosing 82.3 ml/min eGFR 97.28 BUN/Creatinine Ratio 23.5 H (10-20) Glucose 107 H (70-99(Fasting)) mg/dl Calcium 8.2 L (8.6-10.3) mg/dl Magnesium 1.5 L (1.7-2.4) mg/dl 25-OH Vitamin D Total 39.8 (30-100) ng/ml PG Care Time/CCT Total # of Minutes Spent Total Time Spent with Patient: Total time spent is greater than 50% in coordination of care (as documented) at patient's floor/unit and/or counseling patient: Coding Level of Care Code 60434 SUB INP/OBS CARE 3/50MIN Diagnoses SBO (small bowel obstruction) K56.609 History of bowel resection Z90.49 Open abdominal wall wound S31.109A Lactic acidemia E87.20 Chest pain R07.9 History of atrial fibrillation Z86.79 Status post colostomy Z93.3
[2024-01-19 09:21] LABS: Thyroid Stimulating Hormone 4.758 uIu/ml (0.300-4.500)
[2024-01-19] MEDS: POTASSIUM CHLORIDE CRTAB 20 MEQ TABCR PO STA (09:26)
[2024-01-19] MEDS: MAGNESIUM CHLORIDE W/CALCIUM 64MG DELAYED REL TAB PO SCH (09:27)
[2024-01-19] MEDS: MAGNESIUM SULFATE / D5W 1 GM/100 ML BAG IV SCH (09:27)
--- NOTE | 2024-01-19 09:27 | Surgery Progress Note ---
Date of Service January 19, 2024 Assessment & Plan (1) SBO (small bowel obstruction): Plan: Patient is s/p Exploratory laparotomy, release of SBO, takedown of enterocutaneous fistula on 01/11/2024. Tolerating low fiber diet, stool appreciated in ostomy WBC down at 10 (12), VSS [place] removed yesterday and jimmy in place. they will be removed at f/u appointment Pt stable for discharge from surgical standpoint Continue low fiber diet on d/c f/u in office o/p Dr. Ferrell As above. Doing well from my standpoint. WBC down to 10,000. She is eating and her stoma is working. Okay for discharge from a surgical perspective. Admission and Anticipated Discharge Date Admission Date: January 08, 2024 Review of Systems Gastrointestinal: no abdominal pain, no nausea and no vomiting Physical Exam Constitutional: cooperative; no acute distress Respiratory: normal respiratory effort and able to speak in complete sentences; no respiratory distress Cardiovascular: Rate/Rhythm: regular rate Gastrointestinal (Abdomen): Inspection/Auscultation: + abdominal surgical incision; abdomen not distended Percussion/Palpation: + abdomen tender and abdomen soft Results & Data Vital Signs (Past 12 Hours) Vital Signs Temp Pulse Pulse Resp BP BP Pulse Ox 01/19/24 08:30 98.4 F 83 18 122/67 98 01/19/24 06:00 94 H 01/19/24 04:03 98.2 F 98 H 18 123/63 92 01/19/24 02:13 98.2 F 98 H 18 123/63 92 01/18/24 22:40 98.1 F 98 H 20 147/74 H 92 01/18/24 21:58 94 H 01/18/24 21:58 94 H O2 Del Method 01/19/24 08:30 Room Air 01/19/24 06:00 01/19/24 04:03 Room Air 01/19/24 02:13 Room Air 01/18/24 22:40 Room Air 01/18/24 21:58 01/18/24 21:58 Results CBC w Diff Results: RBC 3.39 M/uL (4.20-5.40) L 01/19/24 WBC 10.83 K/ul (4.8-10.8) H 01/19/24 Hgb 10.7 g/dl (12.0-16.0) L 01/19/24 Hct 31.3 % (37.0-47.0) L 01/19/24 MCV 92.3 fL (80.0-100.0) 01/19/24 MCH 31.6 pg (25.0-34.0) 01/19/24 MCHC 34.2 g/dL (32.0-36.0) 01/19/24 RDW Standard Deviation 43.8 fL (36.4-46.3) 01/19/24 RDW Coefficient of Variation 12.9 % (11.5-14.5) 01/19/24 Plt Count 386 K/uL (130-400) 01/19/24 MPV 8.7 fL (9.4-12.4) L 01/19/24 Nucleated Red Blood Cells % (auto) 0.0 % 07/06 Nucleated RBC Absolute Count (auto) 0.00 K/uL (0-0) 06/21 09/08 Neutrophils (%) (Auto) 75.4 % 01/18/24 Lymphocytes (%) (Auto) 17.2 % 01/18/24 Monocytes # (Auto) 0.38 K/uL (0.11-0.59) 01/18/24 Eosinophils # (Auto) 0.40 K/uL (0.00-0.50) 01/18/24 Immature Granulocyte % (Auto) 0.7 % 01/18/24 Neutrophils # (Auto) 9.36 K/uL (1.40-6.50) H 01/18/24 Lymphocytes # (Auto) 2.14 K/uL (1.20-3.40) 01/18/24 Monocytes # (Auto) 0.38 K/uL (0.11-0.59) 01/18/24 Eosinophils # (Auto) 0.40 K/uL (0.00-0.50) 01/18/24 Basophils # (Auto) 0.05 K/uL (0.00-0.20) 01/18/24 Immature Granulocyte # (Auto) 0.09 K/uL (0.01-0.20) 4 Polychromasia 1+ 08/18/23 Anisocytosis PRESENT 09/18/17 Toxic Granulation 3+ 08/20/23 Toxic Vacuolation 2+ 08/20/23 Dohle Bodies 1+ 08/18/23 Rouleau 1+ 08/17/23 PG Care Time/CCT Total # of Minutes Spent Total Time Spent with Patient: Total time spent is greater than 50% in coordination of care (as documented) at patient's floor/unit and/or counseling patient: Coding Level of Care Code 96511 Post Operative Follow-Up Diagnoses SBO (small bowel obstruction) K56.609
[2024-01-19 09:56] LABS: T4 Free Thyroxine 1.25 ng/dl (0.61-1.60)
[2024-01-19] MEDS ORDERED: oxyCODONE HCL IR 5 MG TAB (IMMEDIATE RELEASE) PO PRN (13:09)
[2024-01-19] MEDS: traMADol HCL 50 MG TABLET PO PRN ×2 (13:52→16:22)
[2024-01-19] MEDS: ENOXAPARIN INJ 30 MG/0.3 ML SYR SQ SCH (14:19)
[2024-01-19] MEDS: SIMETHICONE 80 MG CHEW PO PRN (16:22)
[2024-01-20 06:52] LABS: Basophils # (auto) 0.06 K/uL (0.00-0.20); Basophils % (auto) 0.6 %; Eosinophils # (auto) 0.31 K/uL (0.00-0.50); Eosinophils % (auto) 3.3 %; Hematocrit (blood only) 29.3 % (37.0-47.0); Immature Granulocytes # (auto) 0.06 K/uL (0.01-0.20); Immature Granulocytes % (auto) 0.6 %; Lymphocytes # (auto) 1.39 K/uL (1.20-3.40); Lymphocytes % (auto) 14.7 %; Mean Corpuscular Hemoglobin 31.9 pg (25.0-34.0); Mean Corpuscular Hgb Conc 34.1 g/dL (32.0-36.0); Mean Corpuscular Volume 93.6 fL (80.0-100.0); Mean Platelet Volume 8.7 fL (9.4-12.4); Monocytes # (auto) 0.32 K/uL (0.11-0.59); Monocytes % (auto) 3.4 %; Neutrophils # (auto) 7.31 K/uL (1.40-6.50); Neutrophils % (auto) 77.4 %; Platelet Count 401 K/uL (130-400); RDW Coefficient of Variation 13.3 % (11.5-14.5); RDW Standard Deviation 45.8 fL (36.4-46.3); Red Blood Count 3.13 M/uL (4.20-5.40); White Blood Count 9.45 K/ul (4.8-10.8)
[2024-01-20 07:07] LABS: BUN Creatinine Ratio 22.6 (10-20); Calcium 7.7 mg/dl (8.6-10.3); Creatinine Clr Calc Pharmacy 79.2 ml/min; Magnesium 1.8 mg/dl (1.7-2.4); Potassium 3.9 mmol/L (3.5-5.1)
[2024-01-20 07:50] VITALS: O2SAT 92
--- NOTE | 2024-01-20 08:26 | Hospitalist Progress Note ---
Date of Service January 20, 2024 Assessment & Plan (1) SBO (small bowel obstruction): Plan: High-grade small bowel obstruction Patient underwent exploratory laparotomy, release of small bowel obstruction, takedown of enterocutaneous fistula, closure of small bowel enterotomy, extensive enterolysis on 01/10 General Surgery on board NG tube removed 01/12 and diet advanced to low fiber by surgery. Remains on antiemetics, PPI IV and analgesics per surgery. Slow progression/recovery Leukocytosis resolved 01/16, possible that it was an inflammatory arthropathy response from untreated gout --> Slight elevation in WBC to 12.42 on 01/17, no infectious signs or symptoms. Monitor WBC with AM labs Was on Ceftriaxone/Flagyl but broadened to UNASYN 01/15 for lung coverage (noting CTAP w/ consolidative opacities basal left lower lobe) WBC trending down, afebrile and will continue Unasyn for now but per surgery does not need to be continued at discharge however may consider augmentin for aspiration coverage. Repeat C2V in AM Low fiber diet continued, liquid output in ostomy/brown in color and remains on senna BID/miralax prn Antiemetics as needed, add simethicone prn gas Pain control: -tylenol 650mg prn available but review only had 2-4mg morphine IV available and no oral option. -Reports issues with oxycodone/codeine in the past but never tried tramadol and will order 50mg q4h prn and tolerating but needing additional morphine and will increase to 75mg and monitor Electrolyte replacement: - hypomagnesemia w/ mag 1.5 and 3gm IV replacement ordered to keep closer to 2. -20 meq Kcl PO x 1 to keep closer to 4 w/ new paroxysmal afib. TSH checked/elevated but normal T4/T3 and to think about start of anticoagulation vs aspirin/holter monitor but CHADsVASc score is 3 and if agreeable can start in AM. Will place on once daily Lovenox SQ while inpatient. Has been in NSR since 01/14 but had episodes in/out, ?reactive from surgery/stress but again likely need to consider additional monitoring if not agreeable to start anticoagulation prior to discharge. Notable did have 30 day event monitor in July when had first noticed this WITHOUT recurrence on 30 day monitoring and could consider longer term monitoring/placement of loop recorder? Mag oxide switched to SLOW MAG to keep stores replete and prevent further hypokalemia. DVT proph: lovenox SQ added PT/OT recommend rehab, CM to follow as discussion today w/ patient desiring to go home with home health. Will continue to monitor, ?dc 01/19 pending repeat eval/labs 01/19 Unasyn IV--> plan to convert to Augmentin to complete course for lung coverage/aspiration and prior MSSA on abd cx from fistula tract. Working on pain control, did require 2 doses of IV morphine after seen yesterday morning. Weaning to tramadol/increase as needed Chest xray pending for this morning Electrolytes improved, will continue slow mag BID, 1gm IV ordered to keep closer to 2 HR stable, given Lovenox SQ x 1 last evening. Consideration for eliquis vs xarelto given afib on monitor and prior holter without event if agreeable vs discussion with PCP in follow up at [facility]?. Remains on metoprolol BID (needs rx) PT/OT rec rehab, possible home with home health per wishes if not needing to navigate up steps (2) History of bowel resection: Plan: as above, ostomy intact and functioning (3) Open abdominal wall wound: Plan: Postsurgical wound dehiscence of inferior abdominal incision/postsurgical seroma Wound cultures from 01/06/2024 have grown MSSA There was a fluid collection seen on admission 01/07 in the room left rectus abdominis that was thought to be seroma versus hematoma Surgery has been on board and they did not think it needed any intervention Patient was being treated with IV antibiotics. IV daptomycin / Zosyn was switched to IV cefazolin / Flagyl since recent wound cultures grew MSSA, further adjusted to Unasyn for broader lung coverage Repeat CT 01/10 showed that the fluid collection had resolved Wound care involved (4) Lactic acidemia: Plan: resolved (5) Chest pain: Plan: Chest pain/shortness of breath Cardiac enzymes negative CT angiography PE protocol negative for PE Likely in association with abdominal process Placed on supplemental O2 via NC overnight 01/15 due to SpO2 decreasing to 90% > RN reported episode of blood tinged sputum > CXR did NOT show evidence of congestive failure. It did note small pleural effusions with dependent consolidation. This could represent atelectasis or mild pneumonia/aspiration pneumonitis. Recommend radiographic follow-up to ensure resolution. > Of note, CT A/P from 01/10 did note Interval development of a mild left lower lobe bronchopneumonia and is on Unasyn as above for lung coverage. No longer on O2, 95% on RA and continue pulmonary toilet/incentive spirometry and will f/u C2V in AM for comparison (6) History of atrial fibrillation: Plan: Paroxysmal atrial fibrillation Noted in July 2023 in the setting of bowel perforation Subsequent 30-day athletic monitor showed NO A-fib per PCP records On 01/08, the patient had a short burst of A-fib. Spontaneously converted to sinus. On 01/09 she was hypokalemic and dehydrated Overnight on 01/13, patient had another episode of paroxysmal atrial fibrillation. Again converted to sinus rhythm after electrolytes repleted and IV fluids given. Potassium and magnesium was repleted 01/15 No episodes of PAF on telemetry. Intermittent runs of PATs but remained in NSR since 01/14 Started/continues on metoprolol tartrate 25 mg BID for rate control with stable rates and remains on NSR on telemetry since 01/14 Mag again LOW 1.5, IV replacement ordered as well as oral potassium to keep closer to 4 Lovenox SQ added for DVT proph Given already had 30 day event monitor as above after hospitalization in July 2023 and did NOT show any afib, consideration for longer term monitoring vs starting systemic AC given CHADsVASC score of 3 for stroke/risk prevention TSH checked and was slightly elevated but normal T4/T3 and f/u PCP Could consider anticoagulation for PAF when the time is appropriate if she continues to flip in and out of NSR -- last report afib on 01/14 Syncope Episode on 01/09, ?vasovagal 2nd to dehydration/bowel obstruction, proceeded by lightheadedness and was treated with IVF. ?if was having episode of afib at that time however. Continues on metoprolol BID as above, in NSR presently on monitor and HR controlled. Therapy evals as above (7) Status post colostomy: Plan: as above Other medical problems Left ankle pain Patient reports left ankle pain began around 01/14/24, denies any inciting injury or event Very minimal swelling noted around left ankle, tenderness to palpation near her medial malleolus and talus Left ankle x-ray revealed mild soft tissue swelling, but no fracture or acute bony abnormality identified Suspect gout attack -- empirically treated with colchicine x 48 hours Uric acid level low at 1.8 -- this does not fit the clinical picture of a gout attack, however, patient endorses resolution of symptoms after colchicine TSH check as above Refractory hypokalemia Hypokalemia continues despite repletion however mag low and replacement ordered and switching to SLOW mag to prevent diarrheal losses. K improved/stable but 20meq ordered to keep closer to 4 w/ pAfib as above Severe protein calorie malnutrition Noted Plan Updated at bedside 01/16 Dispo: continued inpatient stay on Unasyn, working on oral pain control/electrolyte replacement and added lovenox sq for dvt proph. consideration to start systemic anticoagulation given paroxysmal afib/risk for prevention if agreeable in f/u discussion. Hopeful dc 01/19 with home health (PT/OT recs rehab, needs to make sure able to live on first floor/unable to do steps at this time) Admission and Anticipated Discharge Date Admission Date: January 08, 2024 Results & Data Results & Data Vital Signs (Past 12 Hours) Vital Signs Temp Pulse Pulse Resp BP BP Pulse Ox 01/20/24 07:49 37.0 C 93 H 18 123/69 92 01/20/24 07:19 80 01/20/24 03:49 36.8 C 81 18 118/62 91 01/20/24 00:17 36.8 C 97 H 18 121/68 92 01/19/24 21:39 93 H O2 Del Method 01/20/24 07:49 Room Air 01/20/24 07:19 01/20/24 03:49 Room Air 01/20/24 00:17 Room Air 01/19/24 21:39 PG Care Time/CCT Total # of Minutes Spent Total Time Spent with Patient: Total time spent is greater than 50% in coordination of care (as documented) at patient's floor/unit and/or counseling patient: Coding Diagnoses SBO (small bowel obstruction) K56.609 History of bowel resection Z90.49 Open abdominal wall wound S31.109A Lactic acidemia E87.20 Chest pain R07.9 History of atrial fibrillation Z86.79 Status post colostomy Z93.3
--- NOTE | 2024-01-20 10:23 | XRay Report ---
TWO VIEW CHEST CLINICAL HISTORY: Follow-up airspace opacities. FINDINGS: PA and lateral chest radiographs are compared to study dated 01/16/2024 and correlated with chest CT dated 01/08/2024. The cardiomediastinal silhouette is unremarkable. Chronic interstitial th ickening is similar to previous. There is bibasilar scarring/atelectasis there dependent airspace opa cities are again seen on the lateral projection. This is partially cleared from 01/16/2024. There is no large pleural effusion or pneumothorax. The skeletal structures are osteopenic. The bony thorax ap pears intact. Degenerative change and scoliosis is noted in the spine. IMPRESSION: Dependent airspace opacities have partially cleared as compared to 01/16/2024. These are best on the lateral projection. Continued follow-up to complete resolution is recommended. ACT 112: Negative or not required by law. Electronically signed by: Brad Baptiste M.D. 01/20/2024 10:22 AM
[2024-01-20] MEDS: MAGNESIUM SULFATE / D5W 1 GM/100 ML BAG IV ONE (10:55)
[2024-01-20 11:23] VITALS: BP 109/71; TEMP 97.5
[2024-01-20] MEDS: traMADol HCL 50 MG TABLET PO PRN (12:59)
--- NOTE | 2024-01-20 13:46 | Discharge Summary ---
Discharge Summary Date of Service January 20, 2024 Principal Dx & Hospital Course #1 = Principal Diagnosis (1) SBO (small bowel obstruction): High-grade small bowel obstruction 73yo female with recent admission in July 2023 for sepsis 2nd to stercoral perforation with pneumoperitoneum following Ring's procedure with formation of LLQ ostomy and evaluated on 12/30 by general surgery office with healing superior portion however over the following weekend inferior portion opened up and was seen by wound care who felt suture reaction however had developed severe epigastric discomfort/nausea/vomiting x 2 and then shortness of breath on 01/07 which prompted return to ER for evaluation and treatment. NGT placed on admission, general surgery consulted CTAP on admission noting 3.1 x 0.8 cm fluid collection within the left rectus abdominis and general surgery was consulted and patient went to OR with Dr Ferrell on 01/10 for exploratory laparotomy, release of small bowel obstruction, takedown of enterocutaneous fistula, closure of small bowel enterotomy, extensive enterolysis. Patient with SLOW recovery. Initially was on Dapto/Zosyn and de-escalated to Ceftriaxone/Flagyl given MSSA from wound cx, however notable broadened abx to UNASYN on 01/15 for better lung coverage given concerns for aspiration pneumonia from vomiting prior to admission and WBC eventually normalized prior to discharge and has been afebrile. Repeat CXR prior to discharge with improvement and will require continued f/u to ensure resolution. Decision to continue abx coverage with Augmentin at discharge to complete course for aspiration pneumonia. Had extensive electrolyte replacement with potassium/magnesium and switched her usual magnesium to SLOW magnesium for better absorption and labs stable prior to discharge. She had been tolerating low fiber diet for several days, ostomy with liquid/pasty brown output. Was given PPI once daily while inpatient and noting hiatal hernia and continued once daily at discharge. She had continued inpatient stay while working on oral pain control regimen as was only ordered IV morphine/PO tylenol post-operatively and not able to tolerate oxycodone/codeine per report and was trialed on tramadol 50mg w/ tolera nce to such but needing increased and effective at 100mg dosing and rx sent at discharge and can alternate with Tylenol for baseline control. Outpatient follow up with Dr Ferrell planned for next week. Scant drainage from prior kentrell removal expected per discussion with PA but patient to monitor/call if any issues or return to ER. Notably patient did have repeat episodes of afib on monitor similar to when inpatient in July for sepsis as outlined however did have 30day event monitor as outpatient without recurrence and was not placed on anticoagulation at that time. Was started/continued on metoprolol 25mg BID and given rx at discharge and discussed with patient/ regarding her CHADsVASC score of 3 and treatment indicated for stroke prevention and patient/ requesting rx for 1 month of pradaxa which was sent and to follow up with primary care to consider longer term monitoring device and if not having any further in year could consider stopping. Discussed avoiding NSAIDs while on AC, her home meloxicam has been stopped. TSH was checked and SLIGHT bump (suspect reactive as discussed below) but normal T4/T3 and did not start Synthroid. Rec repeat TFT outpt Obtained PT/OT evals to ensure no needs, re-eval on 01/18 rec for rehab but patient wanting to go home and had repeat eval prior to dc and much improved and also looks much better and HH services arranged. updated at bedside prior to discharge. (2) History of bowel resection: as above, ostomy intact and functioning. outpt f/u Dr Ferrell this upcoming week (3) Open abdominal wall wound: Postsurgical wound dehiscence of inferior abdominal incision/postsurgical seroma Wound cultures from 01/06/2024 + MSSA. Fluid collection on admission CTAP thought to be seroma vs hematoma and did not feel needed intervention. Tx w/ IV abx as outlined above Discussed w/ surgery 01/18 and did not feel needed abx at dc but decision for augmentin for pneumonia coverage as above Repeat CT 01/10 w/ resolution of fluid collection, wound care (4) Lactic acidemia: resolved on repeat w/ tx above (5) Chest pain: Chest pain/shortness of breath suspected 2nd to abdominal process, also could have some reflux underlying noting hiatal hernia, but also could have MILD PNEUMONIA CXR w/o evidence for CHF, did not atelectasis vs mild pneumonia vs aspiration pneumonitis - did have vomiting prior to admission from above and was placed on PPI IV once daily. Cardiac enzymes negative. PPI continued. Tx as outlined No further CP, --Afib on monitor as below, metoprolol/pradaxa at dc, outpt f/u (6) History of atrial fibrillation: Paroxysmal atrial fibrillation Noted in July 2023 in the setting of bowel perforation Subsequent 30-day monitoring specialist showed NO A-fib per PCP records HOWEVER, on 01/08, the patient had a short burst of A-fib. Spontaneously converted to sinus. On 01/09 she was hypokalemic and dehydrated which were treated appropriately and remained NSR but then again 01/14 another episodes of afib which converted after IVF and electrolyte replacement and had been having intermittent runs of PAT but remained in NSR since 01/14 and was started/continued on metoprolol 25mg BID HRs acceptable and continued metoprolol 25mg PO BID at discharge TSH checked given prior borderline, slight elevation and not on medication at baseline but NORMAL T3/T4 and could be considered in f/u with PCP but given normal T4/T3 suspect slight elevation reactive and could be repeated as outpatient Switched mag to slow mag as above for absorption and continued PPI use to keep stores replete. Improvement in K levels subsequently as well. Given Lovenox SQ x 1 on 01/18 per ok w/ surgery as hadn't been on anything but SCDs ordered Discussed w/ patient and given CHADsVASC score of 3 w/ prior documented /known afib on monitor and should be on systemic AC for stroke prevention and discussed eliquis/xarelto but per who is on Pradaxa is more affordable for their insurance and was preferred. Discussed w/ supervising provider and sent rx for pradaxa Discussed w/ patient to AVOID any NSAIDs, dc'd meloxicam and can use the tramadol as above for pain, tylenol for non severe pain Could consider longer term/loop recorder for year to see if isolated in event of severe infection but again w/ 2 documented hospitalizations for such and risk score 3, rx started at dc. To monitor for any bleeding/contact medical care if occurs. Of note, did have reported vasovagal episode on 01/09 suspected 2nd to dehydration/bowel obstruction and was proceeded by lightheadedness and was tx w/ IVF w/ resolution but ?if was having burst afib but no further episodes reported. No ECHO this admission however was done in July this year when noted to have afib and LV EF 65-70% without significant valvular disease. Did note elevated RVSP to 30-40mmHg but normal RV size/function. (7) Pneumonia: As above, concerns for mild pneumonia vs aspiration pneumonia Repeat CXR prior to dc w/ improvement and decision to complete course w/ Augmentin as outlined above (8) Status post colostomy: as above Other medical problems Left ankle pain Reported 01/13 without reported event and had minimal swelling and suspected gout attack however uric acid low at 1.8 but was given colchicine x 48hrs with resolution. Will defer additional tx at this time but can f/u with PCP if any ongoing issues. Refractory hypokalemia 2nd to PO status/diarrheal losses. Improved with repletion of magneisum and switch to SLOW mag. Continued slow mag at discharge Severe protein calorie malnutrition Noted Plan Dispo : discharged with (updated at bedside) on Augmentin, PPI once daily, tramadol prn for pain and outpatient follow up with Dr Ferrell next week continued metoprolol BID for rate control/afib, rx for Pradaxa Home health arranged by CM Notes For Next Care Provider Noted to have several episodes of afib on telemetry similar to admission in July. No episodes since 01/14 but did have low K/magnesium however given prior episodes discussed anticoagulation and patient/ preference on Pradaxa due to cost. Sent 1 month supply and to monitor for any bleeding/follow up discussion about longer term event monitor and consideration to stop if no further episodes but CHADsVasc2 is 3 and indicating treatment warranted for prevention. Did start on metoprolol 25mg BID as well on 01/15 and continued at discharge. TSH was checked and normal. Was on abx for abd surgery but no need to continue per surgery however does/did have concerns for possible pneumonia/aspiration pneumonia and was continued on Unasyn with plans for Augmentin to complete course but should have repeat CXR in follow up to ensure resolution. Per surgery, Kentrell removed day prior and can have some drainage expected. Instructed patient to monitor for any worsening redness/drainage or pain. Issues w/ oxycodone vs codeine in the past reported but tolerated IV morphine but discussed and trial tramadol w/ tolerability and was increased to 100mg for effective pain control and avoidance for need for IV pain medication which had been continued through POD#7. Medication Changes From Visit Augmentin 1 tablet BID for another 4 days Tramadol 100mg q4h prn (1gm APAP q8h non-severe pain rec'd) Magnesium Oxide DISCONTINUED, started SLOW magnesium BID Protonix 40mg PO once daily Metoprolol tartrate 25mg PO BID Pradaxa 150mg PO BID DISCONTINUE meloxicam 7.5mg daily Admission HPI Per Admitting Provider The patient is a 73-year-old female with a past medical history including paroxysmal atrial fibrillation, B12 deficiency, hyperlipidemia, hypomagnesemia, insomnia, osteoporosis. She underwent a Ring's procedure for stercoral perforation, pneumoperitoneum and sepsis on 08/17/2023, with left lower quadrant ostomy formation. At her last office visit on 12/31/[address] Hurley, it was noted that her midline wound was healing well at the superior portion, however, over the weekend the inferior portion opened up. She was seen by wound care, who then felt that this was a suture reaction, and that the ostomy was functioning well. The patient presents to the emergency department this evening due to the development of severe epigastric pain, nausea and vomiting x 2, and then shortness of breath. [facility], which showed that she is status post left colon rese ction with descending colostomy formation of Natividad pouch. There was a 3.1 x 0.8 cm fluid collection within the left rectus abdominis. This is probably postsurgical and may reflect a seroma or resolving hematoma and is of questionable significance. Was also small amount of fluid within the pelvis. CBC with differential did show a neutrophilic leukocytosis Admission Exam Per Admitting Provider The patient is awake, alert and oriented 3, well developed and well nourished, normocephalic and atraumatic, lying in bed and in no acute distress. HEENT--PERRL, EOMI, mucous membranes and oropharynx dry. Neck--supple. No JVD. No bruits. Thyroid normal, trachea midline, no adenopathy. Heart--normal S1 and S2. No murmurs, rubs or gallops. Lungs--clear bilaterally, no respiratory distress, no accessory muscle use. Abdomen--normal bowel sounds and soft, nontender nondistended. Ostomy left lower quadrant formed stool Extremities--no cyanosis or clubbing. No edema. There are good distal pulses b/l. Dermatologic--postop wound has been dressed and bandaged by surgery Neurologic--cranial nerves II through XII grossly intact. Rheumatologic--normal range of motion. Psychiatric--normal affect. Discharge Exam General: 73yo female sitting up in chair, looks MUCH improved, in room HEENT: head atraumatic, normocephalic, mmm, trachea midline Resp: even/unlabored, faint basilar crackle (R>L), no wheezing/rales/tachypnea, on room air CV: RRR, no significant m/r/g, no pitting edema/calf tenderness, pulses present GI: +BS, soft/slight distension but no overt tenderness, ostomy intact w/ liquid/slightly pasty brown output, no rigidity/guarding, prior kentrell site w/ scant drainage, no overt erythema/surrounding cellulitis : no astorga MSK/Neuro: ambulating in the room, nonfocal, not confused, answering questions appropriately Psych: AOx3, cooperative with exam Discharge Plan Discharge Items Patient Disposition: Home - Home Health Services Reason For Visit: CHEST PAIN,N/V,WOUND INFECTION,RECTUS ABDOMINUS Discharge Diagnosis: Small bowel obstruction with fistula and need for exploratory laparotomy/resection Goals: You have been hospitalized for an urgent problem which required surgery. During your stay at [facility], we have made an effort to correct the problem that brought you to the hospital while keeping you as comfortable as possible. Surgery and medications were used to bring your condition under control and your discharge instructions will include directions for any medications you should take after leaving the hospital. Please make sure to follow the advice of your surgeon regarding follow up with the surgeon and with your primary care provider. Activity: Per Instructions section Lifting: No more than 10 pounds Bathing Comment: you can shower. No soaking in pools /bath for 2 weeks Exercise/Sports: Wait until after follow-up appointment Driving/Machine Use: no driving until cleared by surgeon Non-emergency contact: Surgeon Call non-emergency contact if: you have any medication questions, your symptoms worsen, your pain is worsening, you have a fever, your temperature is above 101.5, your wound has increased redness, your wound has increased drainage and your wound pain has increased Follow-up/Referrals: Matt Ferrell DO [Surgeon] - (call office for a follow up appoint on discharge) Magaly Mcmillan DO [Primary Care Provider] - 01/25/24 12:45 pm Diet: Low Fiber Addtl Attending Provider Instructions: You have been hospitalized and found to have small bowel obstruction with fistula tract likely from prior surgery and required surgery consult and taken to the OR for bowel resection and treatment of this tract and have had your diet advanced to low fiber. Tramadol has been used for pain control and being sent at discharge to use as needed for pain but can continue tylenol for non severe pain. We treated you with antibiotics and are continuing AUGMENTIN twice daily for another 4 days to complete the course for possible pneumonia which could have been caused by nausea/vomiting from the obstruction and repeat chest xray notes improvement but should be repeated in follow up with primary care to ensure resolution. You were given electrolyte replacement with magnesium and potassium and are going to switch your oral magnesium replacement to SLOW magnesium to help prevent your stores from dropping which can contribute to arrhythmia. You were noted to have episodes of atrial fibrillation similar to prior hospitalization in July and discussion was undertaken and decision to START PRADAXA for stroke prevention 150mg by mouth TWICE daily. AVOID NSAIDs while on this medication and monitor for any bleeding/alert primary care if this occurs or return to the ER. (THIS ALSO INCLUDES MELOXICAM WHICH HAS BEEN STOPPED) We had also started you on medication called METOPROLOL 25mg by mouth twice daily for treatment of rates/atrial fibrillation and this may be why you have not gone back into this rhythm however you can discuss longer term monitor with primary care provider as discussed. You are also being send on once daily acid reflux medication called protonix which we have provided while in the hospital and do have a small hiatal hernia which can contribute to reflux symptoms as well. Please follow up with primary care in the next 7-10 days. Please follow up with Dr Ferrell next week. Please notify provider or return to ER with any fevers/chills, chest pain, worsening abdominal pain, increased redness/drainage from incision or for any other symptoms concerning for you. It has been a pleasure being a part of the medical team providing for you while you have been in the hospital. Take care! ANTICOAGULATION INSTRUCTIONS Medication Instructions: Your condition is typically treated with an anticoagulant. Anticoagulants will thin your blood to help prevent new clots. * You should take her medication exactly as directed. * Never skip a dose. * Never take a double dose. If you miss a dose, take it as soon as you remember. Call your Primary Care doctor if you experience any of the following: * Swelling or Pain in your leg * Sudden, continuous pain deep in a muscle * Pain that worsens when you are active or when you stand still for a long time * Chest Pain * Sudden Shortness of Breath * Rapid or pounding heart beat * Fainting * Dizziness * Cough with blood or bloody sputum * Sweating more than normal * Bruises * Heavy or uncontrolled bleeding * Blood in your urine, stool or vomit * Black or tarry stools Caring for Your Self at Home: * Avoid sitting, standing or lying down for long periods without moving your legs and feet * When traveling by car, stop to get out and move around at least once every 3 hours * On long airplane, train or bus rides, get up and move around when possible * If you can't get up, wiggle your toes and tighten your calves to keep your blood moving Follow Up: It is important for you to keep your follow up appointments with your medical provider. Addtl Campaign Director Provider Instructions: SPECIAL CARE INSTRUCTIONS: * You may Cover your midline incision with gauze and tape , change dressing daily for comfort/drainage. You have jimmy that will removed at your follow up appointment. * You may shower 01/19/24 . NO soaking in pools or baths for 2 weeks * No lifting greater than 10lbs. No exercise until cleared by surgeon. Light walking is accepted. * No driving while taking narcotic pain medication * No drinking alcohol while taking narcotic pain medication * May use Ibuprofen/Tylenol over the counter for pain as tolerated. Do not exceed 3grams of Tylenol per 24 hours * Expect some swelling and bruising. * Diet LOW FIBER Call your doctor if: * Temperature above 101 degrees, nausea/vomiting, fever/chills * Pain not relieved by pain medicine ordered * There is increased drainage or redness from any incision * You have any unanswered questions or concerns [phone]. FOLLOW UP VISIT: If not already scheduled, please call the office for a follow-up visit. Office Pending Studies at Discharge: No Stand-Alone Forms: My [facility] [employer], Smoking Cessation Medications and DC Order Prescriptions: New metoprolol tartrate 25 mg Tablet 25 mg PO BID Qty: 60 0RF magnesium chloride [Mag 64] 64 mg Tablet,Delayed Release (Dr/Ec) 64 mg PO BID Qty: 60 0RF amoxicillin-pot clavulanate 875-125 mg tablet 1 tab PO BID 4 Days Qty: 9 0RF dabigatran etexilate 150 mg capsule 150 mg PO BID Qty: 60 0RF tramadol 50 mg tablet 100 mg PO Q4H PRN (Reason: pain) Qty: 60 0RF pantoprazole 40 mg tablet,delayed release (DR/EC) 40 mg PO DAILY Qty: 30 0RF Continued curcumin-phosphatidylcholine 500 mg capsule 500 mg PO QAM multivitamin [Multiple Vitamins] Tablet 1 tab PO QAM pravastatin 40 mg Tablet 40 mg PO HS cyanocobalamin (vitamin B-12) [Vitamin B-12] 1,000 mcg Tablet 1,000 mcg PO QAM diclofenac sodium 1 % Gel 4 g TOPICAL QID PRN (Reason: Pain) Rx Instructions: apply to single knee, ankle, foot; for foot includes sole/toes/top of foot docusate sodium 50 mg Capsule 50 mg PO QAM calcium carbonate-vitamin D3 600 mg-5 mcg (200 unit) Tablet 1 tab PO QAM cholecalciferol (vitamin D3) [Vitamin D3] 25 mcg (1,000 unit) Capsule 25 mcg PO QAM amitriptyline 10 mg tablet 10 mg PO HS Discontinued magnesium oxide 400 mg (241.3 mg magnesium) tablet 400 mg PO BID meloxicam 7.5 mg tablet 7.5 mg PO QAM Discharge Orders: Discharge Order (Routine); Ordered 01/20/24 Ordered By: Miriam Riojas/Other Patient Handouts: Dabigatran Etexilate Oral Capsule, Tramadol Oral Tablet, Pantoprazole Delayed Release Oral Tablet, Amoxicillin/Clavulanate Oral Tablet Admission Data Admit Date/Time: 01/08/24 20:33 Attending Provider: Fan Cardona Admit Provider: Piter Barahona Primary Care Provider: Magaly Mcmillan Other Providers: Jj To; Piter Barahona; [facility]; [facility] Other Interventions: Discharge Summary Assessment (RN) Last Done: 01/20/24 14:32 Hospital Stay Data Consultations 01/08/24 19:20 Consult General Surgery Stat 01/08/24 19:22 ED Decision to Admit Stat Procedures Performed Operation Date: 01/11/24 10:05 Actual Procedures p Exploratory Laparotomy, Release of Small Bowel Obstruction, Take down of enterocutaneous fistula, closure of small bowel enterotomy, extensive enterolysis, (Not Applicable) - Matt Ferrell DO s Appendectomy(Not Applicable) - Matt Ferrell DO Diagnostic Imagining Performed Abdomen/Pelvis CT 01/08/24 17:05 CT OF THE ABDOMEN AND PELVIS WITH CONTRAST CLINICAL HISTORY: Abdominal pain. COMPARISON STUDY: CT of the abdomen and pelvis August 17, 2023. TECHNIQUE: Following IV administration of 119 mL of Optiray, axial images of the abdomen and pelvis were obtained from the lung bases to the proximal femurs. Images were reviewed in the axial, sagittal, and coronal planes. IV contrast was administered without complication. Automated exposure control was utilized for the study. A dose lowering technique was utilized adhering to the principles of ALARA. FINDINGS: This exam is mildly compromised by motion artifact. No pneumatosis, free air or portal venous gas is present. There is mild circumferential wall thickening of the distal esophagus. Liver, spleen, adrenal glands, kidneys and pancreas are unremarkable. Is no biliary or pancreatic ductal dilatation. There is no hydronephrosis. There is no peripancreatic or pericholecystic infiltration. Interval left colon resection with formation of the descending colostomy and Natividad pouch is noted. There is no evidence for a bowel obstruction. The caliber and wall thickness of small and large bowel are normal. The bladder is distended. Right hip arthroplasty is incidentally noted. There is severe lumbar spine levoscoliosis. There is a small amount of fluid within the pelvis. Major vasculature is patent. There is no lymphadenopathy. There is a tiny 3.1 x 0.8 cm fluid collection within the left rectus abdominis on image 101 of 309. No additional fluid collections are present. IMPRESSION: 1. Status post left colon resection with descending colostomy formation of a Natividad pouch. No evidence for a bowel obstruction. No bowel wall thickening. 2. Tiny 3.1 x 0.8 cm fluid collection within the left rectus abdominis. This is probably postsurgical and may reflect a seroma or resolving hematoma and is of questionable significance. 3. Small amount of fluid within the pelvis. 4. Exam mildly compromised by motion artifact. ACT 112: Negative or not required by law. Electronically signed by: Anthony Oshea M.D. 01/08/2024 6:35 PM Chest X-Ray 01/08/24 17:05 XR chest 1V portable CLINICAL HISTORY: Sepsis COMPARISON STUDY: Chest radiograph December 25, 2023. FINDINGS: Lung volumes are normal. There is no consolidation. Minimal left basilar opacity favors atelectasis. There is no pneumothorax or pleural effusion. Cardiac size is normal. Mediastinal contours are normal. There is no evidence for pulmonary edema. Thoracolumbar spine scoliosis is incidentally noted. IMPRESSION: No acute cardiopulmonary findings. ACT 112: Negative or not required by law. Electronically signed by: Anthony Oshea M.D. 01/08/2024 5:35 PM Chest CTA 01/08/24 17:06 CT ANGIOGRAPHY OF THE CHEST, PULMONARY EMBOLUS PROTOCOL CLINICAL HISTORY: Shortness of breath. Evaluate for pulmonary embolus. COMPARISON STUDY: Chest radiograph December 25, 2023 and chest radiograph performed earlier today. TECHNIQUE: Following IV administration of 119 mL of Optiray, helical axial images of the chest were obtained utilizing the pulmonary embolus protocol. Maximal intensity projections and sagittal and coronal reformats were viewed on an independent 3D workstation. IV contrast was administered without complication. Automated exposure control was utilized for the study. A dose lowering technique was utilized adhering to the principles of ALARA. CT DOSE: 813.23 mGy.cm FINDINGS: No central or lobar pulmonary emboli are identified. This exam is significantly compromised by respiratory motion. The segmental and subsegmental pulmonary arteries are suboptimally assessed. Central pulmonary arteries are mildly dilated. Pectus excavatum deformity is present. There is no thoracic aortic dissection. The heart is mildly enlarged. There is no pericardial effusion. Central airways are patent. There is no pneumothorax or pleural effusion. Evaluation of the lungs is compromised given motion artifact. However, no consolidation is identified. There are no definite pulmonary nodules. Abdomen and pelvis CT will be reported separately. IMPRESSION: 1. Exam significantly compromised by respiratory motion artifact. No pulmonary emboli identified although segmental and subsegmental pulmonary arteries suboptimally assessed. 2. No consolidation to suggest pneumonia. 3. No acute intrathoracic findings identified. ACT 112: Negative or not required by law. Electronically signed by: Anthony Oshea M.D. 01/08/2024 6:27 PM Abdomen/Pelvis CT 01/11/24 07:[address] WITH IV AND ORAL CONTRAST CT DOSE: 652.66 mGy.cm HISTORY: Follow-up study in a patient with abdominal wall fluid collection abd abscess TECHNIQUE: Multiaxial CT images of the abdomen and pelvis were performed following the IV administration of 94 cc of Optiray and oral contrast. A dose lowering technique was utilized adhering to the principles of ALARA. COMPARISON STUDY: 01/08/2024 FINDINGS: Cardiomegaly with coronary arterial calcifications. Left hemidiaphragmatic elevation with bibasilar atelectasis versus scarring. There are additional patchy groundglass and nodular consolidative opacities of the basal left lower lobe which are new from prior. No free air. Unremarkable spleen, moderately atrophic pancreas and adrenal glands. Distended gallbladder. Unremarkable liver. Patent portal vein. Heterogeneity of the kidneys with parenchymal lobulations and areas of probable scarring. No hydronephrosis. Pelvic structures are suboptimally evaluated secondary to streak artifact from the right hip arthroplasty. Atherosclerosis of the aorta and branch vessels. No lymphadenopathy. Stomach and distal esophagus are distended. Additionally, there is distention of several small bowel loops with transition to narrowing the abdominal lower quadrant. Additionally, there is twisting of the left lower quadrant mesentery. Possible 2 focal transition points within the left lower quadrant abdomen on image 212 series 3. Dilated small bowel loops measure up to 4.5 cm. Fluid-filled loops loops of small bowel within the pelvis demonstrates circumferential wall thickening and are fluid-filled. Mild interval edema with trace abdominal and pelvic ascites. 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 Previously noted 3 cm fluid collection within the rectus sheath is no longer identified. Levoscoliosis of the thoracolumbar junction. IMPRESSION: 1. Interval development of a high-grade small bowel obstruction with transition point within the abdominal left lower quadrant, possibly secondary to an internal hernia. Additionally, there are findings suspicious for a closed loop obstruction. 2. Prior left colon resection with descending colostomy and Natividad pouch formation. 3. Previously noted 3 cm fluid collection within the left rectus sheath is no longer present. 4. No pneumoperitoneum. 5. Trace pelvic ascites. 6. Interval development of a mild left lower lobe bronchopneumonia. ACT 112: Negative or not required by law. The above report was generated using voice recognition software. It may contain grammatical, syntax or spelling errors. Electronically signed by: Sarabjit Kimble M.D. 01/11/2024 10:55 AM Chest X-Ray 01/11/24 14:39 XR chest 1V portable HISTORY: 73 years-old Female S/P Ex Lap, aspirated acute shortness of breath COMPARISON: CTA chest 01/08/2024 TECHNIQUE: AP view of the chest FINDINGS: Cardiomediastinal and hilar silhouettes are within normal limits. There are mild patchy bibasilar opacities. No pneumothorax. Enteric tube courses into the stomach with distal tip outside the [id number]. Moderate pneumoperitoneum. Bones appear grossly intact. IMPRESSION: 1. Subtle bibasilar opacities suggestive of a mild pneumonitis. 2. Pneumoperitoneum, likely related to the patient's recent abdominal surgery. 3. Distal tip of the enteric tube courses into the stomach. ACT 112: Negative or not required by law. The above report was generated using voice recognition software. It may contain grammatical, syntax or spelling errors. Electronically signed by: Sarabjit Kimble M.D. 01/11/2024 3:24 PM Chest X-Ray 01/12/24 22:32 SINGLE VIEW CHEST CLINICAL HISTORY: Productive cough FINDINGS: An AP, portable, upright chest radiograph is compared to study dated 01/11/2024 and correlated with chest CT dated 01/08/2024. An enteric tube is unchanged in position. The heart is enlarged noting atherosclerotic calcification of the thoracic aorta. Pulmonary vasculature is noncongested. Chronic interstitial thickening is similar to previous. Increasing airspace opacities of the lung bases likely represent scarring/atelectasis. No pneumothorax is seen. The skeletal structures are osteopenic. The bony thorax is grossly intact. Degenerative change and scoliosis is seen in the spine. Intraperitoneal free air is again seen below the right hemidiaphragm. IMPRESSION: 1. Cardiomegaly without radiographic evidence of congestive failure. 2. Increasing opacities at the lung bases likely represents progressive atelectasis. Correlate clinically. 3. Intraperitoneal free air is again seen below the right hemidiaphragm. ACT 112: Negative or not required by law. Electronically signed by: Brad Baptiste M.D. 01/13/2024 7:41 AM Chest X-Ray 01/16/24 09:59 TWO VIEW CHEST CLINICAL HISTORY: Cough. Blood tinged sputum. FINDINGS: PA and lateral chest radiographs are compared to study dated 01/12/2024 and correlated with chest CT dated 01/08/2024. An enteric tube has been removed. The heart is enlarged noting atherosclerotic calcification of the thoracic aorta. The pulmonary vasculature is noncongested. Chronic interstitial thickening is similar to previous. There are small pleural effusions with dependent consolidation. There is no pneumothorax. The skeletal structures are osteopenic. The bony thorax appears intact. Degenerative change and scoliosis is noted in the thoracic spine. IMPRESSION: 1. Cardiomegaly without radiographic evidence of congestive failure. 2. Small pleural effusions with dependent consolidation. This could represent atelectasis versus a mild pneumonia/aspiration pneumonitis. Clinical correlation will be required and radiographic follow-up to resolution is recommended. ACT 112: Negative or not required by law. Electronically signed by: Brad Baptiste M.D. 01/16/2024 1:07 PM Ankle X-Ray 01/16/24 11:08 LEFT ANKLE 3 VIEWS CLINICAL HISTORY: Left ankle pain. FINDINGS: 3 views of the left ankle are obtained. No prior studies are available for comparison at the time of dictation. The skeletal structures are osteopenic. No fracture is seen. The ankle mortise is intact. There is a large plantar heel spur. Mild soft tissue swelling is noted in the left leg. IMPRESSION: No acute bony abnormality is identified. Electronically signed by: Brad Baptiste M.D. 01/16/2024 12:13 PM Chest X-Ray 01/20/24 06:00 TWO VIEW CHEST CLINICAL HISTORY: Follow-up airspace opacities. FINDINGS: PA and lateral chest radiographs are compared to study dated 01/16/2024 and correlated with chest CT dated 01/08/2024. The cardiomediastinal silhouette is unremarkable. Chronic interstitial thickening is similar to previous. There is bibasilar scarring/atelectasis there dependent airspace opacities are again seen on the lateral projection. This is partially cleared from 01/16/2024. There is no large pleural effusion or pneumothorax. The skeletal structures are osteopenic. The bony thorax appears intact. Degenerative change and scoliosis is noted in the spine. IMPRESSION: Dependent airspace opacities have partially cleared as compared to 01/16/2024. These are best on the lateral projection. Continued follow-up to complete resolution is recommended. ACT 112: Negative or not required by law. Electronically signed by: Brad Baptiste M.D. 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 Tramadol has been used for pain control and being sent at discharge to use as needed for pain but can continue tylenol for non severe pain. We treated you with antibiotics and are continuing AUGMENTIN twice daily for another 4 days to complete the course for possible pneumonia which could have been caused by nausea/vomiting from the obstruction and repeat chest xray notes improvement but should be repeated in follow up with primary care to ensure resolution. You were given electrolyte replacement with magnesium and potassium and are going to switch your oral magnesium replacement to SLOW magnesium to help prevent your stores from dropping which can contribute to arrhythmia. You were noted to have episodes of atrial fibrillation similar to prior hospitalization in July and discussion was undertaken and decision to START PRADAXA for stroke prevention 150mg by mouth TWICE daily. AVOID NSAIDs while on this medication and monitor for any bleeding/alert primary care if this occurs or return to the ER. (THIS ALSO INCLUDES MELOXICAM WHICH HAS BEEN STOPPED) We had also started you on medication called METOPROLOL 25mg by mouth twice daily for treatment of rates/atrial fibrillation and this may be why you have not gone back into this rhythm however you can discuss longer term monitor with primary care provider as discussed. You are also being send on once daily acid reflux medication called protonix which we have provided while in the hospital and do have a small hiatal hernia which can contribute to reflux symptoms as well. Please follow up with primary care in the next 7-10 days. Please follow up with Dr Ferrell next week. Please notify provider or return to ER with any fevers/chills, chest pain, worsening abdominal pain, increased redness/drainage from incision or for any other symptoms concerning for you. It has been a pleasure being a part of the medical team providing for you while you have been in the hospital. Take care! ANTICOAGULATION INSTRUCTIONS Medication Instructions: Your condition is typically treated with an anticoagulant. Anticoagulants will thin your blood to help prevent new clots. * You should take her medication exactly as directed. * Never skip a dose. * Never take a double dose. If you miss a dose, take it as soon as you remember. Call your Primary Care doctor if you experience any of the following: * Swelling or Pain in your leg * Sudden, continuous pain deep in a muscle * Pain that worsens when you are active or when you stand still for a long time * Chest Pain * Sudden Shortness of Breath * Rapid or pounding heart beat * Fainting * Dizziness * Cough with blood or bloody sputum * Sweating more than normal * Bruises * Heavy or uncontrolled bleeding * Blood in your urine, stool or vomit * Black or tarry stools Caring for Your Self at Home: * Avoid sitting, standing or lying down for long periods without moving your legs and feet * When traveling by car, stop to get out and move around at least once every 3 hours * On long airplane, train or bus rides, get up and move around when possible * If you can't get up, wiggle your toes and tighten your calves to keep your blood moving Follow Up: It is important for you to keep your follow up appointments with your medical provider. Supervising Physician Co-Signing Physician Notes The patient was not seen by me. The chart was reviewed. Case discussed with RANDAL Smith. 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
[2024-01-20 14:49] VITALS: PULSE 74
== END 2024-01-20 15:22 | disposition home health service (06) | DRG 907 ==
LOC: ED 16:05 → EDINP 20:33 → SUATTDRO 20:33 → 2N 01-09 11:02 → 2W 01-17 12:17